=== PATIENT | male | born 1930 | race Caucasian/White ===

== ENCOUNTER 2016-12-02 03:38 | Observation (INO) | payer MEDICARE ==
[~2016-12-02] VITALS: Ht 167.6 cm; Wt 75.4 kg
[2016-12-02] VITALS (16 sets, daily range): BP systolic 98–174; BP diastolic 77–96
[~2016-12-02 03:38] MED LIST: AML5T PO; AMLO10TA PO; AMLO10TA5; ASP81TEC PO; AZTH250C PO; CCLB10TRX; CENTRUM; CLPD75T PO; CPR500T PO; CYCL10TA45; DCS100C PO; EZET10TA5 PO; FENO48TA2 PO; FESO4TAB PO; GLUCO/CHON; KCL20TCR PO; LACT10SO33 PO; MTP25TSR PO; MULT-1029 PO; NFR150C PO; NTR.4SL SL; OXYC-272 PO; POLY17PO23 PO
[2016-12-02] MEDS ORDERED: NS IV 1000 ML 1,000 ML IV ONE (03:46)
[2016-12-02 04:02] LABS: BASOPHILS % (AUTO) 0 % (0-10); EOSINOPHILS # (AUTO) 0.2 10^3/uL (0.0-0.3); EOSINOPHILS % (AUTO) 3 % (0-10); LYMPHOCYTES # (AUTO) 0.8 X 10^3 (1.0-4.0); LYMPHOCYTES % (AUTO) 13 % (12-44); MEAN CORPUSCULAR HEMOGLOBIN 31 PG (25-34); MEAN CORPUSCULAR HGB CONC 34 G/DL (32-36); MEAN CORPUSCULAR VOLUME 91 FL (80-99); MEAN PLATELET VOLUME 11.2 FL (7.4-10.4); MONOCYTES # (AUTO) 0.9 X 10^3 (0.0-1.0); MONOCYTES % (AUTO) 15 % (0-12); NEUTROPHILS # (AUTO) 4.2 X 10^3 (1.8-7.8); NEUTROPHILS % (AUTO) 68 % (42-75); PLATELET COUNT 230 10^3/uL (130-400); RED BLOOD COUNT 4.38 10^6/uL (4.35-5.85); RED CELL DISTRIBUTION WIDTH 13.4 % (10.0-14.5); WHITE BLOOD COUNT 6.2 10^3/uL (4.3-11.0)
[2016-12-02 04:10] LABS: BILIRUBIN,URINE NEGATIVE (NEGATIVE); KETONES,URINE NEGATIVE (NEGATIVE); LEUKOCYTE ESTERASE ,URINE NEGATIVE (NEGATIVE); NITRITE,URINE NEGATIVE (NEGATIVE); PH,URINE 8 (5-9); PROTEIN,URINE NEGATIVE (NEGATIVE); UROBILINOGEN,URINE NORMAL (NORMAL)
[2016-12-02 04:18] LABS: SQUAMOUS EPITHELIAL CELL,UR RARE /HPF
[2016-12-02 04:23] LABS: ALANINE AMINOTRANSFERASE 11 U/L (0-55); ANION GAP 14 MMOL/L (5-14); ASPARTATE AMINO TRANSFERASE 19 U/L (5-34); BILIRUBIN,TOTAL 0.5 MG/DL (0.1-1.0); BLOOD UREA NITROGEN 31 MG/DL (7-18); BUN/CREATININE RATIO 18; CALCIUM 9.6 MG/DL (8.5-10.1); CARBON DIOXIDE 18 MMOL/L (21-32); CHLORIDE 108 MMOL/L (98-107); CREATININE SERUM 1.74 MG/DL (0.60-1.30); GFR ESTIMATED 37; GLUCOSE 141 MG/DL (70-105); MAGNESIUM 2.2 MG/DL (1.8-2.4); POTASSIUM 3.6 MMOL/L (3.6-5.0); SODIUM 140 MMOL/L (135-145); TOTAL PROTEIN 7.2 G/DL (6.4-8.2)
--- NOTE | 2016-12-02 04:28 | ED General ---
General Chief Complaint: Respiratory Problems Stated Complaint: SOA Nursing Triage Note: PT TO ED 8 PER EMS FOR C/O "POSSIBLE CARBON MONOXIDE POISONING." PT CALLED EMS ET FIRE TO HIS HOME HE WOKE FROM SLEEP, WAS DIZZY, FELL ET WAS ALSO C/O SOB. STATES HE THINKS HIS CAT "PUT A ROCK OVER HIS EXHAUST ET THINKS TOO MUCH CARBON MONOXIDE WAS IN HIS HOUSE ET POISONING HIM." PT APPEARS VERY ANXIOUS, UNABLE TO FOCUS ET ANSWER QUESTIONS ASKED BY STAFF. NO OTHER C/O VOICED AT THIS TIME. Nursing Sepsis Screen: No Definite Risk Source of Information: Patient, EMS, Old Records Exam Limitations: Other (Patient is confused) History of Present Illness Time Seen by Provider: 03:39 Allergies and Home Medications Allergies Coded Allergies: Penicillins (Verified Allergy, Unknown, 02/15/12) Home Medications Amlodipine Besylate 10 Mg Tablet, 10 MG PO DAILY, (Reported) Aspirin 81 Mg Tabec, 81 MG PO DAILY, (Reported) Clopidogrel Bisulfate 75 Mg Tab, 75 MG PO DAILY, (Reported) Ezetimibe 10 Mg Tablet, 10 MG PO DAILY, (Reported) Fenofibrate,Micronized 48 Mg Tablet, 48 MG PO DAILY, (Reported) Fesoterodine Fumarate 4 Mg Tab.sr.24h, 4 MG PO DAILY, (Reported) Metoprolol Succinate 25 Mg Tab, 25 MG PO DAILY, (Reported) Mu-Vits-Min Th/Lycopene/Lutein 1 Each Tablet, 1 EACH PO DAILY, (Reported) Oxycodone Hcl/Acetaminophen 1 Tab Tablet, 1 TAB PO Q4H PRN for PAIN, #60 Prescribed by: LUIS VALENCIA on 11/19/13 1100 Polysaccharide Iron Complex 150 Mg Cap, 150 MG PO BID WITH MEALS, #60 Prescribed by: LUIS VALENCIA on 11/19/13 1100 Past Swxfrcy-Gjtzeu-Xjlqry Hx Patient Social History Alcohol Use: Denies Use Recreational Drug Use: No Smoking Status: Never a Smoker Recent Foreign Travel: No Contact w/Someone Who Travel: No Recent Infectious Disease Expo: No Recent Hopitalizations: Yes Immunizations Up To Date Tetanus Booster (TDap): Unknown Date of Pneumonia Vaccine: Jun 01, 2011 Date of Influenza Vaccine: Jun 01, 2013 Surgeries HX Surgeries: Yes (STENTS X 2, ENDARTECTOMY, BRACHYTHERAPY, ) Surgeries: CABG Respiratory Hx Respiratory Disorders: No Cardiovascular Hx Cardiac Disorders: Yes (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 ) Neurological Hx Neurological Disorders: No Reproductive System Hx Reproductive Disorders: No Genitourinary Hx Genitourinary Disorders: Yes (BRACHYAL THERAPY 08/03/08) Gastrointestinal Hx Gastrointestinal Disorders: Yes Musculoskeletal Hx Musculoskeletal Disorders: Yes (ARTHRITIS) Endocrine Hx Endocrine Disorders: No HEENT HX ENT Disorders: Yes (GLASSES) Cancer Hx Cancer: Yes Cancer: Prostate Psychosocial Hx Psychiatric Problems: Yes Behavioral Health Disorders: Depression Integumentary HX Skin/Integumentary Disorder: No Blood Transfusions Hx Blood Disorders: No (TAKES PLAVIX) Family Medical History Family Medial History: Cancer 09 SISTER Family history: Arthritis 03 FATHER 03 MOTHER Family history: Diabetes mellitus 03 MOTHER Family history: Gastrointestinal disease 03 FATHER History of - anemia 03 FATHER No Family History of: Abdominal aortic aneurysm Congestive heart failure Dementia Family history: Alzheimer's disease Family history: Asthma Family history: Breast disease Family history: Cardiovascular disease Family history: Hypertension Family history: Thyroid disorder Hereditary disease History of - respiratory disease Myocardial infarction Parkinson's disease Psychotic disorder Stroke Physical Exam Vital Signs Vital Sign - Last 12Hours 12/02/16 03:38 Temp 97.8 Pulse 78 Resp 24 B/P (MAP) 179/99 Pulse Ox 100 O2 Delivery Room Air Capillary Refill : Less Than 3 Seconds Progress/Results/Core Measures Results/Orders Lab Results Laboratory Tests Test 12/02/16 03:55 12/02/16 04:05 Range/Units White Blood Count 6.2 4.3-11.0 10^3/uL Red Blood Count 4.38 4.35-5.85 10^6/uL Hemoglobin 13.7 13.3-17.7 G/DL Hematocrit 40 40-54 % Mean Corpuscular Volume 91 80-99 FL Mean Corpuscular Hemoglobin 31 25-34 PG Mean Corpuscular Hemoglobin Concent 34 32-36 G/DL Red Cell Distribution Width 13.4 10.0-14.5 % Platelet Count 230 130-400 10^3/uL Mean Platelet Volume 11.2 H 7.4-10.4 FL Neutrophils (%) (Auto) 68 42-75 % Lymphocytes (%) (Auto) 13 12-44 % Monocytes (%) (Auto) 15 H 0-12 % Eosinophils (%) (Auto) 3 0-10 % Basophils (%) (Auto) 0 0-10 % Neutrophils # (Auto) 4.2 1.8-7.8 X 10^3 Lymphocytes # (Auto) 0.8 L 1.0-4.0 X 10^3 Monocytes # (Auto) 0.9 0.0-1.0 X 10^3 Eosinophils # (Auto) 0.2 0.0-0.3 10^3/uL Basophils # (Auto) 0.0 0.0-0.1 10^3/uL Prothrombin Time 13.0 12.2-14.7 SEC INR Comment 1.0 0.8-1.4 Activated Partial Thromboplast Time 20 L 24-35 SEC Sodium Level 140 135-145 MMOL/L Potassium Level 3.6 3.6-5.0 MMOL/L Chloride Level 108 H 98-107 MMOL/L Carbon Dioxide Level 18 L 21-32 MMOL/L Anion Gap 14 5-14 MMOL/L Blood Urea Nitrogen 31 H 7-18 MG/DL Creatinine 1.74 H 0.60-1.30 MG/DL Estimat Glomerular Filtration Rate 37 BUN/Creatinine Ratio 18 Glucose Level 141 H 70-105 MG/DL Calcium Level 9.6 8.5-10.1 MG/DL Magnesium Level 2.2 1.8-2.4 MG/DL Total Bilirubin 0.5 0.1-1.0 MG/DL Aspartate Amino Transf (AST/SGOT) 19 5-34 U/L Alanine Aminotransferase (ALT/SGPT) 11 0-55 U/L Alkaline Phosphatase 71 40-136 U/L Myoglobin 106.8 H 10.0-92.0 NG/ML Troponin I < 0.30 <0.30 NG/ML Total Protein 7.2 6.4-8.2 G/DL Albumin 4.0 3.2-4.5 G/DL Serum Alcohol < 10 <10 MG/DL Urine Color YELLOW Urine Clarity CLEAR Urine pH 8 5-9 Urine Specific [place] 1.010 L 1.016-1.022 Urine Protein NEGATIVE NEGATIVE Urine Glucose (UA) NEGATIVE NEGATIVE Urine Ketones NEGATIVE NEGATIVE Urine Nitrite NEGATIVE NEGATIVE Urine Bilirubin NEGATIVE NEGATIVE Urine Urobilinogen NORMAL NORMAL MG/DL Urine Leukocyte Esterase NEGATIVE NEGATIVE Urine RBC (Auto) NEGATIVE NEGATIVE Urine RBC NONE /HPF Urine WBC NONE /HPF Urine Squamous Epithelial Cells RARE /HPF Urine Crystals NONE /LPF Urine Bacteria TRACE /HPF Urine Casts NONE /LPF Urine Mucus NEGATIVE /LPF Urine Culture Indicated NO My Orders Orders - BRUEGGEMANN,ANJALI T MD Cbc With Automated Diff (12/02/16 03:46) Magnesium (12/02/16 03:46) Chest 1 View, Ap/Pa Only (12/02/16 03:46) Ekg Tracing (12/02/16 03:46) Cardiac Profile 1 (12/02/16 03:46) Comprehensive Metabolic Panel (12/02/16 03:46) Myoglobin Serum (12/02/16 03:46) Protime With Inr (12/02/16 03:46) Partial Thromboplastin Time (12/02/16 03:46) O2 (12/02/16 03:46) Monitor-Rhythm Ecg Trace Only (12/02/16 03:46) Lipid Panel (12/03/16 06:00) Saline Lock/Iv-Start (12/02/16 03:46) Ct Head/Cervical Spine Wo (12/02/16 03:46) Alcohol (12/02/16 03:46) Ns Iv 1000 Ml (Sodium Chloride 0.9%) (12/02/16 03:46) Ua Culture If Indicated (12/02/16 03:46) Medications Given in ED Current Medications Medications Dose Ordered Sig/Tamera Route Start Time Stop Time Status Last Admin Dose Admin Sodium Chloride 1,000 ml @ 0 mls/hr Q0M ONCE IV 12/02/16 03:46 12/02/16 03:49 DC 12/02/16 03:57 0 MLS/HR Vital Signs/I&O Vital Sign - Last 12Hours 12/02/16 03:38 Temp 97.8 Pulse 78 Resp 24 B/P (MAP) 179/99 Pulse Ox 100 O2 Delivery Room Air Blood Pressure Mean: 125 ECG Initial ECG Impression Date: Dec 02, 2016 Initial ECG Impression Time: 03:48 Initial ECG Rate: 75 Comment Sinus rhythm with no ST elevation or depression. No abnormal intervals or axis deviation. LVH noted. EKG : EKG Time: 05:44 Rate: 75 Rhythm: Normal Sinus Comment Sinus rhythm with no ST elevation or depression. LVH with secondary repolarization. Right bundle branch block. Diagnostic Imaging Diagonstic Imaging: CT Plain Films/CT/US/NM/MRI: c-spine, head Comments CT head and C-spine viewed by me and stat rad report reviewed. No acute abnormalities identified. Diagonstic Imaging: Xray Plain Films/CT/US/NM/MRI: chest Comments Chest x-ray viewed by me and report not yet available. No acute abnormalities appreciated. Departure Communication Time/Spoke to Admitting Phy: 05:55 Communication Case reviewed with Dr. Blum. He agrees patient should be admitted to the ICU under close observation. He requests Dr. Patterson be consulted. Time/Spoke to Consulting Physi: 06:00 Communication/Consulting Dr. Patterson has been consulted. He requests no further orders at this time. Impression Impression: Primary Impression: Syncope Qualified Codes: R55 - Syncope and collapse Additional Impressions: Dyspnea Qualified Codes: R06.00 - Dyspnea, unspecified Dizziness Disposition: ADMITTED INPATIENT Condition: Improved Departure-Patient Inst. Referrals: JUAREZ RIVAS MD (PCP/Family) Primary Care Physician ANJALI HE MD Dec 02, 2016 04:28
[2016-12-02 04:30] LABS: MYOGLOBIN SERUM 106.8 NG/ML (10.0-92.0)
--- NOTE | 2016-12-02 07:01 | Pulmonary Consultation ---
History of Present Illness History of Present Illness Date of Consultation 12/02/16 06:56 Date of Admission History of Present Illness 86yo presented to ED via EMS s/p syncope, dizziness, and persistent/worsening SOB. Pt had another syncopal event in ED without any change in EKG. I am consulted for ICU management. Allergies and Home Medications Allergies Coded Allergies: Penicillins (Verified Allergy, Unknown, 02/15/12) Home Medications Amlodipine Besylate 10 Mg Tablet, 10 MG PO DAILY, (Reported) Aspirin 81 Mg Tabec, 81 MG PO DAILY, (Reported) Clopidogrel Bisulfate 75 Mg Tab, 75 MG PO DAILY, (Reported) Ezetimibe 10 Mg Tablet, 10 MG PO DAILY, (Reported) Fenofibrate,Micronized 48 Mg Tablet, 48 MG PO DAILY, (Reported) Fesoterodine Fumarate 4 Mg Tab.sr.24h, 4 MG PO DAILY, (Reported) Metoprolol Succinate 25 Mg Tab, 25 MG PO DAILY, (Reported) Mu-Vits-Min Th/Lycopene/Lutein 1 Each Tablet, 1 EACH PO DAILY, (Reported) Oxycodone Hcl/Acetaminophen 1 Tab Tablet, 1 TAB PO Q4H PRN for PAIN, #60 Prescribed by: LUIS VALENCIA on 11/19/13 1100 Polysaccharide Iron Complex 150 Mg Cap, 150 MG PO BID WITH MEALS, #60 Prescribed by: LUIS VALENCIA on 11/19/13 1100 Past Csbqtve-Ztsfcf-Uglkmx Hx Patient Social History Alcohol Use: Denies Use Recreational Drug Use: No Smoking Status: Never a Smoker Recent Foreign Travel: No Contact w/Someone Who Travel: No Recent Infectious Disease Expo: No Recent Hopitalizations: Yes Immunizations Up To Date Tetanus Booster (TDap): Unknown Date of Pneumonia Vaccine: Jun 01, 2011 Date of Influenza Vaccine: Jun 01, 2013 Surgeries HX Surgeries: Yes (STENTS X 2, ENDARTECTOMY, BRACHYTHERAPY, ) Surgeries: CABG Respiratory Hx Respiratory Disorders: No Cardiovascular Hx Cardiac Disorders: Yes (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 ) Neurological Hx Neurological Disorders: No Reproductive System Hx Reproductive Disorders: No Genitourinary Hx Genitourinary Disorders: Yes (BRACHYAL THERAPY 08/03/08) Gastrointestinal Hx Gastrointestinal Disorders: Yes Musculoskeletal Hx Musculoskeletal Disorders: Yes (ARTHRITIS) Endocrine Hx Endocrine Disorders: No HEENT HX ENT Disorders: Yes (GLASSES) Cancer Hx Cancer: Yes Cancer: Prostate Psychosocial Hx Psychiatric Problems: Yes Behavioral Health Disorders: Depression Integumentary HX Skin/Integumentary Disorder: No Blood Transfusions Hx Blood Disorders: No (TAKES PLAVIX) Family Medical History Family Medial History: Cancer 09 SISTER Family history: Arthritis 03 FATHER 03 MOTHER Family history: Diabetes mellitus 03 MOTHER Family history: Gastrointestinal disease 03 FATHER History of - anemia 03 FATHER No Family History of: Abdominal aortic aneurysm Congestive heart failure Dementia Family history: Alzheimer's disease Family history: Asthma Family history: Breast disease Family history: Cardiovascular disease Family history: Hypertension Family history: Thyroid disorder Hereditary disease History of - respiratory disease Myocardial infarction Parkinson's disease Psychotic disorder Stroke Exam Exam Vital Signs Date Time Temp Pulse Resp B/P (MAP) Pulse Ox O2 Delivery O2 Flow Rate FiO2 12/02/16 06:48 71 18 97 12/02/16 03:38 97.8 78 24 179/99 100 Room Air I & O 12/02/16 07:00 Intake Total 1000 ml Balance 1000 ml Capillary Refill: Less Than 3 Seconds Results Lab Laboratory Tests 12/02/16 03:55 Assessment/Plan Assessment/Plan Syncope -ICU monitoring -Troponin x 3 -Check ABG with carboxyhemoglobin -Check UDS hx of mental issues renal failure BLADIMIR VIRK DO Dec 02, 2016 07:01
--- NOTE | 2016-12-02 07:23 | Diagnostic Imaging Report ---
INDICATION: Carbon monoxide poisoning. Confusion, dizziness. TECHNIQUE: Single view chest 4:24 AM. CORRELATION STUDY: 10/26/2013 FINDINGS: Patient's poststernotomy and coronary artery bypass along with cardiac valve surgery. Heart size is mildly enlarged slightly increased from prior study. Vasculature, however, is within normal limits. Lung anaya with senescent type change. No infiltrate. IMPRESSION: 1. Postoperative changes. Cardiac enlargement with slightly increased from prior study without evidence for overt failure, otherwise acute findings of the chest. Dictated by: Dictated on workstation # [id number]
--- NOTE | 2016-12-02 07:28 | Diagnostic Imaging Report ---
PROCEDURE: CT head and CT cervical spine without contrast. TECHNIQUE: Multiple contiguous axial images were obtained through the brain and cervical spine without the use of intravenous contrast. Sagittal and coronal reformations through the cervical spine were then performed. INDICATION: Possible carbon monoxide poisoning. Dizziness. Shortness of breath. CORRELATION STUDY: CT head 10/19/2008 FINDINGS: CT HEAD: Generalized atrophic changes with prominence of the ventricles and sulci. Scattered areas of decreased attenuation likely owing to chronic small vessel ischemic disease. No definitive evidence for edema. No intracranial hemorrhage. Mild intracranial vascular calcification present. Bony calvarium intact. Paranasal sinuses clear. CT CERVICAL SPINE: Reformatted images demonstrate relatively normal alignment. Cervical vertebral body heights generally maintained without evidence for acute compression deformity. No acute bony abnormality. Multilevel cervical spondylosis with mild disc space narrowing and endplate osteophyte formation. This is most pronounced at the C3-C4 and C6-C7 levels with osseous encroachment and narrowing of the neuroforamina. Asymmetric areas of hypertrophic facet arthropathy present. Odontoid intact. Paraspinal soft tissues unremarkable. There is presence of a left internal carotid artery stent. IMPRESSION: CT HEAD: 1. Negative for acute intracranial abnormality. 2. Chronic involutional changes present. CT CERVICAL SPINE: 1. Negative for acute bony abnormality about the cervical spine. 2. Diffuse cervical spondylosis most pronounced at C3-C4 and C6-C7 levels with areas of narrowing of the neural foramina and mild spinal canal narrowing. Dictated by: Dictated on workstation # [id number]
[2016-12-02] MEDS ORDERED: ONDANSETRON 4 MG/2 ML (SDV) Z0FRAN IV PRN (07:30)
[2016-12-02] MEDS: NS IV 1000 ML 1,000 ML IV SCH ×2 (08:00→18:27)
[2016-12-02 09:28] LABS: ABG BASE EXCESS -5.1 MMOL/L (-2.5-2.5); ABG HCO3 18 MMOL/L (23-27); ABG OXYGEN SATURATION 99 % (94-100); ABG PCO2 28 MMHG (35-45); ABG PH 7.43 (7.37-7.43); ABG PO2 108 MMHG (79-93); ABG TCO2 19.3 MMOL/L (21.0-31.0)
[2016-12-02 09:29] LABS: ALLENS TEST POSITIVE
[2016-12-02 09:30] LABS: PATIENT TEMP 98.4
[2016-12-02] MEDS ORDERED: NF-SOLIF5T PO (11:25)
[2016-12-02] MEDS ORDERED: TAMS0.4C2 PO (11:25)
--- NOTE | 2016-12-02 11:35 | History & Physical-Hospitalist ---
HPI History of Present Illness: HPI/Chief Complaint CC: Shortness of breath and carbon monoxide poisoning? HPI: This is a 86yoWM pt of Dr. Lopes that presented to the ER from EMS due to possible carbon monoxide poisoning. He called to his home complaining of SOB thought his cat put a rock over his gas pipe and was poisoning him. Chart Review: CBC normal, Creat 1.74, Troponin negative, UA negative Patient Interview: Pt states he sees Dr. Lopes and Dr. Galeas every 6 months. Pt denies smoking and drinking ETOH. 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 Physical exam was stable. Pt states his 10 years ago and his 3 children live around town. Pt states he is doing much better than when he was admitted. Pt states he had some mental issues as well. Scribed by Rusty Rizzo under the direct supervision of Dr. Henning. 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[employer]) Alcohol Use: Denies Use Recreational Drug Use: No Smoking Status: Never a Smoker Physical Abuse Screen: No Sexual Abuse: No Recent Foreign Travel: No Contact w/other who traveled: No Recent Hopitalizations: Yes Recent Infectious Disease Expo: No Immunizations Up To Date Tetanus Booster (TDap): Unknown Date of Pneumonia Vaccine: Jun 01, 2011 Date of Influenza Vaccine: Jun 01, 2013 Seasonal Allergies Seasonal Allergies: No Surgeries HX Surgeries: Yes (STENTS X 2, ENDARTECTOMY, BRACHYTHERAPY, ) Surgeries: CABG Respiratory Hx Respiratory Disorders: No Cardiovascular Hx Cardiovascular Disorders: Yes (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 ) Cardiac Disorders: Coronary Artery Disease Neurological Hx Neurological Disorders: No Reproductive System Hx Reproductive Disorders: No Genitourinary Hx Genitourinary Disorders: Yes (BRACHYAL THERAPY 08/03/08) Genitourinary Disorders: Prostate Problems Gastrointestinal Hx Gastrointestinal Disorders: Yes Gastrointestinal Disorders: Gastroesophageal Reflux Musculoskeletal Hx Musculoskeletal Disorders: Yes (ARTHRITIS) Endocrine Hx Endocrine Disorders: No HEENT HX ENT Disorders: Yes (GLASSES) Cancer Hx Cancer: Yes Cancer: Prostate Psychosocial Hx Psychiatric Problems: Yes Behavioral Health Disorders: Depression Integumentary HX Skin/Integumentary Disorder: No Blood Transfusions Hx Blood Disorders: No (TAKES PLAVIX) Family Medical History Family Hx: Cancer 09 SISTER Family history: Arthritis 03 FATHER 03 MOTHER Family history: Diabetes mellitus 03 MOTHER Family history: Gastrointestinal disease 03 FATHER History of - anemia 03 FATHER No Family History of: Abdominal aortic aneurysm Congestive heart failure Dementia Family history: Alzheimer's disease Family history: Asthma Family history: Breast disease Family history: Cardiovascular disease Family history: Hypertension Family history: Thyroid disorder Hereditary disease History of - respiratory disease Myocardial infarction Parkinson's disease Psychotic disorder Stroke Review of Systems Constitutional: see HPI, malaise, weakness EENTM: no symptoms reported Respiratory: cough Cardiovascular: no symptoms reported Gastrointestinal: no symptoms reported Genitourinary: no symptoms reported Musculoskeletal: no symptoms reported Skin: no symptoms reported Psychiatric/Neurological: No Symptoms Reported All Other Systems Reviewed Negative Unless Noted: Yes Physical Exam Physical Exam Vital Signs Vital Sign - Last 12Hours 12/02/16 03:38 Temp 97.8 Pulse 78 Resp 24 B/P (MAP) 179/99 Pulse Ox 100 O2 Delivery Room Air Capillary Refill : Less Than 3 Seconds General Appearance: No Apparent Distress, WD/WN, Chronically ill Eyes: Bilateral Eye Normal Inspection, Bilateral Eye PERRL HEENT: PERRL/EOMI, Normal ENT Inspection, Pharynx Normal Neck: Full Range of Motion, Normal Inspection, Non Tender, Supple, Carotid Bruit Respiratory: Chest Non Tender, Lungs Clear, Normal Breath Sounds, No Accessory Muscle Use, No Respiratory Distress Cardiovascular: Regular Rate, Rhythm, No Edema, No Gallop, No JVD, No Murmur, Normal Peripheral Pulses Gastrointestinal: Normal Bowel Sounds, No Organomegaly, No Pulsatile Mass, Non Tender, Soft Back: Normal Inspection, No CVA Tenderness, No Vertebral Tenderness Extremity: Normal Capillary Refill, Normal Inspection, Normal Range of Motion, Non Tender, No Calf Tenderness, No Pedal Edema Neurologic/Psychiatric: Alert, Oriented x3, No Motor/Sensory Deficits, Normal Mood/Affect Skin: Normal Color, Warm/Dry Lymphatic: No Adenopathy Results Results/Procedures Lab Laboratory Tests 12/02/16 03:55 Assessment/Plan Admission Diagnosis Assessment: Shortness of breath with negative workup and he claims CAD placed rock over exhaust pipe and carbon monoxide within his house unable to confirm but all workup negative CAD Valvular heart disease Chronic renal insufficiency Hypertension Cognitive decline? Assessment and Plan Plan Evaluate cognitive ability Workup thus negative Discharge planning Unsure of what next step will be for this patient Clinical Quality Measures DVT/VTE Risk/Contraindication: Risk Factor Score Per Nursin RFS Level Per Nursing on Admit: 2=Moderate TALON HENNING DO Dec 02, 2016 11:35
--- NOTE | 2016-12-02 13:26 | Consultation-Cardiology ---
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 He presented to the hospital for the complaints of possible carbon monoxide poisoning. He denied any shortness of breath or chest pain. In the ER he had an episode of possible cardiac arrest. No CPR was done since the patient recovered within 5-10 seconds. Telemetry strip shows either artifact with one ventricular beat which may suggest significant bradycardia. It is unclear whether the patient had pulse or not during that 5-10 seconds. He has history of CABG. He does not follow any reinsurance clerk regularly. On my interview the patient denies any significant chest pain or shortness of breath. However he occasionally has some chest discomfort. Review of Systems-Cardiology Review of Systems Constitutional: No As described under HPI, No no symptoms reported, No chills, No fever, No lightheadedness, No malaise, No tiredness, No weight loss, No weight gain, No other Eyes: No As described under HPI, No no symptoms reported, No blindness, No blurred vision, No contact lenses, No drainage, No decreased acuity, No foreign body sensation, No glasses, No inflammation, No pain, No photophobia, No previous injury, No shadows, No tunnel vision, No other, No vision change Ears/Nose/Throat: No As described under HPI, No no symptoms reported, No chronic hearing loss, No epistaxis, No ear discharge, No ear pain, No loose teeth, No mouth pain, No mouth swelling, No nasal drainage, No nose pain, No recent hearing loss, No throat pain, No throat swelling, No ulcerations, No other Respiratory: No no symptoms reported, No As described under HPI, No cough, No orthopnea, No shortness of breath, No SOB with excertion, No SOB at rest, No stridor, No wheezing, No other Cardiovascular: As described under HPI Gastrointestinal: No no symptoms reported, No As described under HPI, No abdomen distended, No abdominal pain, No blood streaked bowels, No constipation , No diarrhea, No difficulty swallowing, No nausea, No poor appetite, No poor fluid intake, No rectal bleeding, No vomiting, No other, No nausea/vomiting/ diarrhea, No stool coloration changes Genitourinary: No no symptoms reported, No As described under HPI, No burning, No dysuria, No discharge, No frequency, No flank pain, No hematuria, No incontinence, No pain, No urgency, No other, No urine frequency changes, No urine coloration changes Musculoskeletal: No no symptoms reported, No As describe under HPI, No back pain, No gout, No joint pain, No joint swelling, No muscle pain, No muscle stiffness, No neck pain, No other Skin: No no symptoms reported, No As described under HPI, No change in color, No change in hair/nails, No dryness, No lesions, No lumps, No rash, No other, No skin related problems, No ulcerations, No rash on exposed areas, No ulcerations on exposed areas Psychiatric/Neurological: As described under HPI Hematologic: No no symptoms reported, No As described under HPI, No anemia, No blood clots, No easy bleeding, No easy bruising, No swollen glands, No other, No bleeding abnormalities All Other Systems Reviewed Negative Unless Noted: Yes TOV-Ezsdpa-Gechzu Hx Patient Social History Marrital Status: (17 yrs ago) 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 Family Medical History Family History: Cancer 09 SISTER Family history: Arthritis 03 FATHER 03 MOTHER Family history: Diabetes mellitus 03 MOTHER Family history: Gastrointestinal disease 03 FATHER History of - anemia 03 FATHER No Family History of: Abdominal aortic aneurysm Congestive heart failure Dementia Family history: Alzheimer's disease Family history: Asthma Family history: Breast disease Family history: Cardiovascular disease Family history: Hypertension Family history: Thyroid disorder Hereditary disease History of - respiratory disease Myocardial infarction Parkinson's disease Psychotic disorder Stroke Allergies and Home Medications Allergies Coded Allergies: Penicillins (Verified Allergy, Unknown, 02/15/12) Home Medications Amlodipine Besylate 10 Mg Tablet, 10 MG PO DAILY, (Reported) Aspirin 81 Mg Tabec, 81 MG PO DAILY, (Reported) Clopidogrel Bisulfate 75 Mg Tab, 75 MG PO DAILY, (Reported) Ezetimibe 10 Mg Tablet, 10 MG PO DAILY, (Reported) Fenofibrate,Micronized 48 Mg Tablet, 48 MG PO DAILY, (Reported) Metoprolol Succinate 25 Mg Tab, 12.5 MG PO DAILY, (Reported) TAKES 1/2 OF A (25 MG) TABLET / LAST FILLED 09/24/16 #30 Mu-Vits-Min Th/Lycopene/Lutein 1 Each Tablet, 1 TAB PO DAILY, (Reported) Solifenacin Succinate 5 Mg Tablet, 5 MG PO DAILY, (Reported) Tamsulosin HCl 0.4 Mg Cap.er.24h, 0.4 MG PO HS, (Reported) Physical Exam-Cardiology Physical Exam Vital Signs/I&O Vital Sign - Last 12Hours 12/02/16 12/02/16 12/02/16 12/02/16 03:38 06:48 08:20 11:00 Temp 97.8 98.4 97.6 Pulse 78 71 Resp 24 18 B/P (MAP) 179/99 Pulse Ox 100 97 O2 Delivery Room Air Room Air Room Air Capillary Refill : Less Than 3 Seconds Constitutional: No appears stated age, No AAO x 3, No apparent distress, No PERRL, No well-developed, No well-nourished, No other HEENT: No PERRL, No normal ENT inspection, No TMs normal, No pharynx normal, No scleral icterus (R), No scleral icterus (L), No pale conjunctivae (R), No pale conjunctivae (L), No photophobia, No TM abnormal (R), No TM abnormal (L), No pharyngeal erythema, No tonsillar exudate, No other, No discharge, No EOMI, No hearing is well preserved, No hard of hearing, No oral hygience is good, No ulceration, No xanthelasmas are seen Neck: No non-tender, No full range of motion, No supple, No normal inspection, No carotid bruit, No limited range of motion, No lymphadenopathy (R), No lymphadenopathy (L), No tender lateral, No tender midline, No thyromegaly, No other, No carotid pulses are 2 + bilaterally, No with good upstrokes Respiratory: No accessory muscle use, No respiratory distress, No chest tender , No chest expansion is symmetric, No chest is bilaterally symmetric, No lungs clear to percussion, No lungs clear to auscultation, No crackles, No rhonchi, No rales, No stridor, No wheezing, No pleural rub, No other Cardiovascular: No regular rate-rhythm, No irregularly irregular, No extra beats, No parasternal heave is noted, No JVD, No edema, No bradycardia, No tachycardia, No point of maximal impulse, No cardiac thrills are palpable, No S1 and S2, No gallop/S3, No gallop/S4, No diastolic murmur, No systolic murmur, No friction rub, No click, No other Gastrointestinal: No tender, No soft, No round, No distended, No pulsatile mass , No organomegaly, No guarding, No rebound, No tenderness, No hernia, No mass, No audible bowel sounds, No abnormal bowel sounds, No abdominal bruits, No spleenomegaly, No other Rectal: deferred Extremities: No normal range of motion, No non-tender, No normal inspection, No pedal edema, No calf tenderness, No normal capillary refill, No pelvis stable , No calf tenderness, No inflammation, No pedal edema, No slow capillary refill , No swelling, No other, No abrasion, No clubbing, No cyanosis, No ecchymosis, No laceration, No no lower extremity edema bilateral, No significant edema, No tenderness, No wound Neurologic/Psychiatric: No medical records secretary II-XII nml as tested, No no motor/sensory deficits, No alert, No normal mood/affect, No oriented x 3, No abnormal cerebellar tests, No abnormal medical records secretary II-XII, No abnormal gait, No aphasia, No EOM palsy, No facial droop, No motor weakness, No sensory deficit, No depressed affect, No disoriented x 3, No other, No grossly intact, No power is 5/5 both on sides Skin: No normal color, No warm/dry, No cyanosis, No cool, No diaphoresis, No damp, No ecchymosis, No jaundice, No mottled, No pallor, No rash, No tattoos/ piercings, No ulcerations, No rash on exposed areas, No ulcerations on exposed areas, No other Data Review Labs Laboratory Tests 12/02/16 03:55: White Blood Count 6.2, Red Blood Count 4.38, Hemoglobin 13.7, Hematocrit 40, Mean Corpuscular Volume 91, Mean Corpuscular Hemoglobin 31, Mean Corpuscular Hemoglobin Concent 34, Red Cell Distribution Width 13.4, Platelet Count 230, Mean Platelet Volume 11.2H, Neutrophils (%) (Auto) 68, Lymphocytes (%) (Auto) 13 , Monocytes (%) (Auto) 15H, Eosinophils (%) (Auto) 3, Basophils (%) (Auto) 0, Neutrophils # (Auto) 4.2, Lymphocytes # (Auto) 0.8L, Monocytes # (Auto) 0.9, Eosinophils # (Auto) 0.2, Basophils # (Auto) 0.0, Prothrombin Time 13.0, INR Comment 1.0, Activated Partial Thromboplast Time 20L, Sodium Level 140, Potassium Level 3.6, Chloride Level 108H, Carbon Dioxide Level 18L, Anion Gap 14 , Blood Urea Nitrogen 31H, Creatinine 1.74H, Estimat Glomerular Filtration Rate 37, BUN/Creatinine Ratio 18, Glucose Level 141H, Calcium Level 9.6, Magnesium Level 2.2, Total Bilirubin 0.5, Aspartate Amino Transf (AST/SGOT) 19, Alanine Aminotransferase (ALT/SGPT) 11, Alkaline Phosphatase 71, Myoglobin 106.8H, Troponin I < 0.30, Total Protein 7.2, Albumin 4.0, Serum Alcohol < 10 12/02/16 04:05: Urine Color YELLOW, Urine Clarity CLEAR, Urine pH 8, Urine Specific Talmo 1.010L, Urine Protein NEGATIVE, Urine Glucose (UA) NEGATIVE, Urine Ketones NEGATIVE, Urine Nitrite NEGATIVE, Urine Bilirubin NEGATIVE, Urine Urobilinogen NORMAL, Urine Leukocyte Esterase NEGATIVE, Urine RBC (Auto) NEGATIVE, Urine RBC NONE, Urine WBC NONE, Urine Squamous Epithelial Cells RARE, Urine Crystals NONE , Urine Bacteria TRACE, Urine Casts NONE, Urine Mucus NEGATIVE, Urine Culture Indicated NO, Urine Opiates Screen NEGATIVE, Urine Oxycodone Screen NEGATIVE, Urine Methadone Screen NEGATIVE, Urine Propoxyphene Screen NEGATIVE, Urine Barbiturates Screen NEGATIVE, Ur Tricyclic Antidepressants Screen NEGATIVE, Urine Phencyclidine Screen NEGATIVE, Urine Amphetamines Screen NEGATIVE, Urine Methamphetamines Screen NEGATIVE, Urine Benzodiazepines Screen NEGATIVE, Urine Cocaine Screen NEGATIVE, Urine Cannabinoids Screen NEGATIVE 12/02/16 07:56: Troponin I < 0.30 12/02/16 09:19: Blood Gas Puncture Site LEFT RADIAL, Blood Gas Patient Temperature 98.4, Arterial Blood pH 7.43, Arterial Blood Partial Pressure CO2 28L, Arterial Blood Partial Pressure O2 108H, Arterial Blood HCO3 18L, Arterial Blood Total CO2 19.3L, Arterial Blood Oxygen Saturation 99, Arterial Blood Base Excess -5.1L, Umesh Test POSITIVE, Carboxyhemoglobin 1.1, Blood Gas Ventilator Setting NO, Blood Gas Inspired Oxygen N/A 12/02/16 12:10: Troponin I < 0.30 ECG Impression ECG Initial ECG Rhythm: Normal Sinus A/P-Cardiology Assessment/Admission Diagnosis brief cardiac arrest, History of CABG Plan the sequence of events is unclear. However we do know that the patient was unresponsive for a few seconds. We do not know if the patient was pulseless or not. He recovered without the need for CPR. Telemetry shows significant artifact. However significant bradycardia or brief asystole cannot be ruled out. He has history of coronary artery disease, status post CABG in the past. He does not follow any reinsurance clerk. I believe it is reasonable to keep him admitted for telemetry and cardiac testing which should include echocardiogram and Lexiscan nuclear stress testing. The patient is full code. No further arrhythmias on telemetry after that episode. Acute coronary syndrome has been ruled out with negative serial troponins. Thank you for your consultation. Please call me if you have any questions. Chicho Patterson MD, FACP, FACC, FSCAI, FHRS, CCDS Interventional Cardiology Cardiac Electrophysiology Vascular Medicine and Endovascular Interventions Clinical Quality Measures DVT/VTE Risk/Contraindication: Risk Factor Score Per Nursin RFS Level Per Nursing on Admit: 2=Moderate Venessa PATTERSON MD Dec 02, 2016 1:26 pm
[2016-12-03] VITALS (14 sets, daily range): BP systolic 130–172; BP diastolic 61–112
[2016-12-03] MEDS: NS IV 1000 ML 1,000 ML IV SCH ×2 (04:34→13:30)
[2016-12-03 05:09] LABS: BASOPHILS % (AUTO) 0 % (0-10); EOSINOPHILS # (AUTO) 0.3 10^3/uL (0.0-0.3); EOSINOPHILS % (AUTO) 4 % (0-10); LYMPHOCYTES # (AUTO) 0.7 X 10^3 (1.0-4.0); LYMPHOCYTES % (AUTO) 10 % (12-44); MEAN CORPUSCULAR HEMOGLOBIN 32 PG (25-34); MEAN CORPUSCULAR HGB CONC 34 G/DL (32-36); MEAN CORPUSCULAR VOLUME 92 FL (80-99); MEAN PLATELET VOLUME 11.7 FL (7.4-10.4); MONOCYTES % (AUTO) 14 % (0-12); NEUTROPHILS # (AUTO) 5.1 X 10^3 (1.8-7.8); NEUTROPHILS % (AUTO) 72 % (42-75); PLATELET COUNT 213 10^3/uL (130-400); RED BLOOD COUNT 3.88 10^6/uL (4.35-5.85); RED CELL DISTRIBUTION WIDTH 13.5 % (10.0-14.5); WHITE BLOOD COUNT 7.1 10^3/uL (4.3-11.0)
[2016-12-03 05:29] LABS: CALCIUM 8.5 MG/DL (8.5-10.1); CREATININE SERUM 1.29 MG/DL (0.60-1.30); PHOSPHORUS 2.5 MG/DL (2.3-4.7); POTASSIUM 3.5 MMOL/L (3.6-5.0)
[2016-12-03 05:49] LABS: CHOLESTEROL 161 MG/DL (< 200); DIRECT LDL 105 MG/DL (1-129); TRIGLYCERIDES 127 MG/DL (<150); VLDL CHOLESTEROL 25 MG/DL (5-40)
[2016-12-03] MEDS ORDERED: KCL 20 MEQ TAB (K-DUR) PO SCH (06:00)
[2016-12-03] MEDS ORDERED: MAGNESIUM 1 GM/100 ML IVPB 100 ML IV SCH (06:00)
[2016-12-03] MEDS ORDERED: POTASSIUM CL 10MEQ/50ML IVPB 50 ML IV SCH (06:00)
[2016-12-03] MEDS ORDERED: KCL 20 MEQ TAB (K-DUR) PO ONE (06:30)
--- NOTE | 2016-12-03 07:57 | Pulmonary Progress Note ---
Subjective Subjective/Events-last exam No complications noted. Exam Exam Vital Signs Date Time Temp Pulse Resp B/P (MAP) Pulse Ox O2 Delivery O2 Flow Rate FiO2 12/03/16 06:00 67 14 162/90 96 Room Air 12/03/16 05:00 64 18 164/89 94 Room Air 12/03/16 04:25 98 12/03/16 04:25 98.8 61 18 146/66 98 Room Air 12/03/16 03:00 66 22 148/76 94 Room Air 12/03/16 02:00 63 16 134/77 93 Room Air 12/03/16 01:00 69 7 95 Room Air 12/03/16 01:00 66 12/03/16 00:05 95 12/03/16 00:00 98.6 71 20 154/72 95 Room Air 12/02/16 23:00 61 16 138/85 96 Room Air 12/02/16 22:00 62 28 150/77 95 Room Air 12/02/16 21:00 63 15 153/81 94 Room Air 12/02/16 20:00 95 12/02/16 20:00 60 10 139/96 95 Room Air 12/02/16 19:00 70 12/02/16 19:00 98.9 74 12 164/94 97 Room Air 12/02/16 18:00 67 13 98/90 97 Room Air 12/02/16 17:00 64 12 151/90 96 Room Air 12/02/16 16:50 99.4 Room Air 12/02/16 16:40 96 12/02/16 16:00 71 13 172/85 97 Room Air 12/02/16 15:00 70 20 173/91 98 Room Air 12/02/16 14:00 63 12 101/86 98 Room Air 12/02/16 13:00 71 12/02/16 13:00 71 13 155/89 98 Room Air 12/02/16 12:20 96 12/02/16 12:00 77 11 135/81 98 Room Air 12/02/16 11:00 97.6 Room Air 12/02/16 11:00 70 27 174/96 100 Room Air 12/02/16 10:00 69 16 155/90 98 Room Air 12/02/16 09:00 64 14 143/78 Room Air 12/02/16 08:20 98.4 Room Air 12/02/16 08:00 75 16 162/92 99 Room Air I & O 12/03/16 07:00 Intake Total 2150 ml Output Total 3650 ml Balance -1500 ml General Appearance: No Apparent Distress, WD/WN, Chronically ill HEENT: PERRL/EOMI, Normal ENT Inspection, Pharynx Normal Neck: Full Range of Motion, Normal Inspection, Non Tender, Supple, Carotid Bruit Respiratory: Chest Non Tender, Lungs Clear, Normal Breath Sounds, No Accessory Muscle Use, No Respiratory Distress Cardiovascular: Regular Rate, Rhythm, No Edema, No Gallop, No JVD, No Murmur, Normal Peripheral Pulses Capillary Refill: Less Than 3 Seconds Extremity: Normal Capillary Refill, Normal Inspection, Normal Range of Motion, Non Tender, No Calf Tenderness, No Pedal Edema Neurologic/Psychiatric: Alert, Oriented x3, No Motor/Sensory Deficits, Normal Mood/Affect Skin: Normal Color, Warm/Dry Lymphatic: No Adenopathy Results Lab Laboratory Tests 12/02/16 03:55 12/03/16 04:10 Assessment/Plan Assessment/Plan Syncope -Troponin x 3 - are negative - UDS - is negative hx of mental issues -Pt maybe transferred to [facility] for mental health if not transferred he can go to floor. I am going to sign off. Please call with any questions. acute renal failure- improved Clinical Quality Measures DVT/VTE Risk/Contraindication: Risk Factor Score Per Nursin RFS Level Per Nursing on Admit: 2=Moderate BLADIMIR VIRK DO Dec 03, 2016 07:56
--- NOTE | 2016-12-03 10:24 | Diagnostic Imaging Report ---
Portable erect AP chest at 4:35 AM. INDICATION: Syncope. The heart is borderline enlarged, but the heart does seem somewhat less prominent than noted on the prior exam of 12/02/2016. The sternotomy wires and surgical clips noted previously are again visualized and no different. There is still no evidence for failure, pneumonia, or for a significant pleural effusion. The mediastinum is not widened. The osseous structures are intact. IMPRESSION: When compared to the previous study, there does not appear to have been any significant change. No new abnormality has developed. Dictated by: Dictated on workstation # [id number]
--- NOTE | 2016-12-03 10:56 | Discharge Summary-Hospitalist ---
Diagnosis/Chief Complaint Date of Admission Dec 02, 2016 at 06:04 Date of Discharge Admission Diagnosis Assessment: Shortness of breath with negative workup and he claims CAD placed rock over exhaust pipe and carbon monoxide within his house unable to confirm but all workup negative CAD Valvular heart disease Chronic renal insufficiency Hypertension Cognitive decline? Discharge Diagnosis Assessment: Shortness of breath with negative workup and he claims CAD placed rock over exhaust pipe and carbon monoxide within his house unable to confirm but all workup negative CAD undergoing stress test at 1230 today to risk stratify Valvular heart disease Chronic renal insufficiency Hypertension Cognitive decline? Plan Evaluate cognitive ability Workup thus negative Discharge planning Unsure of what next step will be for this patient Reason Hospital Visit/Course CC: Shortness of breath and carbon monoxide poisoning? HPI: This is a 86yoWM pt of Dr. Lopes that presented to the ER from EMS due to possible carbon monoxide poisoning. He called to his home complaining of SOB thought his cat put a rock over his gas pipe and was poisoning him. Chart Review: CBC normal, Creat 1.74, Troponin negative, UA negative Patient Interview: Pt states he sees Dr. Lopes and Dr. Galeas every 6 months. Pt denies smoking and drinking ETOH. 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 Physical exam was stable. Pt states his 10 years ago and his 3 children live around town. Pt states he is doing much better than when he was admitted. Pt states he had some mental issues as well. Scribed by Rusty Rizzo under the direct supervision of Dr. Henning. Note from 12/03/16 Chart Review: CBC normal, CMP normal except K+ 3.5 SW Review: Nobody called from [facility] yesterday and [facility] will not take him. Pt is too functional for IN. Patient Interview: Pt states one of his kids live in [place] and one lives in [place]. Pt was told if his heart looked good today then he will be DC today. Pt states he has talked to his daughter, Jennifer, and she will be able to pick him up today. Physical exam was stable. AFVSS, Pleasant, O x 3 RRR CTAB No edema Scribed by Rusty Rizzo under the direct supervision of Dr. Henning. Hospital course: Patient had an uneventful hospital course he was hospitalized convinces CAD at the [facility] over the exhaust pipe and he was suffering from carbon monoxide poisoning he was dying so EMS was called he was brought in without any reliable clinical data to confirm his stories that carbon monoxide was a part of this issue so he was assessed to be hallucinating and delusional and considering he lives alone voracious were made for senior behavioral unit transfer. At the time of this dictation he was about to undergo stress test at 1230 today to risk stratify for coronary artery disease standpoint from cardiology and will either be discharged home or discharge to the senior behavioral unit for further evaluation and treatment of hallucinations. Discharge Summary Discharge Physical Examination Allergies: Coded Allergies: Penicillins (Verified Allergy, Unknown, 02/15/12) Vitals & I&Os Vital Signs Date Time Temp Pulse Resp B/P (MAP) Pulse Ox O2 Delivery O2 Flow Rate FiO2 12/03/16 07:00 71 12/03/16 06:00 14 162/90 96 Room Air 12/03/16 04:25 98.8 Hospital Course Labs (last 24 hrs) Laboratory Tests 12/02/16 12:10: Troponin I < 0.30 12/02/16 18:13: Troponin I < 0.30 12/03/16 04:10: White Blood Count 7.1, Red Blood Count 3.88L, Hemoglobin 12.3L, Hematocrit 36L, Mean Corpuscular Volume 92, Mean Corpuscular Hemoglobin 32, Mean Corpuscular Hemoglobin Concent 34, Red Cell Distribution Width 13.5, Platelet Count 213, Mean Platelet Volume 11.7H, Neutrophils (%) (Auto) 72, Lymphocytes (%) (Auto) 10L, Monocytes (%) (Auto) 14H, Eosinophils (%) (Auto) 4, Basophils (%) (Auto) 0 , Neutrophils # (Auto) 5.1, Lymphocytes # (Auto) 0.7L, Monocytes # (Auto) 1.0, Eosinophils # (Auto) 0.3, Basophils # (Auto) 0.0, Sodium Level 140, Potassium Level 3.5L, Chloride Level 113H, Carbon Dioxide Level 19L, Anion Gap 8, Blood Urea Nitrogen 20H, Creatinine 1.29, Estimat Glomerular Filtration Rate 53, BUN/ Creatinine Ratio 16, Glucose Level 101, Calcium Level 8.5, Phosphorus Level 2.5 , Magnesium Level 2.0, Triglycerides Level 127, Cholesterol Level 161, LDL Cholesterol Direct 105, VLDL Cholesterol 25, HDL Cholesterol 33L Pending Labs Laboratory Tests 12/03/16 04:10: White Blood Count 7.1, Red Blood Count 3.88, Hemoglobin 12.3, Hematocrit 36, Mean Corpuscular Volume 92, Mean Corpuscular Hemoglobin 32, Mean Corpuscular Hemoglobin Concent 34, Red Cell Distribution Width 13.5, Platelet Count 213, Mean Platelet Volume 11.7, Neutrophils (%) (Auto) 72, Lymphocytes (%) (Auto) 10 , Monocytes (%) (Auto) 14, Eosinophils (%) (Auto) 4, Basophils (%) (Auto) 0, Neutrophils # (Auto) 5.1, Lymphocytes # (Auto) 0.7, Monocytes # (Auto) 1.0, Eosinophils # (Auto) 0.3, Basophils # (Auto) 0.0, Sodium Level 140, Potassium Level 3.5, Chloride Level 113, Carbon Dioxide Level 19, Anion Gap 8, Blood Urea Nitrogen 20, Creatinine 1.29, Estimat Glomerular Filtration Rate 53, BUN/ Creatinine Ratio 16, Glucose Level 101, Calcium Level 8.5, Phosphorus Level 2.5 , Magnesium Level 2.0, Triglycerides Level 127, Cholesterol Level 161, LDL Cholesterol Direct 105, VLDL Cholesterol 25, HDL Cholesterol 33 Discharge Home Medications: Active Scripts Active Reported Tamsulosin HCl 0.4 Mg Cap.er.24h 0.4 Mg PO HS Vesicare (Solifenacin Succinate) 5 Mg Tablet 5 Mg PO DAILY Amlodipine Besylate 10 Mg Tablet 10 Mg PO DAILY Centrum Silver Tablet (Mu-Vits-Min Th/Lycopene/Lutein) 1 Each Tablet 1 Tab PO DAILY Tricor (Fenofibrate) 48 Mg Tablet 48 Mg PO DAILY Zetia (Ezetimibe) 10 Mg Tablet 10 Mg PO DAILY Aspirin Ec 81 Mg (Aspirin) 81 Mg Tabec 81 Mg PO DAILY Toprol Xl (Metoprolol Succinate) 25 Mg Tab 12.5 Mg PO DAILY TAKES 1/2 OF A (25 MG) TABLET / LAST FILLED 09/24/16 #30 Plavix (Clopidogrel Bisulfate) 75 Mg Tab 75 Mg PO DAILY Instructions to patient/family Please see electonic discharge instructions given to patient. Clinical Quality Measures DVT/VTE Risk/Contraindication: Risk Factor Score Per Nursin RFS Level Per Nursing on Admit: 2=Moderate TALON HENNING DO Dec 03, 2016 10:56
--- NOTE | 2016-12-03 12:11 | Cardiology Progress Note ---
Cardiology SOAP Progress Note Subjective: no complaints Objective: I&O/Vital Signs Vital Sign - Last 12Hours 12/03/16 12/03/16 12/03/16 12/03/16 01:00 01:00 02:00 03:00 Pulse 66 69 63 66 Resp 7 16 22 B/P (MAP) 134/77 148/76 Pulse Ox 95 93 94 O2 Delivery Room Air Room Air Room Air 12/03/16 12/03/16 12/03/16 12/03/16 04:25 04:25 05:00 06:00 Temp 98.8 Pulse 61 64 67 Resp 18 18 14 B/P (MAP) 146/66 164/89 162/90 Pulse Ox 98 98 94 96 O2 Delivery Room Air Room Air Room Air 12/03/16 12/03/16 12/03/16 12/03/16 07:00 07:00 08:00 09:00 Pulse 71 69 71 70 Resp 11 12 B/P (MAP) 169/101 162/112 172/86 Pulse Ox 98 98 97 O2 Delivery Room Air Room Air Room Air 12/03/16 12/03/16 10:00 11:00 Pulse 73 71 Resp 12 15 B/P (MAP) 157/92 167/86 Pulse Ox 97 95 O2 Delivery Room Air Room Air Intake and Output 12/03/16 00:00 Intake Total 800 ml Output Total 1700 ml Balance -900 ml Weight (Pounds): 166 Weight (Ounces): 5.0 Weight (Calculated Kilograms): [id number] Constitutional: No appears stated age, No AAO x 3, No apparent distress, No PERRL, No well-developed, No well-nourished, No other Respiratory: No accessory muscle use, No respiratory distress, No chest tender , No chest expansion is symmetric, No chest is bilaterally symmetric, No lungs clear to percussion, No lungs clear to auscultation, No crackles, No rhonchi, No rales, No stridor, No wheezing, No pleural rub, No other Cardiovascular: No regular rate-rhythm, No irregularly irregular, No extra beats, No parasternal heave is noted, No JVD, No edema, No bradycardia, No tachycardia, No point of maximal impulse, No cardiac thrills are palpable, No S1 and S2, No gallop/S3, No gallop/S4, No diastolic murmur, No systolic murmur, No friction rub, No click, No other Gastrointestional: No tender, No soft, No round, No distended, No pulsatile mass, No organomegaly, No guarding, No rebound, No tenderness, No hernia, No mass, No audible bowel sounds, No abnormal bowel sounds, No abdominal bruits, No spleenomegaly, No other Extremities: No normal range of motion, No non-tender, No normal inspection, No pedal edema, No calf tenderness, No normal capillary refill, No pelvis stable , No calf tenderness, No inflammation, No pedal edema, No slow capillary refill , No swelling, No other, No abrasion, No clubbing, No cyanosis, No ecchymosis, No laceration, No no lower extremity edema bilateral, No significant edema, No tenderness, No wound Neurologic/Psychiatric: No certified coding specialist II-XII nml as tested, No no motor/sensory deficits, No alert, No normal mood/affect, No oriented x 3, No abnormal cerebellar tests, No abnormal certified coding specialist II-XII, No abnormal gait, No aphasia, No EOM palsy, No facial droop, No motor weakness, No sensory deficit, No depressed affect, No disoriented x 3, No other, No grossly intact, No power is 5/5 both on sides Skin: No normal color, No warm/dry, No cyanosis, No cool, No diaphoresis, No damp, No ecchymosis, No jaundice, No mottled, No pallor, No rash, No tattoos/ piercings, No ulcerations, No rash on exposed areas, No ulcerations on exposed areas, No other Results/Procedures: Labs Laboratory Tests 12/02/16 18:13: Troponin I < 0.30 12/03/16 04:10: White Blood Count 7.1, Red Blood Count 3.88L, Hemoglobin 12.3L, Hematocrit 36L, Mean Corpuscular Volume 92, Mean Corpuscular Hemoglobin 32, Mean Corpuscular Hemoglobin Concent 34, Red Cell Distribution Width 13.5, Platelet Count 213, Mean Platelet Volume 11.7H, Neutrophils (%) (Auto) 72, Lymphocytes (%) (Auto) 10L, Monocytes (%) (Auto) 14H, Eosinophils (%) (Auto) 4, Basophils (%) (Auto) 0 , Neutrophils # (Auto) 5.1, Lymphocytes # (Auto) 0.7L, Monocytes # (Auto) 1.0, Eosinophils # (Auto) 0.3, Basophils # (Auto) 0.0, Sodium Level 140, Potassium Level 3.5L, Chloride Level 113H, Carbon Dioxide Level 19L, Anion Gap 8, Blood Urea Nitrogen 20H, Creatinine 1.29, Estimat Glomerular Filtration Rate 53, BUN/ Creatinine Ratio 16, Glucose Level 101, Calcium Level 8.5, Phosphorus Level 2.5 , Magnesium Level 2.0, Triglycerides Level 127, Cholesterol Level 161, LDL Cholesterol Direct 105, VLDL Cholesterol 25, HDL Cholesterol 33L A/P: Assessment/Dx: brief cardiac arrest, History of CABG Plan: the sequence of events is unclear. However we do know that the patient was unresponsive for a few seconds. We do not know if the patient was pulseless or not. He recovered without the need for CPR. Telemetry shows significant artifact. However significant bradycardia or brief asystole cannot be ruled out. we will set up a 30 day event monitor on discharge. He has history of coronary artery disease, status post CABG in the past. He does not follow any associate professor of counseling. echo done, pharmacological nuclear stress test today. The patient is full code. No further arrhythmias on telemetry after that episode. Acute coronary syndrome has been ruled out with negative serial troponins. Thank you for your consultation. Please call me if you have any questions. Chicho Patterson MD, FACP, FACC, FSCAI, FHRS, CCDS Interventional Cardiology Cardiac Electrophysiology Vascular Medicine and Endovascular Interventions Venessa PATTERSON MD Dec 03, 2016 12:11 pm
[2016-12-03] MEDS: CATHETER FLUSH 10 ML SYR IV PRN ×2 (13:17→14:12)
[2016-12-03] MEDS ORDERED: REGADENOSON 0.4 MG/5 ML SYR (LEXISCAN) IV ONE ×2 (13:47→14:15)
--- NOTE | 2016-12-04 08:47 | ECHOCARDIOGRAPHY REPORT ---
PROCEDURE PHYSICIAN: YAZMIN PATTERSON DATE OF PROCEDURE: 12/02/2016 TWO DIMENSIONAL ECHOCARDIOGRAM REPORT PRIMARY PHYSICIAN: OTHER PHYSICIAN: REFERRING PHYSICIAN: ORDERING PHYSICIAN: ATTENDING PHYSICIAN: Dr. Blum FAMILY PHYSICIAN: READING PHYSICIAN: Dr. Chicho Patterson INDICATION FOR THE PROCEDURE: 1. Possible cardiac arrest. 2. Shortness of breath. MEASUREMENTS DERIVED VALUES LV DIAMETER (LAX) NORMALS NORMALS Diastolic (3.6-5.2) Eject. Fract. (60%+/-6%) Systolic (2.3-3.9) Diastolic Vol. % Shortening (0.22-0.42) Systolic Vol. Aortic Root IVS THICKNESS Diastolic (0.6-1.1) LVPW THICKNESS Diastolic (0.6-1.1) LA DIAMETER Systolic (2.1-3.7) FINDINGS: 1. This is a technically difficult study. 2. Sinus rhythm. 3. Left atrial dimensions are mildly enlarged. Left atrial diameter is 4.6 cm. 4. Left ventricular systolic function is preserved. LV EF is 55%. Mild concentric LVH is present with diastolic intraventricular septal diameter of 1.3 cm. 5. There are no wall motion abnormalities. 6. Right heart size and function is normal. 7. There is no evidence of pericardial effusion. 8. There is mild diastolic dysfunction. 9. IVC is not well visualized. VALVULAR STRUCTURE OF THE HEART: There is mild tricuspid regurgitation with trace mitral regurgitation. There is no significant aortic valve pathology. There is mild aortic sclerosis with no aortic stenosis. There is mild mitral annular calcification noted. RVSP is 11 mmHg. CONCLUSION: 1. LV and RV size and function is normal. 2. LV EF is 55%. 3. There is no significant valvular heart disease. 4. There is mild concentric LVH and left atrial enlargement noted. 5. Pulmonary pressure is normal. Job ID: [id number] Dictated Date: 12/03/2016 14:57:46 Plaster Molder Date: 12/04/2016 08:41:55 / bharathi
--- NOTE | 2016-12-04 12:39 | STRESS TEST ---
PROCEDURE PHYSICIAN: YAZMIN PATTERSON PHARMACOLOGICAL NUCLEAR STRESS TEST REPORT: DATE OF PROCEDURE: 12/03/2016 ATTENDING PHYSICIAN: Dr. Kayden Blum PERFORMING PHYSICIAN: Dr. Carlos Patterson DIAGNOSIS: Syncope, shortness of breath, possible brief cardiac arrest. PROCEDURE DETAILS: The patient was brought to the stress lab after informed consent was taken. Lexiscan stress test was performed according to the protocol. 0.4 mg of Lexiscan was given intravenously. Low grade exercise was performed. Baseline EKG showed sinus rhythm with a right bundle block, heart rate of 65 bpm and blood pressure was 129/73 mmHg. Maximum heart rate was 111 bpm and maximum blood pressure was 198/94 mmHg. The patient did not have any chest pain, arrhythmias or ST-T wave changes during the stress test. Stress test was stopped secondary to completion of protocol. Radionuclide isotope was given at peak vasodilatation. 9.33 mCi of Myoview were given for rest imaging and 28.8 mCi of Myoview were given for stress images. Review of the perfusion imaging showed TID of 1.06. Ejection fraction of 52%. No perfusion abnormalities in both stress and rest imaging SSS/SVS/SRS were 0. CONCLUSION: 1. Pharmacological stress test is negative for ischemia. 2. There is no perfusion abnormality on rest or stress imaging. Job ID: [id number] Dictated Date: 12/04/2016 10:44:12 Knitting Machine Fixer Head Date: 12/04/2016 12:30:14 / kavita ROMERO
--- OUTSIDE RECORDS SUMMARY | 2017-01-05 05:23 | XMS REPORT | Continuity of Care Document ---
Author Author [facility] Organization [facility] Address Unknown Phone Unavailable Care Team Providers Care Side Panel Padder Name Role Phone JUAREZ RIVAS MD PP Insurance Providers Payer Name Policy Number Subscriber Name Relationship [employer] [id number] Adrian Ceron Jr 01 Self / Same As Patient Advance Directives Directive Response Recorded Date Advance Directives Y 04/01/13 11:48am Health Care Power of Job Placement Officer Y son 04/01 11:48am Organ Donor Y 04/01/13 11:48am Problems No Known Problems or Medical conditions. Family History History Response Recorded Date/Time Hx Family Cancer Y TWO SISTERS OF CA (UNKNOWN WHAT KIND ) 02/15/12 2:41pm Hx Family Cardiac Disorders N 02/15/12 2: 41pm Social History History Response Recorded Date/Time Alcohol Use Denies Use 04/01/13 11:48am Recreational Drug Use N 04/01/13 11:48am Allergies, Adverse Reactions, Alerts Allergen Type Severity Reaction Last Updated Penicillins Allergy Unknown 02/15/12 Medications Medication Dose Units Route Sig Qty Days Azithromycin (Zithromax) 2 Tab PO DAILY 5 Lactulose 15 Tsp PO BID Polyethylene Glycol (Miralax 17 Gm Packet) 17 Gm PO NEEDED PRN Mu-Vits-Min Th/Lycopene/Lutein (Centrum Silver Tablet) 1 Each PO DAILY Amlodipine Besylate (Norvasc 5 Mg) 10 Mg PO DAILY Fenofibrate (Tricor) DAILY Ezetimibe (Zetia) DAILY Aspirin (Aspirin Ec 81 Mg) DAILY Metoprolol Succinate (Toprol Xl) DAILY Clopidogrel Bisulfate (Plavix) DAILY Ciprofloxacin (Cipro) 1 Tab PO BID 20 Docusate Sodium (Colace) 100 Mg PO DAILY Immunizations Name Given Type Date of Pneumonia Vaccine 10/01/11 H Date of Influenza Vaccine 05/02/11 H Response Recorded Date/Time Status not known Unknown Results No Known Relevant Diagnostic Tests, Laboratory Data and/or Discharge Summary. Procedures Procedure Code Date DIAGNOSTIC COLONOSCOPY 94214 07/21/08 SURGICAL EXPOSURE PROSTATE [id number] Encounters Encounter Location Date/Time Departed Emergency Room [facility] 09/13 11:36am Discharged Inpatient [facility] 3:00pm
--- OUTSIDE RECORDS SUMMARY | 2017-01-05 05:23 | XMS REPORT | Continuity of Care Document ---
Author Author [facility] Organization [facility] Address Unknown Phone Unavailable Allergies Active Description Code Type Severity Reaction Onset Reported/Identified Relationship to Patient Clinical Status Yes Penicillins [id number] Drug Allergy Unknown N/A 02/15/2012 Medications Problems Date Dx Coded Attending Type Code Diagnosis Diagnosed By 01/16/2010 Ot 272.4 01/16/2010 Ot 396.3 01/16/2010 Ot 397.0 01/16/2010 Ot 401.9 01/16/2010 Ot 414.01 01/16/2010 Ot 433.10 01/16/2010 Ot 564.00 01/16/2010 Ot 715.90 01/16/2010 Ot 786.09 01/16/2010 Ot V10.46 01/16/2010 Ot V45.82 01/16/2010 Ot V58.66 01/16/2010 Ot V58.69 05/20/2010 Ot V45.81 05/20/2010 Ot V57.89 06/13/2010 Ot V45.81 06/13/2010 Ot V57.89 02/16/2012 Ot 272.4 HYPERLIPIDEMIA NEC/NOS 02/16/2012 Ot 401.9 HYPERTENSION NOS 02/16/2012 Ot 414.01 CORONARY ATHEROSCLEROSIS OF [place] CORON 02/16/2012 Ot 560.32 FECAL IMPACTION 02/16/2012 Ot 780.60 FEVER, UNSPECIFIED 02/16/2012 Ot 788.20 RETENTION OF URINE NOS 02/16/2012 Ot V10.46 HX-PROSTATIC MALIGNANCY 02/16/2012 Ot V15.3 HX OF IRRADIATION 02/16/2012 Ot V45.81 AORTOCORONARY BYPASS 02/16/2012 Ot V45.89 POSTSURGICAL STATES NEC 04/01/2013 NERI KOTHARI, ANJALI Chen Ot 462 ACUTE PHARYNGITIS 04/01/2013 NERI KOTHARI, ANJALI Chen Ot 780.4 DIZZINESS AND GIDDINESS 11/19/2013 LORAINE GONGORA DO Ot 276.8 HYPOPOTASSEMIA 11/19/2013 LORAINE GONGORA DO Ot 285.1 AC POSTHEMORRHAG ANEMIA 11/19/2013 LORAINE GONGORA DO Ot 715.36 LOC OSTEOARTH NOS-L/LEG 01/06/2014 LORAINE GONGORA DO Ot V43.65 KNEE JOINT REPLACEMENT STATUS 01/06/2014 LORAINE GONGORA DO Ot V54.81 AFTERCARE FOLLOWING JOINT REPLACEMENT 01/06/2014 FRANSISCA STONER LORAINE Buchanan Ot V57.1 PHYSICAL THERAPY NEC 02/08/2014 FRANSISCA LORAINE Buchanan Ot 599.0 URIN TRACT INFECTION NOS 02/09/2014 DINO MELVIN MD Ot 401.9 HYPERTENSION NOS 02/09/2014 DINO MELVIN MD Ot 414.01 CORONARY ATHEROSCLEROSIS OF [place] CORON 02/09/2014 DINO MELVIN MD Ot 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 02/09/2014 DINO MELVIN MD Ot 455.0 INT HEMORRHOID W/O COMPL 02/09/2014 IDNO MELVIN MD Ot 562.10 DIVERTICULOSIS COLON (W/O MENT OF HEMORR 02/09/2014 DINO MELVIN MD Ot V10.46 HX-PROSTATIC MALIGNANCY 06/06/2015 Ot 424.1 06/06/2015 Ot 786.09 06/06/2015 Ot 786.59 06/06/2015 Ot 793.1 06/06/2015 Ot 786.59 06/06/2015 Ot V45.81 06/06/2015 Ot 414.00 06/06/2015 Ot 786.50 06/06/2015 Ot V45.81 06/06/2015 BAIMA, DAIANA L CORPORATE INVESTIGATOR Ot 272.4 06/06/2015 BAIMA, DAIANA L CORPORATE INVESTIGATOR Ot 401.9 06/06/2015 BAIMA, DAIANA L CORPORATE INVESTIGATOR Ot 414.00 06/06/2015 BAIMA, DAIANA L CORPORATE INVESTIGATOR Ot 424.90 06/06/2015 BAIMA, DAIANA L CORPORATE INVESTIGATOR Ot 429.3 06/06/2015 BAIMA, DAIANA L CORPORATE INVESTIGATOR Ot V43.3 06/06/2015 BAIMA, DAIANA L CORPORATE INVESTIGATOR Ot V45.81 06/06/2015 BAIMA, DAIANA L CORPORATE INVESTIGATOR Ot 272.4 06/06/2015 BAIMA, DAIANA L CORPORATE INVESTIGATOR Ot 401.9 06/06/2015 BAIMA, DAIANA L CORPORATE INVESTIGATOR Ot 414.00 06/06/2015 BAIMA, DAIANA L CORPORATE INVESTIGATOR Ot 424.90 06/06/2015 BAIMA, DAIANA L CORPORATE INVESTIGATOR Ot V45.81 06/06/2015 FRANSISCA DO, LORAINE F Ot 715.36 06/06/2015 FRANSISCA DO, LORAINE F Ot 791.9 06/06/2015 FRANSISCA DO, LORAINE F Ot V72.63 06/06/2015 FRANSISCA DO, LORAINE F Ot V72.83 06/06/2015 FRANSISCA DO, LORAINE F Ot V74.8 06/06/2015 DINO MELVIN MD Ot V72.84 06/06/2015 Ot 599.0 12/12/2015 BAIMA, DAIANA L CORPORATE INVESTIGATOR Ot E78.5 12/12/2015 BAIMA, DAIANA L CORPORATE INVESTIGATOR Ot I10 12/12/2015 BAIMA, DAIANA L CORPORATE INVESTIGATOR Ot I25.9 12/12/2015 BAIMA, DAIANA L CORPORATE INVESTIGATOR Ot I38 12/12/2015 BAIMA, DAIANA L CORPORATE INVESTIGATOR Ot I77.9 12/12/2015 BAIMA, DAIANA L CORPORATE INVESTIGATOR Ot R07.9 12/12/2015 BAIMA, DAIANA L CORPORATE INVESTIGATOR Ot Z95.1 02/12/2016 BAIMA, DAIANA L CORPORATE INVESTIGATOR Ot 272.4 HYPERLIPIDEMIA NEC/NOS 02/12/2016 BAIMA, DAIANA L CORPORATE INVESTIGATOR Ot 401.9 HYPERTENSION NOS 02/12/2016 BAIMA, DAIANA L CORPORATE INVESTIGATOR Ot 414.00 CORON ATHEROSCLER NOS TYPE VESSEL, NATIV 02/12/2016 BAIMA, DAIANA L CORPORATE INVESTIGATOR Ot 424.90 ENDOCARDITIS NOS 02/12/2016 BAIMA, DAIANA L CORPORATE INVESTIGATOR Ot 429.3 CARDIOMEGALY 02/12/2016 BAIMA, DAIANA L CORPORATE INVESTIGATOR Ot 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 02/12/2016 BAIMA, DAIANA L CORPORATE INVESTIGATOR Ot V45.81 AORTOCORONARY BYPASS 02/12/2016 BAIMA, DAIAAN L CORPORATE INVESTIGATOR Ot 272.4 HYPERLIPIDEMIA NEC/NOS 02/12/2016 BAIMA, DAIANA L CORPORATE INVESTIGATOR Ot 401.9 HYPERTENSION NOS 02/12/2016 BAIMA, DAIANA L CORPORATE INVESTIGATOR Ot 414.00 CORON ATHEROSCLER NOS TYPE VESSEL, NATIV 02/12/2016 DAIANA JOHN CORPORATE INVESTIGATOR Ot 424.90 ENDOCARDITIS NOS 02/12/2016 DEONNADAIANA RODRIGUEZ CORPORATE INVESTIGATOR Ot V45.81 AORTOCORONARY BYPASS 02/12/2016 FRANSISCA STONER, LORAINE Buchanan Ot 715.36 LOC OSTEOARTH NOS-L/LEG 02/12/2016 FRANSISCA STONER, LORAINE Buchanan Ot 791.9 ABN URINE FINDINGS NEC 02/12/2016 FRANSISCA STONER, LORAINE Buchanan Ot V72.63 PRE-PROCEDURAL LABORATORY EXAMINATION 02/12/2016 FRANSISCA STONER LORAINE Buchanan Ot V72.83 EXAM PRE-OPERATIVE NEC 02/12/2016 FRANSISCA STONER LORAINE Buchanan Ot V74.8 SCREEN-BACTERIAL DIS NEC 02/12/2016 DINO MELVIN MD Ot V72.84 EXAM PRE-OPERATIVE NOS 02/12/2016 Ot 599.0 URIN TRACT INFECTION NOS 02/12/2016 DEONNADAIANA RODRIGUEZ CORPORATE INVESTIGATOR Ot E78.5 HYPERLIPIDEMIA, UNSPECIFIED 02/12/2016 DEONNADAIANA RODRIGUEZ CORPORATE INVESTIGATOR Ot I10 ESSENTIAL (PRIMARY) HYPERTENSION 02/12/2016 DORA DAIANA Efe CORPORATE INVESTIGATOR Ot I25.9 CHRONIC ISCHEMIC HEART DISEASE, UNSPECIF 02/12/2016 DAIANA JOHN CORPORATE INVESTIGATOR Ot I38 ENDOCARDITIS, VALVE UNSPECIFIED 02/12/2016 DEONNAJENNIFER DAIANA Wilks CORPORATE INVESTIGATOR Ot I77.9 DISORDER OF ARTERIES AND ARTERIOLES, UNS 02/12/2016 DEONNADAIANA RODRIGUEZ CORPORATE INVESTIGATOR Ot R07.9 CHEST PAIN, UNSPECIFIED 02/12/2016 DAIANA JOHN CORPORATE INVESTIGATOR Ot Z95.1 PRESENCE OF AORTOCORONARY BYPASS GRAFT 02/12/2016 JUAREZ RIVAS MD Ot N50.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 02/15/2016 JUAREZ RIVAS MD Ot N50.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 02/15/2016 JUAREZ RIVAS MD Ot N50.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 02/21/2016 JUAREZ RIVAS MD Ot N50.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 02/21/2016 JUAREZ RIVAS MD Ot N50.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 02/21/2016 DORA DAIANA L CORPORATE INVESTIGATOR Ot 272.4 HYPERLIPIDEMIA NEC/NOS 02/21/2016 DAIANA JOHN CORPORATE INVESTIGATOR Ot 401.9 HYPERTENSION NOS 02/21/2016 DAIANA JOHN CORPORATE INVESTIGATOR Ot 414.00 CORON ATHEROSCLER NOS TYPE VESSEL, NATIV 02/21/2016 DAIANA JOHN CORPORATE INVESTIGATOR Ot 424.90 ENDOCARDITIS NOS 02/21/2016 DAIANA JOHN CORPORATE INVESTIGATOR Ot 429.3 CARDIOMEGALY 02/21/2016 DAIANA JOHN CORPORATE INVESTIGATOR Ot 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 02/21/2016 DAIANA JOHN CORPORATE INVESTIGATOR Ot V45.81 AORTOCORONARY BYPASS 02/21/2016 DAIANA JOHN CORPORATE INVESTIGATOR Ot 272.4 HYPERLIPIDEMIA NEC/NOS 02/21/2016 DAIANA JOHN CORPORATE INVESTIGATOR Ot 401.9 HYPERTENSION NOS 02/21/2016 DAIANA JOHN CORPORATE INVESTIGATOR Ot 414.00 CORON ATHEROSCLER NOS TYPE VESSEL, NATIV 02/21/2016 DAIANA JOHN CORPORATE INVESTIGATOR Ot 424.90 ENDOCARDITIS NOS 02/21/2016 DAIANA JOHN CORPORATE INVESTIGATOR Ot V45.81 AORTOCORONARY BYPASS 02/21/2016 LORANIE GONGORA DO Ot 715.36 LOC OSTEOARTH NOS-L/LEG 02/21/2016 LORAINE GONGORA DO Ot 791.9 ABN URINE FINDINGS NEC 02/21/2016 LORAINE GONGORA DO Ot V72.63 PRE-PROCEDURAL LABORATORY EXAMINATION 02/21/2016 LORAINE GONGORA DO Ot V72.83 EXAM PRE-OPERATIVE NEC 02/21/2016 LORAINE GONGORA DO Ot V74.8 SCREEN-BACTERIAL DIS NEC 02/21/2016 NGOZI KOTHARI, DINO Ot V72.84 EXAM PRE-OPERATIVE NOS 02/21/2016 Ot 599.0 URIN TRACT INFECTION NOS 02/21/2016 DEONNADAIANA RODRIGUEZ CORPORATE INVESTIGATOR Ot E78.5 HYPERLIPIDEMIA, UNSPECIFIED 02/21/2016 DEONNADAIANA RODRIGUEZ CORPORATE INVESTIGATOR Ot I10 ESSENTIAL (PRIMARY) HYPERTENSION 02/21/2016 DEONNADAIANA RODRIGUEZ CORPORATE INVESTIGATOR Ot I25.9 CHRONIC ISCHEMIC HEART DISEASE, UNSPECIF 02/21/2016 DAIANA JOHN CORPORATE INVESTIGATOR Ot I38 ENDOCARDITIS, VALVE UNSPECIFIED 02/21/2016 DAIANA JOHN CORPORATE INVESTIGATOR Ot I77.9 DISORDER OF ARTERIES AND ARTERIOLES, UNS 02/21/2016 DEONNADAIANA RODRIGUEZ CORPORATE INVESTIGATOR Ot R07.9 CHEST PAIN, UNSPECIFIED 02/21/2016 DAIANA JOHN CORPORATE INVESTIGATOR Ot Z95.1 PRESENCE OF AORTOCORONARY BYPASS GRAFT 03/21/2016 DAIANA JOHN CORPORATE INVESTIGATOR Ot 272.4 HYPERLIPIDEMIA NEC/NOS 03/21/2016 BAIMA, DAIANA L CORPORATE INVESTIGATOR Ot 401.9 HYPERTENSION NOS 03/21/2016 BAIJENNIFER, DAIANA L CORPORATE INVESTIGATOR Ot 414.00 CORON ATHEROSCLER NOS TYPE VESSEL, NATIV 03/21/2016 BAIMADAIANA CORPORATE INVESTIGATOR Ot 424.90 ENDOCARDITIS NOS 03/21/2016 BAIJENNIFER, DAIANA L CORPORATE INVESTIGATOR Ot 429.3 CARDIOMEGALY 03/21/2016 BAIJENNIFER, DAIANA L CORPORATE INVESTIGATOR Ot 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 03/21/2016 BAIDAIANA RODRIGUEZ CORPORATE INVESTIGATOR Ot V45.81 AORTOCORONARY BYPASS 03/21/2016 DAIANA JOHN CORPORATE INVESTIGATOR Ot 272.4 HYPERLIPIDEMIA NEC/NOS 03/21/2016 BAIDAIANA RODRIGUEZ CORPORATE INVESTIGATOR Ot 401.9 HYPERTENSION NOS 03/21/2016 BAIJENNIFER, DAIANA Wilks CORPORATE INVESTIGATOR Ot 414.00 CORON ATHEROSCLER NOS TYPE VESSEL, NATIV 03/21/2016 BAIDAIANA RODRIGUEZ CORPORATE INVESTIGATOR Ot 424.90 ENDOCARDITIS NOS 03/21/2016 BAIDAIANA RODRIGUEZ CORPORATE INVESTIGATOR Ot V45.81 AORTOCORONARY BYPASS 03/21/2016 LORAINE GONGORA DO Ot 715.36 LOC OSTEOARTH NOS-L/LEG 03/21/2016 LORAINE GONGORA DO Ot 791.9 ABN URINE FINDINGS NEC 03/21/2016 LORAINE GONGORA DO Ot V72.63 PRE-PROCEDURAL LABORATORY EXAMINATION 03/21/2016 LORAINE GONGORA DO Ot V72.83 EXAM PRE-OPERATIVE NEC 03/21/2016 LORAINE GONGORA DO Ot V74.8 SCREEN-BACTERIAL DIS NEC 03/21/2016 NGOZI KOTHARI, DINO Ot V72.84 EXAM PRE-OPERATIVE NOS 03/21/2016 Ot 599.0 URIN TRACT INFECTION NOS 03/21/2016 DAIANA JOHN CORPORATE INVESTIGATOR Ot E78.5 HYPERLIPIDEMIA, UNSPECIFIED 03/21/2016 DAIANA JOHN CORPORATE INVESTIGATOR Ot I10 ESSENTIAL (PRIMARY) HYPERTENSION 03/21/2016 BAIDAIANA RODRIGUEZ CORPORATE INVESTIGATOR Ot I25.9 CHRONIC ISCHEMIC HEART DISEASE, UNSPECIF 03/21/2016 BAIDAIANA RODRIGUEZ CORPORATE INVESTIGATOR Ot I38 ENDOCARDITIS, VALVE UNSPECIFIED 03/21/2016 DAIANA JOHN CORPORATE INVESTIGATOR Ot I77.9 DISORDER OF ARTERIES AND ARTERIOLES, UNS 03/21/2016 DAIANA JOHN CORPORATE INVESTIGATOR Ot R07.9 CHEST PAIN, UNSPECIFIED 03/21/2016 DAIANA JOHN CORPORATE INVESTIGATOR Ot Z95.1 PRESENCE OF AORTOCORONARY BYPASS GRAFT 03/22/2016 STEPHANIE KOTHARI, LALI Beyer Ot N45.3 EPIDIDYMO-ORCHITIS 03/22/2016 STEPHANIE KOTHARI, LALI Beyer Ot N45.3 EPIDIDYMO-ORCHITIS 04/04/2016 STEPHANIE KOTHARI, LALI Beyer Ot N45.3 EPIDIDYMO-ORCHITIS 05/01/2016 STEPHANIE KOTHARI, LALI Beyer Ot N45.3 EPIDIDYMO-ORCHITIS 05/10/2016 STEPHANIE KOTHARI, LALI Beyer Ot N45.3 EPIDIDYMO-ORCHITIS 10/04/2016 EVELYN KOTHARI, JUAREZ Sloan Ot N50.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 10/04/2016 DEONNADAIANA RODRIGUEZ CORPORATE INVESTIGATOR Ot 272.4 HYPERLIPIDEMIA NEC/NOS 10/04/2016 BAIJENNIFER, DAIANA L CORPORATE INVESTIGATOR Ot 401.9 HYPERTENSION NOS 10/04/2016 BAIJENNIFER, DAIANA L CORPORATE INVESTIGATOR Ot 414.00 CORON ATHEROSCLER NOS TYPE VESSEL, NATIV 10/04/2016 BAIDAIANA RODRIGUEZ L CORPORATE INVESTIGATOR Ot 424.90 ENDOCARDITIS NOS 10/04/2016 BAIDAIANA RODRIGUEZ L CORPORATE INVESTIGATOR Ot 429.3 CARDIOMEGALY 10/04/2016 DEONNADAIANA RODRIGUEZ CORPORATE INVESTIGATOR Ot 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 10/04/2016 BAIDAIANA RODRIGUEZ L CORPORATE INVESTIGATOR Ot V45.81 AORTOCORONARY BYPASS 10/04/2016 BAIDAIANA RODRIGUEZ L CORPORATE INVESTIGATOR Ot 272.4 HYPERLIPIDEMIA NEC/NOS 10/04/2016 BAIMA, DAIANA L CORPORATE INVESTIGATOR Ot 401.9 HYPERTENSION NOS 10/04/2016 BAIJENNIFER, DAIANA L CORPORATE INVESTIGATOR Ot 414.00 CORON ATHEROSCLER NOS TYPE VESSEL, NATIV 10/04/2016 BAIMA DAIANA L CORPORATE INVESTIGATOR Ot 424.90 ENDOCARDITIS NOS 10/04/2016 BAIJENNIFER DAIANA L CORPORATE INVESTIGATOR Ot V45.81 AORTOCORONARY BYPASS 10/04/2016 LORAINE GONGORA DO Ot 715.36 LOC OSTEOARTH NOS-L/LEG 10/04/2016 LORAINE GONGORA DO Ot 791.9 ABN URINE FINDINGS NEC 10/04/2016 LORAINE GONGORA DO Ot V72.63 PRE-PROCEDURAL LABORATORY EXAMINATION 10/04/2016 LORAINE GONGORA DO Ot V72.83 EXAM PRE-OPERATIVE NEC 10/04/2016 LORAINE GONGORA DO Ot V74.8 SCREEN-BACTERIAL DIS NEC 10/04/2016 DINO MELVIN MD Ot V72.84 EXAM PRE-OPERATIVE NOS 10/04/2016 Ot 599.0 URIN TRACT INFECTION NOS 10/04/2016 DORA DAIANA L CORPORATE INVESTIGATOR Ot E78.5 HYPERLIPIDEMIA, UNSPECIFIED 10/04/2016 BAIMA DAIANA L CORPORATE INVESTIGATOR Ot I10 ESSENTIAL (PRIMARY) HYPERTENSION 10/04/2016 BAIMA DAIANA L CORPORATE INVESTIGATOR Ot I25.9 CHRONIC ISCHEMIC HEART DISEASE, UNSPECIF 10/04/2016 BAIMA DAIANA L CORPORATE INVESTIGATOR Ot I38 ENDOCARDITIS, VALVE UNSPECIFIED 10/04/2016 DAIANA JOHN L CORPORATE INVESTIGATOR Ot I77.9 DISORDER OF ARTERIES AND ARTERIOLES, UNS 10/04/2016 BAIJENNIFER DAIANA L CORPORATE INVESTIGATOR Ot R07.9 CHEST PAIN, UNSPECIFIED 10/04/2016 BAIMA, DAIANA L CORPORATE INVESTIGATOR Ot Z95.1 PRESENCE OF AORTOCORONARY BYPASS GRAFT 10/04/2016 EVELYN KOTHARI, JUAREZ Sloan Ot N50.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 10/04/2016 LALI BROWN MD Ot 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 EPIDIDYMO-ORCHITIS 10/11/2016 JUAREZ RIVAS MD Ot N50.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 12/03/2016 CELESTINE ONEILL MD Ot I12.9 HYPERTENSIVE CHRONIC KIDNEY DISEASE W ST 12/03/2016 CELESTINE ONEILL MD Ot I25.10 ATHSCL HEART DISEASE OF [place] CORONARY 12/03/2016 CELESTINE ONEILL MD Ot I38 ENDOCARDITIS, VALVE UNSPECIFIED 12/03/2016 CELESTINE ONEILL MD Ot N18.9 CHRONIC KIDNEY DISEASE, UNSPECIFIED 12/03/2016 CELESTINE ONEILL MD Ot R06.02 SHORTNESS OF BREATH 12/03/2016 CELESTINE ONEILL MD Ot R42 DIZZINESS AND GIDDINESS 12/03/2016 CELESTINE ONEILL MD Ot R44.3 HALLUCINATIONS, UNSPECIFIED 12/03/2016 CELESTINE ONEILL MD Ot R55 SYNCOPE AND COLLAPSE 12/03/2016 CELESTINE ONEILL MD Ot Z95.1 PRESENCE OF AORTOCORONARY BYPASS GRAFT 12/03/2016 CELESTINE ONEILL MD, Ot Z95.5 PRESENCE OF CORONARY ANGIOPLASTY IMPLANT 12/11/2016 HINA KOTHARI, M PHYLICIA Ot R55 SYNCOPE AND COLLAPSE Procedures Code Description Performed By Performed On 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 11/16/2013 Results Test Result Range Complete blood count (CBC) with automated white blood cell (WBC) differential - 12/02/16 03:55 Blood leukocytes automated count (number/volume) 6.2 10*3/ uL 4.3-11.0 Blood erythrocytes automated count (number/volume) 4.38 10*6 /uL 4.35-5.85 Venous blood hemoglobin measurement (mass/volume) 13.7 g/dL 13.3-17.7 Blood hematocrit (volume fraction) 40 % 40-54 Automated erythrocyte mean corpuscular volume 91 [foz_us] 80-99 Automated erythrocyte mean corpuscular hemoglobin (mass per erythrocyte) 31 pg 25-34 Automated erythrocyte mean corpuscular hemoglobin concentration measurement ( mass/volume) 34 g/dL 32-36 Automated erythrocyte distribution width ratio 13.4 % 10.0-14.5 Automated blood platelet count (count/volume) 230 10*3/uL 130-400 Automated blood platelet mean volume measurement 11.2 [foz_ us] 7.4-10.4 Automated blood neutrophils/100 leukocytes 68 % 42-75 Automated blood lymphocytes/100 leukocytes 13 % 12-44 Blood monocytes/100 leukocytes 15 % 0-12 Automated blood eosinophils/100 leukocytes 3 % 0-10 Automated blood basophils/100 leukocytes 0 % 0-10 Blood neutrophils automated count (number/volume) 4.2 10*3 1.8-7.8 Blood lymphocytes automated count (number/volume) 0.8 10*3 1.0-4.0 Blood monocytes automated count (number/volume) 0.9 10*3 0.0-1.0 Automated eosinophil count 0.2 10*3/uL 0.0-0.3 Automated blood basophil count (count/volume) 0.0 10*3/uL 0.0-0.1 PT panel in platelet poor plasma by coagulation assay - 12/02/16 03:55 Prothrombin time (PT) in platelet poor plasma by coagulation assay 13.0 s 12.2-14.7 INR in platelet poor plasma or blood by coagulation assay 1.0 0.8-1.4 Activated partial thromboplastin time (aPTT) in platelet poor plasma bycoagulation assay - 12/02/16 03:55 Activated partial thromboplastin time (aPTT) in platelet poor plasma bycoagulation assay 20 s 24-35 Comprehensive metabolic panel - 12/02/16 03:55 Serum or plasma sodium measurement (moles/volume) 140 mmol/ L 135-145 Serum or plasma potassium measurement (moles/volume) 3.6 mmol/L 3.6-5.0 Serum or plasma chloride measurement (moles/volume) 108 mmol /L 98-107 Carbon dioxide 18 mmol/L 21-32 Serum or plasma anion gap determination (moles/volume) 14 mmol/L 5-14 Serum or plasma urea nitrogen measurement (mass/volume) 31 mg/dL 7-18 Serum or plasma creatinine measurement (mass/volume) 1.74 mg /dL 0.60-1.30 Serum or plasma urea nitrogen/creatinine mass ratio 18 NRG Serum or plasma creatinine measurement with calculation of estimated glomerular filtration rate 37 NRG Serum or plasma glucose measurement (mass/volume) 141 mg/dL 70-105 Serum or plasma calcium measurement (mass/volume) 9.6 mg/dL 8.5-10.1 Serum or plasma total bilirubin measurement (mass/volume) 0.5 mg/dL 0.1-1.0 Serum or plasma alkaline phosphatase measurement (enzymatic activity/volume) 71 U/L 40-136 Serum or plasma aspartate aminotransferase measurement (enzymatic activity/ volume) 19 U/L 5-34 Serum or plasma alanine aminotransferase measurement (enzymatic activity/volume ) 11 U/L 0-55 Serum or plasma protein measurement (mass/volume) 7.2 g/dL 6.4-8.2 Serum or plasma albumin measurement (mass/volume) 4.0 g/dL 3.2-4.5 Magnesium - 12/02/16 03:55 Magnesium 2.2 mg/dL 1.8-2.4 Serum or plasma ethanol measurement (mass/volume) - 12/02/16 03:55 Serum or plasma ethanol measurement (mass/volume) < mg/dL <10 Serum or plasma troponin i.cardiac measurement (mass/volume) - 12/02/16 03:55 Serum or plasma troponin i.cardiac measurement (mass/volume) < ng/mL <0.30 Myoglobin, serum - 12/02/16 03:55 Myoglobin, serum 106.8 ng/mL 10.0-92.0 Complete urinalysis with reflex to culture - 12/02/16 04:05 Urine color determination YELLOW NRG Urine clarity determination CLEAR NRG Urine pH measurement by test strip 8 5- 9 Specific gravity of urine by test strip 1.010 1.016-1.022 Urine protein assay by test strip, semi-quantitative NEGATIVE NEGATIVE Urine glucose detection by automated test strip NEGATIVE NEGATIVE Erythrocytes detection in urine sediment by light microscopy NEGATIVE NEGATIVE Urine ketones detection by automated test strip NEGATIVE NEGATIVE Urine nitrite detection by test strip NEGATIVE NEGATIVE Urine total bilirubin detection by test strip NEGATIVE NEGATIVE Urine urobilinogen measurement by automated test strip (mass/volume) NORMAL NORMAL Urine leukocyte esterase detection by dipstick NEGATIVE NEGATIVE Automated urine sediment erythrocyte count by microscopy (number/high power field) NONE NRG Automated urine sediment leukocyte count by microscopy (number/high power field ) NONE NRG Bacteria detection in urine sediment by light microscopy TRACE NRG Squamous epithelial cells detection in urine sediment by light microscopy RARE NRG Crystals detection in urine sediment by light microscopy NONE NRG Casts detection in urine sediment by light microscopy NONE NRG Mucus detection in urine sediment by light microscopy NEGATIVE NRG Complete urinalysis with reflex to culture NO NRG Urine drug screening test - 12/02/16 04:05 Urine phencyclidine detection by screening method NEGATIVE NEGATIVE Urine benzodiazepines detection by screening method NEGATIVE NEGATIVE Urine cocaine detection NEGATIVE NEGATIVE Urine amphetamines detection by screening method NEGATIVE NEGATIVE Urine methamphetamine detection by screening method NEGATIVE NEGATIVE Urine cannabinoids detection by screening method NEGATIVE NEGATIVE Urine opiates detection by screening method NEGATIVE NEGATIVE Urine barbiturates detection NEGATIVE NEGATIVE Screening urine tricyclic antidepressants detection NEGATIVE NEGATIVE Urine methadone detection by screening method NEGATIVE NEGATIVE Urine oxycodone detection NEGATIVE NEGATIVE Urine propoxyphene detection NEGATIVE NEGATIVE Serum or plasma troponin i.cardiac measurement (mass/volume) - 12/02/16 07:56 Serum or plasma troponin i.cardiac measurement (mass/volume) < ng/mL <0.30 Arterial blood gas measurement - 12/02/16 09:19 Blood pCO2 28 mm[Hg] 35-45 Blood pO2 108 mm[Hg] 79-93 Arterial blood bicarbonate measurement (moles/volume) 18 mmol/L 23-27 Arterial blood base excess by calculation -5.1 mmol/L -2.5-2.5 Arterial blood oxygen saturation measurement 99 % 94-100 * Inhaled oxygen flow rate N/A NRG Arterial blood pH measurement with patient temperature correction 7.43 7.37-7.43 Arterial blood carbon dioxide, total measurement (moles/volume) 19.3 mmol/L 21.0-31.0 Body site LEFT RADIAL NRG Assessment of wrist artery patency prior to arterial puncture POSITIVE NRG Setting of ventilation mode NO NRG Measurement of body temperature 98.4 NRG Blood carboxyhemoglobin/total hemoglobin - 12/02/16 09:19 Blood carboxyhemoglobin/total hemoglobin 1.1 % 0.5-2.5 Serum or plasma troponin i.cardiac measurement (mass/volume) - 12/02/16 12:10 Serum or plasma troponin i.cardiac measurement (mass/volume) < ng/mL <0.30 Serum or plasma troponin i.cardiac measurement (mass/volume) - 12/02/16 18:13 Serum or plasma troponin i.cardiac measurement (mass/volume) < ng/mL <0.30 Complete blood count (CBC) with automated white blood cell (WBC) differential - 12/03/16 04:10 Blood leukocytes automated count (number/volume) 7.1 10*3/ uL 4.3-11.0 Blood erythrocytes automated count (number/volume) 3.88 10*6 /uL 4.35-5.85 Venous blood hemoglobin measurement (mass/volume) 12.3 g/dL 13.3-17.7 Blood hematocrit (volume fraction) 36 % 40-54 Automated erythrocyte mean corpuscular volume 92 [foz_us] 80-99 Automated erythrocyte mean corpuscular hemoglobin (mass per erythrocyte) 32 pg 25-34 Automated erythrocyte mean corpuscular hemoglobin concentration measurement ( mass/volume) 34 g/dL 32-36 Automated erythrocyte distribution width ratio 13.5 % 10.0-14.5 Automated blood platelet count (count/volume) 213 10*3/uL 130-400 Automated blood platelet mean volume measurement 11.7 [foz_ us] 7.4-10.4 Automated blood neutrophils/100 leukocytes 72 % 42-75 Automated blood lymphocytes/100 leukocytes 10 % 12-44 Blood monocytes/100 leukocytes 14 % 0-12 Automated blood eosinophils/100 leukocytes 4 % 0-10 Automated blood basophils/100 leukocytes 0 % 0-10 Blood neutrophils automated count (number/volume) 5.1 10*3 1.8-7.8 Blood lymphocytes automated count (number/volume) 0.7 10*3 1.0-4.0 Blood monocytes automated count (number/volume) 1.0 10*3 0.0-1.0 Automated eosinophil count 0.3 10*3/uL 0.0-0.3 Automated blood basophil count (count/volume) 0.0 10*3/uL 0.0-0.1 Whole blood basic metabolic panel - 12/03/16 04:10 Serum or plasma sodium measurement (moles/volume) 140 mmol/ L 135-145 Serum or plasma potassium measurement (moles/volume) 3.5 mmol/L 3.6-5.0 Serum or plasma chloride measurement (moles/volume) 113 mmol /L 98-107 Carbon dioxide 19 mmol/L 21-32 Serum or plasma anion gap determination (moles/volume) 8 mmol/L 5-14 Serum or plasma urea nitrogen measurement (mass/volume) 20 mg/dL 7-18 Serum or plasma creatinine measurement (mass/volume) 1.29 mg /dL 0.60-1.30 Serum or plasma urea nitrogen/creatinine mass ratio 16 NRG Serum or plasma creatinine measurement with calculation of estimated glomerular filtration rate 53 NRG Serum or plasma glucose measurement (mass/volume) 101 mg/dL 70-105 Serum or plasma calcium measurement (mass/volume) 8.5 mg/dL 8.5-10.1 Serum or plasma phosphate measurement (mass/volume) - 12/03/16 04:10 Serum or plasma phosphate measurement (mass/volume) 2.5 mg/ dL 2.3-4.7 Magnesium - 12/03/16 04:10 Magnesium 2.0 mg/dL 1.8-2.4 Lipid 1996 panel - 12/03/16 04:10 Serum or plasma triglyceride measurement (mass/volume) 127 mg/dL <150 Serum or plasma cholesterol measurement (mass/volume) 161 mg /dL < 200 Serum or plasma cholesterol in HDL measurement (mass/volume) 33 mg/dL 40-60 Cholesterol in LDL [mass/volume] in serum or plasma by direct assay 105 mg/dL 1-129 Serum or plasma cholesterol in VLDL measurement (mass/volume) 25 mg/dL 5-40 Encounters ACCT No. Visit Date/Time Discharge Status Pt. Type Provider Facility Loc./Unit Complaint [id number] 12/02/2016 06:04:00 2016 18:36:00 DIS Outpatient CELESTINE ONEILL MD [facility] ICU SYNCOPE, SOA [id number] 06/06/2015 09:33:00 2014 23:59:59 CLS Outpatient DAIANA JOHN [facility] CARD CP CAD CAROTID ARTERY DISEASE HTN [id number] 02/09/2014 09:01:00 2013 23:59:59 CLS Outpatient DINO MELVIN MD [facility] SDC SCREENING [id number] 11/10/2013 11:27:00 2013 00:01:00 DIS Outpatient LORAINE GONGORA DO [facility] LAB UTI [id number] 02/03/2014 07:29:00 2013 23:59:59 CLS Outpatient DINO MELVIN MD [facility] PREOP SCREENING [id number] 12/21/2013 14:10:00 2013 16:30:00 DIS Outpatient LORAINE GONGORA DO [facility] REHAB S/P RT TOTAL KNEE REPLACEMENT [id number] 11/16/2013 06:00:00 2013 15:45:00 DIS Inpatient LORAINE GONGORA DO [facility] SURGICAL RIGHT KNEE DJD [id number] 10/26/2013 13:21:00 2013 23:59:59 CLS Outpatient LORAINE GONGORA DO [facility] PREOP RIGHT KNEE DJD [id number] 07/01/2013 08:03:00 2012 23:59:59 CLS Outpatient DAIANA JOHN [facility] RAD CAD,HTN,HLP,POST CABG [id number] 06/18/2013 08:23:00 2012 23:59:59 CLS Outpatient DAIANA JOHN [facility] CARD CAD,HTN,HLP,POST CABG [id number] 04/01/2013 11:36:00 2012 14:19:00 DIS Emergency NERI KOTHARI, ANJALI Chen [facility] ER DIZZY [id number] 12/30/2016 07:21:00 ACT Outpatient HINA KOTHARI, Venessa WHATLEY [facility] CARD SYNCOPE [id number] 03/21/2016 12:57:00 ACT Outpatient STEPHANIE KOTHARI, LALI Beyer [facility] RAD EPIDIDYMO ORCHITIS [id number] 02/12/2016 08:32:00 ACT Outpatient EVELYN KOTHARI, JUAREZ Sloan [facility] RAD TENDER L TESTICLE [id number] 06/06/2015 09:31:00 Document Registration [id number] 06/06/2015 09:31:00 Document Registration [id number] 02/09/2014 00:00:00 Document Registration [id number] 02/15/2012 15:00:00 Document Registration [id number] 07/19/2010 11:02:00 Document Registration [id number] 06/13/2010 11:32:00 Document Registration [id number] 05/16/2010 11:40:00 Document Registration [id number] 04/04/2010 11:12:00 Document Registration [id number] 02/27/2010 12:35:00 Document Registration [id number] 01/12/2010 12:22:00 Document Registration
--- OUTSIDE RECORDS SUMMARY | 2017-01-05 05:32 | XMS REPORT | Continuity of Care Document ---
Author Author [facility] Organization [facility] Address Unknown Phone Unavailable Allergies Active Description Code Type Severity Reaction Onset Reported/Identified Relationship to Patient Clinical Status Yes Penicillins [id number] Drug Allergy Unknown N/A 02/15/2012 Medications Problems [...] NOS 02/16/2012 Ot 414.01 CORONARY ATHEROSCLEROSIS OF [place] CORON 02/16/2012 Ot 560.32 FECAL IMPACTION 02/16/2012 Ot 780.60 FEVER, UNSPECIFIED 02/16/2012 Ot 788.20 RETENTION OF URINE NOS 02/16/2012 Ot V10.46 HX-PROSTATIC MALIGNANCY 02/16/2012 Ot V15.3 HX OF IRRADIATION 02/16/2012 Ot V45.81 AORTOCORONARY BYPASS 02/16/2012 Ot V45.89 POSTSURGICAL STATES NEC 04/01/2013 NERI KOTHARI, ANJALI Chen Ot 462 ACUTE PHARYNGITIS 04/01/2013 NERI KOTHARI, ANJALI Chen Ot 780.4 DIZZINESS AND GIDDINESS 11/19/2013 LORAINE GONGROA DO Ot 276.8 HYPOPOTASSEMIA 11/19/2013 LORAINE GONGORA [...] MELVIN MD Ot 414.01 CORONARY ATHEROSCLEROSIS OF [place] CORON 02/09/2014 DINO MELVIN MD Ot 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 02/09/2014 DINO MELVIN MD Ot 455.0 INT HEMORRHOID W/O COMPL 02/09/2014 DINO MELVIN MD Ot 562.10 DIVERTICULOSIS COLON (W/O MENT OF HEMORR 02/09/2014 DINO MELVIN MD Ot V10.46 HX-PROSTATIC MALIGNANCY 06/06/2015 Ot 424.1 06/06/2015 Ot 786.09 06/06/2015 Ot 786.59 06/06/2015 Ot 793.1 06/06/2015 Ot 786.59 06/06/2015 Ot V45.81 06/06/2015 Ot 414.00 06/06/2015 Ot 786.50 06/06/2015 Ot V45.81 06/06/2015 BAIMA, DAIANA L INFORMATION ASSURANCE SPECIALIST Ot 272.4 06/06/2015 BAIMA, DAIANA L INFORMATION ASSURANCE SPECIALIST Ot 401.9 06/06/2015 BAIMA, DAIANA L INFORMATION ASSURANCE SPECIALIST Ot 414.00 06/06/2015 BAIMA, DAIANA L INFORMATION ASSURANCE SPECIALIST Ot 424.90 06/06/2015 BAIMA, DAIANA L INFORMATION ASSURANCE SPECIALIST Ot 429.3 06/06/2015 BAIMA, DAIANA L INFORMATION ASSURANCE SPECIALIST Ot V43.3 06/06/2015 BAIMA, DAIANA L INFORMATION ASSURANCE SPECIALIST Ot V45.81 06/06/2015 BAIMA, DAIANA L INFORMATION ASSURANCE SPECIALIST Ot 272.4 06/06/2015 BAIMA, DAIANA L INFORMATION ASSURANCE SPECIALIST Ot 401.9 06/06/2015 BAIMA, DAIANA L INFORMATION ASSURANCE SPECIALIST Ot 414.00 06/06/2015 BAIMA, DAIANA L INFORMATION ASSURANCE SPECIALIST Ot 424.90 06/06/2015 BAIMA, DAIANA L INFORMATION ASSURANCE SPECIALIST Ot V45.81 06/06/2015 FRANSISCA DO, LORAINE F Ot 715.36 06/06/2015 FRANSISCA DO, LORAINE F Ot 791.9 06/06/2015 FRANSISCA DO, LORAINE F Ot V72.63 06/06/2015 FRANSISCA DO, LORAINE F Ot V72.83 06/06/2015 FRANSISCA DO, LORAINE F Ot V74.8 06/06/2015 DINO MELVIN MD Ot V72.84 06/06/2015 Ot 599.0 12/12/2015 BAIMA, DAIANA L INFORMATION ASSURANCE SPECIALIST Ot E78.5 12/12/2015 BAIMA, DAIANA L INFORMATION ASSURANCE SPECIALIST Ot I10 12/12/2015 BAIMA, DAIANA L INFORMATION ASSURANCE SPECIALIST Ot I25.9 12/12/2015 BAIMA, DAIANA L INFORMATION ASSURANCE SPECIALIST Ot I38 12/12/2015 BAIMA, DAIANA L INFORMATION ASSURANCE SPECIALIST Ot I77.9 12/12/2015 BAIMA, DAIANA L INFORMATION ASSURANCE SPECIALIST Ot R07.9 12/12/2015 BAIMA, DAIANA L INFORMATION ASSURANCE SPECIALIST Ot Z95.1 02/12/2016 BAIMA, DAIANA L INFORMATION ASSURANCE SPECIALIST Ot 272.4 HYPERLIPIDEMIA NEC/NOS 02/12/2016 BAIMA, DAIANA L INFORMATION ASSURANCE SPECIALIST Ot 401.9 HYPERTENSION NOS 02/12/2016 BAIMA, DAIANA L INFORMATION ASSURANCE SPECIALIST Ot 414.00 CORON ATHEROSCLER NOS TYPE VESSEL, NATIV 02/12/2016 BAIMA, DAIANA L INFORMATION ASSURANCE SPECIALIST Ot 424.90 ENDOCARDITIS NOS 02/12/2016 BAIMA, DAIANA L INFORMATION ASSURANCE SPECIALIST Ot 429.3 CARDIOMEGALY 02/12/2016 BAIMA, DAIANA L INFORMATION ASSURANCE SPECIALIST Ot 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 02/12/2016 BAIMA, DAIANA L INFORMATION ASSURANCE SPECIALIST Ot V45.81 AORTOCORONARY BYPASS 02/12/2016 BAIMA, DAIANA L INFORMATION ASSURANCE SPECIALIST Ot 272.4 HYPERLIPIDEMIA NEC/NOS 02/12/2016 BAIMA, DAIANA L INFORMATION ASSURANCE SPECIALIST Ot 401.9 HYPERTENSION NOS 02/12/2016 BAIMA, DAIANA L INFORMATION ASSURANCE SPECIALIST Ot 414.00 CORON ATHEROSCLER NOS TYPE VESSEL, NATIV 02/12/2016 DAIANA JOHN INFORMATION ASSURANCE SPECIALIST Ot 424.90 ENDOCARDITIS NOS 02/12/2016 DEONNADAIANA RODRIGUEZ INFORMATION ASSURANCE SPECIALIST Ot V45.81 AORTOCORONARY BYPASS 02/12/2016 FRANSISCA STONER, [...] URIN TRACT INFECTION NOS 02/12/2016 DEONNADAIANA RODRIGUEZ INFORMATION ASSURANCE SPECIALIST Ot E78.5 HYPERLIPIDEMIA, UNSPECIFIED 02/12/2016 DEONNADAIANA RODRIGUEZ INFORMATION ASSURANCE SPECIALIST Ot I10 ESSENTIAL (PRIMARY) HYPERTENSION 02/12/2016 DORA DAIANA Efe INFORMATION ASSURANCE SPECIALIST Ot I25.9 CHRONIC ISCHEMIC HEART DISEASE, UNSPECIF 02/12/2016 DAIANA JOHN INFORMATION ASSURANCE SPECIALIST Ot I38 ENDOCARDITIS, VALVE UNSPECIFIED 02/12/2016 DEONNAJENNIFER DAIANA Wilks INFORMATION ASSURANCE SPECIALIST Ot I77.9 DISORDER OF ARTERIES AND ARTERIOLES, UNS 02/12/2016 DEONNADAIANA RODRIGUEZ INFORMATION ASSURANCE SPECIALIST Ot R07.9 CHEST PAIN, UNSPECIFIED 02/12/2016 DAIANA JOHN INFORMATION ASSURANCE SPECIALIST Ot Z95.1 PRESENCE OF AORTOCORONARY BYPASS GRAFT [...] OF MALE GENITA 02/21/2016 DORA DAIANA L INFORMATION ASSURANCE SPECIALIST Ot 272.4 HYPERLIPIDEMIA NEC/NOS 02/21/2016 DAIANA JOHN INFORMATION ASSURANCE SPECIALIST Ot 401.9 HYPERTENSION NOS 02/21/2016 DAIANA JOHN INFORMATION ASSURANCE SPECIALIST Ot 414.00 CORON ATHEROSCLER NOS TYPE VESSEL, NATIV 02/21/2016 DAIANA JOHN INFORMATION ASSURANCE SPECIALIST Ot 424.90 ENDOCARDITIS NOS 02/21/2016 DAIANA JOHN INFORMATION ASSURANCE SPECIALIST Ot 429.3 CARDIOMEGALY 02/21/2016 DAIANA JOHN INFORMATION ASSURANCE SPECIALIST Ot 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 02/21/2016 DAIANA JOHN INFORMATION ASSURANCE SPECIALIST Ot V45.81 AORTOCORONARY BYPASS 02/21/2016 DAIANA JOHN INFORMATION ASSURANCE SPECIALIST Ot 272.4 HYPERLIPIDEMIA NEC/NOS 02/21/2016 DIAANA JOHN INFORMATION ASSURANCE SPECIALIST Ot 401.9 HYPERTENSION NOS 02/21/2016 DAIANA JOHN INFORMATION ASSURANCE SPECIALIST Ot 414.00 CORON ATHEROSCLER NOS TYPE VESSEL, NATIV 02/21/2016 DAIANA JOHN INFORMATION ASSURANCE SPECIALIST Ot 424.90 ENDOCARDITIS NOS 02/21/2016 DAIANA JOHN INFORMATION ASSURANCE SPECIALIST Ot V45.81 AORTOCORONARY BYPASS 02/21/2016 LORAINE GONGORA DO Ot 715.36 LOC OSTEOARTH [...] URIN TRACT INFECTION NOS 02/21/2016 DEONNADAIANA RODRIGUEZ INFORMATION ASSURANCE SPECIALIST Ot E78.5 HYPERLIPIDEMIA, UNSPECIFIED 02/21/2016 DEONNADAIANA RODRIGUEZ INFORMATION ASSURANCE SPECIALIST Ot I10 ESSENTIAL (PRIMARY) HYPERTENSION 02/21/2016 DEONNADAIANA RODRIGUEZ INFORMATION ASSURANCE SPECIALIST Ot I25.9 CHRONIC ISCHEMIC HEART DISEASE, UNSPECIF 02/21/2016 DAIANA JOHN INFORMATION ASSURANCE SPECIALIST Ot I38 ENDOCARDITIS, VALVE UNSPECIFIED 02/21/2016 DAIANA JOHN INFORMATION ASSURANCE SPECIALIST Ot I77.9 DISORDER OF ARTERIES AND ARTERIOLES, UNS 02/21/2016 DEONNADAIANA RODRIGUEZ INFORMATION ASSURANCE SPECIALIST Ot R07.9 CHEST PAIN, UNSPECIFIED 02/21/2016 DAIANA JOHN INFORMATION ASSURANCE SPECIALIST Ot Z95.1 PRESENCE OF AORTOCORONARY BYPASS GRAFT 03/21/2016 DAIANA JOHN INFORMATION ASSURANCE SPECIALIST Ot 272.4 HYPERLIPIDEMIA NEC/NOS 03/21/2016 BAIMA, DAIANA L INFORMATION ASSURANCE SPECIALIST Ot 401.9 HYPERTENSION NOS 03/21/2016 BAIJENNIFER, DAIANA L INFORMATION ASSURANCE SPECIALIST Ot 414.00 CORON ATHEROSCLER NOS TYPE VESSEL, NATIV 03/21/2016 BAIMADAIANA INFORMATION ASSURANCE SPECIALIST Ot 424.90 ENDOCARDITIS NOS 03/21/2016 BAIJENNIFER, DAIANA L INFORMATION ASSURANCE SPECIALIST Ot 429.3 CARDIOMEGALY 03/21/2016 BAIJENNIFER, DAIANA L INFORMATION ASSURANCE SPECIALIST Ot 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 03/21/2016 BAIDAIANA RODRIGUEZ INFORMATION ASSURANCE SPECIALIST Ot V45.81 AORTOCORONARY BYPASS 03/21/2016 DAIANA JOHN INFORMATION ASSURANCE SPECIALIST Ot 272.4 HYPERLIPIDEMIA NEC/NOS 03/21/2016 BAIDAIANA RODRIGUEZ INFORMATION ASSURANCE SPECIALIST Ot 401.9 HYPERTENSION NOS 03/21/2016 BAIJENNIFER, DAIANA Wilks INFORMATION ASSURANCE SPECIALIST Ot 414.00 CORON ATHEROSCLER NOS TYPE VESSEL, NATIV 03/21/2016 BAIDAIANA RODRIGUEZ INFORMATION ASSURANCE SPECIALIST Ot 424.90 ENDOCARDITIS NOS 03/21/2016 BAIDAIANA RODRIGUEZ INFORMATION ASSURANCE SPECIALIST Ot V45.81 AORTOCORONARY BYPASS 03/21/2016 LORAINE GONGORA [...] URIN TRACT INFECTION NOS 03/21/2016 DAIANA JOHN INFORMATION ASSURANCE SPECIALIST Ot E78.5 HYPERLIPIDEMIA, UNSPECIFIED 03/21/2016 DAIANA JOHN INFORMATION ASSURANCE SPECIALIST Ot I10 ESSENTIAL (PRIMARY) HYPERTENSION 03/21/2016 BAIDAIANA RODRIGUEZ INFORMATION ASSURANCE SPECIALIST Ot I25.9 CHRONIC ISCHEMIC HEART DISEASE, UNSPECIF 03/21/2016 BAIDAIANA RODRIGUEZ INFORMATION ASSURANCE SPECIALIST Ot I38 ENDOCARDITIS, VALVE UNSPECIFIED 03/21/2016 DAIANA JOHN INFORMATION ASSURANCE SPECIALIST Ot I77.9 DISORDER OF ARTERIES AND ARTERIOLES, UNS 03/21/2016 DAIANA JOHN INFORMATION ASSURANCE SPECIALIST Ot R07.9 CHEST PAIN, UNSPECIFIED 03/21/2016 DAIANA JOHN INFORMATION ASSURANCE SPECIALIST Ot Z95.1 PRESENCE OF AORTOCORONARY BYPASS GRAFT 03/22/2016 STEPHANIE KOTHARI, LALI Beyer Ot N45.3 EPIDIDYMO-ORCHITIS 03/22/2016 STEPHANIE KOTHARI, LALI Beyer Ot N45.3 EPIDIDYMO-ORCHITIS 04/04/2016 STEPHANIE KOTHARI, LALI Beyer Ot N45.3 EPIDIDYMO-ORCHITIS 05/01/2016 STEPHANIE KOTHARI, LALI Beyer Ot N45.3 EPIDIDYMO-ORCHITIS 05/10/2016 STEPHANIE KOTHARI, LALI Beyer Ot N45.3 EPIDIDYMO-ORCHITIS 10/04/2016 EVELYN KOTHARI, JUAREZ Sloan Ot N50.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 10/04/2016 DEONNADAIANA RODRIGUEZ INFORMATION ASSURANCE SPECIALIST Ot 272.4 HYPERLIPIDEMIA NEC/NOS 10/04/2016 BAIJENNIFER, DAIANA L INFORMATION ASSURANCE SPECIALIST Ot 401.9 HYPERTENSION NOS 10/04/2016 BAIJENNIFER, DAIANA L INFORMATION ASSURANCE SPECIALIST Ot 414.00 CORON ATHEROSCLER NOS TYPE VESSEL, NATIV 10/04/2016 BAIDAIANA RODRIGUEZ L INFORMATION ASSURANCE SPECIALIST Ot 424.90 ENDOCARDITIS NOS 10/04/2016 BAIDAIANA RODRIGUEZ L INFORMATION ASSURANCE SPECIALIST Ot 429.3 CARDIOMEGALY 10/04/2016 DEONNADAIANA RODRIGUEZ INFORMATION ASSURANCE SPECIALIST Ot 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 10/04/2016 BAIDAIANA RODRIGUEZ L INFORMATION ASSURANCE SPECIALIST Ot V45.81 AORTOCORONARY BYPASS 10/04/2016 BAIDAIANA RODRIGUEZ L INFORMATION ASSURANCE SPECIALIST Ot 272.4 HYPERLIPIDEMIA NEC/NOS 10/04/2016 BAIMA, DAIANA L INFORMATION ASSURANCE SPECIALIST Ot 401.9 HYPERTENSION NOS 10/04/2016 BAIJENNIFER, DAIANA L INFORMATION ASSURANCE SPECIALIST Ot 414.00 CORON ATHEROSCLER NOS TYPE VESSEL, NATIV 10/04/2016 BAIMA DAIANA L INFORMATION ASSURANCE SPECIALIST Ot 424.90 ENDOCARDITIS NOS 10/04/2016 BAIJENNIFER DAIANA L INFORMATION ASSURANCE SPECIALIST Ot V45.81 AORTOCORONARY BYPASS 10/04/2016 LORAINE GONGORA [...] TRACT INFECTION NOS 10/04/2016 DORA DAIANA L INFORMATION ASSURANCE SPECIALIST Ot E78.5 HYPERLIPIDEMIA, UNSPECIFIED 10/04/2016 BAIMA DAIANA L INFORMATION ASSURANCE SPECIALIST Ot I10 ESSENTIAL (PRIMARY) HYPERTENSION 10/04/2016 BAIMA DAIANA L INFORMATION ASSURANCE SPECIALIST Ot I25.9 CHRONIC ISCHEMIC HEART DISEASE, UNSPECIF 10/04/2016 BAIMA DAIANA L INFORMATION ASSURANCE SPECIALIST Ot I38 ENDOCARDITIS, VALVE UNSPECIFIED 10/04/2016 DAIANA JOHN L INFORMATION ASSURANCE SPECIALIST Ot I77.9 DISORDER OF ARTERIES AND ARTERIOLES, UNS 10/04/2016 BAIJENNIFER DAIANA L INFORMATION ASSURANCE SPECIALIST Ot R07.9 CHEST PAIN, UNSPECIFIED 10/04/2016 BAIMA, DAIANA L INFORMATION ASSURANCE SPECIALIST Ot Z95.1 PRESENCE OF AORTOCORONARY BYPASS GRAFT 10/04/2016 EVELYN KOTHARI, JUAREZ Sloan Ot N50.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 10/04/2016 LALI BROWN MD Ot N45.3 EPIDIDYMO-ORCHITIS 10/11/2016 JUAREZ RIVAS MD Ot N50.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 12/03/2016 CELESTINE ONEILL MD Ot I12.9 HYPERTENSIVE CHRONIC KIDNEY DISEASE W ST 12/03/2016 CELESTINE ONEILL MD Ot I25.10 ATHSCL HEART DISEASE OF [place] CORONARY 12/03/2016 CELESTINE ONEILL MD Ot I38 [...] Status Pt. Type Provider Facility Loc./Unit Complaint [id number] 12/02/2016 06:04:00 2016 18:36:00 DIS Outpatient CELESTINE ONEILL MD [facility] ICU SYNCOPE, SOA [id number] 06/06/2015 09:33:00 2014 23:59:59 CLS Outpatient DAIANA JOHN [facility] CARD CP CAD CAROTID ARTERY DISEASE HTN [id number] 02/09/2014 09:01:00 2013 23:59:59 CLS Outpatient DINO MELVIN MD [facility] SDC SCREENING [id number] 11/10/2013 11:27:00 2013 00:01:00 DIS Outpatient LORAINE GONGORA DO [facility] LAB UTI [id number] 02/03/2014 07:29:00 2013 23:59:59 CLS Outpatient DINO MELVIN MD [facility] PREOP SCREENING [id number] 12/21/2013 14:10:00 2013 16:30:00 DIS Outpatient LORAINE GONGORA DO [facility] REHAB S/P RT TOTAL KNEE REPLACEMENT [id number] 11/16/2013 06:00:00 2013 15:45:00 DIS Inpatient LORAINE GONGORA DO [facility] SURGICAL RIGHT KNEE DJD [id number] 10/26/2013 13:21:00 2013 23:59:59 CLS Outpatient LORAINE GONGORA DO [facility] PREOP RIGHT KNEE DJD [id number] 07/01/2013 08:03:00 2012 23:59:59 CLS Outpatient DAIANA JOHN [facility] RAD CAD,HTN,HLP,POST CABG [id number] 06/18/2013 08:23:00 2012 23:59:59 CLS Outpatient DAIANA JOHN [facility] CARD CAD,HTN,HLP,POST CABG [id number] 04/01/2013 11:36:00 2012 14:19:00 DIS Emergency NERI KOTHARI, ANJALI Chen [facility] ER DIZZY [id number] 12/30/2016 07:21:00 ACT Outpatient HINA KOTHARI, Venessa WHATLEY [facility] CARD SYNCOPE [id number] 03/21/2016 12:57:00 ACT Outpatient STEPHANIE KOTHARI, LALI Beyer [facility] RAD EPIDIDYMO ORCHITIS [id number] 02/12/2016 08:32:00 ACT Outpatient EVELYN KOTHARI, JUAREZ Sloan [facility] RAD TENDER L TESTICLE [id number] 06/06/2015 09:31:00 Document Registration [id number] 06/06/2015 09:31:00 Document Registration [id number] 02/09/2014 00:00:00 Document Registration [id number] 02/15/2012 15:00:00 Document Registration [id number] 07/19/2010 11:02:00 Document Registration [id number] 06/13/2010 11:32:00 Document Registration [id number] 05/16/2010 11:40:00 Document Registration [id number] 04/04/2010 11:12:00 Document Registration [id number] 02/27/2010 12:35:00 Document Registration [id number] 01/12/2010 12:22:00 Document Registration
== END 2016-12-03 16:14 | disposition home or self-care (01) ==
LOC: EDUNIT# 03:38 → ER 03:39 → ICU 06:04 → INTOOBSV 06:04 → OBSVTOIN 13:57 → INTOOBSV 13:57
PROVIDERS: ADMIT Internal Medicine; ATTEND Internal Medicine
DX: R55 Syncope and collapse (principal); R06.02 Shortness of breath; R42 Dizziness and giddiness; I25.10 Atherosclerotic heart disease of native coronary artery without angina pectoris; I38 Endocarditis, valve unspecified; I12.9 Hypertensive chronic kidney disease with stage 1 through stage 4 chronic kidney disease, or unspecified chronic kidney disease; N18.9 Chronic kidney disease, unspecified; R44.3 Hallucinations, unspecified; Z95.1 Presence of aortocoronary bypass graft; Z95.5 Presence of coronary angioplasty implant and graft
CPT/HCPCS: 36415; 70450; 71010; 72125; 78452; 80048; 80053; 80061; 80306; 80320; 81000; 82375; 82805; 83735; 83874; 84100; 84484; 85025; 85610; 85730; 93005; 93017; 93041; 93306; 96360; G0378

== ENCOUNTER 2017-01-06 09:30 | Outpatient (RCR) | payer MEDICARE ==
[~2017-01-06 09:30] MED LIST changes: +NF-SOLIF5T PO; +TAMS0.4C2 PO
[2017-07-01] MEDS ORDERED: METO-387 PO (14:10)
== END 2017-03-10 | disposition home or self-care (01) ==
LOC: CARD 09:30
PROVIDERS: ATTEND Internal Medicine Interventional Cardiology
DX: R55 Syncope and collapse (principal)
CPT/HCPCS: 93270

== ENCOUNTER 2017-07-01 10:23 | Observation (INO) | payer MEDICARE ==
[~2017-07-01] VITALS: Ht 160 cm; Wt 73.2 kg
[2017-07-01 10:46] LABS: BASOPHILS % (AUTO) 1 % (0-10); EOSINOPHILS # (AUTO) 0.3 10^3/uL (0.0-0.3); EOSINOPHILS % (AUTO) 4 % (0-10); LYMPHOCYTES # (AUTO) 1.1 X 10^3 (1.0-4.0); LYMPHOCYTES % (AUTO) 16 % (12-44); MEAN CORPUSCULAR HEMOGLOBIN 31 PG (25-34); MEAN CORPUSCULAR HGB CONC 34 G/DL (32-36); MEAN CORPUSCULAR VOLUME 92 FL (80-99); MEAN PLATELET VOLUME 10.9 FL (7.4-10.4); MONOCYTES % (AUTO) 14 % (0-12); NEUTROPHILS # (AUTO) 4.5 X 10^3 (1.8-7.8); NEUTROPHILS % (AUTO) 65 % (42-75); PLATELET COUNT 238 10^3/uL (130-400); RED BLOOD COUNT 4.66 10^6/uL (4.35-5.85); RED CELL DISTRIBUTION WIDTH 14.1 % (10.0-14.5); WHITE BLOOD COUNT 6.9 10^3/uL (4.3-11.0)
[2017-07-01 10:56] LABS: PROTHROMBIN TIME PATIENT 13.1 SEC (12.2-14.7)
[2017-07-01 11:04] LABS: ALANINE AMINOTRANSFERASE 12 U/L (0-55); ALBUMIN 4.1 GM/DL (3.2-4.5); ANION GAP 11 MMOL/L (5-14); ASPARTATE AMINO TRANSFERASE 21 U/L (5-34); BILIRUBIN,TOTAL 0.6 MG/DL (0.1-1.0); BLOOD UREA NITROGEN 26 MG/DL (7-18); BUN/CREATININE RATIO 16; CALCIUM 10.1 MG/DL (8.5-10.1); CARBON DIOXIDE 23 MMOL/L (21-32); CHLORIDE 106 MMOL/L (98-107); CREATININE SERUM 1.63 MG/DL (0.60-1.30); GFR ESTIMATED 40; GLUCOSE 100 MG/DL (70-105); MAGNESIUM 2.3 MG/DL (1.8-2.4); POTASSIUM 3.8 MMOL/L (3.6-5.0); SODIUM 140 MMOL/L (135-145); TOTAL PROTEIN 7.7 GM/DL (6.4-8.2)
[2017-07-01 11:11] LABS: MYOGLOBIN SERUM 88.5 NG/ML (10.0-92.0)
--- NOTE | 2017-07-01 12:28 | Diagnostic Imaging Report ---
PROCEDURE: US Carotid Duplex Bilateral. TECHNIQUE: Multiple real-time grayscale images were obtained over the carotid arteries in various projections bilaterally. Additional duplex Doppler and color Doppler images were also obtained. INDICATION: Syncope. FINDINGS: The grayscale images demonstrate atherosclerotic plaque in the common and internal carotid arteries. This appears to be partially calcified. There is a mild plaque also demonstrated along the right internal carotid artery mid portion which appears to be a soft plaque. Color Doppler demonstrates patency of the internal, external and common carotid arteries. The vertebral arteries demonstrate antegrade flow bilaterally. Peak systolic velocities in the right the ICA is 70, 67 and 72 cm per second from proximal to distal and on the left side 52, 63 and 65 cm per second. ICA over CCA ratios are up to 1 on the right side and up to 1 on the left side. IMPRESSION: There is atherosclerotic plaque seen at the carotid bifurcation bilaterally with estimated underlying stenosis in the internal carotid artery within range of 0-40% bilaterally. Dictated by: Dictated on workstation # [id number]
[2017-07-01] MEDS ORDERED: CLOP75TA28 PO (12:33)
--- NOTE | 2017-07-01 12:39 | ED Chest Pain ---
General Chief Complaint: Chest Pain Stated Complaint: PASSED OUT/CP Nursing Triage Note: ARRIVED VIA AMB TO ROOM. STATES HE BECAME DIZZY, HAD CHEST PAIN, THEN PASSED OUT. Nursing Sepsis Screen: No Definite Risk Source: patient Exam Limitations: no limitations History of Present Illness Time seen by provider: 10:29 Initial Comments This 87-year-old gentleman presents to the emergency room by private vehicle stating he was brought here by a neighbor he summoned. He has complaints of lightheadedness and chest pain. He reports while getting up to the bathroom this morning he became dizzy. He then walked to the living room. He sat down. Upon getting up again he was still dizzy. He also had some chest discomfort which she describes as a thumping sensation. Review of his chart notes that he does have a history of coronary artery disease and aortic stenosis. He was admitted in November for an episode in which he thought he had carbon monoxide poisoning. He was evaluated by Dr. Patterson and a stress test was performed. No ischemia was identified. Patient was transferred to [facility] in 2009 for CABG. 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 Patient denies any chest pain at this time. He seems anxious and admits to having problems with dementia. His histories are somewhat discombobulated and at times do not make sense. He reports living alone but being in close contact with family. He is denying any chest pain at this moment. Allergies and Home Medications Allergies Coded Allergies: Penicillins (Verified Allergy, Unknown, 02/15/12) Home Medications Amlodipine Besylate 10 Mg Tablet, 10 MG PO DAILY, (Reported) Aspirin 81 Mg Tabec, 81 MG PO DAILY, (Reported) Clopidogrel Bisulfate 75 Mg Tablet, 75 MG PO DAILY, (Reported) Ezetimibe 10 Mg Tablet, 10 MG PO DAILY, (Reported) Fenofibrate,Micronized 48 Mg Tablet, 48 MG PO DAILY, (Reported) Metoprolol Succinate 25 Mg Tab, 12.5 MG PO DAILY, (Reported) TAKES 1/2 OF A (25 MG) TABLET / LAST FILLED 09/24/16 #30 Mu-Vits-Min Th/Lycopene/Lutein 1 Each Tablet, 1 TAB PO DAILY, (Reported) Solifenacin Succinate 5 Mg Tablet, 5 MG PO DAILY, (Reported) Tamsulosin HCl 0.4 Mg Cap.er.24h, 0.4 MG PO HS, (Reported) Review of Systems Constitutional: no symptoms reported EENTM: No Symptoms Reported Respiratory: No Symptoms Reported Cardiovascular: See HPI Gastrointestinal: No Symptoms Reported Genitourinary: No Symptoms Reported Musculoskeletal: no symptoms reported Skin: no symptoms reported Psychiatric/Neurological: No Symptoms Reported Endocrine: No Symptoms Reported Hematologic/Lymphatic: No Symptoms Reported Past Zqwnmap-Wsoxcx-Hbhvqx Hx Patient Social History Recent Foreign Travel: No Contact w/Someone Who Travel: No Recent Infectious Disease Expo: No Recent Hopitalizations: Yes Immunizations Up To Date Tetanus Booster (TDap): Unknown PED Vaccines UTD: No Date of Pneumonia Vaccine: Jun 01, 2011 Date of Influenza Vaccine: Jun 01, 2013 Seasonal Allergies Seasonal Allergies: No Surgeries History of Surgeries: Yes (STENTS X 2, ENDARTECTOMY, BRACHYTHERAPY, ) Surgeries: CABG Respiratory History of Respiratory Disorde: No Currently Using CPAP: No Currently Using BIPAP: No Cardiovascular History of Cardiac Disorders: Yes (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 ) Cardiac Disorders: Coronary Artery Disease Neurological History of Neurological Disord: Yes Neurological Disorders: Dementia Reproductive System Hx Reproductive Disorders: No Genitourinary History of Genitourinary Disor: Yes Genitourinary Disorders: Prostate Problems, Renal Failure (CKD) Gastrointestinal History of Gastrointestinal Di: Yes Gastrointestinal Disorders: Gastroesophageal Reflux Musculoskeletal History of Musculoskeletal Dis: Yes (ARTHRITIS) Endocrine History of Endocrine Disorders: No HEENT History of HEENT Disorders: No Cancer History of Cancer: Yes Cancer: Prostate Type of Tx Receive: Radiation Psychosocial History of Psychiatric Problem: Yes Behavioral Health Disorders: Depression Integumentary History of Skin or Integumenta: No Blood Transfusions History of Blood Disorders: No (TAKES PLAVIX) Family Medical History Family Medial History: Cancer 09 SISTER Family history: Arthritis 03 FATHER 03 MOTHER Family history: Diabetes mellitus 03 MOTHER Family history: Gastrointestinal disease 03 FATHER History of - anemia 03 FATHER No Family History of: Abdominal aortic aneurysm Congestive heart failure Dementia Family history: Alzheimer's disease Family history: Asthma Family history: Breast disease Family history: Cardiovascular disease Family history: Hypertension Family history: Thyroid disorder Hereditary disease History of - respiratory disease Myocardial infarction Parkinson's disease Psychotic disorder Stroke Physical Exam Vital Signs Vital Sign - Last 12Hours 07/01/17 10:30 Temp 98.0 Pulse 71 Resp 18 B/P (MAP) 194/114 Pulse Ox 100 Capillary Refill : Less Than 3 Seconds General Appearance: No Apparent Distress HEENT: PERRL/EOMI, Normal ENT Inspection, Other (oropharynx somewhat dry) Neck: Normal Inspection Respiratory: Lungs Clear, Normal Breath Sounds, No Accessory Muscle Use, No Respiratory Distress Cardiovascular: No Edema, No Murmur, Irregularly Irregular Gastrointestinal: Normal Bowel Sounds, Non Tender, Soft Extremity: Normal Inspection, No Pedal Edema Neurologic/Psychiatric: Alert, No Motor/Sensory Deficits, Normal Mood/Affect, space and 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 operations spacelift II-XII Norm as Tested, Other (patient is intermittently confused and gives conflicting histories.) Skin: Normal Color, Warm/Dry Progress/Results/Core Measures Results/Orders Lab Results Laboratory Tests Test 07/01/17 10:36 Range/Units White Blood Count 6.9 4.3-11.0 10^3/uL Red Blood Count 4.66 4.35-5.85 10^6/uL Hemoglobin 14.4 13.3-17.7 G/DL Hematocrit 43 40-54 % Mean Corpuscular Volume 92 80-99 FL Mean Corpuscular Hemoglobin 31 25-34 PG Mean Corpuscular Hemoglobin Concent 34 32-36 G/DL Red Cell Distribution Width 14.1 10.0-14.5 % Platelet Count 238 130-400 10^3/uL Mean Platelet Volume 10.9 H 7.4-10.4 FL Neutrophils (%) (Auto) 65 42-75 % Lymphocytes (%) (Auto) 16 12-44 % Monocytes (%) (Auto) 14 H 0-12 % Eosinophils (%) (Auto) 4 0-10 % Basophils (%) (Auto) 1 0-10 % Neutrophils # (Auto) 4.5 1.8-7.8 X 10^3 Lymphocytes # (Auto) 1.1 1.0-4.0 X 10^3 Monocytes # (Auto) 1.0 0.0-1.0 X 10^3 Eosinophils # (Auto) 0.3 0.0-0.3 10^3/uL Basophils # (Auto) 0.0 0.0-0.1 10^3/uL Prothrombin Time 13.1 12.2-14.7 SEC INR Comment 1.0 0.8-1.4 Activated Partial Thromboplast Time 26 24-35 SEC Sodium Level 140 135-145 MMOL/L Potassium Level 3.8 3.6-5.0 MMOL/L Chloride Level 106 98-107 MMOL/L Carbon Dioxide Level 23 21-32 MMOL/L Anion Gap 11 5-14 MMOL/L Blood Urea Nitrogen 26 H 7-18 MG/DL Creatinine 1.63 H 0.60-1.30 MG/DL Estimat Glomerular Filtration Rate 40 BUN/Creatinine Ratio 16 Glucose Level 100 70-105 MG/DL Calcium Level 10.1 8.5-10.1 MG/DL Magnesium Level 2.3 1.8-2.4 MG/DL Total Bilirubin 0.6 0.1-1.0 MG/DL Aspartate Amino Transf (AST/SGOT) 21 5-34 U/L Alanine Aminotransferase (ALT/SGPT) 12 0-55 U/L Alkaline Phosphatase 64 40-136 U/L Myoglobin 88.5 10.0-92.0 NG/ML Troponin I < 0.30 <0.30 NG/ML B-Type Natriuretic Peptide 73.4 <100.0 PG/ML Total Protein 7.7 6.4-8.2 GM/DL Albumin 4.1 3.2-4.5 GM/DL My Orders Orders - ANJALI HE MD Cbc With Automated Diff (07/01/17 10:29) Magnesium (07/01/17 10:29) Chest 1 View, Ap/Pa Only (07/01/17 10:29) Ekg Tracing (07/01/17 10:29) Cardiac Profile 1 (07/01/17 10:29) Comprehensive Metabolic Panel (07/01/17 10:29) Myoglobin Serum (07/01/17 10:29) Protime With Inr (07/01/17 10:29) Partial Thromboplastin Time (07/01/17 10:29) O2 (07/01/17 10:29) Monitor-Rhythm Ecg Trace Only (07/01/17 10:29) Lipid Panel (07/02/17 06:00) Saline Lock/Iv-Start (07/01/17 10:29) Us Carotid Jet Complete [id number] (07/01/17 11:29) BNP (07/01/17 12:33) Vital Signs/I&O Vital Sign - Last 12Hours 07/01/17 10:30 Temp 98.0 Pulse 71 Resp 18 B/P (MAP) 194/114 Pulse Ox 100 Blood Pressure Mean: 140 Progress Note : Progress Note The patient was evaluated and workup was relatively unremarkable for acute problems. The longer the patient stayed in the ER, the more demented he appeared. His histories are confused. His compliance with medications is in question. In reviewing his filling record it appears that he has not filled his medications recently. He also pulled out an empty box of the Benicar and stated he took 2 of them last night for constipation. Patient admits he gets confused with his medications. Patient was initially hypertensive but blood pressure improved throughout his stay. I attempted to call multiple individuals including Jennifer and Grady Mcmahan and patient's son Eliezer. I was unable to reach any of them. I also contacted Dr. Rivas's office and discussed the situation with them. They reported that he was seen in their office June 25 and was by himself at that time. They reported he has significant dementia at baseline. ECG Initial ECG Impression Date: Jul 01, 2017 Initial ECG Impression Time: 10:32 Initial ECG Rate: 64 Initial ECG Rhythm: Normal Sinus Comment Sinus rhythm with multiple premature complexes. Right bundle branch block. No ST elevation or depression. Diagnostic Imaging Diagonstic Imaging: Ultrasound Comments Carotid ultrasound discussed with the pipe organ technician and report reviewed. See report below: NAME: ADRIAN HENDRIX JR [facility] REC#: [id number] PT STATUS: REG ER : 1930 PHYSICIAN: ANJALI HE MD ADMIT DATE: 07/01/17/ER Draft Date of Exam:07/01/17 US CAROTID JET COMPLETE [id number] PROCEDURE: US Carotid Duplex Bilateral. TECHNIQUE: Multiple real-time grayscale images were obtained over the carotid arteries in various projections bilaterally. Additional duplex Doppler and color Doppler images were also obtained. INDICATION: Syncope. FINDINGS: The grayscale images demonstrate atherosclerotic plaque in the common and internal carotid arteries. This appears to be partially calcified. There is a mild plaque also demonstrated along the right internal carotid artery mid portion which appears to be a soft plaque. Color Doppler demonstrates patency of the internal, external and common carotid arteries. The vertebral arteries demonstrate antegrade flow bilaterally. Peak systolic velocities in the right the ICA is 70, 67 and 72 cm per second from proximal to distal and on the left side 52, 63 and 65 cm per second. ICA over CCA ratios are up to 1 on the right side and up to 1 on the left side. IMPRESSION: There is atherosclerotic plaque seen at the carotid bifurcation bilaterally with estimated underlying stenosis in the internal carotid artery within range of 0-40% bilaterally. Dictated on workstation # [id number] Dict: 07/01/17 1210 Trans: 07/01/17 1228 [facility] [id number] Interpreted by: DENISE PUTNAM MD Diagonstic Imaging: Xray Plain Films/CT/US/NM/MRI: chest Comments Chest x-ray viewed by me and report reviewed. See report below: NAME: ADRIAN HENDRIX JR [facility] REC#: [id number] PT STATUS: ADM Meghann : 1930 PHYSICIAN: ANJALI HE MD ADMIT DATE: 07/01/17/ICU Signed Date of Exam: 07/01/17 CHEST 1 VIEW, AP/PA ONLY EXAMINATION: Portable upright radiograph of the chest. INDICATION: Dizziness and chest pain. FINDINGS: The lungs demonstrate interstitial thickening, similar to 12/03/2016, with no focal airspace opacity. The heart size is at the upper limits of normal. No effusion or pneumothorax. The mediastinum and silver appear unremarkable. Sternotomy wires are seen. IMPRESSION: No acute process. Dictated by: Dictated on workstation # [id number] Dict: 07/01/17 1113 Trans: 07/01/17 1255 Interpreted by: DENISE PUTNAM MD Electronically signed by: DENISE PUTNAM MD 07/01/17 1255 Departure Communication (Admissions) Time/Spoke to Admitting Phy: 12:00 Communication Case reviewed with Dr. Blum who agrees with admission. He requests cardiology consultation. Time/Spoke to Consulting Phy: 12:30 Communication/Consulting Case reviewed with Dr. Patterson who agrees to consultation. He requests a BNP be added along with serial troponins.. Impression Impression: Primary Impression: Chest pain Qualified Codes: R07.9 - Chest pain, unspecified Additional Impressions: Lightheadedness Coronary artery disease Qualified Codes: I25.10 - Atherosclerotic heart disease of [place] coronary artery without angina pectoris Dementia Qualified Codes: F03.90 - Unspecified dementia without behavioral disturbance Poor compliance with medication Disposition: ADMITTED INPATIENT Condition: Improved Admissions Decision to Admit Reason: Admit from ER (General) Decision to Admit/Date: Jul 01, 2017 Time/Decision to Admit Time: 12:00 Departure-Patient Inst. Referrals: JUAREZ RIVAS MD (PCP/Family) Primary Care Physician ANJALI HE MD Jul 01, 2017 12:39
[2017-07-01] MEDS ORDERED: ASPIRIN 81 MG CHEW (CHILDREN'S ASA) PO ONE (12:45)
--- NOTE | 2017-07-01 12:57 | Diagnostic Imaging Report ---
EXAMINATION: Portable upright radiograph of the chest. INDICATION: Dizziness and chest pain. FINDINGS: The lungs demonstrate interstitial thickening, similar to 12/03/2016, with no focal airspace opacity. The heart size is at the upper limits of normal. No effusion or pneumothorax. The mediastinum and silver appear unremarkable. Sternotomy wires are seen. IMPRESSION: No acute process. Dictated by: Dictated on workstation # [id number]
[2017-07-01 13:30] VITALS: BP 181/89
[2017-07-01] MEDS ORDERED: CATHETER FLUSH 10 ML SYR IV PRN (13:45)
[2017-07-01 14:00] VITALS: BP 141/92
[2017-07-01] MEDS ORDERED: NITROGLYCERIN 0.4 MG SL TABS BTL 25'S SL PRN (14:00)
[2017-07-01] MEDS: CATHETER FLUSH 10 ML SYR IV SCH ×2 (14:09→22:14)
[2017-07-01] MEDS ORDERED: METO-270 PO (14:10)
[2017-07-01] MEDS ORDERED: DOCU100C37 PO (14:10)
[2017-07-01] MEDS ORDERED: EZET10TA5 PO (14:10)
[2017-07-01] MEDS ORDERED: FENO48TA5 PO (14:10)
[2017-07-01] MEDS ORDERED: AMLO10TA2 PO (14:10)
[2017-07-01 16:00] VITALS: BP 159/84
[2017-07-01 17:47] LABS: CREATINE KINASE 49 U/L (30-200)
[2017-07-01 17:53] LABS: TROPONIN I < 0.30 NG/ML (<0.30)
[2017-07-01 20:00] VITALS: BP 115/75
[2017-07-01 22:49] LABS: CREATINE KINASE 49 U/L (30-200)
[2017-07-01 22:55] LABS: TROPONIN I < 0.30 NG/ML (<0.30)
[2017-07-02] VITALS: BP 111/56
[2017-07-02 04:00] VITALS: BP 138/89
[2017-07-02 05:36] LABS: CHOLESTEROL 181 MG/DL (< 200); DIRECT LDL 114 MG/DL (1-129); TRIGLYCERIDES 214 MG/DL (<150); VLDL CHOLESTEROL 43 MG/DL (5-40)
[2017-07-02] MEDS: CATHETER FLUSH 10 ML SYR IV SCH ×2 (06:31→14:02)
[2017-07-02 08:00] VITALS: BP 96/62
[2017-07-02] MEDS ORDERED: ASPIRIN E.C. 325 MG (ECOTRIN) TABLET PO SCH (09:00)
--- NOTE | 2017-07-02 11:14 | History & Physical-Hospitalist ---
HPI History of Present Illness: HPI/Chief Complaint CC: Weakness HPI: This is a 87 [address] pt [address] Lopes known to me from previous admission on due to acute dementia issue when he was convinced he was being poisoned by carbon monoxide after his cat put rock over gas pipe purposely. He does not have formal dx of dementia but he becomes irritated when this is discussed. 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 Pt's daughter is having issues with pt's insurance so family welfare social work professor will be on to help her Dr. Lopes will not diagnose him with dementia Pt's daughter says she moved him close to her house and her comes join her family for dinner every night at [address] Review: DMV letter of concern needs to be signed Patient Interview: Pt states he is feeling much better today Pt confirms Dr. 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 Pt confirms being in the service. Physical exam stable. Pt states he had open heart surgery. Pt denies seeing a racket stringer in [place]. Pt confirms seeing Dr. Galeas regularly Pt confirms eating breakfast today and states that the food is very good here at [facility] [place]. DC was discussed for today Pt confirms family hx of memory loss and discussed having it himself. Pt states he discussed this with Dr. Santo as well and pt would like to have treatment for this. Scribed by Bri Linn under the direct supervision of Dr. Henning. Source: patient, RN/MD Exam Limitations: clinical condition (dementia) Date Seen 07/02/17 Time Seen by Provider: 10:15 Attending Physician Kayden Blum MD PCP Tariq Lopes MD Referring Physician Date of Admission Jul 01, 2017 at 12:39 Home Medications & Allergies Home Medications Reviewed patient Home Medication Reconciliation Form Allergies Allergies Coded Allergies Penicillins (Verified Allergy, Unknown, 02/15/12) Past Hgumnag-Mswwgi-Rlixgl Hx Patient Social History Marrital Status: Employed/Student: retired Alcohol Use: Denies Use Recreational Drug Use: No Smoking Status: Never a Smoker Physical Abuse Screen: No Sexual Abuse: No Recent Foreign Travel: No Contact w/other who traveled: No Recent Hopitalizations: Yes Recent Infectious Disease Expo: No Immunizations Up To Date Tetanus Booster (TDap): Unknown Pediatric: No Date of Pneumonia Vaccine: Jun 01, 2011 Date of Influenza Vaccine: Jun 01, 2013 Seasonal Allergies Seasonal Allergies: No Surgeries Yes (STENTS X 2, ENDARTECTOMY, BRACHYTHERAPY, ) CABG Respiratory No Currently Using CPAP: No Currently Using BIPAP: No Cardiovascular Yes (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 ) Coronary Artery Disease, High Cholesterol, Hypertension Neurological Yes Dementia Reproductive System Hx Reproductive Disorders: No Genitourinary Yes Prostate Problems, Renal Failure Gastrointestinal Yes Gastroesophageal Reflux Musculoskeletal Yes (ARTHRITIS) Endocrine History of Endocrine Disorders: No HEENT History of HEENT Disorders: No Cancer Yes Prostate Type of Treatment: Radiation Psychosocial History of Psychiatric Problem: Yes Behavioral Health Disorders: Depression Integumentary History of Skin or Integumenta: No Blood Transfusions History of Blood Disorders: No (TAKES PLAVIX) Family Medical History Family Hx: Cancer 09 SISTER Family history: Arthritis 03 FATHER 03 MOTHER Family history: Diabetes mellitus 03 MOTHER Family history: Gastrointestinal disease 03 FATHER History of - anemia 03 FATHER No Family History of: Abdominal aortic aneurysm Congestive heart failure Dementia Family history: Alzheimer's disease Family history: Asthma Family history: Breast disease Family history: Cardiovascular disease Family history: Hypertension Family history: Thyroid disorder Hereditary disease History of - respiratory disease Myocardial infarction Parkinson's disease Psychotic disorder Stroke Review of Systems Constitutional: see HPI, weakness EENTM: no symptoms reported Respiratory: no symptoms reported Cardiovascular: chest pain Gastrointestinal: no symptoms reported Genitourinary: no symptoms reported Musculoskeletal: no symptoms reported Skin: no symptoms reported Psychiatric/Neurological: No Symptoms Reported All Other Systems Reviewed Negative Unless Noted: Yes Physical Exam Physical Exam Vital Signs Vital Sign - Last 12Hours 07/01/17 07/01/17 10:30 13:25 Temp 98.0 Pulse 71 Resp 18 B/P (MAP) 194/114 Pulse Ox 100 O2 Delivery Nasal Cannula Capillary Refill : Less Than 3 Seconds General Appearance: No Apparent Distress, WD/WN, Chronically ill Eyes: Bilateral Eye Normal Inspection, Bilateral Eye PERRL HEENT: PERRL/EOMI, Normal ENT Inspection, Pharynx Normal Neck: Full Range of Motion, Normal Inspection, Non Tender, Supple, Carotid Bruit Respiratory: Chest Non Tender, Lungs Clear, Normal Breath Sounds, No Accessory Muscle Use, No Respiratory Distress Cardiovascular: Regular Rate, Rhythm, No Edema, No Gallop, No JVD, No Murmur, Normal Peripheral Pulses Gastrointestinal: Normal Bowel Sounds, No Organomegaly, No Pulsatile Mass, Non Tender, Soft Back: Normal Inspection, No CVA Tenderness, No Vertebral Tenderness Extremity: Normal Capillary Refill, Normal Inspection, Normal Range of Motion, Non Tender, No Calf Tenderness, No Pedal Edema Neurologic/Psychiatric: Alert, No Motor/Sensory Deficits, Normal Mood/Affect, Other (O x ~ 2 poor recall) Skin: Normal Color, Warm/Dry Lymphatic: No Adenopathy Results Results/Procedures Lab Laboratory Tests 07/01/17 10:36 Assessment/Plan Admission Diagnosis Chest pain with weakness Severe dementia precluding detailed history Unable to drive vehicle safely so recommendations sent to DMV BPH HLP HTN CAD previous CABG Assessment and Plan Plan: Monitor pt Social work consult Disposition? Reached out to [facility] for admit since he really needs AL at [place] Clinical Quality Measures DVT/VTE Risk/Contraindication: Risk Factor Score Per Nursin RFS Level Per Nursing on Admit: 2=Moderate TALON HENNING DO Jul 02, 2017 11:14
[2017-07-02] MEDS ORDERED: DOCUSATE SODIUM 100 MG (COLACE) CAP PO PRN (11:45)
[2017-07-02 12:00] VITALS: BP 128/86
--- NOTE | 2017-07-02 12:51 | Consultation-Cardiology ---
HPI-Cardiology Cardiology Consultation: Date of Consultation 07/02/17 Date of Admission Attending Physician Kayden Blum MD Admitting Physician Tariq Lopes MD Consulting Physician Venessa PATTERSON MD HPI: Time Seen by Provider: 12:51 Chief Complaint: Dizziness This is a 87-year-old gentleman with previous history of coronary artery disease , status post CABG, status post PCI. He had a nuclear stress test on 12/03/2016 which did not show any stress-induced ischemia. He presents with vague complaint of chest pain and dizziness. He denies any other symptoms. On my history he was not having any further discomfort. Review of Systems-Cardiology Review of Systems Constitutional: No As described under HPI, No no symptoms reported, No chills, No fever, No lightheadedness, No malaise, No tiredness, No weight loss, No weight gain, No other Eyes: No As described under HPI, No no symptoms reported, No blindness, No blurred vision, No contact lenses, No drainage, No decreased acuity, No foreign body sensation, No glasses, No inflammation, No pain, No photophobia, No previous injury, No shadows, No tunnel vision, No other, No vision change Ears/Nose/Throat: No As described under HPI, No no symptoms reported, No chronic hearing loss, No epistaxis, No ear discharge, No ear pain, No loose teeth, No mouth pain, No mouth swelling, No nasal drainage, No nose pain, No recent hearing loss, No throat pain, No throat swelling, No ulcerations, No other Respiratory: No no symptoms reported, No As described under HPI, No cough, No orthopnea, No shortness of breath, No SOB with excertion, No SOB at rest, No stridor, No wheezing, No other Cardiovascular: chest pain Gastrointestinal: No no symptoms reported, No As described under HPI, No abdomen distended, No abdominal pain, No blood streaked bowels, No constipation , No diarrhea, No difficulty swallowing, No nausea, No poor appetite, No poor fluid intake, No rectal bleeding, No vomiting, No other, No nausea/vomiting/ diarrhea, No stool coloration changes Genitourinary: No no symptoms reported, No As described under HPI, No burning, No dysuria, No discharge, No frequency, No flank pain, No hematuria, No incontinence, No pain, No urgency, No other, No urine frequency changes, No urine coloration changes Musculoskeletal: No no symptoms reported, No As describe under HPI, No back pain, No gout, No joint pain, No joint swelling, No muscle pain, No muscle stiffness, No neck pain, No other Skin: No no symptoms reported, No As described under HPI, No change in color, No change in hair/nails, No dryness, No lesions, No lumps, No rash, No other, No skin related problems, No ulcerations, No rash on exposed areas, No ulcerations on exposed areas Psychiatric/Neurological: As described under HPI Hematologic: No no symptoms reported, No As described under HPI, No anemia, No blood clots, No easy bleeding, No easy bruising, No swollen glands, No other, No bleeding abnormalities All Other Systems Reviewed Negative Unless Noted: Yes [id number] Hx Patient Social History Marrital Status: Employed/Student: retired Alcohol Use: Denies Use Recreational Drug Use: No Smoking Status: Never a Smoker Recent Foreign Travel: No Recent Infectious Disease Expo: No Physical Abuse Screen: No Sexual Abuse: No Immunizations Up To Date Tetanus Booster (TDap): Unknown Date of Pneumonia Vaccine: Jun 01, 2011 Date of Influenza Vaccine: Jun 01, 2013 Past Medical History PMH As described under Assessment. Family Medical History Family History: Cancer 09 SISTER Family history: Arthritis 03 FATHER 03 MOTHER Family history: Diabetes mellitus 03 MOTHER Family history: Gastrointestinal disease 03 FATHER History of - anemia 03 FATHER No Family History of: Abdominal aortic aneurysm Congestive heart failure Dementia Family history: Alzheimer's disease Family history: Asthma Family history: Breast disease Family history: Cardiovascular disease Family history: Hypertension Family history: Thyroid disorder Hereditary disease History of - respiratory disease Myocardial infarction Parkinson's disease Psychotic disorder Stroke Allergies and Home Medications Allergies Coded Allergies: Penicillins (Verified Allergy, Unknown, 02/15/12) Home Medications Amlodipine Besylate 10 Mg Tablet, 10 MG PO DAILY, (Reported) LAST FILLED 02/19/17 #90 Clopidogrel Bisulfate 75 Mg Tablet, 75 MG PO DAILY, (Reported) LAST FILLED 01/30/17 #30 Docusate Sodium 100 Mg Capsule, 100 MG PO BID PRN for CONSTIPATION-1ST LINE, ( Reported) Ezetimibe 10 Mg Tablet, 10 MG PO DAILY, (Reported) LAST FILLED 02/24/17 #30 Fenofibrate Nanocrystallized 48 Mg Tablet, 48 MG PO DAILY, (Reported) LAST FILLED 02/24/17 #30 Metoprolol Succinate 25 Mg Tab.er.24h, 12.5 MG PO DAILY, (Reported) TAKES 1/2 OF A (25 MG) TABLET Solifenacin Succinate 5 Mg Tablet, 5 MG PO DAILY, (Reported) LAST FILLED 02/22/17 #30 Tamsulosin HCl 0.4 Mg Cap.er.24h, 0.4 MG PO HS, (Reported) LAST FILLED 01/09/17 #90 Physical Exam-Cardiology Physical Exam Vital Signs/I&O Vital Sign - Last 12Hours 07/02/17 07/02/17 07/02/17 07/02/17 04:00 04:00 04:00 07:00 Temp 98.3 Pulse 58 68 Resp 22 B/P (MAP) 138/89 Pulse Ox 96 96 O2 Delivery Room Air Room Air 07/02/17 07/02/17 07/02/17 07/02/17 07:00 08:00 08:00 12:00 Temp 98.6 98.2 Pulse 60 60 Resp 14 16 B/P (MAP) 96/62 128/86 Pulse Ox 96 96 98 O2 Delivery Room Air Room Air Room Air 07/02/17 12:00 Pulse Ox 98 O2 Delivery Room Air Capillary Refill : Less Than 3 Seconds Constitutional: No appears stated age, No AAO x 3, No apparent distress, No PERRL, No well-developed, No well-nourished, No other HEENT: No PERRL, No normal ENT inspection, No TMs normal, No pharynx normal, No scleral icterus (R), No scleral icterus (L), No pale conjunctivae (R), No pale conjunctivae (L), No photophobia, No TM abnormal (R), No TM abnormal (L), No pharyngeal erythema, No tonsillar exudate, No other, No discharge, No EOMI, No hearing is well preserved, No hard of hearing, No oral hygience is good, No ulceration, No xanthelasmas are seen Neck: No non-tender, No full range of motion, No supple, No normal inspection, No carotid bruit, No limited range of motion, No lymphadenopathy (R), No lymphadenopathy (L), No tender lateral, No tender midline, No thyromegaly, No other, No carotid pulses are 2 + bilaterally, No with good upstrokes Respiratory: No accessory muscle use, No respiratory distress, No chest tender , No chest expansion is symmetric, No chest is bilaterally symmetric, No lungs clear to percussion, No lungs clear to auscultation, No crackles, No rhonchi, No rales, No stridor, No wheezing, No pleural rub, No other Cardiovascular: regular rate-rhythm, S1 and S2 Gastrointestinal: No tender, No soft, No round, No distended, No pulsatile mass , No organomegaly, No guarding, No rebound, No tenderness, No hernia, No mass, No audible bowel sounds, No abnormal bowel sounds, No abdominal bruits, No spleenomegaly, No other Rectal: deferred Extremities: No normal range of motion, No non-tender, No normal inspection, No pedal edema, No calf tenderness, No normal capillary refill, No pelvis stable , No calf tenderness, No inflammation, No pedal edema, No slow capillary refill , No swelling, No other, No abrasion, No clubbing, No cyanosis, No ecchymosis, No laceration, No no lower extremity edema bilateral, No significant edema, No tenderness, No wound Neurologic/Psychiatric: No mechanical ordnance assembler II-XII nml as tested, No no motor/sensory deficits, No alert, No normal mood/affect, No oriented x 3, No abnormal cerebellar tests, No abnormal mechanical ordnance assembler II-XII, No abnormal gait, No aphasia, No EOM palsy, No facial droop, No motor weakness, No sensory deficit, No depressed affect, No disoriented x 3, No other, No grossly intact, No power is 5/5 both on sides Skin: No normal color, No warm/dry, No cyanosis, No cool, No diaphoresis, No damp, No ecchymosis, No jaundice, No mottled, No pallor, No rash, No tattoos/ piercings, No ulcerations, No rash on exposed areas, No ulcerations on exposed areas, No other Data Review Labs Laboratory Tests 07/01/17 17:25: Total Creatine Kinase 49, Troponin I < 0.30 07/01/17 22:30: Total Creatine Kinase 49, Troponin I < 0.30 07/02/17 05:00: Triglycerides Level 214H, Cholesterol Level 181, LDL Cholesterol Direct 114, VLDL Cholesterol 43H, HDL Cholesterol 35L ECG Impression ECG Initial ECG Rhythm: Normal Sinus Comment Normal sinus with right bundle branch block A/P-Cardiology Assessment/Admission Diagnosis Dizziness, chest pain, CAD, possible aortic stenosis. Plan Acute coronary syndrome ruled out with negative serial troponins. Patient had a nuclear stress test done in the last 6 months which was negative for ischemia. Continue current medications for CAD. Patient was having dizziness however telemetry has been normal. We will recommend echocardiogram. Also there is a history of aortic stenosis and will review that with an echocardiogram. Agree with home health care or assisted living. Thank you for your consultation. Please call me if you have any questions. Chicho Patterson MD, FACP, FACC, FSCAI, FHRS, CCDS Interventional Cardiology Cardiac Electrophysiology Vascular Medicine and Endovascular Interventions Clinical Quality Measures DVT/VTE Risk/Contraindication: Risk Factor Score Per Nursin RFS Level Per Nursing on Admit: 2=Moderate Venessa PATTERSON MD Jul 02, 2017 12:51
--- NOTE | 2017-07-02 13:16 | D/C HH Face to Face Order ---
D/C Face to Face Orders Instructions for Patient Patient Instructions/FollowUp: Obtain follow up with Dr Lopes in 1 week Physician to follow Patient: Dr MENDEZ Lopes Discharge Diet for Home: Cardiac Diet Patient Problems: Dementia CAD Patient Data-Allergies,Ht & Wt Patient Allergies: Coded Allergies: Penicillins (Verified Allergy, Unknown, 02/15/12) Height (Feet): 5 Height (Inches): 3.00 Weight (Pounds): 161 Weight (Ounces): 7.0 Home Health Need/Face to Face Date of Face to Face: Jul 02, 2017 Clinical Findings: Generalized weakness and fatigue Dementia severe Unsafe to drive I have seen Pt [id number]: Yes Discharged To: Home Diagnosis/Conditions: Dementia severe Problems/Diagnosis/Condition: Patient is Homebound due to: CognItive deficits, Muscle weakness Homebound Status Due to the above stated illness, injury or surgical procedure (medical condition or diagnosis) and associated clinical findings, the patient is homebound because of his/her inability to leave home except with aid of a supportive device and/or person AND leaving the home requires a considerable and taxing effort or is medically contraindicated. Pt req the following assistanc: Cane Home Health Infusion Therapy Line Type: Saline Lock Site Location: Antecubital Certify Stmt I certify that this patient is under my care and that I, a nurse practitioner or a physician; a urgent care physician assistant working with me, had a face to face encounter that - meets the physician face to face encounter requirements with this patient as dated. TALON HENNING DO Jul 02, 2017 13:16
[2017-07-02 13:31] VITALS: BP 128/86
[2017-07-02] MEDS ORDERED: INFLUENZA TRIvalent 2017-2018 0.5 ML/45 MCG SYR IM ONE (13:45)
[2017-07-02] MEDS ORDERED: TROSPIUM 20 MG (SANCTURA) TAB PO SCH (16:00)
[2017-07-02] MEDS ORDERED: ALFUZOSIN HCL 10 MG TAB (UROXATRAL) PO SCH (18:00)
[2017-07-02] MEDS ORDERED: FENOFIBRATE, MICRO 67 MG (LOFIBRA) CAPSULE PO SCH (21:00)
[2017-07-03] MEDS ORDERED: amLODIPine 10 MG (NORVASC) TAB PO SCH (09:00)
[2017-07-03] MEDS ORDERED: eZETimibe 10 MG (ZETIA) TABLET PO SCH (09:00)
[2017-07-03] MEDS ORDERED: CLOPIDOGREL 75 MG (PLAVIX) TABLET PO SCH (09:00)
--- NOTE | 2017-07-03 09:46 | D/C HH Face to Face Order ---
D/C Face to Face Orders Instructions for Patient Patient Instructions/FollowUp: Maintain appt with Dr Lopes in 1 week Physician to follow Patient: Dr MENDEZ Lopes Discharge Diet for Home: Cardiac Diet Patient Problems: Severe dementia with behavior problems CAD HTN Weakness Patient Data-Allergies,Ht & Wt Patient Allergies: Coded Allergies: Penicillins (Verified Allergy, Unknown, 02/15/12) Height (Feet): 5 Height (Inches): 3.00 Weight (Pounds): 161 Weight (Ounces): 7.0 Home Health Need/Face to Face Date of Face to Face: Jul 02, 2017 Clinical Findings: Generalized weakness and fatigue, Unsteady gait Dementia severe Unsafe to drive I have seen Pt [id number]: Yes Discharged To: Home Diagnosis/Conditions: Dementia severe Problems/Diagnosis/Condition: Patient is Homebound due to: CognItive deficits, Muscle weakness Homebound Status Due to the above stated illness, injury or surgical procedure (medical condition or diagnosis) and associated clinical findings, the patient is homebound because of his/her inability to leave home except with aid of a supportive device and/or person AND leaving the home requires a considerable and taxing effort or is medically contraindicated. Pt req the following assistanc: Cane Home Health Nursing Orders Home Health Services Order: Nursing Services, Physical Therapy-Evaluate & Treat Home Health Infusion Therapy Line Type: Saline Lock Site Location: Antecubital Therapy Orders Therapy Orders: PT to assess for OT Therapy Specific Orders: Eval assistive deivces Certify Stmt I certify that this patient is under my care and that I, a nurse practitioner or a physician; a technical services assistant working with me, had a face to face encounter that - meets the physician face to face encounter requirements with this patient as dated. TALON HENNING DO Jul 03, 2017 09:46
== END 2017-07-02 13:14 | disposition home health service (06) ==
LOC: EDUNIT# 10:23 → ER 10:26 → ICU 12:39 → UNDOADMOB 12:39 → ICU 13:25 → UNDODISOB 07-02 17:36
PROVIDERS: ADMIT Internal Medicine; ATTEND Internal Medicine
DX: R07.9 Chest pain, unspecified (principal); R42 Dizziness and giddiness; R53.83 Other fatigue; F03.90 Unspecified dementia, unspecified severity, without behavioral disturbance, psychotic disturbance, mood disturbance, and anxiety; I25.10 Atherosclerotic heart disease of native coronary artery without angina pectoris; I45.10 Unspecified right bundle-branch block; I35.0 Nonrheumatic aortic (valve) stenosis; I70.0 Atherosclerosis of aorta; I12.9 Hypertensive chronic kidney disease with stage 1 through stage 4 chronic kidney disease, or unspecified chronic kidney disease; N18.9 Chronic kidney disease, unspecified; E78.00 Pure hypercholesterolemia, unspecified; N40.0 Benign prostatic hyperplasia without lower urinary tract symptoms; K21.9 Gastro-esophageal reflux disease without esophagitis; Z79.02 Long term (current) use of antithrombotics/antiplatelets; Z79.82 Long term (current) use of aspirin; Z79.899 Other long term (current) drug therapy; Z95.1 Presence of aortocoronary bypass graft; Z95.5 Presence of coronary angioplasty implant and graft
CPT/HCPCS: 36415; 71010; 80053; 80061; 82550; 83735; 83874; 83880; 84484; 85025; 85610; 85730; 93005; 93041; 93306; 93880

== ENCOUNTER 2017-09-10 20:10 | Emergency (ER) | payer MEDICARE ==
[~2017-09-10] VITALS: Ht 172.7 cm; Wt 77.1 kg
[~2017-09-10 20:10] MED LIST changes: +AMLO10TA2 PO; +CLOP75TA28 PO; +DOCU100C37 PO; +FENO48TA5 PO; +METO-387 PO
[2017-09-10 21:19] LABS: BASOPHILS % (AUTO) 0 % (0-10); EOSINOPHILS # (AUTO) 0.2 10^3/uL (0.0-0.3); EOSINOPHILS % (AUTO) 3 % (0-10); HEMATOCRIT 40 % (40-54); HEMOGLOBIN 13.6 G/DL (13.3-17.7); LYMPHOCYTES # (AUTO) 1.2 X 10^3 (1.0-4.0); LYMPHOCYTES % (AUTO) 16 % (12-44); MEAN CORPUSCULAR HEMOGLOBIN 31 PG (25-34); MEAN CORPUSCULAR HGB CONC 34 G/DL (32-36); MEAN CORPUSCULAR VOLUME 91 FL (80-99); MONOCYTES # (AUTO) 0.9 X 10^3 (0.0-1.0); MONOCYTES % (AUTO) 13 % (0-12); NEUTROPHILS # (AUTO) 4.8 X 10^3 (1.8-7.8); NEUTROPHILS % (AUTO) 67 % (42-75); PLATELET COUNT 218 10^3/uL (130-400); RED BLOOD COUNT 4.34 10^6/uL (4.35-5.85); RED CELL DISTRIBUTION WIDTH 13.4 % (10.0-14.5); WHITE BLOOD COUNT 7.2 10^3/uL (4.3-11.0)
[2017-09-10] MEDS ORDERED: LORazepam INJ 2 MG/ML (ATIVAN) VIAL ONE (21:28)
[2017-09-10] MEDS ORDERED: QUEtiapine 25 MG (SEROquel) TAB IMMEDIATE RELEASE PO SCH (21:30)
[2017-09-10] MEDS ORDERED: LORazepam INJ 2 MG/ML (ATIVAN) VIAL IVP ONE (21:30)
[2017-09-10 21:32] LABS: ALBUMIN 3.8 GM/DL (3.2-4.5); BILIRUBIN,TOTAL 0.6 MG/DL (0.1-1.0); CALCIUM 9.5 MG/DL (8.5-10.1); CREATININE SERUM 1.77 MG/DL (0.60-1.30); POTASSIUM 3.9 MMOL/L (3.6-5.0); TOTAL PROTEIN 7.2 GM/DL (6.4-8.2)
[2017-09-10 22:13] LABS: BILIRUBIN,URINE NEGATIVE (NEGATIVE); GLUCOSE, URINE (UA) NEGATIVE (NEGATIVE); KETONES,URINE NEGATIVE (NEGATIVE); LEUKOCYTE ESTERASE ,URINE NEGATIVE (NEGATIVE); NITRITE,URINE NEGATIVE (NEGATIVE); PH,URINE 7 (5-9); PROTEIN,URINE NEGATIVE (NEGATIVE); UROBILINOGEN,URINE NORMAL (NORMAL)
[2017-09-10 22:14] LABS: CLARITY,URINE CLEAR; COLOR,URINE YELLOW
[2017-09-10 22:16] LABS: BACTERIA,URINE NEGATIVE /HPF; WBC,URINE 0-2 /HPF
[2017-09-10] MEDS ORDERED: amLODIPine 10 MG (NORVASC) TAB PO ONE (22:45)
[2017-09-10] MEDS ORDERED: QUET25TA PO ×2 (22:47→23:03)
--- NOTE | 2017-09-10 22:47 | ED General ---
General Chief Complaint: Altered Mental Status Stated Complaint: AMS Nursing Triage Note: PT TO ED 6 W/ DAUGHTER. PT DENIES ANY C/O TO THIS RN. 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 PT'S DAUGHTER REPORTS PT EXPERIENCED ANXIETY, PARANOIA ONSET 1800 THIS EVENING. DAUGHTER REPORTS PT CALLED HER STATING "THEY'RE AFTER ME" AND THAT HE'S SENT A CHECK FOR $2500 TO [employer] AND NOW THEY'RE AFTER HIM TO DO AN INTERVIEW. ALSO REPORTS PT WAS DUCKING BEHIND CARS TO NOT BE SEEN. Nursing Sepsis Screen: No Definite Risk Source of Information: Patient, Family Exam Limitations: No Limitations History of Present Illness Time Seen by Provider: 21:00 Initial Comments This 87-year-old gentleman presents to the emergency room accompanied by his daughter with concerns about some agitation and paranoia he is experiencing. Patient presently lives in his own home but requires much support due to his dementia. Today he reports he received a phone call from someone requesting that he send money by [employer] to [place] to receive a $6 million payout that would be sent to him later. He did write a check and send it. He later became concerned that this was a scam. He became rather anxious about this and contacted his daughter. His daughter reports he has been rather agitated today and is not easily redirected. She is concerned that in his present state she will not be able to manage his care and is requesting help. She does assist with his medications but states that he often forgets to take his evening medications. He previously had home health support but those services were discontinued. Daughter reports patient was hiding at home when she arrived at his house and was also hiding in her car in route to the hospital. Allergies and Home Medications Allergies Coded Allergies: Penicillins (Verified Allergy, Unknown, 02/15/12) Home Medications Amlodipine Besylate 10 Mg Tablet, 10 MG PO DAILY, (Reported) LAST FILLED 02/19/17 #90 Clopidogrel Bisulfate 75 Mg Tablet, 75 MG PO DAILY, (Reported) LAST FILLED 01/30/17 #30 Docusate Sodium 100 Mg Capsule, 100 MG PO BID PRN for CONSTIPATION-1ST LINE, ( Reported) Ezetimibe 10 Mg Tablet, 10 MG PO DAILY, (Reported) LAST FILLED 02/24/17 #30 Fenofibrate Nanocrystallized 48 Mg Tablet, 48 MG PO DAILY, (Reported) LAST FILLED 02/24/17 #30 Metoprolol Succinate 25 Mg Tab.er.24h, 12.5 MG PO DAILY, (Reported) TAKES 1/2 OF A (25 MG) TABLET Quetiapine Fumarate 25 Mg Tablet, 25 MG PO HS, #10 Prescribed by: ANJALI RICO on 09/10/17 2303 Solifenacin Succinate 5 Mg Tablet, 5 MG PO DAILY, (Reported) LAST FILLED 02/22/17 #30 Tamsulosin HCl 0.4 Mg Cap.er.24h, 0.4 MG PO HS, (Reported) LAST FILLED 01/09/17 #90 Constitutional: no symptoms reported EENTM: no symptoms reported Respiratory: no symptoms reported Cardiovascular: no symptoms reported Gastrointestinal: no symptoms reported Genitourinary: no symptoms reported Musculoskeletal: no symptoms reported Skin: no symptoms reported Psychiatric/Neurological: See HPI Hematologic/Lymphatic: No Symptoms Reported Past [place] Hx Patient Social History Alcohol Use: Denies Use Recreational Drug Use: No Smoking Status: Never a Smoker Recent Foreign Travel: No Contact w/Someone Who Travel: No Recent Infectious Disease Expo: No Recent Hopitalizations: No Physical Abuse: No Sexual Abuse: No Mistreated: No Fear: No Immunizations Up To Date Tetanus Booster (TDap): Unknown PED Vaccines UTD: No Date of Pneumonia Vaccine: Jun 01, 2011 Date of Influenza Vaccine: Jun 01, 2013 Seasonal Allergies Seasonal Allergies: No Surgeries History of Surgeries: Yes (STENTS X 2, ENDARTECTOMY, BRACHYTHERAPY, ) Surgeries: CABG, Valve Replacement, Vascular Surgery Respiratory History of Respiratory Disorde: No Currently Using CPAP: No Currently Using BIPAP: No Cardiovascular History of Cardiac Disorders: Yes (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 ) Cardiac Disorders: Coronary Artery Disease, High Cholesterol, Hypertension, Valvular Heart Disease Neurological History of Neurological Disord: Yes Neurological Disorders: Dementia Reproductive System Hx Reproductive Disorders: No Genitourinary History of Genitourinary Disor: Yes Genitourinary Disorders: Prostate Problems, Renal Failure Gastrointestinal History of Gastrointestinal Di: Yes Gastrointestinal Disorders: Gastroesophageal Reflux Musculoskeletal History of Musculoskeletal Dis: Yes (ARTHRITIS) Musculoskeletal Disorders: Arthritis Endocrine History of Endocrine Disorders: No HEENT History of HEENT Disorders: No Cancer History of Cancer: Yes Cancer: Prostate Did You Recieve Any Treatments: Yes Type of Tx Receive: Radiation Psychosocial History of Psychiatric Problem: Yes Behavioral Health Disorders: Depression Suicide Risk Score: 0 Integumentary History of Skin or Integumenta: No Blood Transfusions History of Blood Disorders: No (TAKES PLAVIX) Family Medical History Family Medial History: Cancer 09 SISTER Family history: Arthritis 03 FATHER 03 MOTHER Family history: Diabetes mellitus 03 MOTHER Family history: Gastrointestinal disease 03 FATHER History of - anemia 03 FATHER No Family History of: Abdominal aortic aneurysm Congestive heart failure Dementia Family history: Alzheimer's disease Family history: Asthma Family history: Breast disease Family history: Cardiovascular disease Family history: Hypertension Family history: Thyroid disorder Hereditary disease History of - respiratory disease Myocardial infarction Parkinson's disease Psychotic disorder Stroke Physical Exam Vital Signs Vital Sign - Last 12Hours 09/10/17 20:36 Temp 97.1 Pulse 72 Resp 20 B/P (MAP) 205/107 (139) Pulse Ox 95 O2 Delivery Room Air Capillary Refill : Less Than 3 Seconds General Appearance: No Apparent Distress, WD/WN HEENT: PERRL/EOMI, Normal ENT Inspection, Pharynx Normal Neck: Normal Inspection Respiratory: Lungs Clear, Normal Breath Sounds, No Accessory Muscle Use, No Respiratory Distress Cardiovascular: Regular Rate, Rhythm, No Edema, No Murmur, Normal Peripheral Pulses Gastrointestinal: Normal Bowel Sounds, Non Tender, Soft Extremity: Normal Inspection, No Pedal Edema Neurologic/Psychiatric: Alert, No Motor/Sensory Deficits, Normal 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 He has some paranoia regarding the interactions he had on the phone today.) Skin: Normal Color, Warm/Dry Progress/Results/Core Measures Suspected Sepsis Recent Fever Within 48 Hours: No Infection Criteria Present: None New/Unexplained Altered Menta: No Sepsis Screen: No Definite Risk Sepsis Diagnosis: SIRS Temperature:97.1 Pulse: 72 Respiratory Rate: 20 Laboratory Tests 09/10/17 21:07: White Blood Count 7.2 Blood Pressure 205 /107 Mean: 139 Laboratory Tests 09/10/17 21:07: Creatinine 1.77H, Platelet Count 218, Total Bilirubin 0.6 Results/Orders Lab Results Laboratory Tests Test 09/10/17 21:07 1/10/18 21:55 Range/Units White Blood Count 7.2 4.3-11.0 10^3/uL Red Blood Count 4.34 L 4.35-5.85 10^6/uL Hemoglobin 13.6 13.3-17.7 G/DL Hematocrit 40 40-54 % Mean Corpuscular Volume 91 80-99 FL Mean Corpuscular Hemoglobin 31 25-34 PG Mean Corpuscular Hemoglobin Concent 34 32-36 G/DL Red Cell Distribution Width 13.4 10.0-14.5 % Platelet Count 218 130-400 10^3/uL Mean Platelet Volume 11.0 H 7.4-10.4 FL Neutrophils (%) (Auto) 67 42-75 % Lymphocytes (%) (Auto) 16 12-44 % Monocytes (%) (Auto) 13 H 0-12 % Eosinophils (%) (Auto) 3 0-10 % Basophils (%) (Auto) 0 0-10 % Neutrophils # (Auto) 4.8 1.8-7.8 X 10^3 Lymphocytes # (Auto) 1.2 1.0-4.0 X 10^3 Monocytes # (Auto) 0.9 0.0-1.0 X 10^3 Eosinophils # (Auto) 0.2 0.0-0.3 10^3/uL Basophils # (Auto) 0.0 0.0-0.1 10^3/uL Sodium Level 141 135-145 MMOL/L Potassium Level 3.9 3.6-5.0 MMOL/L Chloride Level 109 H 98-107 MMOL/L Carbon Dioxide Level 20 L 21-32 MMOL/L Anion Gap 12 5-14 MMOL/L Blood Urea Nitrogen 27 H 7-18 MG/DL Creatinine 1.77 H 0.60-1.30 MG/DL Estimat Glomerular Filtration Rate 37 BUN/Creatinine Ratio 15 Glucose Level 105 70-105 MG/DL Calcium Level 9.5 8.5-10.1 MG/DL Total Bilirubin 0.6 0.1-1.0 MG/DL Aspartate Amino Transf (AST/SGOT) 19 5-34 U/L Alanine Aminotransferase (ALT/SGPT) 12 0-55 U/L Alkaline Phosphatase 71 40-136 U/L Total Protein 7.2 6.4-8.2 GM/DL Albumin 3.8 3.2-4.5 GM/DL Urine Color YELLOW Urine Clarity CLEAR Urine pH 7 5-9 Urine Specific [place] 1.010 L 1.016-1.022 Urine Protein NEGATIVE NEGATIVE Urine Glucose (UA) NEGATIVE NEGATIVE Urine Ketones NEGATIVE NEGATIVE Urine Nitrite NEGATIVE NEGATIVE Urine Bilirubin NEGATIVE NEGATIVE Urine Urobilinogen NORMAL NORMAL MG/DL Urine Leukocyte Esterase NEGATIVE NEGATIVE Urine RBC (Auto) NEGATIVE NEGATIVE Urine RBC NONE /HPF Urine WBC 0-2 /HPF Urine Crystals NONE /LPF Urine Bacteria NEGATIVE /HPF Urine Casts NONE /LPF Urine Mucus NEGATIVE /LPF Urine Culture Indicated NO My Orders Orders - ANJALI HE MD Cbc With Automated Diff (09/10/17 21:01) Comprehensive Metabolic Panel (09/10/17 21:01) Ua Culture If Indicated (09/10/17 21:01) Saline Lock/Iv-Start (09/10/17 21:01) Lorazepam Injection (Ativan Injection) (09/10/17 21:30) Quetiapine Immediate Release (Seroquel I (09/10/17 21:30) Lorazepam Injection (Ativan Injection) (09/10/17 21:28) Amlodipine Tablet (Norvasc Tablet) (09/10/17 22:45) Medications Given in ED Current Medications Medications Dose Ordered Sig/Tamera Route Start Time Stop Time Status Last Admin Dose Admin Amlodipine Besylate 10 mg ONCE ONCE PO 09/10/17 22:45 09/10/17 22:46 DC 09/10/17 22:52 10 MG Lorazepam 0.5 mg ONCE ONCE IVP 09/10/17 21:30 09/10/17 21:31 DC 09/10/17 21:33 0.5 MG Vital Signs/I&O Vital Sign - Last 12Hours 09/10/17 20:36 Temp 97.1 Pulse 72 Resp 20 B/P (MAP) 205/107 (139) Pulse Ox 95 O2 Delivery Room Air Capillary Refill : Less Than 3 Seconds Blood Pressure Mean: 139 Progress Note : Progress Note Patient had no significant abnormalities found on workup. He was treated with Ativan and Seroquel for agitation. This did modestly improve his symptoms. Hypertension was treated with a Norvasc tablet. Patient is not always compliant with his evening medicines and may therefore not have had some of his recent amlodipine doses. Case was reviewed with Dr. Hall who agrees with prescribing low-dose Seroquel to take at bedtime. Patient is exhausting his daughter and may benefit from an assisted living or intermediate placement for his safety. He will follow-up in the outpatient setting for further discussion. Departure Impression Impression: Primary Impression: Agitation Additional Impressions: Dementia Qualified Codes: F03.91 - Unspecified dementia with behavioral disturbance Hypertensive urgency Disposition: 01 HOME, SELF-CARE Condition: Stable Departure-Patient Inst. Decision time for Depature: 22:46 Referrals: PELON HALL MD Patient Instructions: Dementia (DC) Add. Discharge Instructions: Take Seroquel as prescribed at bedtime. Follow-up with Dr. Hall as soon as possible. Bring all medication bottles and list of medications with you to that appointment. Consider managing medications either via family support or by an outside agency. If this is not possible, consider placement in a facility that can manage medications for you. Return to care if symptoms worsen. All discharge instructions reviewed with patient and/or family. Voiced understanding. Scripts Quetiapine Fumarate (Seroquel) 25 Mg Tablet 25 MG PO HS, #10 TAB Prov: ANJALI HE MD 09/10/17 Copy Copies To 1: PELON HALL MD, JOSHUA T MD Sep 10, 2017 22:47
[2017-09-10 22:59] VITALS: BP 206/105
--- OUTSIDE RECORDS SUMMARY | 2017-09-11 19:25 | XMS REPORT | Continuity of Care Document ---
Author Author [facility] Organization [facility] Address Unknown Phone Unavailable Allergies Active Description Code Type Severity Reaction Onset Reported/Identified Relationship to Patient Clinical Status Yes Penicillins [id number] Drug Allergy Unknown N/A 02/15/2012 Medications There is no data. Problems Date Dx Coded Attending Type Code [...] NOS 02/16/2012 Ot 414.01 CORONARY ATHEROSCLEROSIS OF [place] CORON 02/16/2012 Ot 560.32 FECAL IMPACTION 02/16/2012 Ot 780.60 FEVER, UNSPECIFIED 02/16/2012 Ot 788.20 RETENTION OF URINE NOS 02/16/2012 Ot V10.46 HX- PROSTATIC MALIGNANCY 02/16/2012 Ot V15.3 HX OF IRRADIATION [...] Ot V54.81 AFTERCARE FOLLOWING JOINT REPLACEMENT 01/06/2014 LORAINE GONGORA DO Ot V57.1 PHYSICAL THERAPY NEC 02/08/2014 FRANSISCALORAINE NAVARRETE DO Ot 599.0 URIN TRACT INFECTION NOS 02/09/2014 NGOZI KOTHARI, DINO Ot 401.9 HYPERTENSION NOS 02/09/2014 NGOZI KOTHARI, DINO Ot 414.01 CORONARY ATHEROSCLEROSIS OF [place] CORON 02/09/2014 DINO MELVIN MD Ot 443.9 [...] 06/06/2015 Ot V45.81 06/06/2015 BAIMA, DAIANA L ELECTRICAL CONTINUITY INSPECTOR Ot 272.4 06/06/2015 BAIMA, DAIANA L ELECTRICAL CONTINUITY INSPECTOR Ot 401.9 06/06/2015 BAIMA, DAIANA L ELECTRICAL CONTINUITY INSPECTOR Ot 414.00 06/06/2015 BAIMA, DAIANA L ELECTRICAL CONTINUITY INSPECTOR Ot 424.90 06/06/2015 BAIMA, DAIANA L ELECTRICAL CONTINUITY INSPECTOR Ot 429.3 06/06/2015 BAIMA, DAIANA L ELECTRICAL CONTINUITY INSPECTOR Ot V43.3 06/06/2015 BAIMA, DAIANA L ELECTRICAL CONTINUITY INSPECTOR Ot V45.81 06/06/2015 BAIMA, DAIANA L ELECTRICAL CONTINUITY INSPECTOR Ot 272.4 06/06/2015 BAIMA, DAIANA L ELECTRICAL CONTINUITY INSPECTOR Ot 401.9 06/06/2015 BAIMA, DAIANA L ELECTRICAL CONTINUITY INSPECTOR Ot 414.00 06/06/2015 BAIMA, DAIANA L ELECTRICAL CONTINUITY INSPECTOR Ot 424.90 06/06/2015 BAIMA, DAIANA L ELECTRICAL CONTINUITY INSPECTOR Ot V45.81 06/06/2015 FRANSISCA DO, LORAINE F Ot 715.36 06/06/2015 FRANSISCA DO, LORAINE F Ot 791.9 06/06/2015 FRANSISCA DO, LORAINE F Ot V72.63 06/06/2015 FRANSISCA DO, LORAINE F Ot V72.83 06/06/2015 FRANSISCA DO, LORAINE F Ot V74.8 06/06/2015 DINO MELVIN MD Ot V72.84 06/06/2015 Ot 599.0 12/12/2015 BAIMA, DAIANA L ELECTRICAL CONTINUITY INSPECTOR Ot E78.5 12/12/2015 BAIMA, DAIANA L ELECTRICAL CONTINUITY INSPECTOR Ot I10 12/12/2015 BAIMA, DAIANA L ELECTRICAL CONTINUITY INSPECTOR Ot I25.9 12/12/2015 BAIMA, DAIANA L ELECTRICAL CONTINUITY INSPECTOR Ot I38 12/12/2015 BAIMA, DAIANA L ELECTRICAL CONTINUITY INSPECTOR Ot I77.9 12/12/2015 BAIMA, DAIANA L ELECTRICAL CONTINUITY INSPECTOR Ot R07.9 12/12/2015 BAIMA, DAIANA L ELECTRICAL CONTINUITY INSPECTOR Ot Z95.1 02/12/2016 BAIMA, DAIANA L ELECTRICAL CONTINUITY INSPECTOR Ot 272.4 HYPERLIPIDEMIA NEC/NOS 02/12/2016 BAIMA, DAIANA L ELECTRICAL CONTINUITY INSPECTOR Ot 401.9 HYPERTENSION NOS 02/12/2016 BAIMA, DAIANA L ELECTRICAL CONTINUITY INSPECTOR Ot 414.00 CORON ATHEROSCLER NOS TYPE VESSEL, NATIV 02/12/2016 BAIMA, DAIANA L ELECTRICAL CONTINUITY INSPECTOR Ot 424.90 ENDOCARDITIS NOS 02/12/2016 BAIMA, DAIANA L ELECTRICAL CONTINUITY INSPECTOR Ot 429.3 CARDIOMEGALY 02/12/2016 BAIMA, DAIANA L ELECTRICAL CONTINUITY INSPECTOR Ot 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 02/12/2016 BAIMA, DAIANA L ELECTRICAL CONTINUITY INSPECTOR Ot V45.81 AORTOCORONARY BYPASS 02/12/2016 BAIMA, DAIANA L ELECTRICAL CONTINUITY INSPECTOR Ot 272.4 HYPERLIPIDEMIA NEC/NOS 02/12/2016 BAIMA, DAIANA L ELECTRICAL CONTINUITY INSPECTOR Ot 401.9 HYPERTENSION NOS 02/12/2016 BAIMA, DAIANA L ELECTRICAL CONTINUITY INSPECTOR Ot 414.00 CORON ATHEROSCLER NOS TYPE VESSEL, NATIV 02/12/2016 DAIANA JOHN ELECTRICAL CONTINUITY INSPECTOR Ot 424.90 ENDOCARDITIS NOS 02/12/2016 DEONNADAIANA RODRIGUEZ ELECTRICAL CONTINUITY INSPECTOR Ot V45.81 AORTOCORONARY BYPASS 02/12/2016 FRANSISCA , LORAINE Buchanan Ot 715.36 LOC OSTEOARTH NOS-L/LEG 02/12/2016 FRANSISCA STONER, LORAINE Buchanan Ot 791.9 ABN URINE FINDINGS NEC 02/12/2016 FRANSISCA STONER LORAINE Buchanan Ot V72.63 PRE-PROCEDURAL LABORATORY EXAMINATION 02/12/2016 FRANSISCA DO LORAINE Buchanan Ot V72.83 EXAM PRE-OPERATIVE NEC 02/12/2016 FRANSISCA STONER LORAINE Buchanan Ot V74.8 SCREEN-BACTERIAL DIS NEC 02/12/2016 NGOZI KOTHARI, DINO Ot V72.84 EXAM PRE-OPERATIVE NOS 02/12/2016 Ot 599.0 URIN TRACT INFECTION NOS 02/12/2016 DAIANA JOHN ELECTRICAL CONTINUITY INSPECTOR Ot E78.5 HYPERLIPIDEMIA, UNSPECIFIED 02/12/2016 DEONNADAIANA RODRIGUEZ ELECTRICAL CONTINUITY INSPECTOR Ot I10 ESSENTIAL (PRIMARY) HYPERTENSION 02/12/2016 DEONNAJENNIFER DAIANA Wilks ELECTRICAL CONTINUITY INSPECTOR Ot I25.9 CHRONIC ISCHEMIC HEART DISEASE, UNSPECIF 02/12/2016 DAIANA JOHN ELECTRICAL CONTINUITY INSPECTOR Ot I38 ENDOCARDITIS, VALVE UNSPECIFIED 02/12/2016 DEONNADAIANA RODRIGUEZ ELECTRICAL CONTINUITY INSPECTOR Ot I77.9 DISORDER OF ARTERIES AND ARTERIOLES, UNS 02/12/2016 DEONNADAIANA RODRIGUEZ ELECTRICAL CONTINUITY INSPECTOR Ot R07.9 CHEST PAIN, UNSPECIFIED 02/12/2016 DEONNADAIANA RODRIGUEZ ELECTRICAL CONTINUITY INSPECTOR Ot Z95.1 PRESENCE OF AORTOCORONARY BYPASS GRAFT [...] 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 02/21/2016 DROA DAIANA L ELECTRICAL CONTINUITY INSPECTOR Ot 272.4 HYPERLIPIDEMIA NEC/NOS 02/21/2016 DORA DAIANA L ELECTRICAL CONTINUITY INSPECTOR Ot 401.9 HYPERTENSION NOS 02/21/2016 DAIANA JOHN ELECTRICAL CONTINUITY INSPECTOR Ot 414.00 CORON ATHEROSCLER NOS TYPE VESSEL, NATIV 02/21/2016 DAIANA JOHN ELECTRICAL CONTINUITY INSPECTOR Ot 424.90 ENDOCARDITIS NOS 02/21/2016 DAIANA JOHN ELECTRICAL CONTINUITY INSPECTOR Ot 429.3 CARDIOMEGALY 02/21/2016 DAIANA JOHN ELECTRICAL CONTINUITY INSPECTOR Ot 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 02/21/2016 DAIANA JOHN ELECTRICAL CONTINUITY INSPECTOR Ot V45.81 AORTOCORONARY BYPASS 02/21/2016 DAIANA JOHN ELECTRICAL CONTINUITY INSPECTOR Ot 272.4 HYPERLIPIDEMIA NEC/NOS 02/21/2016 DAIANA JOHN ELECTRICAL CONTINUITY INSPECTOR Ot 401.9 HYPERTENSION NOS 02/21/2016 DAIANA JOHN ELECTRICAL CONTINUITY INSPECTOR Ot 414.00 CORON ATHEROSCLER NOS TYPE VESSEL, NATIV 02/21/2016 DAIANA JOHN ELECTRICAL CONTINUITY INSPECTOR Ot 424.90 ENDOCARDITIS NOS 02/21/2016 DAIANA JOHN ELECTRICAL CONTINUITY INSPECTOR Ot V45.81 AORTOCORONARY BYPASS 02/21/2016 LORAINE GONGORA DO Ot 715.36 LOC OSTEOARTH NOS-L/LEG 02/21/2016 LORAINE GONGORA DO Ot 791.9 ABN URINE FINDINGS NEC 02/21/2016 LORAINE GONGORA DO Ot V72.63 PRE-PROCEDURAL LABORATORY EXAMINATION 02/21/2016 LORAINE GONGORA DO Ot V72.83 EXAM PRE-OPERATIVE NEC 02/21/2016 LORAINE GONGORA DO Ot V74.8 SCREEN-BACTERIAL DIS NEC 02/21/2016 DINO MELVIN MD Ot V72.84 EXAM PRE-OPERATIVE NOS 02/21/2016 Ot 599.0 URIN TRACT INFECTION NOS 02/21/2016 DAIANA JOHN ELECTRICAL CONTINUITY INSPECTOR Ot E78.5 HYPERLIPIDEMIA, UNSPECIFIED 02/21/2016 DAIANA JOHN ELECTRICAL CONTINUITY INSPECTOR Ot I10 ESSENTIAL (PRIMARY) HYPERTENSION 02/21/2016 DAIANA JOHN ELECTRICAL CONTINUITY INSPECTOR Ot I25.9 CHRONIC ISCHEMIC HEART DISEASE, UNSPECIF 02/21/2016 DAIANA JOHN ELECTRICAL CONTINUITY INSPECTOR Ot I38 ENDOCARDITIS, VALVE UNSPECIFIED 02/21/2016 DAIANA JOHN ELECTRICAL CONTINUITY INSPECTOR Ot I77.9 DISORDER OF ARTERIES AND ARTERIOLES, UNS 02/21/2016 DAIANA JOHN ELECTRICAL CONTINUITY INSPECTOR Ot R07.9 CHEST PAIN, UNSPECIFIED 02/21/2016 DAIANA JOHN ELECTRICAL CONTINUITY INSPECTOR Ot Z95.1 PRESENCE OF AORTOCORONARY BYPASS GRAFT 03/21/2016 BAIDAIANA RODRIGUEZ L ELECTRICAL CONTINUITY INSPECTOR Ot 272.4 HYPERLIPIDEMIA NEC/NOS 03/21/2016 BAIMA, DAIANA L ELECTRICAL CONTINUITY INSPECTOR Ot 401.9 HYPERTENSION NOS 03/21/2016 BAIJENNIFER, DAIANA L ELECTRICAL CONTINUITY INSPECTOR Ot 414.00 CORON ATHEROSCLER NOS TYPE VESSEL, NATIV 03/21/2016 BAIMA, DAIANA L ELECTRICAL CONTINUITY INSPECTOR Ot 424.90 ENDOCARDITIS NOS 03/21/2016 BAIJENNIFER, DAIANA L ELECTRICAL CONTINUITY INSPECTOR Ot 429.3 CARDIOMEGALY 03/21/2016 BAIJENNIFER, DAIANA L ELECTRICAL CONTINUITY INSPECTOR Ot 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 03/21/2016 BAIDAIANA RODRIGUEZ L ELECTRICAL CONTINUITY INSPECTOR Ot V45.81 AORTOCORONARY BYPASS 03/21/2016 BAIJENNIFER, DAIANA L ELECTRICAL CONTINUITY INSPECTOR Ot 272.4 HYPERLIPIDEMIA NEC/NOS 03/21/2016 BAIJENNIFER, DAIANA L ELECTRICAL CONTINUITY INSPECTOR Ot 401.9 HYPERTENSION NOS 03/21/2016 BAIJENNIFER, DAIANA L ELECTRICAL CONTINUITY INSPECTOR Ot 414.00 CORON ATHEROSCLER NOS TYPE VESSEL, NATIV 03/21/2016 BAIDAIANA RODRIGUEZ L ELECTRICAL CONTINUITY INSPECTOR Ot 424.90 ENDOCARDITIS NOS 03/21/2016 BAIJENNIFER, DAIANA L ELECTRICAL CONTINUITY INSPECTOR Ot V45.81 AORTOCORONARY BYPASS 03/21/2016 LORAINE GONGORA [...] URIN TRACT INFECTION NOS 03/21/2016 DAIANA JOHN ELECTRICAL CONTINUITY INSPECTOR Ot E78.5 HYPERLIPIDEMIA, UNSPECIFIED 03/21/2016 DAIANA JOHN ELECTRICAL CONTINUITY INSPECTOR Ot I10 ESSENTIAL (PRIMARY) HYPERTENSION 03/21/2016 BAIJENNIFER, DAIANA L ELECTRICAL CONTINUITY INSPECTOR Ot I25.9 CHRONIC ISCHEMIC HEART DISEASE, UNSPECIF 03/21/2016 BAIDAIANA RODRIGUEZ L ELECTRICAL CONTINUITY INSPECTOR Ot I38 ENDOCARDITIS, VALVE UNSPECIFIED 03/21/2016 DAIANA JOHN L ELECTRICAL CONTINUITY INSPECTOR Ot I77.9 DISORDER OF ARTERIES AND ARTERIOLES, UNS 03/21/2016 DAIANA JOHN L ELECTRICAL CONTINUITY INSPECTOR Ot R07.9 CHEST PAIN, UNSPECIFIED 03/21/2016 DAIANA JOHN L ELECTRICAL CONTINUITY INSPECTOR Ot Z95.1 PRESENCE OF AORTOCORONARY BYPASS GRAFT 03/22/2016 STEPHANIE KOTHARI, LALI Beyer Ot N45.3 EPIDIDYMO-ORCHITIS 03/22/2016 STEPHANIE KOTHARI, LALI Beyer Ot N45.3 EPIDIDYMO-ORCHITIS 04/04/2016 STEPHANIE KOTHARI, LALI Beyer Ot N45.3 EPIDIDYMO-ORCHITIS 05/01/2016 STEPHANIE KOTHARI, LALI Beyer Ot N45.3 EPIDIDYMO-ORCHITIS 05/10/2016 STEPHANIE KOTHARI, LALI Beyer Ot N45.3 EPIDIDYMO-ORCHITIS 10/04/2016 EVELYN KOTHRAI, JUAREZ Sloan Ot N50.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 10/04/2016 DEONNADAIANA RODRIGUEZ L ELECTRICAL CONTINUITY INSPECTOR Ot 272.4 HYPERLIPIDEMIA NEC/NOS 10/04/2016 BAIMA, DAIANA L ELECTRICAL CONTINUITY INSPECTOR Ot 401.9 HYPERTENSION NOS 10/04/2016 BAIMA, DAIANA L ELECTRICAL CONTINUITY INSPECTOR Ot 414.00 CORON ATHEROSCLER NOS TYPE VESSEL, NATIV 10/04/2016 BAIMA, DAIANA L ELECTRICAL CONTINUITY INSPECTOR Ot 424.90 ENDOCARDITIS NOS 10/04/2016 BAIJENNIFER, DAIANA L ELECTRICAL CONTINUITY INSPECTOR Ot 429.3 CARDIOMEGALY 10/04/2016 DEONNAJENNIFER, DAIANA L ELECTRICAL CONTINUITY INSPECTOR Ot 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 10/04/2016 BAIMA, DAIANA L ELECTRICAL CONTINUITY INSPECTOR Ot V45.81 AORTOCORONARY BYPASS 10/04/2016 BAIMA, DAIANA L ELECTRICAL CONTINUITY INSPECTOR Ot 272.4 HYPERLIPIDEMIA NEC/NOS 10/04/2016 BAIMA, DAIANA L ELECTRICAL CONTINUITY INSPECTOR Ot 401.9 HYPERTENSION NOS 10/04/2016 BAIMA, DAIANA L ELECTRICAL CONTINUITY INSPECTOR Ot 414.00 CORON ATHEROSCLER NOS TYPE VESSEL, NATIV 10/04/2016 BAIMA, DAIANA L ELECTRICAL CONTINUITY INSPECTOR Ot 424.90 ENDOCARDITIS NOS 10/04/2016 BAIMA, DAIANA L ELECTRICAL CONTINUITY INSPECTOR Ot V45.81 AORTOCORONARY BYPASS 10/04/2016 LORAINE GONGORA [...] URIN TRACT INFECTION NOS 10/04/2016 DORA DAIANA Efe ELECTRICAL CONTINUITY INSPECTOR Ot E78.5 HYPERLIPIDEMIA, UNSPECIFIED 10/04/2016 BAIJENNIFER DAIANA L ELECTRICAL CONTINUITY INSPECTOR Ot I10 ESSENTIAL (PRIMARY) HYPERTENSION 10/04/2016 BAIMA DAIANA L ELECTRICAL CONTINUITY INSPECTOR Ot I25.9 CHRONIC ISCHEMIC HEART DISEASE, UNSPECIF 10/04/2016 BAIJENNIFER DAIANA L ELECTRICAL CONTINUITY INSPECTOR Ot I38 ENDOCARDITIS, VALVE UNSPECIFIED 10/04/2016 BAIJENNIFER DAIANA L ELECTRICAL CONTINUITY INSPECTOR Ot I77.9 DISORDER OF ARTERIES AND ARTERIOLES, UNS 10/04/2016 DORA DAIANA L ELECTRICAL CONTINUITY INSPECTOR Ot R07.9 CHEST PAIN, UNSPECIFIED 10/04/2016 BAIMA DAIANA L ELECTRICAL CONTINUITY INSPECTOR Ot Z95.1 PRESENCE OF AORTOCORONARY BYPASS GRAFT 10/04/2016 EVELYN KOTHARI, JUAREZ Sloan Ot N50.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 10/04/2016 STEPHANIE KOTHARI, LALI Beyer Ot N45.3 EPIDIDYMO-ORCHITIS 10/11/2016 JUAREZ RIVAS MD Ot N50.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 12/03/2016 CELESTINE ONEILL MD Ot I12.9 HYPERTENSIVE CHRONIC KIDNEY DISEASE W ST 12/03/2016 CELESTINE ONIELL MD Ot I25.10 ATHSCL HEART DISEASE OF [place] CORONARY 12/03/2016 CELESTINE ONEILL MD Ot I38 ENDOCARDITIS, VALVE UNSPECIFIED 12/03/2016 CELESTINE ONEILL MD Ot N18.9 CHRONIC KIDNEY DISEASE, UNSPECIFIED 12/03/2016 CELESTINE ONEILL MD Ot R06.02 SHORTNESS OF BREATH 12/03/2016 CELESTINE ONEILL MD Ot R42 DIZZINESS AND GIDDINESS 12/03/2016 CELESTINE ONEILL MD Ot R44.3 HALLUCINATIONS, UNSPECIFIED 12/03/2016 CELESTINE ONEILL MD, Ot R55 SYNCOPE AND COLLAPSE 12/03/2016 CELESTINE ONEILL MD Ot Z95.1 PRESENCE OF AORTOCORONARY BYPASS GRAFT 12/03/2016 CELESTINE ONEILL MD Ot Z95.5 PRESENCE OF CORONARY ANGIOPLASTY IMPLANT 12/11/2016 HINA KOTHARI, Venessa WHATLEY Ot R55 SYNCOPE AND COLLAPSE 01/10/2017 HINA KOTHARI, Venessa WHATLEY Ot R55 SYNCOPE AND COLLAPSE 03/10/2017 Venessa SANTAMARIA MD, Ot R55 SYNCOPE AND COLLAPSE 07/02/2017 CELESTINE ONEILL MD Ot E78.00 PURE HYPERCHOLESTEROLEMIA, UNSPECIFIED 07/02/2017 CELESTINE ONEILL MD Ot F03.90 UNSPECIFIED DEMENTIA WITHOUT BEHAVIORAL 07/02/2017 CELESTINE ONEILL MD Ot I12.9 HYPERTENSIVE CHRONIC KIDNEY DISEASE W ST 07/02/2017 CELESTINE ONEILL MD Ot I25.10 ATHSCL HEART DISEASE OF [place] CORONARY 07/02/2017 CELESTINE ONEILL MD Ot I35.0 NONRHEUMATIC AORTIC (VALVE) STENOSIS 07/02/2017 CELESTINE ONEILL MD Ot I45.10 UNSPECIFIED RIGHT BUNDLE-BRANCH BLOCK 07/02/2017 CELESTINE ONEILL MD Ot I70.0 ATHEROSCLEROSIS OF [place] 07/02/2017 CELESTINE ONEILL MD Ot K21.9 GASTRO-ESOPHAGEAL REFLUX DISEASE WITHOUT 07/02/2017 CELESTINE ONEILL MD Ot N18.9 CHRONIC KIDNEY DISEASE, UNSPECIFIED 07/02/2017 CELESTINE ONEILL MD Ot N40.0 BENIGN PROSTATIC HYPERPLASIA WITHOUT LOW 07/02/2017 CELESTINE ONEILL MD Ot R07.9 CHEST PAIN, UNSPECIFIED 07/02/2017 CELESTINE ONEILL MD Ot R42 DIZZINESS AND GIDDINESS 07/02/2017 CELESTINE ONEILL MD Ot R53.83 OTHER FATIGUE 07/02/2017 CELESTINE ONEILL MD Ot Z23 ENCOUNTER FOR IMMUNIZATION 07/02/2017 CELESTINE ONEILL MD Ot Z79.02 MARKETING ANALYTICS MANAGER (CURRENT) USE OF ANTITHROMBOTI 07/02/2017 CELESTINE ONEILL MD, Ot Z79.82 LONG-TERM (CURRENT) USE OF ASPIRIN 07/02/2017 CELESTINE ONEILL MD Ot Z79.899 OTHER MARKETING ANALYTICS MANAGER (CURRENT) DRUG THERAPY 07/02/2017 CELESTINE ONEILL MD Ot Z95.1 PRESENCE OF AORTOCORONARY BYPASS GRAFT 07/02/2017 CELESTINE ONEILL MD Ot Z95.5 PRESENCE OF CORONARY ANGIOPLASTY IMPLANT 07/02/2017 BAIJENNIFER, DAIANA L ELECTRICAL CONTINUITY INSPECTOR Ot 272.4 HYPERLIPIDEMIA NEC/NOS 07/02/2017 BAIMA, DAIANA L ELECTRICAL CONTINUITY INSPECTOR Ot 401.9 HYPERTENSION NOS 07/02/2017 BAIMA, DAIANA L ELECTRICAL CONTINUITY INSPECTOR Ot 414.00 CORON ATHEROSCLER NOS TYPE VESSEL, NATIV 07/02/2017 BAIMA, DAIANA L ELECTRICAL CONTINUITY INSPECTOR Ot 424.90 ENDOCARDITIS NOS 07/02/2017 BAIMA, DAIANA L ELECTRICAL CONTINUITY INSPECTOR Ot 429.3 CARDIOMEGALY 07/02/2017 BAIMA, DAIANA L ELECTRICAL CONTINUITY INSPECTOR Ot 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 07/02/2017 BAIMA, DAIANA L ELECTRICAL CONTINUITY INSPECTOR Ot V45.81 AORTOCORONARY BYPASS 07/02/2017 BAIMA, DAIANA L ELECTRICAL CONTINUITY INSPECTOR Ot 272.4 HYPERLIPIDEMIA NEC/NOS 07/02/2017 BAIMA, DAIANA L ELECTRICAL CONTINUITY INSPECTOR Ot 401.9 HYPERTENSION NOS 07/02/2017 BAIMA, DAIANA L ELECTRICAL CONTINUITY INSPECTOR Ot 414.00 CORON ATHEROSCLER NOS TYPE VESSEL, NATIV 07/02/2017 BAIMA, DAIANA L ELECTRICAL CONTINUITY INSPECTOR Ot 424.90 ENDOCARDITIS NOS 07/02/2017 BAIMA, DAIANA L ELECTRICAL CONTINUITY INSPECTOR Ot V45.81 AORTOCORONARY BYPASS 07/02/2017 LORAINE GONGORA DO Ot 715.36 LOC OSTEOARTH NOS-L/LEG 07/02/2017 LORAINE GONGORA DO Ot 791.9 ABN URINE FINDINGS NEC 07/02/2017 LORAINE GONGORA DO Ot V72.63 PRE-PROCEDURAL LABORATORY EXAMINATION 07/02/2017 LORAINE GONGORA DO Ot V72.83 EXAM PRE-OPERATIVE NEC 07/02/2017 LORAINE GONGORA DO Ot V74.8 SCREEN-BACTERIAL DIS NEC 07/02/2017 DINO MELVIN MD Ot V72.84 EXAM PRE-OPERATIVE NOS 07/02/2017 Ot 599.0 URIN TRACT INFECTION NOS 07/02/2017 DAIANA JOHN L ELECTRICAL CONTINUITY INSPECTOR Ot E78.5 HYPERLIPIDEMIA, UNSPECIFIED 07/02/2017 DAIANA JOHN ELECTRICAL CONTINUITY INSPECTOR Ot I10 ESSENTIAL (PRIMARY) HYPERTENSION 07/02/2017 DAIANA JOHN ELECTRICAL CONTINUITY INSPECTOR Ot I25.9 CHRONIC ISCHEMIC HEART DISEASE, UNSPECIF 07/02/2017 DAIANA JOHN ELECTRICAL CONTINUITY INSPECTOR Ot I38 ENDOCARDITIS, VALVE UNSPECIFIED 07/02/2017 DAIANA JOHN ELECTRICAL CONTINUITY INSPECTOR Ot I77.9 DISORDER OF ARTERIES AND ARTERIOLES, UNS 07/02/2017 DEONNADAIANA RODRIGUEZ ELECTRICAL CONTINUITY INSPECTOR Ot R07.9 CHEST PAIN, UNSPECIFIED 07/02/2017 DEONNADAIANA RODRIGUEZ ELECTRICAL CONTINUITY INSPECTOR Ot Z95.1 PRESENCE OF AORTOCORONARY BYPASS GRAFT 07/02/2017 EVELYN KOTHARI, JUAREZ Sloan Ot N50.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 07/02/2017 STEPHANIE KOTHARI, LALI Beyer Ot N45.3 EPIDIDYMO-ORCHITIS 07/02/2017 HINA KOTHARI, Venessa WHATLEY Ot R55 SYNCOPE AND COLLAPSE 07/02/2017 CELESTINE OENILL MD Ot E78.00 PURE HYPERCHOLESTEROLEMIA, UNSPECIFIED 07/02/2017 CELESTINE ONEILL MD Ot F03.90 UNSPECIFIED DEMENTIA WITHOUT BEHAVIORAL 07/02/2017 CELESTINE ONEILL MD Ot I12.9 HYPERTENSIVE CHRONIC KIDNEY DISEASE W ST 07/02/2017 CELESTINE ONEILL MD Ot I25.10 ATHSCL HEART DISEASE OF [place] CORONARY 07/02/2017 CELESTINE ONEILL MD Ot I35.0 NONRHEUMATIC AORTIC (VALVE) STENOSIS 07/02/2017 CELESTINE ONEILL MD Ot I45.10 UNSPECIFIED RIGHT BUNDLE-BRANCH BLOCK 07/02/2017 CELESTINE ONEILL MD Ot I70.0 ATHEROSCLEROSIS OF [place]ORT[place] 07/02/2017 CELESTINE ONEILL MD Ot K21.9 GASTRO-ESOPHAGEAL REFLUX DISEASE WITHOUT 07/02/2017 CELESTINE ONEILL MD Ot N18.9 CHRONIC KIDNEY DISEASE, UNSPECIFIED 07/02/2017 CELESTINE ONEILL MD Ot N40.0 BENIGN PROSTATIC HYPERPLASIA WITHOUT LOW 07/02/2017 CELESTINE ONEILL MD Ot R07.9 CHEST PAIN, UNSPECIFIED 07/02/2017 CELESTINE ONEILL MD Ot R42 DIZZINESS AND GIDDINESS 07/02/2017 CELESTINE ONEILL MD Ot R53.83 OTHER FATIGUE 07/02/2017 CELESTINE ONEILL MD, Ot Z79.02 LONG-TERM (CURRENT) USE OF ANTITHROMBOTI 07/02/2017 CELESTINE ONEILL MD, Ot Z79.82 MARKETING ANALYTICS MANAGER (CURRENT) USE OF ASPIRIN 07/02/2017 CELESTINE ONEILL MD, Ot Z79.899 OTHER LONG-TERM (CURRENT) DRUG THERAPY 07/02/2017 CELESTINE ONEILL MD, Ot Z95.1 PRESENCE OF AORTOCORONARY BYPASS GRAFT 07/02/2017 CELESTINE ONEILL MD, Ot Z95.5 PRESENCE OF CORONARY ANGIOPLASTY IMPLANT 07/03/2017 EMMA DO, ENEDINA K Ot E78.00 PURE HYPERCHOLESTEROLEMIA, UNSPECIFIED 07/03/2017 EMMA DO, ENEDINA K Ot F03.90 UNSPECIFIED DEMENTIA WITHOUT BEHAVIORAL 07/03/2017 EMMA DO ENEDINA K Ot F32.9 MAJOR DEPRESSIVE DISORDER, SINGLE EPISOD 07/03/2017 EMMA DO ENEDINA K Ot I10 ESSENTIAL (PRIMARY) HYPERTENSION 07/03/2017 EMMA DO ENEDINA K Ot I25.10 ATHSCL HEART DISEASE OF [place] CORONARY 07/03/2017 EMMA DO ENEDINA K Ot N28.9 DISORDER OF KIDNEY AND URETER, UNSPECIFI 07/03/2017 EMMA DO ENEDINA K Ot R41.0 DISORIENTATION, UNSPECIFIED 07/03/2017 EMMA DO ENEDINA K Ot Z79.02 LONG-TERM (CURRENT) USE OF ANTITHROMBOTI 07/03/2017 EMMA DO ENEDINA K Ot Z80.9 FAMILY HISTORY OF MALIGNANT NEOPLASM, UN 07/03/2017 EMMA DO ENEDINA K Ot Z85.46 PERSONAL HISTORY OF MALIGNANT NEOPLASM O 07/03/2017 EMMA DO ENEDINA K Ot Z92.3 PERSONAL HISTORY OF IRRADIATION 07/03/2017 EMMA DO ENEDINA K Ot Z95.1 PRESENCE OF AORTOCORONARY BYPASS GRAFT 07/03/2017 EMMA DO ENEDINA K Ot Z95.5 PRESENCE OF CORONARY ANGIOPLASTY IMPLANT 07/09/2017 EMMA DO ENEDINA K Ot E78.00 PURE HYPERCHOLESTEROLEMIA, UNSPECIFIED 07/09/2017 EMMA DO, ENEDINA K Ot F03.90 UNSPECIFIED DEMENTIA WITHOUT BEHAVIORAL 07/09/2017 EMMA DO ENEDINA K Ot F32.9 MAJOR DEPRESSIVE DISORDER, SINGLE EPISOD 07/09/2017 ENEDINA CARTER DO Ot I10 ESSENTIAL (PRIMARY) HYPERTENSION 07/09/2017 ENEDINA CARTER DO Ot I25.10 ATHSCL HEART DISEASE OF [place] CORONARY 07/09/2017 ENEDINA CARTER DO Ot N28.9 DISORDER OF KIDNEY AND URETER, UNSPECIFI 07/09/2017 ENEDINA CARTER DO Ot R41.0 DISORIENTATION, UNSPECIFIED 07/09/2017 ENEDINA CARTER DO Ot Z79.02 MARKETING ANALYTICS MANAGER (CURRENT) USE OF ANTITHROMBOTI 07/09/2017 ENEDINA CARTER DO Ot Z80.9 FAMILY HISTORY OF MALIGNANT NEOPLASM, UN 07/09/2017 ENEDINA CARTER DO Ot Z85.46 PERSONAL HISTORY OF MALIGNANT NEOPLASM O 07/09/2017 EMMA STONER ENEDINA Reed Ot Z92.3 PERSONAL HISTORY OF IRRADIATION 07/09/2017 EMMA STONER ENEDINA Reed Ot Z95.1 PRESENCE OF AORTOCORONARY BYPASS GRAFT 07/09/2017 EMMA STONER ENEDINA Reed Ot Z95.5 PRESENCE OF CORONARY ANGIOPLASTY IMPLANT Procedures Code Description Performed By Performed On 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 11/16/2013 Results Test Result Range Complete blood count (CBC) with automated white blood cell (WBC) differential - 12/02/16 03:55 Blood leukocytes automated count (number/volume) 6.2 10*3/uL 4.3-11.0 Blood erythrocytes automated count (number/volume) 4.38 10*6/uL 4.35-5.85 Venous blood hemoglobin measurement (mass/volume) 13.7 [...] Automated blood platelet mean volume measurement 11.2 [foz_us] 7.4-10.4 Automated blood neutrophils/100 leukocytes 68 % [...] Serum or plasma sodium measurement (moles/volume) 140 mmol/L 135-145 Serum or plasma potassium measurement (moles/volume) 3.6 mmol/L 3.6-5.0 Serum or plasma chloride measurement (moles/volume) 108 mmol/L 98-107 Carbon dioxide 18 mmol/L 21-32 Serum or plasma anion gap determination (moles/volume) 14 mmol/L 5-14 Serum or plasma urea nitrogen measurement (mass/volume) 31 mg/dL 7-18 Serum or plasma creatinine measurement (mass/volume) 1.74 mg/dL 0.60-1.30 Serum or plasma urea nitrogen/creatinine mass [...] or plasma troponin i.cardiac measurement (mass/volume) < ng/ mL <0.30 Myoglobin, serum - 12/02/16 03:55 Myoglobin, serum 106.8 ng/mL 10.0-92.0 Complete urinalysis with reflex to culture - 12/02/16 04:05 Urine color determination YELLOW NRG Urine clarity determination CLEAR NRG Urine pH measurement by test strip 8 5-9 Specific gravity of urine by test strip 1.010 1.016- 1.022 Urine protein assay by test strip, semi-quantitative [...] or plasma troponin i.cardiac measurement (mass/volume) < ng/ mL <0.30 Arterial blood gas measurement - 12/02/16 09:19 Blood pCO2 28 mm[Hg] 35-45 Blood pO2 108 mm[Hg] 79-93 Arterial blood bicarbonate measurement (moles/volume) 18 mmol/L 23-27 Arterial blood base excess by calculation -5.1 mmol/L - 2.5-2.5 Arterial blood oxygen saturation measurement 99 % [...] or plasma troponin i.cardiac measurement (mass/volume) < ng/ mL <0.30 Serum or plasma troponin i.cardiac measurement (mass/volume) - 12/02/16 18:13 Serum or plasma troponin i.cardiac measurement (mass/volume) < ng/ mL <0.30 Complete blood count (CBC) with automated white blood cell (WBC) differential - 12/03/16 04:10 Blood leukocytes automated count (number/volume) 7.1 10*3/uL 4.3-11.0 Blood erythrocytes automated count (number/volume) 3.88 10*6/uL 4.35-5.85 Venous blood hemoglobin measurement (mass/volume) 12.3 [...] Automated blood platelet mean volume measurement 11.7 [foz_us] 7.4-10.4 Automated blood neutrophils/100 leukocytes 72 % [...] Serum or plasma sodium measurement (moles/volume) 140 mmol/L 135-145 Serum or plasma potassium measurement (moles/volume) 3.5 mmol/L 3.6-5.0 Serum or plasma chloride measurement (moles/volume) 113 mmol/L 98-107 Carbon dioxide 19 mmol/L 21-32 Serum or plasma anion gap determination (moles/volume) 8 mmol/L 5-14 Serum or plasma urea nitrogen measurement (mass/volume) 20 mg/dL 7-18 Serum or plasma creatinine measurement (mass/volume) 1.29 mg/dL 0.60-1.30 Serum or plasma urea nitrogen/creatinine mass ratio 16 NRG Serum or plasma creatinine measurement with calculation of estimated glomerular filtration rate 53 NRG Serum or plasma glucose measurement (mass/volume) 101 mg/dL 70-105 Serum or plasma calcium measurement (mass/volume) 8.5 mg/dL 8.5-10.1 Serum or plasma phosphate measurement (mass/volume) - 12/03/16 04:10 Serum or plasma phosphate measurement (mass/volume) 2.5 mg/dL 2.3-4.7 Magnesium - 12/03/16 04:10 Magnesium 2.0 mg/dL 1.8-2.4 Lipid 1996 panel - 12/03/16 04:10 Serum or plasma triglyceride measurement (mass/volume) 127 mg/dL <150 Serum or plasma cholesterol measurement (mass/volume) 161 mg/dL < 200 Serum or plasma cholesterol in HDL measurement (mass/volume) 33 mg/ dL 40-60 Cholesterol in LDL [mass/volume] in serum or plasma by direct assay 105 mg/dL 1-129 Serum or plasma cholesterol in VLDL measurement (mass/volume) 25 mg/ dL 5-40 Complete blood count (CBC) with automated white blood cell (WBC) differential - 07/01/17 10:36 Blood leukocytes automated count (number/volume) 6.9 10*3/uL 4.3-11.0 Blood erythrocytes automated count (number/volume) 4.66 10*6/uL 4.35-5.85 Venous blood hemoglobin measurement (mass/volume) 14.4 g/dL 13.3-17.7 Blood hematocrit (volume fraction) 43 % 40-54 Automated erythrocyte mean corpuscular volume 92 [foz_us] 80-99 Automated erythrocyte mean corpuscular hemoglobin (mass per erythrocyte) 31 pg 25-34 Automated erythrocyte mean corpuscular hemoglobin concentration measurement ( mass/volume) 34 g/dL 32-36 Automated erythrocyte distribution width ratio 14.1 % 10.0-14.5 Automated blood platelet count (count/volume) 238 10*3/uL 130-400 Automated blood platelet mean volume measurement 10.9 [foz_us] 7.4-10.4 Automated blood neutrophils/100 leukocytes 65 % 42-75 Automated blood lymphocytes/100 leukocytes 16 % 12-44 Blood monocytes/100 leukocytes 14 % 0-12 Automated blood eosinophils/100 leukocytes 4 % 0-10 Automated blood basophils/100 leukocytes 1 % 0-10 Blood neutrophils automated count (number/volume) 4.5 10*3 1.8-7.8 Blood lymphocytes automated count (number/volume) 1.1 10*3 1.0-4.0 Blood monocytes automated count (number/volume) 1.0 10*3 0.0-1.0 Automated eosinophil count 0.3 10*3/uL 0.0-0.3 Automated blood basophil count (count/volume) 0.0 10*3/uL 0.0-0.1 PT panel in platelet poor plasma by coagulation assay - 07/01/17 10:36 Prothrombin time (PT) in platelet poor plasma by coagulation assay 13.1 s 12.2-14.7 INR in platelet poor plasma or blood by coagulation assay 1.0 0.8-1.4 Activated partial thromboplastin time (aPTT) in platelet poor plasma bycoagulation assay - 07/01/17 10:36 Activated partial thromboplastin time (aPTT) in platelet poor plasma bycoagulation assay 26 s 24-35 Comprehensive metabolic panel - 07/01/17 10:36 Serum or plasma sodium measurement (moles/volume) 140 mmol/L 135-145 Serum or plasma potassium measurement (moles/volume) 3.8 mmol/L 3.6-5.0 Serum or plasma chloride measurement (moles/volume) 106 mmol/L 98-107 Carbon dioxide 23 mmol/L 21-32 Serum or plasma anion gap determination (moles/volume) 11 mmol/L 5-14 Serum or plasma urea nitrogen measurement (mass/volume) 26 mg/dL 7-18 Serum or plasma creatinine measurement (mass/volume) 1.63 mg/dL 0.60-1.30 Serum or plasma urea nitrogen/creatinine mass ratio 16 NRG Serum or plasma creatinine measurement with calculation of estimated glomerular filtration rate 40 NRG Serum or plasma glucose measurement (mass/volume) 100 mg/dL 70-105 Serum or plasma calcium measurement (mass/volume) 10.1 mg/dL 8.5-10.1 Serum or plasma total bilirubin measurement (mass/volume) 0.6 mg/dL 0.1-1.0 Serum or plasma alkaline phosphatase measurement (enzymatic activity/volume) 64 U/L 40-136 Serum or plasma aspartate aminotransferase measurement (enzymatic activity/ volume) 21 U/L 5-34 Serum or plasma alanine aminotransferase measurement (enzymatic activity/volume ) 12 U/L 0-55 Serum or plasma protein measurement (mass/volume) 7.7 g/dL 6.4-8.2 Serum or plasma albumin measurement (mass/volume) 4.1 g/dL 3.2-4.5 Magnesium - 07/01/17 10:36 Magnesium 2.3 mg/dL 1.8-2.4 Serum or plasma troponin i.cardiac measurement (mass/volume) - 07/01/17 10:36 Serum or plasma troponin i.cardiac measurement (mass/volume) < ng/ mL <0.30 Myoglobin, serum - 07/01/17 10:36 Myoglobin, serum 88.5 ng/mL 10.0-92.0 Serum or plasma lithium measurement (moles/volume) - 07/01/17 10:36 BNP level 73.4 pg/mL <100.0 Serum or plasma creatine kinase measurement (enzymatic activity/volume) - 07/01 17:25 Serum or plasma creatine kinase measurement (enzymatic activity/volume) 49 U/L 30-200 Serum or plasma troponin i.cardiac measurement (mass/volume) - 07/01/17 17:25 Serum or plasma troponin i.cardiac measurement (mass/volume) < ng/ mL <0.30 Serum or plasma creatine kinase measurement (enzymatic activity/volume) - 07/01 22:30 Serum or plasma creatine kinase measurement (enzymatic activity/volume) 49 U/L 30-200 Serum or plasma troponin i.cardiac measurement (mass/volume) - 07/01/17 22:30 Serum or plasma troponin i.cardiac measurement (mass/volume) < ng/ mL <0.30 Lipid 1996 panel - 07/02/17 05:00 Serum or plasma triglyceride measurement (mass/volume) 214 mg/dL <150 Serum or plasma cholesterol measurement (mass/volume) 181 mg/dL < 200 Serum or plasma cholesterol in HDL measurement (mass/volume) 35 mg/ dL 40-60 Cholesterol in LDL [mass/volume] in serum or plasma by direct assay 114 mg/dL 1-129 Serum or plasma cholesterol in VLDL measurement (mass/volume) 43 mg/ dL 5-40 Complete blood count (CBC) with automated white blood cell (WBC) differential - 07/03/17 18:57 Blood leukocytes automated count (number/volume) 5.6 10*3/uL 4.3-11.0 Blood erythrocytes automated count (number/volume) 4.33 10*6/uL 4.35-5.85 Venous blood hemoglobin measurement (mass/volume) 13.5 g/dL 13.3-17.7 Blood hematocrit (volume fraction) 40 % 40-54 Automated erythrocyte mean corpuscular volume 92 [foz_us] 80-99 Automated erythrocyte mean corpuscular hemoglobin (mass per erythrocyte) 31 pg 25-34 Automated erythrocyte mean corpuscular hemoglobin concentration measurement ( mass/volume) 34 g/dL 32-36 Automated erythrocyte distribution width ratio 14.2 % 10.0-14.5 Automated blood platelet count (count/volume) 223 10*3/uL 130-400 Automated blood platelet mean volume measurement 10.8 [foz_us] 7.4-10.4 Automated blood neutrophils/100 leukocytes 71 % 42-75 Automated blood lymphocytes/100 leukocytes 11 % 12-44 Blood monocytes/100 leukocytes 14 % 0-12 Automated blood eosinophils/100 leukocytes 4 % 0-10 Automated blood basophils/100 leukocytes 0 % 0-10 Blood neutrophils automated count (number/volume) 4.0 10*3 1.8-7.8 Blood lymphocytes automated count (number/volume) 0.6 10*3 1.0-4.0 Blood monocytes automated count (number/volume) 0.8 10*3 0.0-1.0 Automated eosinophil count 0.2 10*3/uL 0.0-0.3 Automated blood basophil count (count/volume) 0.0 10*3/uL 0.0-0.1 Comprehensive metabolic panel - 07/03/17 18:57 Serum or plasma sodium measurement (moles/volume) 140 mmol/L 135-145 Serum or plasma potassium measurement (moles/volume) 4.2 mmol/L 3.6-5.0 Serum or plasma chloride measurement (moles/volume) 108 mmol/L 98-107 Carbon dioxide 21 mmol/L 21-32 Serum or plasma anion gap determination (moles/volume) 11 mmol/L 5-14 Serum or plasma urea nitrogen measurement (mass/volume) 35 mg/dL 7-18 Serum or plasma creatinine measurement (mass/volume) 1.91 mg/dL 0.60-1.30 Serum or plasma urea nitrogen/creatinine mass ratio 18 NRG Serum or plasma creatinine measurement with calculation of estimated glomerular filtration rate 33 NRG Serum or plasma glucose measurement (mass/volume) 103 mg/dL 70-105 Serum or plasma calcium measurement (mass/volume) 9.9 mg/dL 8.5-10.1 Serum or plasma total bilirubin measurement (mass/volume) 0.7 mg/dL 0.1-1.0 Serum or plasma alkaline phosphatase measurement (enzymatic activity/volume) 62 U/L 40-136 Serum or plasma aspartate aminotransferase measurement (enzymatic activity/ volume) 18 U/L 5-34 Serum or plasma alanine aminotransferase measurement (enzymatic activity/volume ) 10 U/L 0-55 Serum or plasma protein measurement (mass/volume) 7.1 g/dL 6.4-8.2 Serum or plasma albumin measurement (mass/volume) 3.9 g/dL 3.2-4.5 Serum or plasma thyrotropin measurement by detection limit <=0.05 miu/l (units/ volume) - 07/03/17 18:57 Serum or plasma thyrotropin measurement by detection limit <=0.05 miu/l (units/ volume) 4.72 u[iU]/mL 0.35-4.94 Complete urinalysis with reflex to culture - 07/03/17 20:00 Urine color determination YELLOW NRG Urine clarity determination CLEAR NRG Urine pH measurement by test strip 6.5 5-9 Specific gravity of urine by test strip 1.015 1.016- 1.022 Urine protein assay by test strip, semi-quantitative [...] NORMAL Urine leukocyte esterase detection by dipstick 1+ NEGATIVE Automated urine sediment erythrocyte count by microscopy (number/high power field) NONE NRG Automated urine sediment leukocyte count by microscopy (number/high power field ) [HPF] NRG Bacteria detection in urine sediment by light microscopy NONE NRG Squamous epithelial cells detection in urine sediment by light microscopy RARE NRG Crystals detection in urine sediment by light microscopy NONE NRG Casts detection in urine sediment by light microscopy NONE NRG Mucus detection in urine sediment by light microscopy NEGATIVE NRG Complete urinalysis with reflex to culture NO NRG Complete blood count (CBC) with automated white blood cell (WBC) differential - 09/10/17 21:07 Blood leukocytes automated count (number/volume) 7.2 10*3/uL 4.3-11.0 Blood erythrocytes automated count (number/volume) 4.34 10*6/uL 4.35-5.85 Venous blood hemoglobin measurement (mass/volume) 13.6 g/dL 13.3-17.7 Blood hematocrit (volume fraction) 40 % 40-54 Automated erythrocyte mean corpuscular volume 91 [foz_us] 80-99 Automated erythrocyte mean corpuscular hemoglobin (mass per erythrocyte) 31 pg 25-34 Automated erythrocyte mean corpuscular hemoglobin concentration measurement ( mass/volume) 34 g/dL 32-36 Automated erythrocyte distribution width ratio 13.4 % 10.0-14.5 Automated blood platelet count (count/volume) 218 10*3/uL 130-400 Automated blood platelet mean volume measurement 11.0 [foz_us] 7.4-10.4 Automated blood neutrophils/100 leukocytes 67 % 42-75 Automated blood lymphocytes/100 leukocytes 16 % 12-44 Blood monocytes/100 leukocytes 13 % 0-12 Automated blood eosinophils/100 leukocytes 3 % 0-10 Automated blood basophils/100 leukocytes 0 % 0-10 Blood neutrophils automated count (number/volume) 4.8 10*3 1.8-7.8 Blood lymphocytes automated count (number/volume) 1.2 10*3 1.0-4.0 Blood monocytes automated count (number/volume) 0.9 10*3 0.0-1.0 Automated eosinophil count 0.2 10*3/uL 0.0-0.3 Automated blood basophil count (count/volume) 0.0 10*3/uL 0.0-0.1 Comprehensive metabolic panel - 09/10/17 21:07 Serum or plasma sodium measurement (moles/volume) 141 mmol/L 135-145 Serum or plasma potassium measurement (moles/volume) 3.9 mmol/L 3.6-5.0 Serum or plasma chloride measurement (moles/volume) 109 mmol/L 98-107 Carbon dioxide 20 mmol/L 21-32 Serum or plasma anion gap determination (moles/volume) 12 mmol/L 5-14 Serum or plasma urea nitrogen measurement (mass/volume) 27 mg/dL 7-18 Serum or plasma creatinine measurement (mass/volume) 1.77 mg/dL 0.60-1.30 Serum or plasma urea nitrogen/creatinine mass ratio 15 NRG Serum or plasma creatinine measurement with calculation of estimated glomerular filtration rate 37 NRG Serum or plasma glucose measurement (mass/volume) 105 mg/dL 70-105 Serum or plasma calcium measurement (mass/volume) 9.5 mg/dL 8.5-10.1 Serum or plasma total bilirubin measurement (mass/volume) 0.6 mg/dL 0.1-1.0 Serum or plasma alkaline phosphatase measurement (enzymatic activity/volume) 71 U/L 40-136 Serum or plasma aspartate aminotransferase measurement (enzymatic activity/ volume) 19 U/L 5-34 Serum or plasma alanine aminotransferase measurement (enzymatic activity/volume ) 12 U/L 0-55 Serum or plasma protein measurement (mass/volume) 7.2 g/dL 6.4-8.2 Serum or plasma albumin measurement (mass/volume) 3.8 g/dL 3.2-4.5 Complete urinalysis with reflex to culture - 09/10/17 21:55 Urine color determination YELLOW NRG Urine clarity determination CLEAR NRG Urine pH measurement by test strip 7 5-9 Specific gravity of urine by test strip 1.010 1.016- 1.022 Urine protein assay by test strip, semi-quantitative [...] count by microscopy (number/high power field ) [HPF] NRG Bacteria detection in urine sediment by light microscopy NEGATIVE NRG Crystals detection in urine sediment by light microscopy NONE NRG Casts detection in urine sediment by light microscopy NONE NRG Mucus detection in urine sediment by light microscopy NEGATIVE NRG Complete urinalysis with reflex to culture NO NRG Encounters ACCT No. Visit Date/Time Discharge Status Pt. Type Provider Facility Loc./Unit Complaint [id number] 07/03/2017 18:11:00 07/03/2017 20:45:00 DIS Emergency ENEDINA CARTER DO [facility] ER CONFUSION [id number] 07/01/2017 12:39:00 07/02/2017 17:36:00 DIS Inpatient CELESTINE ONEILL MD [facility] ICU CP,LIGHTHEADED,DEMENTIA [id number] 03/11/2017 09:00:00 03/11/2017 23:59:59 CLS Preadmit Venessa SANTAMARIA MD [facility] CARD SYNCOPE [id number] 01/06/2017 09:30:00 03/10/2017 00:01:00 DIS Outpatient Venessa SANTAMARIA MD [facility] CARD SYNCOPE [id number] 12/02/2016 06:04:00 12/03/2016 18:36:00 DIS Inpatient CELESTINE ONEILL MD [facility] ICU SYNCOPE, SOA [id number] 03/21/2016 12:57:00 03/21/2016 23:59:59 CLS Outpatient LALI BROWN MD [facility] RAD EPIDIDYMO ORCHITIS [id number] 02/12/2016 08:32:00 02/12/2016 23:59:59 CLS Outpatient JUAREZ RIVAS MD [facility] RAD TENDER L TESTICLE [id number] 06/06/2015 09:33:00 06/06/2015 23:59:59 CLS Outpatient DAIANA JOHN [facility] CARD CP CAD CAROTID ARTERY DISEASE HTN [id number] 02/09/2014 09:01:00 02/09/2014 23:59:59 CLS Outpatient DINO MELVIN MD [facility] SDC SCREENING [id number] 11/10/2013 11:27:00 02/08/2014 00:01:00 DIS Outpatient LORAINE GONGORA DO [facility] LAB UTI [id number] 02/03/2014 07:29:00 02/03/2014 23:59:59 CLS Outpatient DINO MELVIN MD [facility] PREOP SCREENING [id number] 12/21/2013 14:10:00 01/06/2014 16:30:00 DIS Outpatient LORAINE GONGORA DO [facility] REHAB S/P RT TOTAL KNEE REPLACEMENT [id number] 11/16/2013 06:00:00 11/19/2013 15:45:00 DIS Inpatient LORAINE GONGORA DO [facility] SURGICAL RIGHT KNEE DJD [id number] 10/26/2013 13:21:00 10/26/2013 23:59:59 CLS Outpatient FRANSISCA LORAINE STONER [facility] PREOP RIGHT KNEE DJD [id number] 07/01/2013 08:03:00 07/01/2013 23:59:59 CLS Outpatient BAIDAIANA RODRIGUEZ [employer] [facility] RAD CAD,HTN,HLP,POST CABG [id number] 06/18/2013 08:23:00 06/18/2013 23:59:59 CLS Outpatient BAIDAIANA RODRIGUEZ L [employer] [facility] CARD CAD,HTN,HLP,POST CABG [id number] 04/01/2013 11:36:00 04/01/2013 14:19:00 DIS Emergency NERI KOTHARI, ANJALI Chen [facility] ER DIZZY [id number] 09/10/2017 21:20:00 Document Registration [id number] 06/06/2015 09:31:00 Document Registration [id number] 06/06/2015 09:31:00 Document Registration [id number] 02/09/2014 00:00:00 Document Registration [id number] 02/15/2012 15:00:00 Document Registration [id number] 07/19/2010 11:02:00 Document Registration [id number] 06/13/2010 11:32:00 Document Registration [id number] 05/16/2010 11:40:00 Document Registration [id number] 04/04/2010 11:12:00 Document Registration [id number] 02/27/2010 12:35:00 Document Registration [id number] 01/12/2010 12:22:00 Document Registration
== END 2017-09-10 22:59 | disposition home or self-care (01) ==
LOC: EDUNIT# 20:10 → ER 20:12
DX: R91.1 Solitary pulmonary nodule (principal); F03.90 Unspecified dementia, unspecified severity, without behavioral disturbance, psychotic disturbance, mood disturbance, and anxiety; I16.0 Hypertensive urgency; I25.10 Atherosclerotic heart disease of native coronary artery without angina pectoris; E78.00 Pure hypercholesterolemia, unspecified; I10 Essential (primary) hypertension; K21.9 Gastro-esophageal reflux disease without esophagitis; F32.9 Major depressive disorder, single episode, unspecified; Z85.46 Personal history of malignant neoplasm of prostate; Z95.5 Presence of coronary angioplasty implant and graft; Z95.1 Presence of aortocoronary bypass graft; Z95.2 Presence of prosthetic heart valve
CPT/HCPCS: 36415; 80053; 81000; 85025; 96374

== ENCOUNTER 2018-07-19 17:54 | Inpatient (IN) | payer MEDICARE ==
[~2018-07-19] VITALS: Ht 172.7 cm; Wt 78.5 kg
[~2018-07-19 17:54] MED LIST changes: -AMLO10TA2 PO; +AMLO10TA6 PO; +EPINEPHrine 0.1 MG/ML 10 ML (HOSPIRA) SYR IJ ONE; +QUET25TA PO
--- OUTSIDE RECORDS SUMMARY | 2018-07-19 18:01 | XMS REPORT | CCD ---
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 Name Role Phone PP Unavailable CCM Unavailable Summary Purpose Interface Exchange Insurance Providers Payer name Policy type / Coverage type Covered republican ID Effective Begin Date Effective End Date WPS Medicare Part B Medicare Part B [id number] 2017 Unknown Family history Son Diagnosis Age At Onset No Known Diseases N/A Daughter Diagnosis Age At Onset No Known Diseases N/A Sister Diagnosis Age At Onset Dementia Unknown Cancer Unknown Son Diagnosis Age At Onset Hypertension Unknown Mother Diagnosis Age At Onset Dementia Unknown Social History Social History Element Codes Description Effective Dates Living arrangements Unknown Assisted Living [facility] 05/05/2018 Marital status Unknown 07/07/2017 Number of children Unknown 3 07/07/2017 Employment Unknown Retired 07/07/[address]: 975985466 Never smoker 07/07/[address]: 554217667 Never drinks alcohol 07/07/2017 Has the patient ever used illegal drugs? Unknown Has never used illegal drugs 07/07/2017 Allergies, Adverse Reactions, Alerts Substance Reaction Codes Entered Date Inactivated Date Status Penicillin Unknown 07/07/2017 No Inactive Date Active Past Medical History Illness Codes Condition Status Onset Date Resolved Date Actinic keratosis ICD- 9: 702.0 ICD-10: L57.0 Active 01/15/2018 Unknown Essential (primary) hypertension ICD-9: 401.1 ICD-10: I10 Active 07/07/2017 Unknown Vascular dementia without behavioral disturbance ICD-9: 290.40 ICD-10: F01.50 Active 07/07/2017 Unknown Encounter for general adult medical examination with abnormal findings ICD-9: V70.0 ICD-10: Z00.01 Active 02/05/2018 Unknown 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 Active 09/18/2017 Unknown Pain in left knee ICD- 9: 719.46 ICD-10: M25.562 Active 07/07/2017 Unknown Problems Condition Codes Effective Dates Condition Status Actinic keratosis ICD- 9: 702.0 ICD-10: L57.0 01/15/2018 Active Essential (primary) hypertension ICD-9: 401.1 ICD-10: I10 07/07/2017 Active Vascular dementia without behavioral disturbance ICD-9: 290.40 ICD-10: F01.50 07/07/2017 Active Encounter for general adult medical examination with abnormal findings ICD-9: V70.0 ICD-10: Z00.01 02/05/2018 Active 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 09/18/2017 Active Pain in left knee ICD- 9: 719.46 ICD-10: M25.562 07/07/2017 Active Medications Medication Codes Instructions Start Date Stop Date Status Fill Instructions Seroquel 25 mg tablet RxNorm: 722445 Tablet(s) 1/2 tab in am and 1 tab at HS 07/10/2018 01/05/2019 Active Generic For:SEROQUEL 25MG 05/11/2018 9:28:26 AM cetirizine 10 mg tablet RxNorm: 4306230 1 Tablet(s) PO daily 09/29/2018 Active cetirizine 10 mg tablet RxNorm: 2888679 1 Tablet(s) PO daily 06/01/2018 Inactive Seroquel 25 mg tablet RxNorm: 804001 TAKE 1 TABLET BY MOUTH EVERY NIGHT AT BEDTIME 05/11/2018 07/09/2018 Inactive Generic For:SEROQUEL 25MG 05/11/2018 9:28:26 AM Namenda 10 mg tablet RxNorm: 173075 TAKE 1 TABLET BY MOUTH TWICE DAILY 05/05/2018 10/31/2018 Active Generic For:NAMENDA 10MG TAB 05/05/2018 10:20:35 AM loratadine 10 mg tablet RxNorm: 511027 1 Tablet(s) PO daily 01/201808/03/2018 Active loratadine 10 mg tablet RxNorm: 514916 1 Tablet(s) PO daily 01/201804/05/2018 Inactive metoprolol succinate ER 25 mg tablet,extended release 24 hr RxNorm: 606389 TAKE 1 TABLET BY MOUTH ONCE DAILY 01/19/2018 Active Generic For:TOPROL XL 25MG 01/19/2018 12:08:20 PM Efudex 5 % topical cream RxNorm: 304773 1 Application TOP BID 01/15/2018 01/24/2018 Inactive tamsulosin 0.4 mg capsule RxNorm: 636620 TAKE 1 CAPSULE BY MOUTH EVERY EVENING 12/29/2017 07/26/2018 Active Generic For:FLOMAX 0.4MG 12/29/2017 9:53:45 AM Plavix 75 mg tablet RxNorm: 688757 TAKE ONE TABLET BY MOUTH DAILY 12/29/2017 07/26/2018 Active Generic For:*PLAVIX 75MG 12/29/2017 9:53:42 AM Seroquel 25 mg tablet RxNorm: 497447 TAKE 1 TABLET BY MOUTH EVERY NIGHT AT BEDTIME 11/10/2017 05/08/2018 Inactive Generic For:SEROQUEL 25MG 11/10/2017 9:24:08 AM Namenda 10 mg tablet RxNorm: 815121 TAKE 1 TABLET BY MOUTH TWICE DAILY 11/03/2017 05/01/2018 Inactive Generic For:NAMENDA 10MG TAB 11/03/2017 9:35:48 AM Plavix 75 mg tablet RxNorm: 010190 1 Tablet(s) PO daily 201712/28/2017 Inactive tamsulosin 0.4 mg capsule RxNorm: 717585 1 Capsule(s) PO QPM 12/28/2017 Inactive Namenda 10 mg tablet RxNorm: 747409 1 Tablet(s) PO BID 201711/02/2017 Inactive this is a new rx to be filled after the patient's current rx is gone metoprolol succinate ER 25 mg tablet,extended release 24 hr RxNorm: 420869 1 Tablet(s) PO daily 09/18/2017 01/18/2018 Inactive Seroquel 25 mg tablet RxNorm: 054017 1 Tablet(s) PO QHS 201711/09/2017 Inactive Namenda 10 mg tablet RxNorm: 037891 1 Tablet(s) PO BID 201609/17/2017 Inactive this is a new rx to be filled after the patient's current rx is gone Colace 100 mg capsule RxNorm: 3944902 1 Capsule(s) PO daily 01/201702/01/2018 Inactive tamsulosin 0.4 mg capsule RxNorm: 940942 1 Capsule(s) PO QPM 09/17/2017 Inactive metoprolol succinate ER 25 mg tablet,extended release 24 hr RxNorm: 645873 1/2 Tablet(s) PO daily 07/07/2017 09/17/2017 Inactive memantine 5 mg tablet RxNorm: 158415 1 Capsule(s) PO one pill daily x 1 week then 1 tab BID 07/07/2017 08/06/2017 Inactive Plavix 75 mg tablet RxNorm: 651970 1 Tablet(s) PO daily 201609/17/2017 Inactive Flonase Allergy Relief 50 mcg/actuation nasal spray, suspension RxNorm: 2515615 1 Kaplan NASAL daily No Start Date Active Seroquel 25 mg tablet RxNorm: 260743 1 Tablet(s) PO QHS No Start Date 09/17/2017 Inactive Medication Administered No Medication Administered data Immunizations Vaccine Codes Date Status Influenza CVX: 141 07/02/2017 completed Assessments Condition Codes Effective Dates Vascular dementia without behavioral disturbance ICD-10: F01.50 ICD-9: 290.40 05/05/2018 Actinic keratosis ICD-10: L57.0 ICD-9: 702.0 05/05/2018 Essential (primary) hypertension ICD-10: I10 ICD-9: 401.1 05/05/2018 Encounter for general adult medical examination with abnormal findings ICD-10: Z00.01 ICD-9: V70.0 02/05/2018 Brief psychotic disorder ICD-10: F23 ICD-9: 298.8 09/18/2017 Pain in left knee ICD-10: M25.562 ICD-9: 719.46 07/07/2017 Reason For Visit Reason For Visit Effective Dates Notes hypertension 05/05/2018 Annual Medicare Wellness Exam 02/05/2018 hypertension 01/15/2018 hypertension 10/16/2017 hypertension 09/18/2017 hypertension 08/07/2017 hypertension 07/07/2017 Results No Results data Review of Systems System Result Effective Dates Constitutional No recent illness 2017 Constitutional No chills 05/05/2018 Constitutional fatigue 05/05/2018 Constitutional No fever 05/05/2018 Constitutional No insomnia 05/05/2018 Constitutional No malaise 05/05/2018 Eyes No vision change 05/05/2018 Ears/Nose/Throat/Neck No hearing loss 11/2017 Ears/Nose/Throat/Neck nasal allergies 11/2017 Ears/Nose/Throat/Neck No sore throat 11/2017 Ears/Nose/Throat/Neck postnasal drip 11/2017 Ears/Nose/Throat/Neck No sinus congestion 05/05/2018 Cardiovascular No chest pain/pressure 11/2017 Cardiovascular No dyspnea 05/05/2018 Cardiovascular No edema 05/05/2018 Cardiovascular exercise intolerance 05/05 Cardiovascular fatigue 05/05/2018 Cardiovascular No near-syncope/dizziness 05/05/2018 Respiratory No chest tightness 2017 Respiratory No cough 05/05/2018 Respiratory No dyspnea 05/05/2018 Respiratory No pedal edema 05/05/2018 Gastrointestinal No abdominal pain 2017 Gastrointestinal No constipation 2017 Gastrointestinal No diarrhea 05/05/2018 Gastrointestinal No gastroesophageal reflux 05/05/2018 Gastrointestinal No nausea 05/05/2018 Gastrointestinal No vomiting 05/05/2018 Genitourinary/Nephrology No dysuria 05/05 Genitourinary/Nephrology No nocturia 11/2017 Genitourinary/Nephrology No urinary incontinence 05/05/2018 Musculoskeletal No stiffness 05/05/2018 Musculoskeletal No swelling 05/05/2018 Musculoskeletal joint complaint 2017 Musculoskeletal muscle weakness 2017 Musculoskeletal No myalgias 05/05/2018 Dermatologic No rash 05/05/2018 Dermatologic sores 05/05/2018 Neurologic No dizziness 05/05/2018 Neurologic gait abnormality 05/05/2018 Neurologic No headache 05/05/2018 Neurologic memory loss 05/05/2018 Neurologic No neck pain 05/05/2018 Neurologic No syncope 05/05/2018 Psychiatric No anxiety 05/05/2018 Psychiatric No depression 05/05/2018 Psychiatric disturbances of emotion 05/05 Psychiatric disturbances of memory 2017 Psychiatric disturbances of thinking 11/2017 Constitutional No recent illness 2017 Constitutional No chills 02/05/2018 Constitutional No diaphoresis 02/05/2018 Constitutional No fever 02/05/2018 Eyes No eye erythema 02/05/2018 Ears/Nose/Throat/Neck No nasal discharge 02/05/2018 Cardiovascular No chest pain/pressure 03/2018 Cardiovascular No dyspnea 02/05/2018 Respiratory No cough 02/05/2018 Respiratory No dyspnea 02/05/2018 Neurologic No alteration of consciousness 02/05/2018 Neurologic No mental status change 2017 Constitutional No recent illness 2017 Constitutional No chills 01/15/2018 Constitutional fatigue 01/15/2018 Constitutional No fever 01/15/2018 Constitutional No insomnia 01/15/2018 Constitutional No malaise 01/15/2018 Eyes No vision change 01/15/2018 Ears/Nose/Throat/Neck No dizziness 2017 Ears/Nose/Throat/Neck No dysphagia 2017 Ears/Nose/Throat/Neck No headache 2017 Ears/Nose/Throat/Neck No hearing loss Ears/Nose/Throat/Neck No nasal allergies 01/15/2018 Ears/Nose/Throat/Neck No sore throat Ears/Nose/Throat/Neck No postnasal drip 01/15/2018 Ears/Nose/Throat/Neck No sinus congestion 01/15/2018 Cardiovascular No chest pain/pressure Cardiovascular No dyspnea 01/15/2018 Cardiovascular No edema 01/15/2018 Cardiovascular exercise intolerance 01/15 Cardiovascular fatigue 01/15/2018 Cardiovascular No near-syncope/dizziness 01/15/2018 Respiratory No chest tightness 2017 Respiratory No cough 01/15/2018 Respiratory No dyspnea 01/15/2018 Respiratory No pedal edema 01/15/2018 Gastrointestinal No abdominal pain 2017 Gastrointestinal No constipation 2017 Gastrointestinal No diarrhea 01/15/2018 Gastrointestinal No gastroesophageal reflux 01/15/2018 Gastrointestinal No nausea 01/15/2018 Gastrointestinal No vomiting 01/15/2018 Genitourinary/Nephrology No dysuria 01/15 Genitourinary/Nephrology No nocturia Genitourinary/Nephrology No urinary incontinence 01/15/2018 Musculoskeletal No stiffness 01/15/2018 Musculoskeletal No swelling 01/15/2018 Musculoskeletal joint complaint 2017 Musculoskeletal muscle weakness 2017 Musculoskeletal No myalgias 01/15/2018 Dermatologic No rash 01/15/2018 Dermatologic sores 01/15/2018 Neurologic No dizziness 01/15/2018 Neurologic gait abnormality 01/15/2018 Neurologic No headache 01/15/2018 Neurologic memory loss 01/15/2018 Neurologic No neck pain 01/15/2018 Neurologic No syncope 01/15/2018 Psychiatric No anxiety 01/15/2018 Psychiatric No depression 01/15/2018 Psychiatric disturbances of emotion 01/15 Psychiatric disturbances of memory 2017 Psychiatric disturbances of thinking Constitutional recent illness 10/16/2017 Constitutional No chills 10/16/2017 Constitutional fatigue 10/16/2017 Constitutional No fever 10/16/2017 Constitutional No insomnia 10/16/2017 Constitutional No malaise 10/16/2017 Eyes No vision change 10/16/2017 Ears/Nose/Throat/Neck No dizziness 2017 Ears/Nose/Throat/Neck No dysphagia 2017 Ears/Nose/Throat/Neck No headache 2017 Ears/Nose/Throat/Neck No hearing loss Ears/Nose/Throat/Neck No nasal allergies 10/16/2017 Ears/Nose/Throat/Neck No sore throat Ears/Nose/Throat/Neck No postnasal drip 10/16/2017 Ears/Nose/Throat/Neck No sinus congestion 10/16/2017 Cardiovascular No chest pain/pressure Cardiovascular No dyspnea 10/16/2017 Cardiovascular No edema 10/16/2017 Cardiovascular exercise intolerance 10/16 Cardiovascular fatigue 10/16/2017 Cardiovascular No near-syncope/dizziness 10/16/2017 Respiratory No chest tightness 2017 Respiratory No cough 10/16/2017 Respiratory No dyspnea 10/16/2017 Respiratory No pedal edema 10/16/2017 Gastrointestinal No abdominal pain 2017 Gastrointestinal No constipation 2017 Gastrointestinal No diarrhea 10/16/2017 Gastrointestinal No gastroesophageal reflux 10/16/2017 Gastrointestinal No nausea 10/16/2017 Gastrointestinal No vomiting 10/16/2017 Genitourinary/Nephrology No dysuria 10/16 Genitourinary/Nephrology No nocturia Genitourinary/Nephrology No urinary incontinence 10/16/2017 Musculoskeletal No stiffness 10/16/2017 Musculoskeletal No swelling 10/16/2017 Musculoskeletal joint complaint 2017 Musculoskeletal muscle weakness 2017 Musculoskeletal No myalgias 10/16/2017 Dermatologic No rash 10/16/2017 Dermatologic No sores 10/16/2017 Neurologic No dizziness 10/16/2017 Neurologic gait abnormality 10/16/2017 Neurologic No headache 10/16/2017 Neurologic memory loss 10/16/2017 Neurologic No neck pain 10/16/2017 Neurologic No syncope 10/16/2017 Psychiatric No anxiety 10/16/2017 Psychiatric No depression 10/16/2017 Psychiatric disturbances of emotion 10/16 Psychiatric disturbances of memory 2017 Psychiatric disturbances of thinking Constitutional recent illness 09/18/2017 Constitutional No chills 09/18/2017 Constitutional fatigue 09/18/2017 Constitutional No fever 09/18/2017 Constitutional No insomnia 09/18/2017 Constitutional No malaise 09/18/2017 Eyes No vision change 09/18/2017 Ears/Nose/Throat/Neck No dizziness 2017 Ears/Nose/Throat/Neck No dysphagia 2017 Ears/Nose/Throat/Neck No headache 2017 Ears/Nose/Throat/Neck No hearing loss Ears/Nose/Throat/Neck No nasal allergies 09/18/2017 Ears/Nose/Throat/Neck No sore throat Ears/Nose/Throat/Neck No postnasal drip 09/18/2017 Ears/Nose/Throat/Neck No sinus congestion 09/18/2017 Cardiovascular No chest pain/pressure Cardiovascular No dyspnea 09/18/2017 Cardiovascular No edema 09/18/2017 Cardiovascular exercise intolerance 09/18 Cardiovascular fatigue 09/18/2017 Cardiovascular No near-syncope/dizziness 09/18/2017 Respiratory No chest tightness 2017 Respiratory No cough 09/18/2017 Respiratory No dyspnea 09/18/2017 Respiratory No pedal edema 09/18/2017 Gastrointestinal No abdominal pain 2017 Gastrointestinal No constipation 2017 Gastrointestinal No diarrhea 09/18/2017 Gastrointestinal No gastroesophageal reflux 09/18/2017 Gastrointestinal No nausea 09/18/2017 Gastrointestinal No vomiting 09/18/2017 Genitourinary/Nephrology No dysuria 09/18 Genitourinary/Nephrology No nocturia Genitourinary/Nephrology No urinary incontinence 09/18/2017 Musculoskeletal No stiffness 09/18/2017 Musculoskeletal No swelling 09/18/2017 Musculoskeletal joint complaint 2017 Musculoskeletal muscle weakness 2017 Musculoskeletal No myalgias 09/18/2017 Dermatologic No rash 09/18/2017 Dermatologic No sores 09/18/2017 Neurologic No dizziness 09/18/2017 Neurologic gait abnormality 09/18/2017 Neurologic No headache 09/18/2017 Neurologic memory loss 09/18/2017 Neurologic No neck pain 09/18/2017 Neurologic No syncope 09/18/2017 Psychiatric No anxiety 09/18/2017 Psychiatric No depression 09/18/2017 Psychiatric disturbances of memory 2017 Psychiatric disturbances of emotion 09/18 Psychiatric disturbances of thinking Constitutional recent illness 08/07/2017 Constitutional No chills 08/07/2017 Constitutional fatigue 08/07/2017 Constitutional No fever 08/07/2017 Constitutional No insomnia 08/07/2017 Constitutional No malaise 08/07/2017 Eyes No vision change 08/07/2017 Ears/Nose/Throat/Neck No dizziness 2016 Ears/Nose/Throat/Neck No dysphagia 2016 Ears/Nose/Throat/Neck No headache 2016 Ears/Nose/Throat/Neck No hearing loss 03/2017 Ears/Nose/Throat/Neck No nasal allergies 08/07/2017 Ears/Nose/Throat/Neck No sore throat 03/2017 Ears/Nose/Throat/Neck No postnasal drip 08/07/2017 Ears/Nose/Throat/Neck No sinus congestion 08/07/2017 Cardiovascular No chest pain/pressure 03/2017 Cardiovascular No dyspnea 08/07/2017 Cardiovascular No edema 08/07/2017 Cardiovascular exercise intolerance 08/07 Cardiovascular fatigue 08/07/2017 Cardiovascular No near-syncope/dizziness 08/07/2017 Respiratory No chest tightness 2016 Respiratory No cough 08/07/2017 Respiratory No dyspnea 08/07/2017 Respiratory No pedal edema 08/07/2017 Gastrointestinal No abdominal pain 2016 Gastrointestinal No constipation 2016 Gastrointestinal No diarrhea 08/07/2017 Gastrointestinal No gastroesophageal reflux 08/07/2017 Gastrointestinal No nausea 08/07/2017 Gastrointestinal No vomiting 08/07/2017 Genitourinary/Nephrology No dysuria 08/07 Genitourinary/Nephrology No nocturia 03/2017 Genitourinary/Nephrology No urinary incontinence 08/07/2017 Musculoskeletal No stiffness 08/07/2017 Musculoskeletal No swelling 08/07/2017 Musculoskeletal joint complaint 2016 Musculoskeletal muscle weakness 2016 Musculoskeletal No myalgias 08/07/2017 Dermatologic No rash 08/07/2017 Dermatologic No sores 08/07/2017 Neurologic No dizziness 08/07/2017 Neurologic gait abnormality 08/07/2017 Neurologic No headache 08/07/2017 Neurologic memory loss 08/07/2017 Neurologic No neck pain 08/07/2017 Neurologic No syncope 08/07/2017 Psychiatric No anxiety 08/07/2017 Psychiatric No depression 08/07/2017 Constitutional recent illness 07/07/2017 Constitutional No chills 07/07/2017 Constitutional fatigue 07/07/2017 Constitutional No fever 07/07/2017 Constitutional No insomnia 07/07/2017 Constitutional No malaise 07/07/2017 Eyes No vision change 07/07/2017 Ears/Nose/Throat/Neck No dizziness 2016 Ears/Nose/Throat/Neck No dysphagia 2016 Ears/Nose/Throat/Neck No headache 2016 Ears/Nose/Throat/Neck No hearing loss 01/2017 Ears/Nose/Throat/Neck No nasal allergies 07/07/2017 Ears/Nose/Throat/Neck No sore throat 01/2017 Ears/Nose/Throat/Neck No postnasal drip 07/07/2017 Ears/Nose/Throat/Neck No sinus congestion 07/07/2017 Cardiovascular No chest pain/pressure 01/2017 Cardiovascular No dyspnea 07/07/2017 Cardiovascular No edema 07/07/2017 Cardiovascular exercise intolerance 07/07 Cardiovascular fatigue 07/07/2017 Cardiovascular No near-syncope/dizziness 07/07/2017 Respiratory No chest tightness 2016 Respiratory No cough 07/07/2017 Respiratory No dyspnea 07/07/2017 Respiratory No pedal edema 07/07/2017 Gastrointestinal No abdominal pain 2016 Gastrointestinal No constipation 2016 Gastrointestinal No diarrhea 07/07/2017 Gastrointestinal No gastroesophageal reflux 07/07/2017 Gastrointestinal No nausea 07/07/2017 Gastrointestinal No vomiting 07/07/2017 Genitourinary/Nephrology No dysuria 07/07 Genitourinary/Nephrology No nocturia 01/2017 Genitourinary/Nephrology No urinary incontinence 07/07/2017 Musculoskeletal No stiffness 07/07/2017 Musculoskeletal No swelling 07/07/2017 Musculoskeletal muscle weakness 2016 Musculoskeletal No myalgias 07/07/2017 Dermatologic No rash 07/07/2017 Dermatologic No sores 07/07/2017 Neurologic No dizziness 07/07/2017 Neurologic No headache 07/07/2017 Neurologic No neck pain 07/07/2017 Neurologic No syncope 07/07/2017 Psychiatric No anxiety 07/07/2017 Psychiatric No depression 07/07/2017 Neurologic memory loss 07/07/2017 Neurologic gait abnormality 07/07/2017 Musculoskeletal joint complaint 2016 Physical Exam Exam Name System Name Item Name Status Result Effective Dates Notes Full Exam - General 1994 Constitutional general appearance Development: well developed 05/05/2018 None Full Exam - General 1994 Constitutional general appearance Development: appears stated age 0905/05/2018 None Full Exam - General 1994 Constitutional general appearance Hygiene/Attention to Grooming: good hygiene 05/05/2018 None Full Exam - General 1994 Eyes conjunctiva /eyelids Overall: conjunctiva clear 05/05/2018 None Full Exam - General 1994 Eyes conjunctiva /eyelids Overall: cornea clear 05/05/2018 None Full Exam - General 1994 Eyes conjunctiva /eyelids Overall: eyelids normal 05/05/2018 None Full Exam - General 1994 Eyes pupils and irises Overall: pupils equal, round, reactive to light and accomodation 05/05/2018 None Full Exam - General 1994 Ears/Nose/Throat otoscopic exam Overall: external auditory canals clear 05/05/2018 None Full Exam - General 1994 Ears/Nose/Throat otoscopic exam Overall: tympanic membranes clear 05/05/2018 None Full Exam - General 1994 Ears/Nose/Throat lips/teeth/gingiva Overall: benign lips 05/05/2018 None Full Exam - General 1994 Ears/Nose/Throat lips/teeth/gingiva Overall: normal dentition 05/05/2018 None Full Exam - General 1994 Ears/Nose/Throat oral cavity/pharynx/larynx Overall: oral mucosa clear 05/05/2018 None Full Exam - General 1994 Ears/Nose/Throat oral cavity/pharynx/larynx Overall: oropharyngeal mucosa clear 05/05/2018 None Full Exam - General 1994 Ears/Nose/Throat oral cavity/pharynx/larynx Overall: hypopharynx benign 05/05/2018 None Full Exam - General 1995 Ears/Nose/Throat oral cavity/pharynx/larynx Overall: no masses 05/05/2018 None Full Exam - General 1995 Respiratory auscultation Overall: breath sounds clear bilaterally 05/05/2018 None Full Exam - General 1995 Respiratory respiratory effort/rhythm Overall: no retractions 05/05/2018 None Full Exam - General 1995 Respiratory respiratory effort/rhythm Overall: normal rate 05/05/2018 None Full Exam - General 1995 Cardiovascular extremities Overall: no clubbing 05/05/2018 None Full Exam - General 1994 Cardiovascular auscultation of heart Overall: regular rate 05/05/2018 None Full Exam - General 1995 Lymphatic neck nodes Overall: anterior cervical chain benign 05/05/2018 None Full Exam - General 1994 Lymphatic neck nodes Overall: posterior cervical chain benign 05/05/2018 None Full Exam - General 1994 Musculoskeletal spine, ribs and pelvis Overall: good posture 05/05/2018 None Full Exam - General 1994 Integument inspection of skin Dermatitis: dryness/ flaking 05/05/2018 on forehead and on cheeks actinic keratotic changes Full Exam - General 1994 Neurologic mental status Overall: alert 05/05/2018 None Full Exam - General 1994 Neurologic mental status Overall: oriented 05/05/2018 None Full Exam - General 1994 Psychiatric orientation/consciousness Overall: oriented to person, place and time 05/05/2018 None Full Exam - General 1994 Psychiatric mood and affect Overall: normal mood and affect 05/05/2018 improved thought process - less symptoms of psychosis Full Exam - General 1994 Constitutional general appearance Overall: well developed 02/05/2018 None Full Exam - General 1994 Constitutional general appearance Overall: in no acute distress 02/05/2018 None Full Exam - General 1994 Constitutional general appearance Overall: well nourished 02/05/2018 None Full Exam - General 1994 Eyes conjunctiva /eyelids Overall: conjunctiva clear 02/05/2018 None Full Exam - General 1994 Eyes conjunctiva /eyelids Overall: eyelids normal 02/05/2018 None Full Exam - General 1994 Ears/Nose/Throat lips/teeth/gingiva Overall: benign lips 02/05/2018 None Full Exam - General 1994 Respiratory respiratory effort/rhythm Overall: no retractions 02/05/2018 None Full Exam - General 1994 Respiratory respiratory effort/rhythm Overall: normal rate 02/05/2018 None Full Exam - General 1994 Musculoskeletal head and neck Overall: head atraumatic 02/05/2018 None Full Exam - General 1994 Neurologic cranial nerves Overall: crainial nerves 2 - 12 grossly intact 02/05/2018 None Full Exam - General 1994 Psychiatric orientation/consciousness Overall: oriented to person, place and time 02/05/2018 None Full Exam - General 1994 Psychiatric mood and affect Overall: normal mood and affect 02/05/2018 None Full Exam - General 1994 Psychiatric appearance Overall: well-groomed, good eye contact 02/05/2018 None Full Exam - General 1994 Constitutional general appearance Development: well developed 01/15/2018 None Full Exam - General 1994 Constitutional general appearance Development: appears stated age 0501/15/2018 None Full Exam - General 1994 Constitutional general appearance Hygiene/Attention to Grooming: good hygiene 01/15/2018 None Full Exam - General 1994 Eyes conjunctiva /eyelids Overall: conjunctiva clear 01/15/2018 None Full Exam - General 1994 Eyes conjunctiva /eyelids Overall: cornea clear 01/15/2018 None Full Exam - General 1994 Eyes conjunctiva /eyelids Overall: eyelids normal 01/15/2018 None Full Exam - General 1994 Eyes pupils and irises Overall: pupils equal, round, reactive to light and accomodation 01/15/2018 None Full Exam - General 1994 Ears/Nose/Throat otoscopic exam Overall: external auditory canals clear 01/15/2018 None Full Exam - General 1994 Ears/Nose/Throat otoscopic exam Overall: tympanic membranes clear 01/15/2018 None Full Exam - General 1994 Ears/Nose/Throat lips/teeth/gingiva Overall: benign lips 01/15/2018 None Full Exam - General 1994 Ears/Nose/Throat lips/teeth/gingiva Overall: normal dentition 01/15/2018 None Full Exam - General 1994 Ears/Nose/Throat oral cavity/pharynx/larynx Overall: oral mucosa clear 01/15/2018 None Full Exam - General 1994 Ears/Nose/Throat oral cavity/pharynx/larynx Overall: oropharyngeal mucosa clear 01/15/2018 None Full Exam - General 1994 Ears/Nose/Throat oral cavity/pharynx/larynx Overall: hypopharynx benign 01/15/2018 None Full Exam - General 1994 Ears/Nose/Throat oral cavity/pharynx/larynx Overall: no masses 01/15/2018 None Full Exam - General 1994 Respiratory auscultation Overall: breath sounds clear bilaterally 01/15/2018 None Full Exam - General 1994 Respiratory respiratory effort/rhythm Overall: no retractions 01/15/2018 None Full Exam - General 1994 Respiratory respiratory effort/rhythm Overall: normal rate 01/15/2018 None Full Exam - General 1994 Cardiovascular extremities Overall: no clubbing 01/15/2018 None Full Exam - General 1994 Cardiovascular auscultation of heart Overall: regular rate 01/15/2018 None Full Exam - General 1994 Lymphatic neck nodes Overall: anterior cervical chain benign 01/15/2018 None Full Exam - General 1994 Lymphatic neck nodes Overall: posterior cervical chain benign 01/15/2018 None Full Exam - General 1994 Musculoskeletal spine, ribs and pelvis Overall: good posture 01/15/2018 None Full Exam - General 1994 Neurologic mental status Overall: alert 01/15/2018 None Full Exam - General 1994 Neurologic mental status Overall: oriented 01/15/2018 None Full Exam - General 1994 Psychiatric orientation/consciousness Overall: oriented to person, place and time 01/15/2018 None Full Exam - General 1994 Psychiatric mood and affect Overall: normal mood and affect 01/15/2018 improved thought process - less symptoms of psychosis Full Exam - General 1994 Integument inspection of skin Dermatitis: dryness/ flaking 01/15/2018 on forehead and on cheeks actinic keratotic changes Full Exam - General 1994 Integument inspection of skin Dermatitis: erythema 01/15/2018 on forehead and on cheeks actinic keratotic changes Full Exam - General 1994 Constitutional general appearance Development: well developed 10/16/2017 None Full Exam - General 1994 Constitutional general appearance Development: appears stated age 0210/16/2017 None Full Exam - General 1994 Constitutional general appearance Hygiene/Attention to Grooming: good hygiene 10/16/2017 None Full Exam - General 1994 Eyes conjunctiva /eyelids Overall: conjunctiva clear 10/16/2017 None Full Exam - General 1994 Eyes conjunctiva /eyelids Overall: cornea clear 10/16/2017 None Full Exam - General 1994 Eyes conjunctiva /eyelids Overall: eyelids normal 10/16/2017 None Full Exam - General 1994 Eyes pupils and irises Overall: pupils equal, round, reactive to light and accomodation 10/16/2017 None Full Exam - General 1994 Ears/Nose/Throat otoscopic exam Overall: external auditory canals clear 10/16/2017 None Full Exam - General 1994 Ears/Nose/Throat otoscopic exam Overall: tympanic membranes clear 10/16/2017 None Full Exam - General 1995 Ears/Nose/Throat lips/teeth/gingiva Overall: benign lips 10/16/2017 None Full Exam - General 1995 Ears/Nose/Throat lips/teeth/gingiva Overall: normal dentition 10/16/2017 None Full Exam - General 1995 Ears/Nose/Throat oral cavity/pharynx/larynx Overall: oral mucosa clear 10/16/2017 None Full Exam - General 1994 Ears/Nose/Throat oral cavity/pharynx/larynx Overall: oropharyngeal mucosa clear 10/16/2017 None Full Exam - General 1995 Ears/Nose/Throat oral cavity/pharynx/larynx Overall: hypopharynx benign 10/16/2017 None Full Exam - General 1994 Ears/Nose/Throat oral cavity/pharynx/larynx Overall: no masses 10/16/2017 None Full Exam - General 1994 Respiratory auscultation Overall: breath sounds clear bilaterally 10/16/2017 None Full Exam - General 1994 Respiratory respiratory effort/rhythm Overall: no retractions 10/16/2017 None Full Exam - General 1994 Respiratory respiratory effort/rhythm Overall: normal rate 10/16/2017 None Full Exam - General 1994 Cardiovascular extremities Overall: no clubbing 10/16/2017 None Full Exam - General 1994 Cardiovascular auscultation of heart Overall: regular rate 10/16/2017 None Full Exam - General 1994 Lymphatic neck nodes Overall: anterior cervical chain benign 10/16/2017 None Full Exam - General 1994 Lymphatic neck nodes Overall: posterior cervical chain benign 10/16/2017 None Full Exam - General 1994 Musculoskeletal spine, ribs and pelvis Overall: good posture 10/16/2017 None Full Exam - General 1994 Neurologic mental status Overall: alert 10/16/2017 None Full Exam - General 1994 Neurologic mental status Overall: oriented 10/16/2017 None Full Exam - General 1994 Psychiatric orientation/consciousness Overall: oriented to person, place and time 10/16/2017 None Full Exam - General 1994 Psychiatric mood and affect Overall: normal mood and affect 10/16/2017 improved thought process - less symptoms of psychosis Full Exam - General 1994 Constitutional general appearance Development: well developed 09/18/2017 None Full Exam - General 1994 Constitutional general appearance Development: appears stated age 0109/18/2017 None Full Exam - General 1994 Constitutional general appearance Hygiene/Attention to Grooming: good hygiene 09/18/2017 None Full Exam - General 1994 Eyes conjunctiva /eyelids Overall: conjunctiva clear 09/18/2017 None Full Exam - General 1994 Eyes conjunctiva /eyelids Overall: cornea clear 09/18/2017 None Full Exam - General 1994 Eyes conjunctiva /eyelids Overall: eyelids normal 09/18/2017 None Full Exam - General 1994 Eyes pupils and irises Overall: pupils equal, round, reactive to light and accomodation 09/18/2017 None Full Exam - General 1994 Ears/Nose/Throat otoscopic exam Overall: external auditory canals clear 09/18/2017 None Full Exam - General 1994 Ears/Nose/Throat otoscopic exam Overall: tympanic membranes clear 09/18/2017 None Full Exam - General 1994 Ears/Nose/Throat lips/teeth/gingiva Overall: benign lips 09/18/2017 None Full Exam - General 1994 Ears/Nose/Throat lips/teeth/gingiva Overall: normal dentition 09/18/2017 None Full Exam - General 1994 Ears/Nose/Throat oral cavity/pharynx/larynx Overall: oral mucosa clear 09/18/2017 None Full Exam - General 1994 Ears/Nose/Throat oral cavity/pharynx/larynx Overall: oropharyngeal mucosa clear 09/18/2017 None Full Exam - General 1994 Ears/Nose/Throat oral cavity/pharynx/larynx Overall: hypopharynx benign 09/18/2017 None Full Exam - General 1994 Ears/Nose/Throat oral cavity/pharynx/larynx Overall: no masses 09/18/2017 None Full Exam - General 1994 Respiratory auscultation Overall: breath sounds clear bilaterally 09/18/2017 None Full Exam - General 1994 Respiratory respiratory effort/rhythm Overall: no retractions 09/18/2017 None Full Exam - General 1994 Respiratory respiratory effort/rhythm Overall: normal rate 09/18/2017 None Full Exam - General 1994 Cardiovascular extremities Overall: no clubbing 09/18/2017 None Full Exam - General 1994 Cardiovascular auscultation of heart Overall: regular rate 09/18/2017 None Full Exam - General 1994 Lymphatic neck nodes Overall: anterior cervical chain benign 09/18/2017 None Full Exam - General 1994 Lymphatic neck nodes Overall: posterior cervical chain benign 09/18/2017 None Full Exam - General 1994 Musculoskeletal spine, ribs and pelvis Overall: good posture 09/18/2017 None Full Exam - General 1994 Neurologic mental status Overall: alert 09/18/2017 None Full Exam - General 1994 Neurologic mental status Overall: oriented 09/18/2017 None Full Exam - General 1994 Psychiatric orientation/consciousness Overall: oriented to person, place and time 09/18/2017 None Full Exam - General 1994 Psychiatric mood and affect Overall: normal mood and affect 09/18/2017 improved thought process - less symptoms of psychosis Full Exam - General 1994 Constitutional general appearance Development: well developed 08/07/2017 None Full Exam - General 1994 Constitutional general appearance Development: appears stated age 1208/07/2017 None Full Exam - General 1994 Constitutional general appearance Hygiene/Attention to Grooming: good hygiene 08/07/2017 None Full Exam - General 1994 Eyes conjunctiva /eyelids Overall: conjunctiva clear 08/07/2017 None Full Exam - General 1994 Eyes conjunctiva /eyelids Overall: cornea clear 08/07/2017 None Full Exam - General 1994 Eyes conjunctiva /eyelids Overall: eyelids normal 08/07/2017 None Full Exam - General 1994 Eyes pupils and irises Overall: pupils equal, round, reactive to light and accomodation 08/07/2017 None Full Exam - General 1994 Ears/Nose/Throat otoscopic exam Overall: external auditory canals clear 08/07/2017 None Full Exam - General 1994 Ears/Nose/Throat otoscopic exam Overall: tympanic membranes clear 08/07/2017 None Full Exam - General 1994 Ears/Nose/Throat lips/teeth/gingiva Overall: benign lips 08/07/2017 None Full Exam - General 1994 Ears/Nose/Throat lips/teeth/gingiva Overall: normal dentition 08/07/2017 None Full Exam - General 1994 Ears/Nose/Throat oral cavity/pharynx/larynx Overall: oral mucosa clear 08/07/2017 None Full Exam - General 1994 Ears/Nose/Throat oral cavity/pharynx/larynx Overall: oropharyngeal mucosa clear 08/07/2017 None Full Exam - General 1994 Ears/Nose/Throat oral cavity/pharynx/larynx Overall: hypopharynx benign 08/07/2017 None Full Exam - General 1994 Ears/Nose/Throat oral cavity/pharynx/larynx Overall: no masses 08/07/2017 None Full Exam - General 1994 Respiratory auscultation Overall: breath sounds clear bilaterally 08/07/2017 None Full Exam - General 1994 Respiratory respiratory effort/rhythm Overall: no retractions 08/07/2017 None Full Exam - General 1994 Respiratory respiratory effort/rhythm Overall: normal rate 08/07/2017 None Full Exam - General 1994 Cardiovascular extremities Overall: no clubbing 08/07/2017 None Full Exam - General 1994 Cardiovascular auscultation of heart Overall: regular rate 08/07/2017 None Full Exam - General 1994 Lymphatic neck nodes Overall: anterior cervical chain benign 08/07/2017 None Full Exam - General 1994 Lymphatic neck nodes Overall: posterior cervical chain benign 08/07/2017 None Full Exam - General 1994 Musculoskeletal spine, ribs and pelvis Overall: good posture 08/07/2017 None Full Exam - General 1994 Psychiatric orientation/consciousness Overall: oriented to person, place and time 08/07/2017 None Full Exam - General 1994 Psychiatric mood and affect Overall: normal mood and affect 08/07/2017 None Full Exam - General 1994 Neurologic mental status Overall: alert 08/07/2017 None Full Exam - General 1994 Neurologic mental status Overall: oriented 08/07/2017 None Full Exam - General 1994 Constitutional general appearance Development: well developed 07/07/2017 None Full Exam - General 1994 Constitutional general appearance Development: appears stated age 1107/07/2017 None Full Exam - General 1994 Constitutional general appearance Hygiene/Attention to Grooming: good hygiene 07/07/2017 None Full Exam - General 1994 Eyes conjunctiva /eyelids Overall: conjunctiva clear 07/07/2017 None Full Exam - General 1994 Eyes conjunctiva /eyelids Overall: cornea clear 07/07/2017 None Full Exam - General 1994 Eyes conjunctiva /eyelids Overall: eyelids normal 07/07/2017 None Full Exam - General 1994 Eyes pupils and irises Overall: pupils equal, round, reactive to light and accomodation 07/07/2017 None Full Exam - General 1994 Ears/Nose/Throat otoscopic exam Overall: external auditory canals clear 07/07/2017 None Full Exam - General 1994 Ears/Nose/Throat otoscopic exam Overall: tympanic membranes clear 07/07/2017 None Full Exam - General 1994 Ears/Nose/Throat lips/teeth/gingiva Overall: benign lips 07/07/2017 None Full Exam - General 1994 Ears/Nose/Throat lips/teeth/gingiva Overall: normal dentition 07/07/2017 None Full Exam - General 1994 Ears/Nose/Throat oral cavity/pharynx/larynx Overall: oral mucosa clear 07/07/2017 None Full Exam - General 1994 Ears/Nose/Throat oral cavity/pharynx/larynx Overall: oropharyngeal mucosa clear 07/07/2017 None Full Exam - General 1994 Ears/Nose/Throat oral cavity/pharynx/larynx Overall: hypopharynx benign 07/07/2017 None Full Exam - General 1994 Ears/Nose/Throat oral cavity/pharynx/larynx Overall: no masses 07/07/2017 None Full Exam - General 1994 Respiratory auscultation Overall: breath sounds clear bilaterally 07/07/2017 None Full Exam - General 1994 Respiratory respiratory effort/rhythm Overall: no retractions 07/07/2017 None Full Exam - General 1994 Respiratory respiratory effort/rhythm Overall: normal rate 07/07/2017 None Full Exam - General 1994 Cardiovascular extremities Overall: no clubbing 07/07/2017 None Full Exam - General 1994 Cardiovascular auscultation of heart Overall: regular rate 07/07/2017 None Full Exam - General 1994 Abdomen abdominal exam Overall: no tenderness 07/07/2017 None Full Exam - General 1994 Abdomen abdominal exam Overall: normal bowel sounds 07/07/2017 None Full Exam - General 1994 Lymphatic neck nodes Overall: anterior cervical chain benign 07/07/2017 None Full Exam - General 1994 Lymphatic neck nodes Overall: posterior cervical chain benign 07/07/2017 None Full Exam - General 1994 Musculoskeletal spine, ribs and pelvis Overall: spine benign 07/07/2017 None Full Exam - General 1994 Musculoskeletal spine, ribs and pelvis Overall: sacroiliac joint benign 07/07/2017 None Full Exam - General 1994 Musculoskeletal spine, ribs and pelvis Overall: good posture 07/07/2017 None Full Exam - General 1994 Musculoskeletal head and neck Overall: head atraumatic 07/07/2017 None Full Exam - General 1994 Musculoskeletal head and neck Overall: cervical spine benign 07/07/2017 None Full Exam - General 1994 Neurologic deep tendon reflexes Overall: deep tendon reflexes intact 07/07/2017 None Full Exam - General 1994 Neurologic cranial nerves Overall: crainial nerves 2 - 12 grossly intact 07/07/2017 None Full Exam - General 1994 Psychiatric orientation/consciousness Overall: oriented to person, place and time 07/07/2017 None Full Exam - General 1994 Psychiatric mood and affect Overall: normal mood and affect 07/07/2017 None Full Exam - General 1994 Musculoskeletal lower extremity Inspection - knee: presence of a scar 07/07/2017 None Full Exam - General 1994 Musculoskeletal lower extremity Inspection - knee: swelling 07/07/2017 None Full Exam - General 1994 Integument inspection of skin Location: scalp 07/07/2017 multiple actinic keratosis Full Exam - General 1994 Integument inspection of skin Location: face 07/07/2017 multiple actinic keratosis Full Exam - General 1994 Integument inspection of skin Location: left hand 07/07/2017 multiple actinic keratosis Full Exam - General 1994 Integument inspection of skin Location: right hand 07/07/2017 multiple actinic keratosis Procedures Procedure Codes Date PPPS, SUBSEQ VISIT CPT -4: G0439 02/05/2018 Vital Signs Date Vital 05/05/2018 Blood Pressure 1: 148/78 Code : 8480-6 BMI: 28.1 Code : 02110-9 Heart Rate 1 : 75 bpm Height: 5'6" SpO2: 95% Weight: 174 lbs 02/05/2018 Height: Weight: 01/15/2018 Blood Pressure 1: 146/84 Code : 8480-6 BMI: 28.2 Code : 07818-2 Heart Rate 1 : 65 bpm Height: 5'6" SpO2: 96% Weight: 175 lbs 10/16/2017 Blood Pressure 1: 146/74 Code : 8480-6 BMI: 28.1 Code : 63507-8 Heart Rate 1 : 76 bpm Height: 5'6" SpO2: 97% Weight: 174 lbs 09/18/2017 Blood Pressure 1: 168/82 Code : 8480-6 BMI: 27.9 Code : 36010-6 Heart Rate 1 : 80 bpm Height: 5'6" SpO2: 99% Weight: 173 lbs 08/07/2017 Blood Pressure 1: 156/86 Code : 8480-6 BMI: 26.8 Code : 21338-7 Heart Rate 1 : 72 bpm Height: 5'6" SpO2: 98% Weight: 166 lbs 07/07/2017 Blood Pressure 1: 142/76 Code : 8480-6 BMI: 27.8 Code : 68101-7 Heart Rate 1 : 70 bpm Height: 5'6" SpO2: 98% Weight: 172 lbs Functional Status No Functional Status data History of Present Illness Symptom Name Status Result Effective Date Notes hypertension Quality primary hypertension 05/05/2018 None hypertension Onset and Resolution ongoing 05/05/2018 None hypertension Onset of Symptom during adulthood 05/05/2018 None hypertension Blood Pressure Values not checking blood pressure at home 05/05/2018 None hypertension Alleviating Factors medication 05/05/2018 None hypertension Pertinent Findings decreased energy 05/05/2018 None memory loss Onset and Resolution gradual in onset 05/05/2018 None memory loss Onset and Resolution ongoing 05/05/2018 None memory loss Onset of Symptom during adulthood 05/05/2018 None memory loss Alleviating Factors medication 05/05/2018 None Annual Medicare Wellness Exam Alcohol Use does not drink any alcohol 02/05/2018 None Annual Medicare Wellness Exam Aspirin Use no 02/05/2018 None Annual Medicare Wellness Exam Blood Glucose (self reported) don't know 02/05/2018 None Annual Medicare Wellness Exam Blood Pressure (self reported ) don't know 02/05/2018 None Annual Medicare Wellness Exam Cholesterol (self reported) don't know 02/05/2018 None Annual Medicare Wellness Exam Depression (last 6 months) almost never 02/05/2018 None Annual Medicare Wellness Exam Depression or Hopelessness almost never 02/05/2018 None Annual Medicare Wellness Exam Describe Your Health good 02/05/2018 None Annual Medicare Wellness Exam Exercise Habits exercises 4 days per week 02/05/2018 None Annual Medicare Wellness Exam Handling Stress usually [place] effectively 02/05/2018 None Annual Medicare Wellness Exam Hemaglobin A-1C (self reported ) don't know 02/05/2018 None Annual Medicare Wellness Exam Hours of Sleep 8 02/05/2018 None Annual Medicare Wellness Exam Interaction with Friends yes 02/05/2018 None Annual Medicare Wellness Exam Interests & Pleasure some of the time 02/05/2018 None Annual Medicare Wellness Exam Life Satisfaction very satisfied 02/05/2018 None Annual Medicare Wellness Exam Motor Vehicle Safety always fastens seat belt: y 02/05/2018 None Annual Medicare Wellness Exam Nutrition servings of vegetables / fruit per day: 3 02/05/2018 None Annual Medicare Wellness Exam Smoking and Tobacco Use non smoker 02/05/2018 None Annual Medicare Wellness Exam Social & Emotional Support usually 02/05/2018 None Annual Medicare Wellness Exam Stress almost never 02/05/2018 None Annual Medicare Wellness Exam Sun Exposure protects skin when outdoors: y 02/05/2018 None hypertension Quality primary hypertension 01/15/2018 None hypertension Onset and Resolution ongoing 01/15/2018 None hypertension Onset of Symptom during adulthood 01/15/2018 None hypertension Blood Pressure Values not checking blood pressure at home 01/15/2018 None hypertension Alleviating Factors medication 01/15/2018 None hypertension Pertinent Findings decreased energy 01/15/2018 None memory loss Onset and Resolution gradual in onset 01/15/2018 None memory loss Onset and Resolution ongoing 01/15/2018 None memory loss Onset of Symptom during adulthood 01/15/2018 None memory loss Alleviating Factors medication 01/15/2018 None hypertension Quality primary hypertension 10/16/2017 None hypertension Onset and Resolution ongoing 10/16/2017 None hypertension Onset of Symptom during adulthood 10/16/2017 None hypertension Blood Pressure Values not checking blood pressure at home 10/16/2017 None hypertension Alleviating Factors medication 10/16/2017 None hypertension Pertinent Findings decreased energy 10/16/2017 None memory loss Onset and Resolution gradual in onset 10/16/2017 None memory loss Onset and Resolution ongoing 10/16/2017 None memory loss Onset of Symptom during adulthood 10/16/2017 None memory loss Alleviating Factors medication 10/16/2017 None hypertension Onset and Resolution ongoing 09/18/2017 None hypertension Onset of Symptom during adulthood 09/18/2017 None hypertension Blood Pressure Values not checking blood pressure at home 09/18/2017 None memory loss Onset and Resolution gradual in onset 09/18/2017 None memory loss Onset and Resolution ongoing 09/18/2017 None memory loss Onset of Symptom during adulthood 09/18/2017 None hypertension Quality primary hypertension 09/18/2017 None memory loss Alleviating Factors medication 09/18/2017 None hypertension Alleviating Factors medication 09/18/2017 None hypertension Pertinent Findings decreased energy 09/18/2017 None hypertension Onset and Resolution ongoing 08/07/2017 None hypertension Onset of Symptom during adulthood 08/07/2017 None hypertension Blood Pressure Values not checking blood pressure at home 08/07/2017 None hypertension Pertinent Findings dizziness 08/07/2017 -two dizzy spells in a couple of years-- one episode was recently hypertension Pertinent Findings Denies dyspnea 08/07/2017 None hypertension Pertinent Findings Denies edema 08/07/2017 None memory loss Onset and Resolution gradual in onset 08/07/2017 None memory loss Onset and Resolution ongoing 08/07/2017 None memory loss Onset of Symptom during adulthood 08/07/2017 None hypertension Pertinent Findings Denies anxiety 08/07/2017 None hypertension Pertinent Findings Denies decreased energy 08/07/2017 None memory loss Onset and Resolution gradual in onset 07/07/2017 None memory loss Onset and Resolution ongoing 07/07/2017 None memory loss Onset of Symptom during adulthood 07/07/2017 None hypertension Blood Pressure Values not checking blood pressure at home 07/07/2017 None hypertension Pertinent Findings dizziness 07/07/2017 -two dizzy spells in a couple of years-- one episode was recently hypertension Pertinent Findings Denies dyspnea 07/07/2017 None hypertension Onset and Resolution ongoing 07/07/2017 None hypertension Onset of Symptom during adulthood 07/07/2017 None hypertension Pertinent Findings Denies edema 07/07/2017 None Advance Directives No Advance Directive data Encounters Encounter Performer Location Codes Date ([id number]) [id number] EST. PATIENT, LEVEL IV Diagnosis: Vascular dementia without behavioral disturbance[ICD10: F01.50] Diagnosis: Actinic keratosis[ICD10: L57.0] Diagnosis: Essential (primary) hypertension[ICD10: I10] Annie Hall MD, [facility] CPT-4: 81493 05/05/2018 ([id number]) [id number] EST. PATIENT, LEVEL IV Diagnosis: Vascular dementia without behavioral disturbance[ICD10: F01.50] Diagnosis: Actinic keratosis[ICD10: L57.0] [facility] CPT- 4: 46401 01/15/2018 ([id number]) [id number] EST. PATIENT, LEVEL IV Diagnosis: Essential (primary) hypertension[ICD10: I10] Diagnosis: Vascular dementia without behavioral disturbance[ICD10: F01.50] [facility] CPT-4: 37339 10/16/2017 ([id number]) 76219 EST. 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 PATIENT, LEVEL IV Diagnosis: Essential (primary) hypertension[ICD10: I10] Diagnosis: Vascular dementia without behavioral disturbance[ICD10: F01.50] [facility] CPT-4: 38468 08/07/2017 OFFICE/OUTPATIENT VISIT NEW Diagnosis: Essential (primary) hypertension[ICD10: I10] Diagnosis: Vascular dementia without behavioral disturbance[ICD10: F01.50] Diagnosis: Pain in left knee[ICD10: M25.562] [facility] CPT-4: 16793 07/07/2017 Plan of Care Planned Activity Notes Codes Status Date Visit Plan: Hypertension - well controlled - continue with current medications, continue with no added salt diet. Pt has been encouraged to exercise daily. The pt has been advised to call the office if there are any acute concerns about change in blood pressure readings at home. 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 Actinic Keratosis - rx for efudex - 05/05/2018 App[facility]ment: [id number] ([facility] min[facility] Moderate 05/05/2018 Patient Education: Patient Medication Summary Completed 05/05/2018 Appointment: Annie Hall WPtel: [phone] [id number] (15 min) Moderate 04/22/2018 Visit Plan: Medicare Exam - today we discussed the patients past history, immunizations, preventative exams/evaluations - colonoscopy, fecal occult blood testing, routine labs for renal function, glucose, cholesterol, osteoporosis evaluations, cardiovascular testing and cancer screenings. We have also discussed mental health and the signs/symptoms of depression. The patient was advised of home safety evaluations and the need to make sure that as the aging process continues, we need to be aware of different ways to make the home a safer place to reside. The patient has also been counseled that exercise is necessary - and of utmost importance as we age to help decrease fall risk and to maintain independece in the home. Today we discussed the need for the patient to create paperwork for Advanced directives as well as for the patient to provide this office with a copy of her DOPA paperwork for health care surrogate. 02/05/2018 Patient Education: Patient Medication Summary Completed 02/05/2018 Visit Plan: Hypertension - well controlled - continue with current medications, continue with no added salt diet. Pt has been encouraged to exercise daily. The pt has been advised to call the office if there are any acute concerns about change in blood pressure readings at home. 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 Actinic Keratosis - rx for efudex 01/15/2018 Appointment: [facility] Hall WPtel: [phone] [facility] [place] (30 min) Complex 01/15/2018 Patient Education: Patient Medication Summary Completed 01/15/2018 Visit Plan: Hypertension - well controlled - continue with current medications, continue with no added salt diet. Pt has been encouraged to exercise daily. The pt has been advised to call the office if there are any acute concerns about change in blood pressure readings at home. Dementia - supportive care - continue with Namenda. 10/16/2017 Appointment: [facility] Hall [facility]Ptel[phone] [place] (30 min) Complex 10/16/2017 Patient Education: Patient Medication Summary Completed 10/16/2017 Appointment: [facility] Hall [facility]Ptel: [facility] [place] (30 min) Complex 10/09/2017 Visit Plan: Hypertension - uncontrolled - the patient's medications have been modified as documented in the visit note. The patient has been counseled to cut back on salt in diet for a no added salt diet, low fat diet, start an exercise program with low weight bearing exercises and higher aerobic activity for heart health. The patient is to check blood pressure readings as an outpatient and either fax, call, or email the readings to the office next week for practitioner to review. The pt is to call for acute concerns. Pt is still not consistently taking his medication...However, he is moving into [facility] at the end of this month and they will help to make sure that michael is getting his medication as scheduled. Increase metoprolol to a full pill daily. 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 09/18/2017 Appointment: Annie Hall [facility]Ptel: [phone] [facility] [place] (30 min) Complex 09/18/2017 Patient Education: Patient Medication Summary Completed 09/18/2017 Appointment: Annie Hall WPtel: [phone] [facility] [place] (15 min) Moderate 09/16/2017 Visit Plan: Hypertension - well controlled - continue with current medications, continue with no added salt diet. Pt has been encouraged to exercise daily. The pt has been advised to call the office if there are any acute concerns about change in blood pressure readings at home. 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 I have discussed with pt and family the prognosis of this disease state and the need for the family to anticipate further decline with behavior changes. Continue with current plan of treatment. Namenda 10mg po bid - increase of dose from 5mg bid to 10mg bid. 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 I have discussed with pt and family the prognosis of this disease state and the need for the family to anticipate further decline with behavior changes. Continue with current plan of treatment. The patient has never been on medication, he has been given rx for Namenda 5mg daily x 1 week then 5 mg bid, will then increase at next office visit and consider adding aricept to his regimen. He has a very high level of intelligence and is extremely tangential with his conversation. He jumps from one conversation/story to another and is able to cover some of his short term memory loss with his voluminous conversation and fount of past history knowledge. Discussion today about driving - recommended against driving. Hypertension - well controlled - continue with current medications, continue with no added salt diet. Pt has been encouraged to exercise daily. The pt has been advised to call the office if there are any acute concerns about change in blood pressure readings at home. He is to restart his metoprolol, will hold of on addition of the amlodipine at this time due to the patient having just been hospitalized for hypotension and dizziness. Knee pain - chronic - recommended muscle rub on the knee. Time based documentation -I spent over 65 minutes with the patient and his daughter in discussion of the disease process, expected course, and overall prognosis for the patient's disease state. The patient/ family expressed understanding. I agree with placement at assisted living - pt has already toured [facility] - encouraged patient to move to assisted living where his medications will be administered daily and his vitals monitored closely. 07/07/2017 Appointment: Annie Hall WPtel: [phone] [facility] [place] New Patient 07/07/2017 Patient Education: Patient Medication Summary Completed 07/07/2017 Instructions Comment . Medicare Exam - today we discussed the patients past history, immunizations, preventative exams/evaluations - colonoscopy, fecal occult blood testing, routine labs for renal function, glucose, cholesterol, osteoporosis evaluations, cardiovascular testing and cancer screenings. We have also discussed mental health and the signs/symptoms of depression. The patient was advised of home safety evaluations and the need to make sure that as the aging process continues, we need to be aware of different ways to make the home a safer place to reside. The patient has also been counseled that exercise is necessary - and of utmost importance as we age to help decrease fall risk and to maintain independece in the home. Today we discussed the need for the patient to create paperwork for Advanced directives as well as for the patient to provide this office with a copy of her DOPA paperwork for health care surrogate. . Hypertension - uncontrolled - the patient's medications have been modified as documented in the visit note. The patient has been counseled to cut back on salt in diet for a no added salt diet, low fat diet, start an exercise program with low weight bearing exercises and higher aerobic activity for heart health. The patient is to check blood pressure readings as an outpatient and either fax , call, or email the readings to the office next week for practitioner to review. The pt is to call for acute concerns. Pt is still not consistently taking his medication...However, he is moving into [facility] at the end of this month and they will help to make sure that michael is getting his medication as scheduled. Increase metoprolol to a full pill daily. 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 . Hypertension - well controlled - continue with current medications, continue with no added salt diet. Pt has been encouraged to exercise daily. The pt has been advised to call the office if there are any acute concerns about change in blood pressure readings at home. 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 Actinic Keratosis - rx for efudex . 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 I have discussed with pt and family the prognosis of this disease state and the need for the family to anticipate further decline with behavior changes. Continue with current plan of treatment. The patient has never been on medication, he has been given rx for Namenda 5mg daily x 1 week then 5 mg bid, will then increase at next office visit and consider adding aricept to his regimen. He has a very high level of intelligence and is extremely tangential with his conversation. He jumps from one conversation/story to another and is able to cover some of his short term memory loss with his voluminous conversation and fount of past history knowledge. Discussion today about driving - recommended against driving. Hypertension - well controlled - continue with current medications, continue with no added salt diet. Pt has been encouraged to exercise daily. The pt has been advised to call the office if there are any acute concerns about change in blood pressure readings at home. He is to restart his metoprolol, will hold of on addition of the amlodipine at this time due to the patient having just been hospitalized for hypotension and dizziness. Knee pain - chronic - recommended muscle rub on the knee. Time based documentation -I spent over 65 minutes with the patient and his daughter in discussion of the disease process, expected course, and overall prognosis for the patient's disease state. The patient/family expressed understanding. I agree with placement at assisted living - pt has already toured [facility] - encouraged patient to move to assisted living where his medications will be administered daily and his vitals monitored closely. . Hypertension - well controlled - continue with current medications, continue with no added salt diet. Pt has been encouraged to exercise daily. The pt has been advised to call the office if there are any acute concerns about change in blood pressure readings at home. Dementia - supportive care - continue with Namenda. . Hypertension - well controlled - continue with current medications, continue with no added salt diet. Pt has been encouraged to exercise daily. The pt has been advised to call the office if there are any acute concerns about change in blood pressure readings at home. 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 I have discussed with pt and family the prognosis of this disease state and the need for the family to anticipate further decline with behavior changes. Continue with current plan of treatment. Namenda 10mg po bid - increase of dose from 5mg bid to 10mg bid. . Hypertension - well controlled - continue with current medications, continue with no added salt diet. Pt has been encouraged to exercise daily. The pt has been advised to call the office if there are any acute concerns about change in blood pressure readings at home. 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 Actinic Keratosis - rx for efudex -
--- OUTSIDE RECORDS SUMMARY | 2018-07-19 18:01 | XMS REPORT | CCD ---
Author Author Annie Hall Organization [facility] Address [address] [place] [address] Phone Care Team Providers Care Thread Separator Name Role Phone PP Unavailable CCM Unavailable Summary Purpose Interface Exchange Insurance Providers Payer name Policy type / Coverage type Covered democrat ID Effective Begin Date Effective End Date WPS Medicare Part B Medicare Part B [id number] 2017 Unknown Family history Son Diagnosis Age At Onset No Known Diseases N/A Daughter Diagnosis Age At Onset No Known Diseases N/A Sister Diagnosis Age At Onset Dementia Unknown Cancer Unknown Son Diagnosis Age At Onset Hypertension Unknown Mother Diagnosis Age At Onset Dementia Unknown Social History Social History Element Codes Description Effective Dates Living arrangements Unknown Assisted Living [facility] 05/05/2018 Marital status Unknown 07/07/2017 Number of children Unknown 3 07/07/2017 Employment Unknown Retired 07/07/[address]: 340732390 Never smoker 07/07/[address]: 314959707 Never drinks alcohol 07/07/2017 Has the patient [...] Fill Instructions Seroquel 25 mg tablet RxNorm: 610279 TAKE ONE-HALF TABLET BY MOUTH IN THE MORNING AND TAKE 1 TABLET BY MOUTH AT BEDTIME 07/13/2018 11/09/2018 Active Generic For: SEROQUEL 25MG 07/13/2018 10:10:05 AM Seroquel 25 mg tablet RxNorm: 969899 Tablet(s) 1/2 tab in am and 1 tab at HS 07/10/2018 07/12/2018 Inactive Generic For:SEROQUEL 25MG 05/11/2018 9:28:26 AM cetirizine 10 mg tablet RxNorm: 9483492 1 Tablet(s) PO daily 09/29/2018 Active cetirizine 10 mg tablet RxNorm: 3345351 1 Tablet(s) PO daily 06/01/2018 Inactive Seroquel 25 mg tablet RxNorm: 494167 TAKE 1 TABLET BY MOUTH EVERY NIGHT AT BEDTIME 05/11/2018 07/09/2018 Inactive Generic For:SEROQUEL 25MG 05/11/2018 9:28:26 AM Namenda 10 mg tablet RxNorm: 005872 TAKE 1 TABLET BY MOUTH TWICE DAILY 05/05/2018 10/31/2018 Active Generic For:NAMENDA 10MG TAB 05/05/2018 10:20:35 AM loratadine 10 mg tablet RxNorm: 529932 1 Tablet(s) PO daily 01/201808/03/2018 Active loratadine 10 mg tablet RxNorm: 916378 1 Tablet(s) PO daily 01/201804/05/2018 Inactive metoprolol succinate ER 25 mg tablet,extended release 24 hr RxNorm: 247630 TAKE 1 TABLET BY MOUTH ONCE DAILY 01/19/2018 Active Generic For:TOPROL XL 25MG 01/19/2018 12:08:20 PM Efudex 5 % topical cream RxNorm: 336086 1 Application TOP BID 01/15/2018 01/24/2018 Inactive tamsulosin 0.4 mg capsule RxNorm: 955191 TAKE 1 CAPSULE BY MOUTH EVERY EVENING 12/29/2017 07/26/2018 Active Generic For:FLOMAX 0.4MG 12/29/2017 9:53:45 AM Plavix 75 mg tablet RxNorm: 451627 TAKE ONE TABLET BY MOUTH DAILY 12/29/2017 07/26/2018 Active Generic For:*PLAVIX 75MG 12/29/2017 9:53:42 AM Seroquel 25 mg tablet RxNorm: 338190 TAKE 1 TABLET BY MOUTH EVERY NIGHT AT BEDTIME 11/10/2017 05/08/2018 Inactive Generic For:SEROQUEL 25MG 11/10/2017 9:24:08 AM Namenda 10 mg tablet RxNorm: 890638 TAKE 1 TABLET BY MOUTH TWICE DAILY 11/03/2017 05/01/2018 Inactive Generic For:NAMENDA 10MG TAB 11/03/2017 9:35:48 AM Plavix 75 mg tablet RxNorm: 344066 1 Tablet(s) PO daily 201712/28/2017 Inactive tamsulosin 0.4 mg capsule RxNorm: 305760 1 Capsule(s) PO QPM 12/28/2017 Inactive Namenda 10 mg tablet RxNorm: 497933 1 Tablet(s) PO BID 201711/02/2017 Inactive this is a new rx to be filled after the patient's current rx is gone metoprolol succinate ER 25 mg tablet,extended release 24 hr RxNorm: 917039 1 Tablet(s) PO daily 09/18/2017 01/18/2018 Inactive Seroquel 25 mg tablet RxNorm: 464307 1 Tablet(s) PO QHS 201711/09/2017 Inactive Namenda 10 mg tablet RxNorm: 114444 1 Tablet(s) PO BID 201609/17/2017 Inactive this is a new rx to be filled after the patient's current rx is gone Colace 100 mg capsule RxNorm: 6651686 1 Capsule(s) PO daily 01/201702/01/2018 Inactive tamsulosin 0.4 mg capsule RxNorm: 721230 1 Capsule(s) PO QPM 09/17/2017 Inactive metoprolol succinate ER 25 mg tablet,extended release 24 hr RxNorm: 811026 1/2 Tablet(s) PO daily 07/07/2017 09/17/2017 Inactive memantine 5 mg tablet RxNorm: 249308 1 Capsule(s) PO one pill daily x 1 week then 1 tab BID 07/07/2017 08/06/2017 Inactive Plavix 75 mg tablet RxNorm: 595199 1 Tablet(s) PO daily 201609/17/2017 Inactive Flonase Allergy Relief 50 mcg/actuation nasal spray, suspension RxNorm: 2857490 1 [place] NASAL daily No Start Date Active Seroquel 25 mg tablet RxNorm: 338674 1 Tablet(s) PO QHS No Start Date [...] clear 05/05/2018 None Full Exam - General 1995 Ears/Nose/Throat oral cavity/pharynx/larynx Overall: oropharyngeal mucosa clear 05/05/2018 None Full Exam - General 1995 Ears/Nose/Throat oral cavity/pharynx/larynx Overall: hypopharynx benign 05/05/2018 None Full Exam - General 1995 Ears/Nose/Throat oral cavity/pharynx/larynx Overall: no masses 05/05/2018 None Full Exam - General 1994 Respiratory auscultation Overall: breath sounds clear bilaterally 05/05/2018 None Full Exam - General 1994 Respiratory respiratory effort/rhythm Overall: no retractions 05/05/2018 None Full Exam - General 1994 Respiratory respiratory effort/rhythm Overall: normal rate 05/05/2018 None Full Exam - General 1994 Cardiovascular extremities Overall: no clubbing 05/05/2018 None Full Exam - General 1994 Cardiovascular auscultation of heart Overall: regular rate 05/05/2018 None Full Exam - General 1994 [...] General 1994 Ears/Nose/Throat lips/teeth/gingiva Overall: benign lips 10/16/2017 None Full Exam - General 1994 Ears/Nose/Throat lips/teeth/gingiva Overall: normal dentition 10/16/2017 None Full Exam - General 1994 Ears/Nose/Throat oral cavity/pharynx/larynx Overall: oral mucosa clear 10/16/2017 None Full Exam - General 1994 Ears/Nose/Throat oral cavity/pharynx/larynx Overall: oropharyngeal mucosa clear 10/16/2017 None Full Exam - General 1994 Ears/Nose/Throat oral cavity/pharynx/larynx Overall: hypopharynx benign 10/16/2017 [...] Code : 8480-6 BMI: 28.1 Code : 76186-4 Heart Rate 1 : 75 bpm Height: 5'6" SpO2: 95% Weight: 174 lbs 02/05/2018 Height: Weight: 01/15/2018 Blood Pressure 1: 146/84 Code : 8480-6 BMI: 28.2 Code : 65188-4 Heart Rate 1 : 65 bpm Height: 5'6" SpO2: 96% Weight: 175 lbs 10/16/2017 Blood Pressure 1: 146/74 Code : 8480-6 BMI: 28.1 Code : 51793-3 Heart Rate 1 : 76 bpm Height: 5'6" SpO2: 97% Weight: 174 lbs 09/18/2017 Blood Pressure 1: 168/82 Code : 8480-6 BMI: 27.9 Code : 23703-9 Heart Rate 1 : 80 bpm Height: 5'6" SpO2: 99% Weight: 173 lbs 08/07/2017 Blood Pressure 1: 156/86 Code : 8480-6 BMI: 26.8 Code : 21729-1 Heart Rate 1 : 72 bpm Height: 5'6" SpO2: 98% Weight: 166 lbs 07/07/2017 Blood Pressure 1: 142/76 Code : 8480-6 BMI: 27.8 Code : 97078-7 Heart Rate 1 : 70 bpm Height: [...] data Encounters Encounter Performer Location Codes Date ([id number]) 03164 EST. PATIENT, LEVEL IV Diagnosis: Vascular dementia without behavioral disturbance[ICD10: F01.50] Diagnosis: Actinic keratosis[ICD10: L57.0] Diagnosis: Essential (primary) hypertension[ICD10: I10] Anine Hall MD, [facility] CPT-4: 10877 05/05/2018 ([id number]) 70214 EST. PATIENT, LEVEL IV Diagnosis: Vascular dementia without behavioral disturbance[ICD10: F01.50] Diagnosis: Actinic keratosis[ICD10: L57.0] Annie Hall MD, [facility] CPT- 4: 95560 01/15/2018 ([id number]) 83077 EST. PATIENT, LEVEL IV Diagnosis: Essential (primary) hypertension[ICD10: I10] Diagnosis: Vascular dementia without behavioral disturbance[ICD10: F01.50] Annie Hall MD, [facility] CPT-4: 53687 10/16/2017 ([id number]) 87270 EST. 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 PATIENT, LEVEL IV Diagnosis: Essential (primary) hypertension[ICD10: I10] Diagnosis: Vascular dementia without behavioral disturbance[ICD10: F01.50] Annie Hall MD, [facility] CPT-4: 70469 08/07/2017 OFFICE/OUTPATIENT VISIT NEW Diagnosis: Essential (primary) hypertension[ICD10: I10] Diagnosis: Vascular dementia without behavioral disturbance[ICD10: F01.50] Diagnosis: Pain in left knee[ICD10: M25.562] [facility] CPT-4: 31034 07/07/2017 Plan of Care Planned Activity Notes [...] efudex - 05/05/2018 Appointment: Annie Hall WPtel: [id number] (15 min) Moderate 05/05/2018 Patient Education: Patient Medication Summary Completed 05/05/2018 Appointment: Annie Hall WPtel: [address] [place], [place] [id number] (15 min) Moderate 04/22/2018 Visit Plan: Medicare [...] for efudex 01/15/2018 Appointment: [facility]el[phone] (30 min) Complex 01/15/2018 Patient Education: Patient [...] Namenda. 10/16/2017 Appointment: Annie Hall WPtel: [phone] [id number] (30 min) Complex 10/16/2017 Patient Education: Patient Medication Summary Completed 10/16/2017 Appointment: Annie Hall WPtel: [phone] [id number] (30 min) Complex 10/09/2017 Visit Plan: Hypertension [...] taking his medication...However, he is moving into [facility] at the end of this month and they will help to make sure that michael is getting his medication as scheduled. Increase metoprolol to a full pill daily. 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 09/18/2017 Appointment: Annie Hall WPtel: [phone] [id number] (30 min) Complex 09/18/2017 Patient Education: Patient Medication Summary Completed 09/18/2017 Appointment: Annie Hall WPtel: [phone] [id number] (15 min) Moderate 09/16/2017 Visit Plan: Hypertension [...] 10mg bid. 08/07/2017 Appointment: [facility] Hall [facility]Ptel: [phone] (15 min) Moderate 08/07/2017 Patient Education: Patient [...] assisted living - pt has already toured [facility] - encouraged patient to move to assisted living where his medications will be administered daily and his vitals monitored closely. 07/07/2017 Appointment: [facility] Hall [facility]Ptel[phone] [place] New Patient 07/07/2017 Patient Education: Patient [...] taking his medication...However, he is moving into [facility] at the end of [...] assisted living - pt has already toured [facility] - encouraged patient to move [...]
--- OUTSIDE RECORDS SUMMARY | 2018-07-19 18:02 | XMS REPORT | CCD ---
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 Name Role Phone PP Unavailable CCM Unavailable Summary Purpose Interface Exchange Insurance Providers Payer name Policy type / Coverage type Covered democrat ID Effective Begin Date Effective End Date WPS Medicare Part B Medicare Part B [id number] 2017 Unknown Family history Son Diagnosis Age At Onset No Known Diseases N/A Daughter Diagnosis Age At Onset No Known Diseases N/A Sister Diagnosis Age At Onset Dementia Unknown Cancer Unknown Son Diagnosis Age At Onset Hypertension Unknown Mother Diagnosis Age At Onset Dementia Unknown Social History Social History Element Codes Description Effective Dates Marital status Unknown 07/07/2017 Number of children Unknown 3 07/07/2017 Employment Unknown Retired 07/07/[address]: 855430852 Never smoker 07/07/[address]: 230626934 Never drinks alcohol 07/07/2017 Has the patient ever used illegal drugs? 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 Active 09/18/2017 Unknown Pain in left knee ICD- 9: 719.46 ICD-10: M25.562 Active 07/07/2017 Unknown Problems Condition Codes Effective Dates Condition Status Essential (primary) hypertension ICD-9: 401.1 ICD-10: I10 07/07/2017 Active Vascular dementia without behavioral disturbance ICD-9: 290.40 ICD-10: F01.50 07/07/2017 Active 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 09/18/2017 Active Pain in left knee ICD- 9: 719.46 ICD-10: M25.562 07/07/2017 Active Medications Medication Codes Instructions Start Date Stop Date Status Fill Instructions Plavix 75 mg tablet RxNorm: 562235 1 Tablet(s) PO daily 201704/15/2018 Active tamsulosin 0.4 mg capsule RxNorm: 210356 1 Capsule(s) PO QPM 04/15/2018 Active Namenda 10 mg tablet RxNorm: 314614 1 Tablet(s) PO BID 201704/15/2018 Active this is a new rx to be filled after the patient's current rx is gone metoprolol succinate ER 25 mg tablet,extended release 24 hr RxNorm: 723563 1 Tablet(s) PO daily 09/18/2017 06/09/2019 Active Seroquel 25 mg tablet RxNorm: 851910 1 Tablet(s) PO QHS 201709/12/2018 Active Namenda 10 mg tablet RxNorm: 432082 1 Tablet(s) PO BID 201609/17/2017 Inactive this is a new rx to be filled after the patient's current rx is gone Colace 100 mg capsule RxNorm: 5472114 1 Capsule(s) PO daily 01/201702/01/2018 Active tamsulosin 0.4 mg capsule RxNorm: 614936 1 Capsule(s) PO QPM 09/17/2017 Inactive metoprolol succinate ER 25 mg tablet,extended release 24 hr RxNorm: 650337 1/2 Tablet(s) PO daily 07/07/2017 09/17/2017 Inactive memantine 5 mg tablet RxNorm: 618512 1 Capsule(s) PO one pill daily x 1 week then 1 tab BID 07/07/2017 08/06/2017 Inactive Plavix 75 mg tablet RxNorm: 531252 1 Tablet(s) PO daily 201609/17/2017 Inactive Seroquel 25 mg tablet RxNorm: 044862 1 Tablet(s) PO QHS No Start Date 09/17/2017 Inactive Medication Administered No Medication Administered data Immunizations Vaccine Codes Date Status Influenza CVX: 141 07/02/2017 completed Assessments Condition Codes Effective Dates Vascular dementia without behavioral disturbance ICD-10: F01.50 ICD-9: 290.40 10/16/2017 Essential (primary) hypertension ICD-10: I10 ICD-9: 401.1 10/16/2017 Brief psychotic disorder ICD-10: F23 ICD-9: 298.8 09/18/2017 Pain in left knee ICD-10: M25.562 ICD-9: 719.46 07/07/2017 Reason For Visit Reason For Visit Effective Dates Notes hypertension 10/16/2017 hypertension 09/18/2017 hypertension 08/07/2017 hypertension 07/07/2017 Results No Results data Review of Systems System Result Effective Dates Constitutional recent illness 10/16/2017 Constitutional No chills [...] clear 09/18/2017 None Full Exam - General 1995 Ears/Nose/Throat [...] right hand 07/07/2017 multiple actinic keratosis Procedures No Procedures data Vital Signs Date Vital 10/16/2017 Blood Pressure 1: 146/74 Code : 8480-6 BMI: 28.1 Code : 19871-6 Heart Rate 1 : 76 bpm Height: 5'6" SpO2: 97% Weight: 174 lbs 09/18/2017 Blood Pressure 1: 168/82 Code : 8480-6 BMI: 27.9 Code : 21581-6 Heart Rate 1 : 80 bpm Height: 5'6" SpO2: 99% Weight: 173 lbs 08/07/2017 Blood Pressure 1: 156/86 Code : 8480-6 BMI: 26.8 Code : 39932-6 Heart Rate 1 : 72 bpm Height: 5'6" SpO2: 98% Weight: 166 lbs 07/07/2017 Blood Pressure 1: 142/76 Code : 8480-6 BMI: 27.8 Code : 37361-4 Heart Rate 1 : 70 bpm Height: 5'6" SpO2: 98% Weight: 172 lbs Functional Status No Functional Status data History of Present Illness Symptom Name Status Result Effective Date Notes hypertension Quality primary hypertension 10/16/2017 None hypertension [...] data Encounters Encounter Performer Location Codes Date ([id number]) 53154 EST. PATIENT, LEVEL IV Diagnosis: Essential (primary) hypertension[ICD10: I10] Diagnosis: Vascular dementia without behavioral disturbance[ICD10: F01.50] [facility] CPT-4: 37803 10/16/2017 ([id number]) [id number] EST. PATIENT, LEVEL IV Diagnosis: Essential (primary) hypertension[ICD10: I10] Diagnosis: Brief psychotic disorder[ICD10: F23] [facility] CPT-4: 23436 09/18/2017 ([id number]) 54613 EST. PATIENT, LEVEL IV Diagnosis: Essential (primary) hypertension[ICD10: I10] Diagnosis: Vascular dementia without behavioral disturbance[ICD10: F01.50] [facility] CPT-4: 70459 08/07/2017 OFFICE/OUTPATIENT VISIT NEW Diagnosis: Essential (primary) hypertension[ICD10: I10] Diagnosis: Vascular dementia without behavioral disturbance[ICD10: F01.50] Diagnosis: Pain in left knee[ICD10: M25.562] [facility] CPT-4: 17442 07/07/2017 Plan of Care Planned Activity Notes [...] supportive care - continue with Namenda. 10/16/2017 Patient Education: Patient Medication Summary Completed 10/16/2017 [facility] [phone] [id number] ([facility] Complex 10/09/2017 Visit Plan: Hypertension [...] taking his medication...However, he is moving into [facility] at the end of this month and they will help to make sure that michael is getting his medication as scheduled. Increase metoprolol to a full pill daily. 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 09/18/2017 [facility] [phone] [id number] ([facility] 09/18/2017 Patient Education: Patient Medication Summary Completed 09/18/2017 [facility] [phone] [id number] (15 min) Moderate 09/16/2017 Visit Plan: Hypertension [...] 10mg bid. 08/07/2017 [facility] [phone] [id number] ([facility] min) Moderate 08/07/2017 Patient Education: [...] assisted living - pt has already toured [facility] - encouraged patient to move to assisted living where his medications will be administered daily and his vitals monitored closely. 07/07/2017 [facility] [phone] [id number] New Patient 07/07/2017 Patient Education: Patient Medication Summary Completed 07/07/2017 Instructions Comment . Hypertension - uncontrolled - the patient's [...] taking his medication...However, he is moving into [facility] at the end of this month and they will help to make sure that michael is getting his medication as scheduled. Increase metoprolol to a full pill daily. 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 . Mixed picture of Dementia with Alzhemer's/Vascular [...] assisted living - pt has already toured [facility] - encouraged patient to move [...]
--- OUTSIDE RECORDS SUMMARY | 2018-07-19 18:02 | XMS REPORT | CCD ---
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 Active 09/18/2017 Unknown Essential (primary) hypertension ICD-9: 401.1 ICD-10: I10 Active 07/07/2017 Unknown Vascular dementia without behavioral disturbance ICD-9: 290.40 ICD-10: F01.50 Active 07/07/2017 Unknown Pain in left knee ICD- 9: 719.46 ICD-10: M25.562 Active 07/07/2017 Unknown Problems Condition Codes Effective Dates Condition Status 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 09/18/2017 Active Essential (primary) hypertension ICD-9: 401.1 ICD-10: I10 07/07/2017 Active Vascular dementia without behavioral disturbance ICD-9: 290.40 ICD-10: F01.50 07/07/2017 Active Pain in left knee ICD- 9: 719.46 ICD-10: M25.562 07/07/2017 Active Medications Medication Codes Instructions Start Date Stop Date Status Fill Instructions Plavix 75 mg tablet RxNorm: 001816 1 Tablet(s) PO daily 201704/15/2018 Active tamsulosin 0.4 mg capsule RxNorm: 802392 1 Capsule(s) PO QPM 04/15/2018 Active Namenda 10 mg tablet RxNorm: 001718 1 Tablet(s) PO BID 201704/15/2018 Active this is a new rx to be filled after the patient's current rx is gone metoprolol succinate ER 25 mg tablet,extended release 24 hr RxNorm: 671693 1 Tablet(s) PO daily 09/18/2017 06/09/2019 Active Seroquel 25 mg tablet RxNorm: 204609 1 Tablet(s) PO QHS 201709/12/2018 Active Namenda 10 mg tablet RxNorm: 538771 1 Tablet(s) PO BID 201609/17/2017 Inactive this is a new rx to be filled after the patient's current rx is gone Colace 100 mg capsule RxNorm: 7919889 1 Capsule(s) PO daily 01/201702/01/2018 Active tamsulosin 0.4 mg capsule RxNorm: 388217 1 Capsule(s) PO QPM 09/17/2017 Inactive metoprolol succinate ER 25 mg tablet,extended release 24 hr RxNorm: 154717 1/2 Tablet(s) PO daily 07/07/2017 09/17/2017 Inactive memantine 5 mg tablet RxNorm: 198299 1 Capsule(s) PO one pill daily x 1 week then 1 tab BID 07/07/2017 08/06/2017 Inactive Plavix 75 mg tablet RxNorm: 766402 1 Tablet(s) PO daily 201609/17/2017 Inactive Seroquel 25 mg tablet RxNorm: 870294 1 Tablet(s) PO QHS No Start Date 09/17/2017 Inactive Medication Administered No Medication Administered data Immunizations Vaccine Codes Date Status Influenza CVX: 141 07/02/2017 completed Assessments Condition Codes Effective Dates Essential (primary) hypertension ICD-10: I10 ICD-9: 401.1 09/18/2017 Brief psychotic disorder ICD-10: F23 ICD-9: 298.8 09/18/2017 Vascular dementia without behavioral disturbance ICD-10: F01.50 ICD-9: 290.40 08/07/2017 Pain in left knee ICD-10: M25.562 ICD-9: 719.46 07/07/2017 Reason For Visit Reason For Visit Effective Dates Notes hypertension 09/18/2017 hypertension 08/07/2017 hypertension 07/07/2017 Results No Results data Review of Systems System Result Effective Dates Constitutional recent illness 09/18/2017 Constitutional No chills [...] clear 08/07/2017 None Full Exam - General 1995 Ears/Nose/Throat lips/teeth/gingiva Overall: benign lips 08/07/2017 None Full Exam - General 1995 Ears/Nose/Throat lips/teeth/gingiva Overall: normal dentition 08/07/2017 None Full Exam - General 1995 Ears/Nose/Throat oral cavity/pharynx/larynx Overall: oral mucosa clear 08/07/2017 None Full Exam - General 1994 Ears/Nose/Throat oral cavity/pharynx/larynx Overall: oropharyngeal mucosa clear 08/07/2017 None Full Exam - General 1995 Ears/Nose/Throat oral cavity/pharynx/larynx Overall: hypopharynx benign 08/07/2017 [...] No Procedures data Vital Signs Date Vital 09/18/2017 Blood Pressure 1: 168/82 Code : 8480-6 BMI: 27.9 Code : 03952-8 Heart Rate 1 : 80 bpm Height: 5'6" SpO2: 99% Weight: 173 lbs 08/07/2017 Blood Pressure 1: 156/86 Code : 8480-6 BMI: 26.8 Code : 01277-9 Heart Rate 1 : 72 bpm Height: 5'6" SpO2: 98% Weight: 166 lbs 07/07/2017 Blood Pressure 1: 142/76 Code : 8480-6 BMI: 27.8 Code : 78718-7 Heart Rate 1 : 70 bpm Height: 5'6" SpO2: 98% Weight: 172 lbs Functional Status No Functional Status data History of Present Illness Symptom Name Status Result Effective Date Notes hypertension Onset and Resolution ongoing 09/18/2017 None [...] data Encounters Encounter Performer Location Codes Date ([id number]) 75093 EST. PATIENT, LEVEL IV Diagnosis: Essential (primary) hypertension[ICD10: I10] Diagnosis: Brief psychotic disorder[ICD10: F23] Annie Hall MD, [facility] CPT-4: 55497 09/18/2017 ([id number]) 77465 EST. PATIENT, LEVEL IV Diagnosis: Essential (primary) hypertension[ICD10: I10] Diagnosis: Vascular dementia without behavioral disturbance[ICD10: F01.50] [facility] CPT-4: 09268 08/07/2017 OFFICE/OUTPATIENT VISIT NEW Diagnosis: Essential (primary) hypertension[ICD10: I10] Diagnosis: Vascular dementia without behavioral disturbance[ICD10: F01.50] Diagnosis: Pain in left knee[ICD10: M25.562] [facility] CPT-4: 24196 07/07/2017 Plan of Care Planned Activity Notes Codes Status Date Visit Plan: Hypertension - uncontrolled - the [...] taking his medication...However, he is moving into [facility] at the end of this month and they will help to make sure that michael is getting his medication as scheduled. Increase metoprolol to a full pill daily. 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 09/18/2017 Patient Education: Patient Medication Summary Completed 09/18/2017 Appointment: Annie Hall WPtel: [address] [place], [place] [id number] (15 min) Moderate 09/16/2017 Visit Plan: Hypertension [...] 10mg bid. 08/07/2017 [facility] [phone] [id number] ([facility] min) Moderate 08/07/2017 Patient Education: [...] assisted living - pt has already toured [facility] - encouraged patient to move to assisted living where his medications will be administered daily and his vitals monitored closely. 07/07/2017 App[facility]ment: [facility] [phone] [id number] [place] New Patient 07/07/2017 Patient Education: [...] taking his medication...However, he is moving into [facility] at the end of [...] assisted living - pt has already toured [facility] - encouraged patient to move to assisted [...]
--- OUTSIDE RECORDS SUMMARY | 2018-07-19 18:04 | XMS REPORT | Continuity of Care Document ---
Author Author [facility] Organization [facility] Address Unknown Phone Unavailable Allergies Active Description Code Type Severity Reaction Onset Reported/Identified Relationship to Patient Clinical Status Yes Penicillins [id number] Drug Allergy Unknown N/A 02/15/2012 Medications There is no data. 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 01/16/2010 Ot 272.4 HYPERLIPIDEMIA NEC/NOS 01/16/2010 Ot 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 01/16/2010 Ot 397.0 TRICUSPID VALVE DISEASE 01/16/2010 Ot 401.9 HYPERTENSION NOS 01/16/2010 Ot 414.01 CORONARY ATHEROSCLEROSIS OF [place] CORON 01/16/2010 Ot 433.10 CAROTID ARTERY OCCLUSION W O CEREBRAL IN 01/16/2010 Ot 564.00 UNSPEC CONSTIPATION 01/16/2010 Ot 715.90 OSTEOARTHROS NOS-UNSPEC 01/16/2010 Ot 786.09 RESPIRATORY ABNORM NEC 01/16/2010 Ot V10.46 HX- PROSTATIC MALIGNANCY 01/16/2010 Ot V45.82 PERCUTANEOUS TRANSLUM CORON ANGIOPLASTY 01/16/2010 Ot V58.66 LONG-TERM ( CURRENT) USE OF ASPIRIN 01/16/2010 Ot V58.69 OTH MED,LT, CURRENT USE 05/20/2010 Ot V45.81 AORTOCORONARY BYPASS 05/20/2010 Ot V57.89 REHABILITATION PROC NEC 06/13/2010 Ot V45.81 AORTOCORONARY BYPASS 06/13/2010 Ot V57.89 REHABILITATION PROC NEC 02/16/2012 Ot 272.4 HYPERLIPIDEMIA NEC/NOS 02/16/2012 Ot 401.9 HYPERTENSION NOS 02/16/2012 Ot 414.01 CORONARY ATHEROSCLEROSIS OF [place] CORON 02/16/2012 Ot 560.32 FECAL IMPACTION 02/16/2012 Ot 780.60 FEVER, UNSPECIFIED 02/16/2012 Ot 788.20 RETENTION OF URINE NOS 02/16/2012 Ot V10.46 HX- PROSTATIC MALIGNANCY 02/16/2012 Ot V15.3 HX OF IRRADIATION 02/16/2012 Ot V45.81 AORTOCORONARY BYPASS 02/16/2012 Ot V45.89 POSTSURGICAL STATES NEC 04/01/2013 NERI KOTHARI, ANJALI Chen Ot 462 ACUTE PHARYNGITIS 04/01/2013 ANJALI HE MD Ot 780.4 DIZZINESS AND GIDDINESS 11/19/2013 LORAINE GONGORA DO Ot 276.8 HYPOPOTASSEMIA 11/19/2013 LORAINE GONGORA DO Ot 285.1 AC POSTHEMORRHAG ANEMIA 11/19/2013 LORAINE GONGORA DO Ot 715.36 LOC OSTEOARTH NOS-L/LEG 01/06/2014 LORAINE GONGORA DO Ot V43.65 KNEE JOINT REPLACEMENT STATUS 01/06/2014 LORAINE GONGORA DO Ot V54.81 AFTERCARE FOLLOWING JOINT REPLACEMENT 01/06/2014 LORAINE GONGORA DO Ot V57.1 PHYSICAL THERAPY NEC 02/08/2014 LORAINE GONGORA DO Ot 599.0 URIN TRACT INFECTION NOS 02/09/2014 DINO MELVIN MD Ot 401.9 HYPERTENSION NOS 02/09/2014 DINO MELVIN MD Ot 414.01 CORONARY ATHEROSCLEROSIS OF [place] CORON 02/09/2014 DINO MELVIN MD Ot 443.9 [...] 06/06/2015 Ot V45.81 06/06/2015 BAIMA, DAIANA L PATTERN TECHNICIAN Ot 272.4 06/06/2015 BAIMA, DAIANA L PATTERN TECHNICIAN Ot 401.9 06/06/2015 BAIMA, DAIANA L PATTERN TECHNICIAN Ot 414.00 06/06/2015 BAIMA, DAIANA L PATTERN TECHNICIAN Ot 424.90 06/06/2015 BAIMA, DAIANA L PATTERN TECHNICIAN Ot 429.3 06/06/2015 BAIMA, DAIANA L PATTERN TECHNICIAN Ot V43.3 06/06/2015 BAIMA, DAIANA L PATTERN TECHNICIAN Ot V45.81 06/06/2015 BAIMA, DAIANA L PATTERN TECHNICIAN Ot 272.4 06/06/2015 BAIMA, DAIANA L PATTERN TECHNICIAN Ot 401.9 06/06/2015 BAIMA, DAIANA L PATTERN TECHNICIAN Ot 414.00 06/06/2015 BAIMA, DAIANA L PATTERN TECHNICIAN Ot 424.90 06/06/2015 BAIMA, DAIANA L PATTERN TECHNICIAN Ot V45.81 06/06/2015 FRANSISCA DO, LORAINE F Ot 715.36 06/06/2015 FRANSISCA DO, LORAINE F Ot 791.9 06/06/2015 FRANSISCA DO, LORAINE F Ot V72.63 06/06/2015 FRANSISCA DO, LORAINE F Ot V72.83 06/06/2015 FRANSISCA DO, LORAINE F Ot V74.8 06/06/2015 DINO MELVIN MD Ot V72.84 06/06/2015 Ot 599.0 12/12/2015 BAIMA, DAIANA L PATTERN TECHNICIAN Ot E78.5 12/12/2015 BAIMA, DAIANA L PATTERN TECHNICIAN Ot I10 12/12/2015 BAIMA, DAIANA L PATTERN TECHNICIAN Ot I25.9 12/12/2015 BAIMA, DAIANA L PATTERN TECHNICIAN Ot I38 12/12/2015 BAIMA, DAIANA L PATTERN TECHNICIAN Ot I77.9 12/12/2015 BAIMA, DAIANA L PATTERN TECHNICIAN Ot R07.9 12/12/2015 BAIMADAIANA L PATTERN TECHNICIAN Ot Z95.1 02/12/2016 BAIMA, DAIANA L PATTERN TECHNICIAN Ot 272.4 HYPERLIPIDEMIA NEC/NOS 02/12/2016 BAIMA, DAIANA L PATTERN TECHNICIAN Ot 401.9 HYPERTENSION NOS 02/12/2016 BAIMA, DAIANA L PATTERN TECHNICIAN Ot 414.00 CORON ATHEROSCLER NOS TYPE VESSEL, NATIV 02/12/2016 BAIMA, DAIANA L PATTERN TECHNICIAN Ot 424.90 ENDOCARDITIS NOS 02/12/2016 BAIMA, DAIANA L PATTERN TECHNICIAN Ot 429.3 CARDIOMEGALY 02/12/2016 BAIMA, DAIANA L PATTERN TECHNICIAN Ot 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 02/12/2016 BAIMA, DAIANA L PATTERN TECHNICIAN Ot V45.81 AORTOCORONARY BYPASS 02/12/2016 BAIMA, DAIANA L PATTERN TECHNICIAN Ot 272.4 HYPERLIPIDEMIA NEC/NOS 02/12/2016 BAIMA, DAIANA L PATTERN TECHNICIAN Ot 401.9 HYPERTENSION NOS 02/12/2016 BAIMA, DAIANA L PATTERN TECHNICIAN Ot 414.00 CORON ATHEROSCLER NOS TYPE VESSEL, NATIV 02/12/2016 BAIMA, DAIANA L PATTERN TECHNICIAN Ot 424.90 ENDOCARDITIS NOS 02/12/2016 BAIJENNIFER, DAIANA L PATTERN TECHNICIAN Ot V45.81 AORTOCORONARY BYPASS 02/12/2016 LORAINE GONGORA DO Ot 715.36 LOC OSTEOARTH NOS-L/LEG 02/12/2016 LORAINE GONGORA DO Ot 791.9 ABN URINE FINDINGS NEC 02/12/2016 LORAINE GONGORA DO Ot V72.63 PRE-PROCEDURAL LABORATORY EXAMINATION 02/12/2016 LORAINE GONGORA DO Ot V72.83 EXAM PRE-OPERATIVE NEC 02/12/2016 LORAINE GONGORA DO Ot V74.8 SCREEN-BACTERIAL DIS NEC 02/12/2016 DINO MELVIN MD Ot V72.84 EXAM PRE-OPERATIVE NOS 02/12/2016 Ot 599.0 URIN TRACT INFECTION NOS 02/12/2016 BAIZACH RODRIGUEZHER L PATTERN TECHNICIAN Ot E78.5 HYPERLIPIDEMIA, UNSPECIFIED 02/12/2016 DAIANA JOHN L PATTERN TECHNICIAN Ot I10 ESSENTIAL (PRIMARY) HYPERTENSION 02/12/2016 DEONNADAIANA RODRIGUEZ L PATTERN TECHNICIAN Ot I25.9 CHRONIC ISCHEMIC HEART DISEASE, UNSPECIF 02/12/2016 DAIANA JOHN L PATTERN TECHNICIAN Ot I38 ENDOCARDITIS, VALVE UNSPECIFIED 02/12/2016 DAIANA JOHN L PATTERN TECHNICIAN Ot I77.9 DISORDER OF ARTERIES AND ARTERIOLES, UNS 02/12/2016 DEONNADAIANA RODRIGUEZ L PATTERN TECHNICIAN Ot R07.9 CHEST PAIN, UNSPECIFIED 02/12/2016 DEONNADAIANA RODRIGUEZ L PATTERN TECHNICIAN Ot Z95.1 PRESENCE OF AORTOCORONARY BYPASS GRAFT 02/12/2016 EVELYN KOTHARI, JUAREZ Sloan Ot N50.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 02/15/2016 JUAREZ RIVAS MD Ot N50.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 02/15/2016 JUAREZ RIVAS MD Ot N50.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 02/21/2016 JUAREZ RIVAS MD Ot N50.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 02/21/2016 JUAREZ RIVAS MD Ot N50.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 02/21/2016 DEONNADAIANA RODRIGUEZ L PATTERN TECHNICIAN Ot 272.4 HYPERLIPIDEMIA NEC/NOS 02/21/2016 DEONNAJENNIFER DAIANA L PATTERN TECHNICIAN Ot 401.9 HYPERTENSION NOS 02/21/2016 DEONNAZACH RODRIGUEZHER L PATTERN TECHNICIAN Ot 414.00 CORON ATHEROSCLER NOS TYPE VESSEL, NATIV 02/21/2016 DEONNAJENNIFER DAIANA L PATTERN TECHNICIAN Ot 424.90 ENDOCARDITIS NOS 02/21/2016 DEONNAJENNIFER DAIANA L PATTERN TECHNICIAN Ot 429.3 CARDIOMEGALY 02/21/2016 DEONNAJENNIFER DAIANA L PATTERN TECHNICIAN Ot 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 02/21/2016 DEONNAJENNIFER DAIANA L PATTERN TECHNICIAN Ot V45.81 AORTOCORONARY BYPASS 02/21/2016 DEONNAJENNIFER DAIANA L PATTERN TECHNICIAN Ot 272.4 HYPERLIPIDEMIA NEC/NOS 02/21/2016 BAIMA, DAIANA L PATTERN TECHNICIAN Ot 401.9 HYPERTENSION NOS 02/21/2016 BAIJENNIFER, DAIANA L PATTERN TECHNICIAN Ot 414.00 CORON ATHEROSCLER NOS TYPE VESSEL, NATIV 02/21/2016 DEONNAMA, DAIANA L PATTERN TECHNICIAN Ot 424.90 ENDOCARDITIS NOS 02/21/2016 DEONNAMA, DAIANA L PATTERN TECHNICIAN Ot V45.81 AORTOCORONARY BYPASS 02/21/2016 LORAINE GONGORA DO Ot 715.36 LOC OSTEOARTH NOS-L/LEG 02/21/2016 LORAINE GONGORA DO Ot 791.9 ABN URINE FINDINGS NEC 02/21/2016 LORAINE GONGORA DO Ot V72.63 PRE-PROCEDURAL LABORATORY EXAMINATION 02/21/2016 LORAINE GONGORA DO Ot V72.83 EXAM PRE-OPERATIVE NEC 02/21/2016 FRANSISCA STONER LORAINE Buchanan Ot V74.8 SCREEN-BACTERIAL DIS NEC 02/21/2016 DINO MELVIN MD Ot V72.84 EXAM PRE-OPERATIVE NOS 02/21/2016 Ot 599.0 URIN TRACT INFECTION NOS 02/21/2016 DEONNADAIANA RODRIGUEZ PATTERN TECHNICIAN Ot E78.5 HYPERLIPIDEMIA, UNSPECIFIED 02/21/2016 DAIANA JOHN PATTERN TECHNICIAN Ot I10 ESSENTIAL (PRIMARY) HYPERTENSION 02/21/2016 DEONNADAIANA RODRIGUEZ PATTERN TECHNICIAN Ot I25.9 CHRONIC ISCHEMIC HEART DISEASE, UNSPECIF 02/21/2016 DEONNADAIANA RODRIGUEZ PATTERN TECHNICIAN Ot I38 ENDOCARDITIS, VALVE UNSPECIFIED 02/21/2016 DEONNADAIANA RODRIGUEZ PATTERN TECHNICIAN Ot I77.9 DISORDER OF ARTERIES AND ARTERIOLES, UNS 02/21/2016 DEONNADAIANA RODRIGUEZ PATTERN TECHNICIAN Ot R07.9 CHEST PAIN, UNSPECIFIED 02/21/2016 DAIANA JOHN L PATTERN TECHNICIAN Ot Z95.1 PRESENCE OF AORTOCORONARY BYPASS GRAFT 03/21/2016 DEONNADAIANA RODRIGUEZ L PATTERN TECHNICIAN Ot 272.4 HYPERLIPIDEMIA NEC/NOS 03/21/2016 DEONNADAIANA RODRIGUEZ L PATTERN TECHNICIAN Ot 401.9 HYPERTENSION NOS 03/21/2016 DOENNADAIANA RODRIGUEZ L PATTERN TECHNICIAN Ot 414.00 CORON ATHEROSCLER NOS TYPE VESSEL, NATIV 03/21/2016 DEONNADAIANA RODRIGUEZ L PATTERN TECHNICIAN Ot 424.90 ENDOCARDITIS NOS 03/21/2016 DEONNAJENNIFER DAIANA L PATTERN TECHNICIAN Ot 429.3 CARDIOMEGALY 03/21/2016 DORA DAIANA L PATTERN TECHNICIAN Ot 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 03/21/2016 DEONNADAIANA RODRIGUEZ L PATTERN TECHNICIAN Ot V45.81 AORTOCORONARY BYPASS 03/21/2016 DORA DAIANA L PATTERN TECHNICIAN Ot 272.4 HYPERLIPIDEMIA NEC/NOS 03/21/2016 DAIANA JOHN PATTERN TECHNICIAN Ot 401.9 HYPERTENSION NOS 03/21/2016 DAIANA JOHN PATTERN TECHNICIAN Ot 414.00 CORON ATHEROSCLER NOS TYPE VESSEL, NATIV 03/21/2016 DEONNADAIANA RODRIGUEZ PATTERN TECHNICIAN Ot 424.90 ENDOCARDITIS NOS 03/21/2016 DAIANA JOHN PATTERN TECHNICIAN Ot V45.81 AORTOCORONARY BYPASS 03/21/2016 FRANSISCA DO, LORAINE F Ot 715.36 LOC OSTEOARTH NOS-L/LEG 03/21/2016 FRANSISCA DO, LORAINE F Ot 791.9 ABN URINE FINDINGS NEC 03/21/2016 FRANSISCA DO, LORAINE F Ot V72.63 PRE-PROCEDURAL LABORATORY EXAMINATION 03/21/2016 FRANSISCA DO, LORAINE F Ot V72.83 EXAM PRE-OPERATIVE NEC 03/21/2016 FRANSISCA , LORAINE F Ot V74.8 SCREEN-BACTERIAL DIS NEC 03/21/2016 NGOZI KOTHARI, DINO Ot V72.84 EXAM PRE-OPERATIVE NOS 03/21/2016 Ot 599.0 URIN TRACT INFECTION NOS 03/21/2016 DEONNADAIANA RODRIGUEZ PATTERN TECHNICIAN Ot E78.5 HYPERLIPIDEMIA, UNSPECIFIED 03/21/2016 DAIANA JOHN PATTERN TECHNICIAN Ot I10 ESSENTIAL (PRIMARY) HYPERTENSION 03/21/2016 DEONNADAIANA RODRIGUEZ PATTERN TECHNICIAN Ot I25.9 CHRONIC ISCHEMIC HEART DISEASE, UNSPECIF 03/21/2016 DEONNADAIANA RODRIGUEZ PATTERN TECHNICIAN Ot I38 ENDOCARDITIS, VALVE UNSPECIFIED 03/21/2016 DEONNADAIANA RODRIGUEZ PATTERN TECHNICIAN Ot I77.9 DISORDER OF ARTERIES AND ARTERIOLES, UNS 03/21/2016 DEONNADAIANA RODRIGUEZ PATTERN TECHNICIAN Ot R07.9 CHEST PAIN, UNSPECIFIED 03/21/2016 DAIANA JOHN PATTERN TECHNICIAN Ot Z95.1 PRESENCE OF AORTOCORONARY BYPASS GRAFT 03/22/2016 STEPHANIE KOTHARI, LALI Beyer Ot N45.3 EPIDIDYMO-ORCHITIS 03/22/2016 STEPHANIE KOTHARI, LALI Beyer Ot N45.3 EPIDIDYMO-ORCHITIS 04/04/2016 STEPHANIE KOTHARI, LALI Beyer Ot N45.3 EPIDIDYMO-ORCHITIS 05/01/2016 STEPHANIE KOTHARI, LALI Beyer Ot N45.3 EPIDIDYMO-ORCHITIS 05/10/2016 STEPHANIE KOTHARI, LALI Beyer Ot N45.3 EPIDIDYMO-ORCHITIS 10/04/2016 EVELYN KOTHARI, JUAREZ Sloan Ot N50.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 10/04/2016 BAIDAIANA RODRIGUEZ PATTERN TECHNICIAN Ot 272.4 HYPERLIPIDEMIA NEC/NOS 10/04/2016 BAIMA, DAIANA L PATTERN TECHNICIAN Ot 401.9 HYPERTENSION NOS 10/04/2016 BAIJENNIFER, DAIANA L PATTERN TECHNICIAN Ot 414.00 CORON ATHEROSCLER NOS TYPE VESSEL, NATIV 10/04/2016 BAIMA, DAIANA L PATTERN TECHNICIAN Ot 424.90 ENDOCARDITIS NOS 10/04/2016 BAIMA, DAIANA L PATTERN TECHNICIAN Ot 429.3 CARDIOMEGALY 10/04/2016 BAIMA, DAIANA L PATTERN TECHNICIAN Ot 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 10/04/2016 BAIMA, DAIANA L PATTERN TECHNICIAN Ot V45.81 AORTOCORONARY BYPASS 10/04/2016 BAIMA, DAIANA L PATTERN TECHNICIAN Ot 272.4 HYPERLIPIDEMIA NEC/NOS 10/04/2016 BAIMA, DAIANA L PATTERN TECHNICIAN Ot 401.9 HYPERTENSION NOS 10/04/2016 BAIMA, DAIANA L PATTERN TECHNICIAN Ot 414.00 CORON ATHEROSCLER NOS TYPE VESSEL, NATIV 10/04/2016 BAIJENNIFER, DAIANA L PATTERN TECHNICIAN Ot 424.90 ENDOCARDITIS NOS 10/04/2016 BAIJENNIFER, DAIANA L PATTERN TECHNICIAN Ot V45.81 AORTOCORONARY BYPASS 10/04/2016 LORAINE GONGORA DO Ot 715.36 LOC OSTEOARTH NOS-L/LEG 10/04/2016 LORAINE GONGORA DO Ot 791.9 ABN URINE FINDINGS NEC 10/04/2016 LORAINE GONGORA DO Ot V72.63 PRE-PROCEDURAL LABORATORY EXAMINATION 10/04/2016 LORAINE GONGORA DO Ot V72.83 EXAM PRE-OPERATIVE NEC 10/04/2016 LORAINE GONGORA DO Ot V74.8 SCREEN-BACTERIAL DIS NEC 10/04/2016 NGOZI KOTHARI, DINO Ot V72.84 EXAM PRE-OPERATIVE NOS 10/04/2016 Ot 599.0 URIN TRACT INFECTION NOS 10/04/2016 BAIDAIANA RODRIGUEZ PATTERN TECHNICIAN Ot E78.5 HYPERLIPIDEMIA, UNSPECIFIED 10/04/2016 BAIJENNIFER DAIANA Wilks PATTERN TECHNICIAN Ot I10 ESSENTIAL (PRIMARY) HYPERTENSION 10/04/2016 BAIMA, DAIANA Wilks PATTERN TECHNICIAN Ot I25.9 CHRONIC ISCHEMIC HEART DISEASE, UNSPECIF 10/04/2016 DEONNAMA, DAIANA L PATTERN TECHNICIAN Ot I38 ENDOCARDITIS, VALVE UNSPECIFIED 10/04/2016 DAIANA JOHN PATTERN TECHNICIAN Ot I77.9 DISORDER OF ARTERIES AND ARTERIOLES, UNS 10/04/2016 DEONNADAIANA RODRIGUEZ PATTERN TECHNICIAN Ot R07.9 CHEST PAIN, UNSPECIFIED 10/04/2016 DORADAIANA PATTERN TECHNICIAN Ot Z95.1 PRESENCE OF AORTOCORONARY BYPASS GRAFT 10/04/2016 JUAREZ RIVAS MD Ot N50.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 10/04/2016 STEPHANIE KOTHARI, LALI Beyer Ot N45.3 EPIDIDYMO-ORCHITIS 10/11/2016 JUAREZ RIVAS MD Ot N50.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 12/03/2016 CELESTINE ONEILL MD Ot I12.9 HYPERTENSIVE CHRONIC KIDNEY DISEASE W ST 12/03/2016 CELESTINE ONEILL MD Ot I25.10 ATHSCL HEART DISEASE OF [place] CORONARY 12/03/2016 CELESTINE ONEILL MD Ot I38 [...] Z95.5 PRESENCE OF CORONARY ANGIOPLASTY IMPLANT 12/11/2016 Venessa SANTAMARIA MD Ot R55 SYNCOPE AND COLLAPSE 01/10/2017 Venessa SANTAMARIA MD Ot R55 SYNCOPE AND COLLAPSE 03/10/2017 Venessa SANTAMARIA MD Ot R55 SYNCOPE AND COLLAPSE 07/02/2017 CELESTINE ONEILL MD Ot E78.00 PURE HYPERCHOLESTEROLEMIA, UNSPECIFIED 07/02/2017 CELESTINE ONEILL MD Ot F03.90 UNSPECIFIED DEMENTIA WITHOUT BEHAVIORAL 07/02/2017 CELESTINE ONEILL MD Ot I12.9 HYPERTENSIVE CHRONIC KIDNEY DISEASE W ST 07/02/2017 CELESTINE ONEILL MD Ot I25.10 ATHSCL HEART DISEASE OF [place] CORONARY 07/02/2017 CELESTINE ONEILL MD Ot I35.0 [...] PROSTATIC HYPERPLASIA WITHOUT LOW 07/02/2017 CELESTINE ONEILL MD, Ot R07.9 CHEST PAIN, UNSPECIFIED 07/02/2017 CELESTINE ONEILL MD Ot R42 DIZZINESS AND GIDDINESS 07/02/2017 CELESTINE ONEILL MD Ot R53.83 OTHER FATIGUE 07/02/2017 CELESTINE ONEILL MD Ot Z23 ENCOUNTER FOR IMMUNIZATION 07/02/2017 CELESTINE ONEILL MD Ot Z79.02 INTERMEDIATE (CURRENT) USE OF ANTITHROMBOTI 07/02/2017 CELESTINE ONEILL MD Ot 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 07/02/2017 CELESTINE ONEILL MD Ot Z79.899 OTHER INTERMEDIATE (CURRENT) DRUG THERAPY 07/02/2017 CELESTINE ONEILL MD Ot Z95.1 PRESENCE OF AORTOCORONARY BYPASS GRAFT 07/02/2017 CELESTINE ONEILL MD Ot Z95.5 PRESENCE OF CORONARY ANGIOPLASTY IMPLANT 07/02/2017 DAIANA JOHN PATTERN TECHNICIAN Ot 272.4 HYPERLIPIDEMIA NEC/NOS 07/02/2017 DAIANA JOHN PATTERN TECHNICIAN Ot 401.9 HYPERTENSION NOS 07/02/2017 DAIANA JOHN PATTERN TECHNICIAN Ot 414.00 CORON ATHEROSCLER NOS TYPE VESSEL, NATIV 07/02/2017 DAIANA JOHN PATTERN TECHNICIAN Ot 424.90 ENDOCARDITIS NOS 07/02/2017 DAIANA JOHN PATTERN TECHNICIAN Ot 429.3 CARDIOMEGALY 07/02/2017 DAIANA JOHN PATTERN TECHNICIAN Ot 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 07/02/2017 DAIANA JOHN PATTERN TECHNICIAN Ot V45.81 AORTOCORONARY BYPASS 07/02/2017 DAIANA JOHN PATTERN TECHNICIAN Ot 272.4 HYPERLIPIDEMIA NEC/NOS 07/02/2017 BAIDAIANA RODRIGUEZ PATTERN TECHNICIAN Ot 401.9 HYPERTENSION NOS 07/02/2017 DAIANA JOHN PATTERN TECHNICIAN Ot 414.00 CORON ATHEROSCLER NOS TYPE VESSEL, NATIV 07/02/2017 DEONNADAIANA RODRIGUEZ PATTERN TECHNICIAN Ot 424.90 ENDOCARDITIS NOS 07/02/2017 DEONNADAIANA RODRIGUEZ PATTERN TECHNICIAN Ot V45.81 AORTOCORONARY BYPASS 07/02/2017 FRANSISCA DO, LORAINE F Ot 715.36 LOC OSTEOARTH NOS-L/LEG 07/02/2017 FRANSISCA DO, LORAINE F Ot 791.9 ABN URINE FINDINGS NEC 07/02/2017 FRANSISCA STONER LORAINE F Ot V72.63 PRE-PROCEDURAL LABORATORY EXAMINATION 07/02/2017 FRANSISCA STONER LORAINE F Ot V72.83 EXAM PRE-OPERATIVE NEC 07/02/2017 FRANSISCA STONER LORAINE F Ot V74.8 SCREEN-BACTERIAL DIS NEC 07/02/2017 NGOZI KOTHARI, DINO Ot V72.84 EXAM PRE-OPERATIVE NOS 07/02/2017 Ot 599.0 URIN TRACT INFECTION NOS 07/02/2017 DEONNADAIANA RODRIGUEZ PATTERN TECHNICIAN Ot E78.5 HYPERLIPIDEMIA, UNSPECIFIED 07/02/2017 DEONNADAIANA RODRIGUEZ PATTERN TECHNICIAN Ot I10 ESSENTIAL (PRIMARY) HYPERTENSION 07/02/2017 DEONNADAIANA RODRIGUEZ PATTERN TECHNICIAN Ot I25.9 CHRONIC ISCHEMIC HEART DISEASE, UNSPECIF 07/02/2017 DORA DAIANA Wilks PATTERN TECHNICIAN Ot I38 ENDOCARDITIS, VALVE UNSPECIFIED 07/02/2017 DEONNAJENNIFER DAIANA Wilks PATTERN TECHNICIAN Ot I77.9 DISORDER OF ARTERIES AND ARTERIOLES, UNS 07/02/2017 DEONNADAIANA RODRIGUEZ PATTERN TECHNICIAN Ot R07.9 CHEST PAIN, UNSPECIFIED 07/02/2017 DORA DAIANA Wilks PATTERN TECHNICIAN Ot Z95.1 PRESENCE OF AORTOCORONARY BYPASS GRAFT 07/02/2017 EVELYN KOTHARI, JUAREZ Sloan Ot N50.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 07/02/2017 STEPHANIE KOTHARI, LALI Beyer Ot N45.3 EPIDIDYMO-ORCHITIS 07/02/2017 HINA KOTHARI, Venessa WHATLEY Ot R55 SYNCOPE AND COLLAPSE 07/02/2017 CELESTINE ONEILL MD, Ot E78.00 PURE HYPERCHOLESTEROLEMIA, UNSPECIFIED 07/02/2017 CELESTINE ONEILL MD Ot F03.90 UNSPECIFIED DEMENTIA WITHOUT BEHAVIORAL 07/02/2017 CELESTINE ONEILL MD Ot I12.9 HYPERTENSIVE CHRONIC KIDNEY DISEASE W ST 07/02/2017 CELESTINE ONEILL MD Ot I25.10 ATHSCL HEART DISEASE OF [place] CORONARY 07/02/2017 CELESTINE ONEILL MD Ot I35.0 NONRHEUMATIC AORTIC (VALVE) STENOSIS 07/02/2017 CELESTINE ONEILL MD, Ot I45.10 UNSPECIFIED RIGHT BUNDLE-BRANCH BLOCK 07/02/2017 CELESTINE ONEILL MD, Ot I70.0 ATHEROSCLEROSIS OF [place] 07/02/2017 CELESTINE ONEILL MD, Ot K21.9 GASTRO-ESOPHAGEAL REFLUX DISEASE WITHOUT 07/02/2017 CELESTINE ONEILL MD Ot N18.9 CHRONIC KIDNEY DISEASE, UNSPECIFIED 07/02/2017 CELESTINE ONEILL MD Ot N40.0 BENIGN PROSTATIC HYPERPLASIA WITHOUT LOW 07/02/2017 CELESTINE ONEILL MD Ot R07.9 CHEST PAIN, UNSPECIFIED 07/02/2017 CELESTINE ONEILL MD Ot R42 DIZZINESS AND GIDDINESS 07/02/2017 CELESTINE ONEILL MD Ot R53.83 OTHER FATIGUE 07/02/2017 CELESTINE ONEILL MD Ot Z79.02 INTERMEDIATE (CURRENT) USE OF ANTITHROMBOTI 07/02/2017 CELESTINE ONEILL MD Ot 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 07/02/2017 CELESTINE ONEILL MD Ot Z79.899 OTHER INTERMEDIATE (CURRENT) DRUG THERAPY 07/02/2017 CELESTINE ONEILL MD Ot Z95.1 PRESENCE OF AORTOCORONARY BYPASS GRAFT 07/02/2017 CELESTINE ONEILL MD Ot Z95.5 PRESENCE OF CORONARY ANGIOPLASTY IMPLANT 07/03/2017 ENEDINA CARTER DO K Ot E78.00 PURE HYPERCHOLESTEROLEMIA, UNSPECIFIED 07/03/2017 ARNULFO CARTER DOA K Ot F03.90 UNSPECIFIED DEMENTIA WITHOUT BEHAVIORAL 07/03/2017 ARNULFO CARTER DOA K Ot F32.9 MAJOR DEPRESSIVE DISORDER, SINGLE EPISOD 07/03/2017 ARNULFO CARTER DOA K Ot I10 ESSENTIAL (PRIMARY) HYPERTENSION 07/03/2017 EMMA DO, ENEDINA K Ot I25.10 ATHSCL HEART DISEASE OF [place] CORONARY 07/03/2017 EMMA DO, ENEDINA K Ot N28.9 DISORDER OF KIDNEY AND URETER, UNSPECIFI 07/03/2017 EMMA DO, ENEDINA K Ot R41.0 DISORIENTATION, UNSPECIFIED 07/03/2017 EMMA DO ENEDINA K Ot Z79.02 INTERMEDIATE (CURRENT) USE OF ANTITHROMBOTI 07/03/2017 EMMA DO ENEDINA K Ot Z80.9 FAMILY HISTORY OF MALIGNANT NEOPLASM, UN 07/03/2017 EMMA DO, ENEDINA K Ot Z85.46 PERSONAL HISTORY OF MALIGNANT NEOPLASM O 07/03/2017 EMMA DO ENEDINA K Ot Z92.3 PERSONAL HISTORY OF IRRADIATION 07/03/2017 EMMA DO EENDINA K Ot Z95.1 PRESENCE OF AORTOCORONARY BYPASS GRAFT 07/03/2017 EMMA DO ENEDINA K Ot Z95.5 PRESENCE OF CORONARY ANGIOPLASTY IMPLANT 07/09/2017 EMMA DO ENEDINA K Ot E78.00 PURE HYPERCHOLESTEROLEMIA, UNSPECIFIED 07/09/2017 EMMA DO, ENEDINA K Ot F03.90 UNSPECIFIED DEMENTIA WITHOUT BEHAVIORAL 07/09/2017 EMMA DO ENEDINA K Ot F32.9 MAJOR DEPRESSIVE DISORDER, SINGLE EPISOD 07/09/2017 EMMA DO ENEDINA K Ot I10 ESSENTIAL (PRIMARY) HYPERTENSION 07/09/2017 EMMA DO ENEDINA K Ot I25.10 ATHSCL HEART DISEASE OF [place] CORONARY 07/09/2017 EMMA DO ENEDINA K Ot N28.9 DISORDER OF KIDNEY AND URETER, UNSPECIFI 07/09/2017 EMMA DO ENEDINA K Ot R41.0 DISORIENTATION, UNSPECIFIED 07/09/2017 EMMA DO ENEDINA K Ot Z79.02 INTERMEDIATE (CURRENT) USE OF ANTITHROMBOTI 07/09/2017 EMMA DO ENEDINA K Ot Z80.9 FAMILY HISTORY OF MALIGNANT NEOPLASM, UN 07/09/2017 EMMA DO ENEDINA K Ot Z85.46 PERSONAL HISTORY OF MALIGNANT NEOPLASM O 07/09/2017 EMMA DO ENEDINA K Ot Z92.3 PERSONAL HISTORY OF IRRADIATION 07/09/2017 EMMA DO ENEDINA K Ot Z95.1 PRESENCE OF AORTOCORONARY BYPASS GRAFT 07/09/2017 ENEDINA CARTER DO Ot Z95.5 PRESENCE OF CORONARY ANGIOPLASTY IMPLANT 09/10/2017 NERI KOTHARI, ANJALI Chen Ot E78.00 PURE HYPERCHOLESTEROLEMIA, UNSPECIFIED 09/10/2017 ANJALI HE MD Ot F03.90 UNSPECIFIED DEMENTIA WITHOUT BEHAVIORAL 09/10/2017 ANJALI HE MD Ot F32.9 MAJOR DEPRESSIVE DISORDER, SINGLE EPISOD 09/10/2017 ANJALI HE MD Ot 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, CHILDHOOD-ONSET TYPE 09/10/2017 ANJALI HE MD Ot I10 ESSENTIAL (PRIMARY) HYPERTENSION 09/10/2017 ANJALI HE MD Ot I16.0 HYPERTENSIVE URGENCY 09/10/2017 ANJALI HE MD Ot I25.10 ATHSCL HEART DISEASE OF [place] CORONARY 09/10/2017 ANJALI HE MD Ot K21.9 GASTRO-ESOPHAGEAL REFLUX DISEASE WITHOUT 09/10/2017 NERI KOTHARI, ANJALI Chen Ot R91.1 SOLITARY PULMONARY NODULE 09/10/2017 ANJALI HE MD Ot Z85.46 PERSONAL HISTORY OF MALIGNANT NEOPLASM O 09/10/2017 ANJALI HE MD Ot Z95.1 PRESENCE OF AORTOCORONARY BYPASS GRAFT 09/10/2017 ANJALI HE MD Ot Z95.2 PRESENCE OF PROSTHETIC HEART VALVE 09/10/2017 ANJALI HE MD Ot Z95.5 PRESENCE OF CORONARY ANGIOPLASTY IMPLANT 09/11/2017 DAIANA JOHN PATTERN TECHNICIAN Ot 272.4 HYPERLIPIDEMIA NEC/NOS 09/11/2017 DAIANA JOHN L PATTERN TECHNICIAN Ot 401.9 HYPERTENSION NOS 09/11/2017 DAIANA JOHN L PATTERN TECHNICIAN Ot 414.00 CORON ATHEROSCLER NOS TYPE VESSEL, NATIV 09/11/2017 DAIANA JOHN L PATTERN TECHNICIAN Ot 424.90 ENDOCARDITIS NOS 09/11/2017 DAIANA JOHN L PATTERN TECHNICIAN Ot 429.3 CARDIOMEGALY 09/11/2017 DAIANA JOHN L PATTERN TECHNICIAN Ot 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 09/11/2017 DAIANA JOHN L PATTERN TECHNICIAN Ot V45.81 AORTOCORONARY BYPASS 09/11/2017 DORADAIANA PATTERN TECHNICIAN Ot 272.4 HYPERLIPIDEMIA NEC/NOS 09/11/2017 DORADAIANA L PATTERN TECHNICIAN Ot 401.9 HYPERTENSION NOS 09/11/2017 DEONNAJENNIFER, DAIANA L PATTERN TECHNICIAN Ot 414.00 CORON ATHEROSCLER NOS TYPE VESSEL, NATIV 09/11/2017 DEONNAJENNIFER DAIANA Wilks PATTERN TECHNICIAN Ot 424.90 ENDOCARDITIS NOS 09/11/2017 DORA DAIANA L PATTERN TECHNICIAN Ot V45.81 AORTOCORONARY BYPASS 09/11/2017 FRANSISCA DO, LORAINE F Ot 715.36 LOC OSTEOARTH NOS-L/LEG 09/11/2017 FRANSISCA DO, LORAINE F Ot 791.9 ABN URINE FINDINGS NEC 09/11/2017 FRANSISCA DO, LORAINE F Ot V72.63 PRE-PROCEDURAL LABORATORY EXAMINATION 09/11/2017 FRANSISCA DO, LORAINE F Ot V72.83 EXAM PRE-OPERATIVE NEC 09/11/2017 FRANSISCA , LORAINE F Ot V74.8 SCREEN-BACTERIAL DIS NEC 09/11/2017 NGOZI KOTHARI, DINO Ot V72.84 EXAM PRE-OPERATIVE NOS 09/11/2017 Ot 599.0 URIN TRACT INFECTION NOS 09/11/2017 DEONNAJENNIFER DAIANA Wilks PATTERN TECHNICIAN Ot E78.5 HYPERLIPIDEMIA, UNSPECIFIED 09/11/2017 DORA DAIANA L PATTERN TECHNICIAN Ot I10 ESSENTIAL (PRIMARY) HYPERTENSION 09/11/2017 DORA DAIANA L PATTERN TECHNICIAN Ot I25.9 CHRONIC ISCHEMIC HEART DISEASE, UNSPECIF 09/11/2017 DORA DAIANA L PATTERN TECHNICIAN Ot I38 ENDOCARDITIS, VALVE UNSPECIFIED 09/11/2017 DORA DAIANA L PATTERN TECHNICIAN Ot I77.9 DISORDER OF ARTERIES AND ARTERIOLES, UNS 09/11/2017 DORA DAIANA L PATTERN TECHNICIAN Ot R07.9 CHEST PAIN, UNSPECIFIED 09/11/2017 DORA, DAIANA L PATTERN TECHNICIAN Ot Z95.1 PRESENCE OF AORTOCORONARY BYPASS GRAFT 09/11/2017 EVELYN KOTHARI, JUAREZ Sloan Ot N50.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 09/11/2017 STEPHANIE KOTHARI, LALI Beyer Ot N45.3 EPIDIDYMO-ORCHITIS 09/11/2017 Venessa SANTAMARIA MD Ot R55 SYNCOPE AND COLLAPSE 09/11/2017 BAIJENNIFER DAIANA L PATTERN TECHNICIAN Ot 272.4 HYPERLIPIDEMIA NEC/NOS 09/11/2017 BAIMADAIANA PATTERN TECHNICIAN Ot 401.9 HYPERTENSION NOS 09/11/2017 BAIDAIANA RODRIGUEZ PATTERN TECHNICIAN Ot 414.00 CORON ATHEROSCLER NOS TYPE VESSEL, NATIV 09/11/2017 BAIDAIANA RODRIGUEZ PATTERN TECHNICIAN Ot 424.90 ENDOCARDITIS NOS 09/11/2017 DAIANA JOHN PATTERN TECHNICIAN Ot 429.3 CARDIOMEGALY 09/11/2017 BAIDAIANA RODRIGUEZ PATTERN TECHNICIAN Ot 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 09/11/2017 BAIDAIANA RODRIGUEZ PATTERN TECHNICIAN Ot V45.81 AORTOCORONARY BYPASS 09/11/2017 BAIDAIANA RODRIGUEZ PATTERN TECHNICIAN Ot 272.4 HYPERLIPIDEMIA NEC/NOS 09/11/2017 BAIDAIANA RODRIGUEZ PATTERN TECHNICIAN Ot 401.9 HYPERTENSION NOS 09/11/2017 BAIDAIANA RODRIGUEZ PATTERN TECHNICIAN Ot 414.00 CORON ATHEROSCLER NOS TYPE VESSEL, NATIV 09/11/2017 DAIANA JOHN PATTERN TECHNICIAN Ot 424.90 ENDOCARDITIS NOS 09/11/2017 DAIANA JOHN PATTERN TECHNICIAN Ot V45.81 AORTOCORONARY BYPASS 09/11/2017 FRANSISCA DO, LORAINE F Ot 715.36 LOC OSTEOARTH NOS-L/LEG 09/11/2017 FRANSISCA DO, LORAINE F Ot 791.9 ABN URINE FINDINGS NEC 09/11/2017 LORAINE GONGORA DO Ot V72.63 PRE-PROCEDURAL LABORATORY EXAMINATION 09/11/2017 LORAINE GONGORA DO Ot V72.83 EXAM PRE-OPERATIVE NEC 09/11/2017 LORAINE GONGORA DO Ot V74.8 SCREEN-BACTERIAL DIS NEC 09/11/2017 NGOZI KOTHARI, DINO Ot V72.84 EXAM PRE-OPERATIVE NOS 09/11/2017 Ot 599.0 URIN TRACT INFECTION NOS 09/11/2017 DAIANA JOHN PATTERN TECHNICIAN Ot E78.5 HYPERLIPIDEMIA, UNSPECIFIED 09/11/2017 DAIANA JOHN PATTERN TECHNICIAN Ot I10 ESSENTIAL (PRIMARY) HYPERTENSION 09/11/2017 DEONNADAIANA RODRIGUEZ PATTERN TECHNICIAN Ot I25.9 CHRONIC ISCHEMIC HEART DISEASE, UNSPECIF 09/11/2017 DEONNADAIANA RODRIGUEZ PATTERN TECHNICIAN Ot I38 ENDOCARDITIS, VALVE UNSPECIFIED 09/11/2017 DEONNADAIANA RODRIGUEZ PATTERN TECHNICIAN Ot I77.9 DISORDER OF ARTERIES AND ARTERIOLES, UNS 09/11/2017 DORA DAIANA L PATTERN TECHNICIAN Ot R07.9 CHEST PAIN, UNSPECIFIED 09/11/2017 BAIJENNIFER DAIANA L PATTERN TECHNICIAN Ot Z95.1 PRESENCE OF AORTOCORONARY BYPASS GRAFT 09/11/2017 EVELYN KOTHARI, JUAREZ Sloan Ot N50.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 09/11/2017 STEPHANIE KOTHARI, LALI Beyer Ot N45.3 EPIDIDYMO-ORCHITIS 09/11/2017 HINA KOTHARI, Venessa WHATLEY Ot R55 SYNCOPE AND COLLAPSE 09/17/2017 Ot 729.5 09/17/2017 Ot 185 09/17/2017 Ot 562.10 09/17/2017 Ot 587 09/17/2017 Ot 715.31 09/17/2017 Ot 715.37 09/17/2017 Ot 185 09/17/2017 Ot V81.5 09/17/2017 Ot 185 09/17/2017 Ot 272.1 09/17/2017 Ot 401.9 09/17/2017 Ot 414.00 09/17/2017 Ot V45.82 09/17/2017 Ot V58.63 09/17/2017 Ot V58.69 09/17/2017 Ot V72.83 09/17/2017 Ot V74.8 09/17/2017 Ot 433.10 09/17/2017 Ot 424.1 AORTIC VALVE DISORDER 09/17/2017 Ot 786.09 RESPIRATORY ABNORM NEC 09/17/2017 Ot 786.59 CHEST PAIN NEC 09/17/2017 Ot 793.1 NOSP (ABN) FINDINGS ON RADIOLOGICAL OT 09/17/2017 Ot 786.59 CHEST PAIN NEC 09/17/2017 Ot V45.81 AORTOCORONARY BYPASS 09/17/2017 Ot 414.00 CORON ATHEROSCLER NOS TYPE VESSEL, NATIV 09/17/2017 Ot 786.50 CHEST PAIN NOS 09/17/2017 Ot V45.81 AORTOCORONARY BYPASS 09/17/2017 DORA DAIANA L PATTERN TECHNICIAN Ot 272.4 HYPERLIPIDEMIA NEC/NOS 09/17/2017 DORA DAIANA L PATTERN TECHNICIAN Ot 401.9 HYPERTENSION NOS 09/17/2017 DORA DAIANA L PATTERN TECHNICIAN Ot 414.00 CORON ATHEROSCLER NOS TYPE VESSEL, NATIV 09/17/2017 DORA DAIANA L PATTERN TECHNICIAN Ot 424.90 ENDOCARDITIS NOS 09/17/2017 DORA DAIANA L PATTERN TECHNICIAN Ot 429.3 CARDIOMEGALY 09/17/2017 DEONNADAIANA RODRIGUEZ PATTERN TECHNICIAN Ot 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 09/17/2017 DEONNADAIANA RODRIGUEZ PATTERN TECHNICIAN Ot V45.81 AORTOCORONARY BYPASS 09/17/2017 DAIANA JOHN L PATTERN TECHNICIAN Ot 272.4 HYPERLIPIDEMIA NEC/NOS 09/17/2017 DAIANA JOHN PATTERN TECHNICIAN Ot 401.9 HYPERTENSION NOS 09/17/2017 DEONNADAIANA RODRIGUEZ PATTERN TECHNICIAN Ot 414.00 CORON ATHEROSCLER NOS TYPE VESSEL, NATIV 09/17/2017 DEONNADAIANA RODRIGUEZ PATTERN TECHNICIAN Ot 424.90 ENDOCARDITIS NOS 09/17/2017 DEONNADAIANA RODRIGUEZ PATTERN TECHNICIAN Ot V45.81 AORTOCORONARY BYPASS 09/17/2017 FRANSISCA DO, LORAINE F Ot 715.36 LOC OSTEOARTH NOS-L/LEG 09/17/2017 FRANSISCA DO, LORAINE F Ot 791.9 ABN URINE FINDINGS NEC 09/17/2017 FRANSISCA STONER LORAINE F Ot V72.63 PRE-PROCEDURAL LABORATORY EXAMINATION 09/17/2017 FRANSISCA STONER LORAINE F Ot V72.83 EXAM PRE-OPERATIVE NEC 09/17/2017 FRANSISCA STONER LORAINE F Ot V74.8 SCREEN-BACTERIAL DIS NEC 09/17/2017 NGOZI KOTHARI, DINO Ot V72.84 EXAM PRE-OPERATIVE NOS 09/17/2017 Ot 599.0 URIN TRACT INFECTION NOS 09/17/2017 DEONNADAIANA RODRIGUEZ PATTERN TECHNICIAN Ot E78.5 HYPERLIPIDEMIA, UNSPECIFIED 09/17/2017 DORADAIANA PATTERN TECHNICIAN Ot I10 ESSENTIAL (PRIMARY) HYPERTENSION 09/17/2017 DORA DAIANA Efe PATTERN TECHNICIAN Ot I25.9 CHRONIC ISCHEMIC HEART DISEASE, UNSPECIF 09/17/2017 DORA DAIANA Efe PATTERN TECHNICIAN Ot I38 ENDOCARDITIS, VALVE UNSPECIFIED 09/17/2017 DEONNAJENNIFER DAIANA Wilks PATTERN TECHNICIAN Ot I77.9 DISORDER OF ARTERIES AND ARTERIOLES, UNS 09/17/2017 DORA DAIANA Efe PATTERN TECHNICIAN Ot R07.9 CHEST PAIN, UNSPECIFIED 09/17/2017 DORA DAIANA Wilks PATTERN TECHNICIAN Ot Z95.1 PRESENCE OF AORTOCORONARY BYPASS GRAFT 09/17/2017 EVELYN KOTHARI, JUAREZ Sloan Ot N50.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 09/17/2017 STEPHANIE KOTHARI, LALI Beyer Ot N45.3 EPIDIDYMO-ORCHITIS 09/17/2017 HINA KOTHARI, Venessa WHATLEY Ot R55 SYNCOPE AND COLLAPSE 09/18/2017 BAIMA, DAIANA L PATTERN TECHNICIAN Ot 272.4 HYPERLIPIDEMIA NEC/NOS 09/18/2017 BAIMA, DAIANA L PATTERN TECHNICIAN Ot 401.9 HYPERTENSION NOS 09/18/2017 BAIMA, DAIANA L PATTERN TECHNICIAN Ot 414.00 CORON ATHEROSCLER NOS TYPE VESSEL, NATIV 09/18/2017 BAIMA, DAIANA L PATTERN TECHNICIAN Ot 424.90 ENDOCARDITIS NOS 09/18/2017 BAIMA, DAIANA L PATTERN TECHNICIAN Ot 429.3 CARDIOMEGALY 09/18/2017 BAIMA, DAIANA L PATTERN TECHNICIAN Ot 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 09/18/2017 BAIMA, DAIANA L PATTERN TECHNICIAN Ot V45.81 AORTOCORONARY BYPASS 09/18/2017 BAIMA, DAIANA L PATTERN TECHNICIAN Ot 272.4 HYPERLIPIDEMIA NEC/NOS 09/18/2017 BAIMA, DAIANA L PATTERN TECHNICIAN Ot 401.9 HYPERTENSION NOS 09/18/2017 BAIMA, DAIANA L PATTERN TECHNICIAN Ot 414.00 CORON ATHEROSCLER NOS TYPE VESSEL, NATIV 09/18/2017 BAIMA, DAIANA L PATTERN TECHNICIAN Ot 424.90 ENDOCARDITIS NOS 09/18/2017 BAIMA, DAIANA L PATTERN TECHNICIAN Ot V45.81 AORTOCORONARY BYPASS 09/18/2017 FRANSISCA , LORAINE F Ot 715.36 LOC OSTEOARTH NOS-L/LEG 09/18/2017 FRANSISCA DO, LORAINE F Ot 791.9 ABN URINE FINDINGS NEC 09/18/2017 FRANSISCA STONER LORAINE F Ot V72.63 PRE-PROCEDURAL LABORATORY EXAMINATION 09/18/2017 FRANSISCA STONER LORAINE F Ot V72.83 EXAM PRE-OPERATIVE NEC 09/18/2017 FRANSISCA STONER LORAINE F Ot V74.8 SCREEN-BACTERIAL DIS NEC 09/18/2017 NGOZI KOTHARI, DINO Ot V72.84 EXAM PRE-OPERATIVE NOS 09/18/2017 Ot 599.0 URIN TRACT INFECTION NOS 09/18/2017 BAIMA, DAIANA L PATTERN TECHNICIAN Ot E78.5 HYPERLIPIDEMIA, UNSPECIFIED 09/18/2017 BAIMA, DAIANA L PATTERN TECHNICIAN Ot I10 ESSENTIAL (PRIMARY) HYPERTENSION 09/18/2017 BAIMA, DAIANA L PATTERN TECHNICIAN Ot I25.9 CHRONIC ISCHEMIC HEART DISEASE, UNSPECIF 09/18/2017 DAIANA JOHN L PATTERN TECHNICIAN Ot I38 ENDOCARDITIS, VALVE UNSPECIFIED 09/18/2017 DAIANA JOHN L PATTERN TECHNICIAN Ot I77.9 DISORDER OF ARTERIES AND ARTERIOLES, UNS 09/18/2017 ZACH JOHNHER L PATTERN TECHNICIAN Ot R07.9 CHEST PAIN, UNSPECIFIED 09/18/2017 ZACH JOHNHER L PATTERN TECHNICIAN Ot Z95.1 PRESENCE OF AORTOCORONARY BYPASS GRAFT 09/18/2017 EVELYN KOTHARI, JUAREZ Sloan Ot N50.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 09/18/2017 STEPHANIE KOTHARI, LALI Beyer Ot N45.3 EPIDIDYMO-ORCHITIS 09/18/2017 Venessa SANTAMARIA MD Ot R55 SYNCOPE AND COLLAPSE 10/24/2017 Ot 729.5 10/24/2017 Ot 185 10/24/2017 Ot 562.10 10/24/2017 Ot 587 10/24/2017 Ot 715.31 10/24/2017 Ot 715.37 10/24/2017 Ot 185 10/24/2017 Ot V81.5 10/24/2017 Ot 185 10/24/2017 Ot 272.1 10/24/2017 Ot 401.9 10/24/2017 Ot 414.00 10/24/2017 Ot V45.82 10/24/2017 Ot V58.63 10/24/2017 Ot V58.69 10/24/2017 Ot V72.83 10/24/2017 Ot V74.8 10/24/2017 Ot 433.10 10/24/2017 Ot 424.1 AORTIC VALVE DISORDER 10/24/2017 Ot 786.09 RESPIRATORY ABNORM NEC 10/24/2017 Ot 786.59 CHEST PAIN NEC 10/24/2017 Ot 793.1 NOSP (ABN) FINDINGS ON RADIOLOGICAL OT 10/24/2017 Ot 786.59 CHEST PAIN NEC 10/24/2017 Ot V45.81 AORTOCORONARY BYPASS 10/24/2017 Ot 414.00 CORON ATHEROSCLER NOS TYPE VESSEL, NATIV 10/24/2017 Ot 786.50 CHEST PAIN NOS 10/24/2017 Ot V45.81 AORTOCORONARY BYPASS 10/24/2017 DAIANA JOHN L PATTERN TECHNICIAN Ot 272.4 HYPERLIPIDEMIA NEC/NOS 10/24/2017 DAIANA JOHN L PATTERN TECHNICIAN Ot 401.9 HYPERTENSION NOS 10/24/2017 ZACH JOHNHER L PATTERN TECHNICIAN Ot 414.00 CORON ATHEROSCLER NOS TYPE VESSEL, NATIV 10/24/2017 BAIMA, DAIANA L PATTERN TECHNICIAN Ot 424.90 ENDOCARDITIS NOS 10/24/2017 BAIMA, DAIANA L PATTERN TECHNICIAN Ot 429.3 CARDIOMEGALY 10/24/2017 BAIMA, DAIANA L PATTERN TECHNICIAN Ot 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 10/24/2017 BAIJENNIFER, DAIANA L PATTERN TECHNICIAN Ot V45.81 AORTOCORONARY BYPASS 10/24/2017 BAIJENNIFER, DAIANA L PATTERN TECHNICIAN Ot 272.4 HYPERLIPIDEMIA NEC/NOS 10/24/2017 BAIMA, DAIANA L PATTERN TECHNICIAN Ot 401.9 HYPERTENSION NOS 10/24/2017 BAIMA, DAIANA L PATTERN TECHNICIAN Ot 414.00 CORON ATHEROSCLER NOS TYPE VESSEL, NATIV 10/24/2017 BAIMA, DAIANA L PATTERN TECHNICIAN Ot 424.90 ENDOCARDITIS NOS 10/24/2017 BAIJENNIFER, DAIANA L PATTERN TECHNICIAN Ot V45.81 AORTOCORONARY BYPASS 10/24/2017 LORAINE GONGORA DO Ot 715.36 LOC OSTEOARTH NOS-L/LEG 10/24/2017 LORAINE GONGORA DO Ot 791.9 ABN URINE FINDINGS NEC 10/24/2017 LORAINE GONGORA DO Ot V72.63 PRE-PROCEDURAL LABORATORY EXAMINATION 10/24/2017 LORAINE GONGORA DO Ot V72.83 EXAM PRE-OPERATIVE NEC 10/24/2017 LORAINE GONGORA DO Ot V74.8 SCREEN-BACTERIAL DIS NEC 10/24/2017 NGOZI KOTHARI, DINO Ot V72.84 EXAM PRE-OPERATIVE NOS 10/24/2017 Ot 599.0 URIN TRACT INFECTION NOS 10/24/2017 DEONNADAIANA RODRIGUEZ L PATTERN TECHNICIAN Ot E78.5 HYPERLIPIDEMIA, UNSPECIFIED 10/24/2017 BAIZACH RODRIGUEZHER L PATTERN TECHNICIAN Ot I10 ESSENTIAL (PRIMARY) HYPERTENSION 10/24/2017 BAIJENNIFER DAIANA L PATTERN TECHNICIAN Ot I25.9 CHRONIC ISCHEMIC HEART DISEASE, UNSPECIF 10/24/2017 BAIMADAIANA L PATTERN TECHNICIAN Ot I38 ENDOCARDITIS, VALVE UNSPECIFIED 10/24/2017 BAIDAIANA RODRIGUEZ L PATTERN TECHNICIAN Ot I77.9 DISORDER OF ARTERIES AND ARTERIOLES, UNS 10/24/2017 BAIZACH RODRIGUEZHER L PATTERN TECHNICIAN Ot R07.9 CHEST PAIN, UNSPECIFIED 10/24/2017 BAIMA, DAIANA L PATTERN TECHNICIAN Ot Z95.1 PRESENCE OF AORTOCORONARY BYPASS GRAFT 10/24/2017 EVELYN KOTHARI, JUAREZ Sloan Ot N50.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 10/24/2017 STEPHANIE KOTHARI, LALI Beyer Ot N45.3 EPIDIDYMO-ORCHITIS 10/24/2017 HINA KOTHARI, Venessa WHATLEY Ot R55 SYNCOPE AND COLLAPSE 10/24/2017 BAIMA, DAIANA L PATTERN TECHNICIAN Ot 272.4 HYPERLIPIDEMIA NEC/NOS 10/24/2017 BAIMA, DAIANA L PATTERN TECHNICIAN Ot 401.9 HYPERTENSION NOS 10/24/2017 BAIMA, DAIANA L PATTERN TECHNICIAN Ot 414.00 CORON ATHEROSCLER NOS TYPE VESSEL, NATIV 10/24/2017 BAIMA, DAIANA L PATTERN TECHNICIAN Ot 424.90 ENDOCARDITIS NOS 10/24/2017 BAIMA, DAIANA L PATTERN TECHNICIAN Ot 429.3 CARDIOMEGALY 10/24/2017 BAIMA, DAIANA L PATTERN TECHNICIAN Ot 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 10/24/2017 BAIMA, DAIANA L PATTERN TECHNICIAN Ot V45.81 AORTOCORONARY BYPASS 10/24/2017 BAIMA, DAIANA L PATTERN TECHNICIAN Ot 272.4 HYPERLIPIDEMIA NEC/NOS 10/24/2017 BAIMA, DAIANA L PATTERN TECHNICIAN Ot 401.9 HYPERTENSION NOS 10/24/2017 BAIMA, DAIANA L PATTERN TECHNICIAN Ot 414.00 CORON ATHEROSCLER NOS TYPE VESSEL, NATIV 10/24/2017 BAIMA, DAIANA L PATTERN TECHNICIAN Ot 424.90 ENDOCARDITIS NOS 10/24/2017 BAIMA, DAIANA L PATTERN TECHNICIAN Ot V45.81 AORTOCORONARY BYPASS 10/24/2017 LORAINE GONGORA DO Ot 715.36 LOC OSTEOARTH NOS-L/LEG 10/24/2017 LORAINE GONGORA DO Ot 791.9 ABN URINE FINDINGS NEC 10/24/2017 LORAINE GONGORA DO Ot V72.63 PRE-PROCEDURAL LABORATORY EXAMINATION 10/24/2017 LORAINE GONGORA DO Ot V72.83 EXAM PRE-OPERATIVE NEC 10/24/2017 LORAINE GONGORA DO Ot V74.8 SCREEN-BACTERIAL DIS NEC 10/24/2017 NGOZI KOTHARI, DINO Ot V72.84 EXAM PRE-OPERATIVE NOS 10/24/2017 Ot 599.0 URIN TRACT INFECTION NOS 10/24/2017 BAIMA, DAIANA L PATTERN TECHNICIAN Ot E78.5 HYPERLIPIDEMIA, UNSPECIFIED 10/24/2017 DAIANA JOHN PATTERN TECHNICIAN Ot I10 ESSENTIAL (PRIMARY) HYPERTENSION 10/24/2017 DAIANA JOHN PATTERN TECHNICIAN Ot I25.9 CHRONIC ISCHEMIC HEART DISEASE, UNSPECIF 10/24/2017 DAIANA JOHN PATTERN TECHNICIAN Ot I38 ENDOCARDITIS, VALVE UNSPECIFIED 10/24/2017 DAIANA JOHN PATTERN TECHNICIAN Ot I77.9 DISORDER OF ARTERIES AND ARTERIOLES, UNS 10/24/2017 DAIANA JOHN PATTERN TECHNICIAN Ot R07.9 CHEST PAIN, UNSPECIFIED 10/24/2017 DAIANA JOHN PATTERN TECHNICIAN Ot Z95.1 PRESENCE OF AORTOCORONARY BYPASS GRAFT 10/24/2017 EVELYN KOTHARI, JUAREZ Sloan Ot N50.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 10/24/2017 STEPHANIE KOTHARI, LALI Beyer Ot N45.3 EPIDIDYMO-ORCHITIS 10/24/2017 HINA KOTHARI, Venessa WHATLEY Ot R55 SYNCOPE AND COLLAPSE Procedures Code [...] Status Pt. Type Provider Facility Loc./Unit Complaint [id number] 09/10/2017 20:12:00 09/10/2017 22:59:00 DIS Emergency NERI KOTHARI, ANJALI Chen [facility] ER AMS [id number] 07/03/2017 18:11:00 07/03/2017 20:45:00 DIS Emergency ENEDINA CARTER DO [facility] ER CONFUSION [id number] 07/01/2017 12:39:00 07/02/2017 17:36:00 DIS Inpatient ODGERS MD, CELESTINE K [facility] ICU CP,LIGHTHEADED,DEMENTIA [id number] 03/11/2017 09:00:00 03/11/2017 23:59:59 CLS Preadmit Venessa SANTAMARIA MD [facility] CARD SYNCOPE [id number] 01/06/2017 09:30:00 03/10/2017 00:01:00 DIS Outpatient Venessa SANTAMARIA MD [facility] CARD SYNCOPE [id number] 12/02/2016 06:04:00 12/03/2016 18:36:00 DIS Inpatient CELESTINE ONEILL MD [facility] ICU SYNCOPE, SOA [id number] 03/21/2016 12:57:00 03/21/2016 23:59:59 CLS Outpatient LALI BROWN MD [facility] RAD EPIDIDYMO ORCHITIS [id number] 02/12/2016 08:32:00 02/12/2016 23:59:59 CLS Outpatient JUAREZ RIVAS MD [facility] RAD TENDER L TESTICLE [id number] 06/06/2015 09:33:00 06/06/2015 23:59:59 CLS Outpatient DAIANA JOHN [facility] CARD CP CAD CAROTID ARTERY DISEASE HTN [id number] 02/09/2014 09:01:00 02/09/2014 23:59:59 CLS Outpatient DINO MELVIN MD [facility] SDC SCREENING [id number] 11/10/2013 11:27:00 02/08/2014 00:01:00 DIS Outpatient LORAINE GONGORA DO [facility] LAB UTI [id number] 02/03/2014 07:29:00 02/03/2014 23:59:59 CLS Outpatient DINO MELVIN MD [facility] PREOP SCREENING [id number] 12/21/2013 14:10:00 01/06/2014 16:30:00 DIS Outpatient LORAINE GONGORA DO [facility] REHAB S/P RT TOTAL KNEE REPLACEMENT [id number] 11/16/2013 06:00:00 11/19/2013 15:45:00 DIS Inpatient LORAINE GONGORA DO [facility] SURGICAL RIGHT KNEE DJD [id number] 10/26/2013 13:21:00 10/26/2013 23:59:59 CLS Outpatient LORAINE GONGORA DO [facility] PREOP RIGHT KNEE DJD [id number] 07/01/2013 08:03:00 07/01/2013 23:59:59 CLS Outpatient DORA DAIANA L PATTERN TECHNICIAN [facility] RAD CAD,HTN,HLP,POST CABG [id number] 06/18/2013 08:23:00 06/18/2013 23:59:59 CLS Outpatient DEONNAJENNIFERDAIANAP [facility] CARD CAD,HTN,HLP,POST CABG [id number] 04/01/2013 11:36:00 04/01/2013 14:19:00 DIS Emergency NERI KOTHARI, ANJALI Chen [facility] ER DIZZY [id number] 09/17/2017 20:50:00 Document Registration [id number] 09/17/2017 20:50:00 Document Registration [id number] 09/17/2017 20:50:00 Document Registration [id number] 06/06/2015 09:31:00 Document Registration [id number] 06/06/2015 09:31:00 Document Registration [id number] 02/09/2014 00:00:00 Document Registration [id number] 02/15/2012 15:00:00 Document Registration [id number] 07/19/2010 11:02:00 Document Registration [id number] 06/13/2010 11:32:00 Document Registration [id number] 05/16/2010 11:40:00 Document Registration [id number] 04/04/2010 11:12:00 Document Registration [id number] 02/27/2010 12:35:00 Document Registration [id number] 01/12/2010 12:22:00 Document Registration [id number] 03/24/2009 08:57:00 Document Registration [id number] 10/19/2008 10:34:00 Document Registration [id number] 09/05/2008 12:46:00 Document Registration [id number] 07/27/2008 14:08:00 Document Registration [id number] 07/13/2008 16:06:00 Document Registration [id number] 02/15/2008 09:47:00 Document Registration [id number] 02/10/2008 13:35:00 Document Registration [id number] 02/12/2007 11:11:00 Document Registration [id number] 08/11/2006 09:44:00 Document Registration [id number] 06/06/2015 14:04:36 ACT Document Registration [id number] 07/10/2017 09:55:48 07/10/2017 23:59:59 [facility] Outpatient
[2018-07-19] MEDS ORDERED: ATROPINE INJ 0.4 MG/ML SDV ONE ×2 (18:23→18:27)
[2018-07-19] MEDS ORDERED: NITROGLYCERIN 2% OINT 1 GM UNIT DOSE PACKET ONE (18:39)
[2018-07-19] MEDS ORDERED: hydrALAZINE (APESOLINE) 20 MG/ML VIAL ONE (18:44)
[2018-07-19] MEDS: hydrALAZINE (APESOLINE) 20 MG/ML VIAL IV PRN (18:45)
[2018-07-19 19:05] LABS: BASOPHILS % (AUTO) 0 % (0-10); EOSINOPHILS # (AUTO) 0.2 10^3/uL (0.0-0.3); EOSINOPHILS % (AUTO) 2 % (0-10); HEMATOCRIT 45 % (40-54); LYMPHOCYTES % (AUTO) 22 % (12-44); MEAN CORPUSCULAR HEMOGLOBIN 31 PG (25-34); MEAN CORPUSCULAR HGB CONC 34 G/DL (32-36); MEAN CORPUSCULAR VOLUME 92 FL (80-99); MEAN PLATELET VOLUME 11.3 FL (7.4-10.4); MONOCYTES # (AUTO) 1.1 X 10^3 (0.0-1.0); MONOCYTES % (AUTO) 12 % (0-12); NEUTROPHILS % (AUTO) 64 % (42-75); PLATELET COUNT 229 10^3/uL (130-400); RED BLOOD COUNT 4.84 10^6/uL (4.35-5.85); WHITE BLOOD COUNT 9.3 10^3/uL (4.3-11.0)
[2018-07-19 19:16] LABS: INR 1.1 (0.8-1.4); PROTHROMBIN TIME PATIENT 13.9 SEC (12.2-14.7)
[2018-07-19 19:24] LABS: ALANINE AMINOTRANSFERASE 13 U/L (0-55); ALBUMIN 4.4 GM/DL (3.2-4.5); ALKALINE PHOSPHATASE 85 U/L (40-136); BILIRUBIN,TOTAL 0.6 MG/DL (0.1-1.0); BUN/CREATININE RATIO 15; CALCIUM 10.2 MG/DL (8.5-10.1); CARBON DIOXIDE 19 MMOL/L (21-32); CHLORIDE 106 MMOL/L (98-107); CREATININE SERUM 1.83 MG/DL (0.60-1.30); GFR ESTIMATED 35; GLUCOSE 125 MG/DL (70-105); MAGNESIUM 2.6 MG/DL (1.8-2.4); POTASSIUM 3.7 MMOL/L (3.6-5.0); SODIUM 140 MMOL/L (135-145); TOTAL PROTEIN 8.3 GM/DL (6.4-8.2)
--- NOTE | 2018-07-19 19:25 | Diagnostic Imaging Report ---
INDICATION: Blood pressure problems. Shortness of air. EXAMINATION: Chest, 07/19/2018. COMPARISON: 07/03/2017. FINDINGS: The heart is stable. The pulmonary vasculature is unremarkable. Sternotomy wires are noted. Minimal bibasilar atelectasis is seen. No effusions or infiltrates. No pneumothorax. IMPRESSION: Bibasilar atelectasis overall stable chest. Dictated by: Dictated on workstation # [id number]
--- NOTE | 2018-07-19 19:27 | ED General ---
General Chief Complaint: Cardiac/General Problems Stated Complaint: BLOOD PRESSURE PROBLEMS,DIZZY,DEMENTIA Nursing Triage Note: ARRIVED VIA AMB TOR ROOM 07 SLOWLY WITH A CANE. HAD BEEN SEEN AT [facility] ET SENT HERE TO ABNORMAL VITALS. DAUGHTER STATES HE HAS BEEN COMPLAINING OF A BACK PAIN BUT MIGHT BE RELATED TO HELPINS SOMEONE OFF THE FLOOR. PT ALSO TOLD DAUGTER THAT HE HAD FELL BUT IT WAS UNWITTNESSED AND HE HAS A HX OF DEMENTIA. Nursing Sepsis Screen: No Definite Risk Source of Information: Family (DAUGHTER) Exam Limitations: Other (PT WITH DEMENTIA AND HAS CONFUSED CONVERSATION AND SPEECH IS MOSTLY NON-SENSICAL. ABLE TO ANSWER A FEW YES/NO QUESTIONS APPROPRIOATELY BUT CANNOT MAKE MEANINGFUL /RELEVANT SENTENCES FOR THE MOST PART. NORMAL BASELINE FOR PT) History of Present Illness Date Seen by Provider: Jul 19, 2018 Time Seen by Provider: 18:12 Initial Comments PT ARRIVES VIA POV WITH DAUGHTER--PT LIVES AT [facility] WAS SEEN AT [facility] AND SENT HERE--BP 212/176, PULSE 36. 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 -DAUGHTER STATES THAT HE HAS HAD INCREASED PARANOIA TODAY WELL--HE HAS BEEN THINKING THAT SOMEONE IS TRYING TO POISON THEM AND HE WAS OPENING ALL THE WINDOWS AND TRYING TO GET EVERYBODY OUT--THIS IS WHY SHE WAS CALLED TO [facility] TODAY DAUGHTER STATES THAT SEROQUEL DOSE WAS INCREASED THIS WEEK FOR INCREASING AGITATION PT IS DNR/DNI PCP: DR. JIMÉNEZ Allergies and Home Medications Allergies Coded Allergies: Penicillins (Verified Allergy, Unknown, 02/15/12) Home Medications Amlodipine Besylate 10 Mg Tablet, 10 MG PO DAILY, (Reported) LAST FILLED 02/19/17 #90 Clopidogrel Bisulfate 75 Mg Tablet, 75 MG PO DAILY, (Reported) LAST FILLED 01/30/17 #30 Docusate Sodium 100 Mg Capsule, 100 MG PO BID PRN for CONSTIPATION-1ST LINE, ( Reported) Ezetimibe 10 Mg Tablet, 10 MG PO DAILY, (Reported) LAST FILLED 02/24/17 #30 Fenofibrate Nanocrystallized 48 Mg Tablet, 48 MG PO DAILY, (Reported) LAST FILLED 02/24/17 #30 Metoprolol Succinate 25 Mg Tab.er.24h, 12.5 MG PO DAILY, (Reported) TAKES 1/2 OF A (25 MG) TABLET Quetiapine Fumarate 25 Mg Tablet, 25 MG PO HS Prescribed by: ANJALI RICO on 09/10/17 2303 Solifenacin Succinate 5 Mg Tablet, 5 MG PO DAILY, (Reported) LAST FILLED 02/22/17 #30 Tamsulosin HCl 0.4 Mg Cap.er.24h, 0.4 MG PO HS, (Reported) LAST FILLED 01/09/17 #90 Patient Home Medication List Home Medication List Reviewed: Yes Review of Systems Review of Systems Constitutional: dizziness Respiratory: No short of breath Cardiovascular: No chest pain; other (HR 20 ON ARRIVAL) Musculoskeletal: see HPI, back pain Psychiatric/Neurological: Pre-Existing Deficit (DEMENTIA---PT IS AT NORMAL BASELINE TODAY) Past Ilfdkut-Azrrtb-Ldqmoa Hx Patient Social History Alcohol Use: Denies Use Recreational Drug Use: No Smoking Status: Never a Smoker Recent Foreign Travel: No Contact w/Someone Who Travel: No Recent Infectious Disease Expo: No Recent Hopitalizations: No Immunizations Up To Date Tetanus Booster (TDap): Unknown PED Vaccines UTD: No Date of Pneumonia Vaccine: Jun 01, 2011 Date of Influenza Vaccine: Jun 01, 2013 Seasonal Allergies Seasonal Allergies: No Past Medical History Surgeries: Yes (CARDIAC STENTS X 2; CABG AND 1 VALVE REPLACED IN 2009; ENDARTECTOMY; BRACHYTHERAPY; RIGHT KNEE REPLACEMENT ) CABG, Joint Replacement, Orthopedic, Valve Replacement, Vascular Surgery Respiratory: No Currently Using CPAP: No Currently Using BIPAP: No Cardiac: Yes (HEART STENTS X 2; ONE VALVE REPLACED AND CABG IN 2009; RBBB) Coronary Artery Disease, High Cholesterol, Hypertension, Valvular Heart Disease Neurological: Yes Dementia Reproductive Disorders: No Genitourinary: Yes Prostate Problems, Renal Failure Gastrointestinal: Yes Gastroesophageal Reflux Musculoskeletal: Yes (ARTHRITIS) Arthritis Endocrine: No HEENT: No Cancer: Yes Prostate Did You Recieve Any Treatments: Yes (BRACHYTHERAPY) What Type of Treatment Did You: Radiation Psychosocial: Yes Depression Integumentary: No Blood Disorders: No (TAKES PLAVIX) Family Medical History Cancer 09 SISTER Family history: Arthritis 03 FATHER 03 MOTHER Family history: Diabetes mellitus 03 MOTHER Family history: Gastrointestinal disease 03 FATHER History of - anemia 03 FATHER No Family History of: Abdominal aortic aneurysm Congestive heart failure Dementia Family history: Alzheimer's disease Family history: Asthma Family history: Breast disease Family history: Cardiovascular disease Family history: Hypertension Family history: Thyroid disorder Hereditary disease History of - respiratory disease Myocardial infarction Parkinson's disease Psychotic disorder Stroke Physical Exam Vital Signs Vital Signs - First Documented 07/19/18 07/19/18 17:54 19:01 Temp 98.0 Pulse 33 Resp 18 B/P (MAP) 191/88 (122) Pulse Ox 98 O2 Delivery Room Air O2 Flow Rate 2.00 Capillary Refill : Less Than 3 Seconds Height, Weight, BMI Height: 5'8.00" Weight: 160lbs. 7.0oz. [id number]; 27.1 BMI Method:Estimated General Appearance: No Apparent Distress, WD/WN, Other (SMILING, LAUGHING, DOES NOT APPEAR TO BE IN ANY DISCOMFORT OR DISTRESS) HEENT: Other (DRY ORAL MUCOSA) Neck: Normal Inspection Respiratory: Normal Breath Sounds, No Accessory Muscle Use, No Respiratory Distress Cardiovascular: No JVD, No Murmur, Normal Peripheral Pulses, Bradycardia (RATE OF 20 ON ARRIVAL), Irregularly Irregular Gastrointestinal: Non Tender, Soft Extremity: Normal Capillary Refill, Non Tender, Other (SWELLING TO LEFT KNEE WITH ELASTIC BRACE ON LEFT KNEE. TRACE SWELLING TO LEFT LOWER LEG. ) Neurologic/Psychiatric: Alert, No Motor/Sensory Deficits, Normal Mood/Affect, Other (ORIENTED TO PERSON, BUT DISORIENTED TO PLACE, TIME, SITUATION AND HAS CONFUSED SPEECH. ABLE TO ANSWER DIRECT YES/NO QUESTIONS, BUT UNABLE TO COMPLETE ANY COHERENT/RELAVENT SENTENCE. ABLE TO FOLLOW SIMPLE COMMANDS. ) Skin: Normal Color, Warm/Dry, Other (NO EXTERNAL EVIDENCE OF TRAUMA. ) Progress/Results/Core Measures Suspected Sepsis Recent Fever Within 48 Hours: No Infection Criteria Present: None New/Unexplained Altered Menta: No Sepsis Screen: No Definite Risk SIRS Temperature:98.0 Pulse: 33 Respiratory Rate: 18 Laboratory Tests 07/19/18 18:55: White Blood Count 9.3 07/20/18 03:00: White Blood Count 7.4 Blood Pressure 191 /88 Mean: 122 Laboratory Tests 07/19/18 18:55: Creatinine 1.83H, INR Comment 1.1, Platelet Count 229, Total Bilirubin 0.6 07/20/18 03:00: Creatinine 1.76H, Platelet Count 201, Total Bilirubin 0.6 Results/Orders Lab Results Laboratory Tests Test 07/19/18 18:16 07/19/18 18:18 07/19/18 18:55 07/20/18 03:00 Range/Units Glucometer 113 H 70-110 MG/DL B-Type Natriuretic Peptide 137.9 H <100.0 PG/ML White Blood Count 9.3 7.4 4.3-11.0 10^3/uL Red Blood Count 4.84 4.38 4.35-5.85 10^6/uL Hemoglobin 15.0 13.4 13.3-17.7 G/DL Hematocrit 45 40 40-54 % Mean Corpuscular Volume 92 92 80-99 FL Mean Corpuscular Hemoglobin 31 31 25-34 PG Mean Corpuscular Hemoglobin Concent 34 33 32-36 G/DL Red Cell Distribution Width 14.0 13.6 10.0-14.5 % Platelet Count 229 201 130-400 10^3/uL Mean Platelet Volume 11.3 H 11.7 H 7.4-10.4 FL Neutrophils (%) (Auto) 64 66 42-75 % Lymphocytes (%) (Auto) 22 16 12-44 % Monocytes (%) (Auto) 12 15 H 0-12 % Eosinophils (%) (Auto) 2 3 0-10 % Basophils (%) (Auto) 0 0 0-10 % Neutrophils # (Auto) 6.0 4.9 1.8-7.8 X 10^3 Lymphocytes # (Auto) 2.0 1.2 1.0-4.0 X 10^3 Monocytes # (Auto) 1.1 H 1.1 H 0.0-1.0 X 10^3 Eosinophils # (Auto) 0.2 0.2 0.0-0.3 10^3/uL Basophils # (Auto) 0.0 0.0 0.0-0.1 10^3/uL Prothrombin Time 13.9 12.2-14.7 SEC INR Comment 1.1 0.8-1.4 Activated Partial Thromboplast Time 28 24-35 SEC Sodium Level 140 140 135-145 MMOL/L Potassium Level 3.7 4.1 3.6-5.0 MMOL/L Chloride Level 106 109 H 98-107 MMOL/L Carbon Dioxide Level 19 L 20 L 21-32 MMOL/L Anion Gap 15 H 11 5-14 MMOL/L Blood Urea Nitrogen 28 H 29 H 7-18 MG/DL Creatinine 1.83 H 1.76 H 0.60-1.30 MG/DL Estimat Glomerular Filtration Rate 35 37 BUN/Creatinine Ratio 15 16 Glucose Level 125 H 105 70-105 MG/DL Calcium Level 10.2 H 9.4 8.5-10.1 MG/DL Corrected Calcium 9.9 9.6 8.5-10.1 MG/DL Magnesium Level 2.6 H 1.8-2.4 MG/DL Total Bilirubin 0.6 0.6 0.1-1.0 MG/DL Aspartate Amino Transf (AST/SGOT) 20 17 5-34 U/L Alanine Aminotransferase (ALT/SGPT) 13 11 0-55 U/L Alkaline Phosphatase 85 65 40-136 U/L Troponin I < 0.30 <0.30 NG/ML Total Protein 8.3 H 6.5 6.4-8.2 GM/DL Albumin 4.4 3.7 3.2-4.5 GM/DL Free Thyroxine 1.07 0.70-1.48 NG/DL TSH Reeders Testing 5.82 H 0.35-4.94 UIU/ML My Orders Orders - ENEDINA CARTER DO Accucheck Stat ONCE (07/19/18 18:18) Saline Lock/Iv-Start (07/19/18 18:18) Ekg Tracing (07/19/18 18:18) O2 (07/19/18 18:18) Monitor-Rhythm Ecg Trace Only (07/19/18 18:18) BNP (07/19/18 18:18) Cbc With Automated Diff (07/19/18 18:18) Comprehensive Metabolic Panel (07/19/18 18:18) Magnesium (07/19/18 18:18) Protime With Inr (07/19/18 18:18) Partial Thromboplastin Time (07/19/18 18:18) Thyroid Analyzer (07/19/18 18:18) Troponin I (07/19/18 18:18) Chest 1 View, Ap/Pa Only (07/19/18 18:18) Atropine Injection (Atropine Injection) (07/19/18 18:23) Atropine Injection (Atropine Injection) (07/19/18 18:27) Nitroglycerin Ointment (Nitrobid Ointme (07/19/18 18:39) Hydralazine Injection (Apresoline Inject (07/19/18 18:44) Free T4 (Free Thyroxine) (07/19/18 18:55) Fentanyl Injection (Sublimaze Injection (07/19/18 19:56) Acetaminophen Tablet (Tylenol Tablet) (07/19/18 19:57) Acetaminophen Tablet (Tylenol Tablet) (07/19/18 20:00) Fentanyl Injection (Sublimaze Injection (07/19/18 19:59) Lorazepam Injection (Ativan Injection) (07/19/18 20:30) Ekg Tracing (07/20/18 06:35) Ekg Tracing (07/20/18 06:35) Ekg Tracing (07/20/18 06:35) Ekg Tracing (07/20/18 06:35) Ekg Tracing (07/20/18 06:35) Ekg Tracing (07/20/18 06:35) Ekg Tracing (07/20/18 06:35) Ekg Tracing (07/20/18 06:35) Medications Given in ED Current Medications Medications Dose Ordered Sig/Tamera Route Start Time Stop Time Status Last Admin Dose Admin Acetaminophen 1,000 mg ONCE ONCE PO 07/19/18 20:00 07/19/18 20:01 DC 07/19/18 20:03 1,000 MG Vital Signs/I&O 07/19/18 07/19/18 07/19/18 07/19/18 19:01 20:50 20:56 21:00 Temp 98.7 98.1 Pulse 34 39 37 Resp 15 14 19 B/P (MAP) 148/60 (89) 147/70 (95) 149/80 (103) Pulse Ox 98 100 100 O2 Delivery Nasal Cannula Nasal Cannula Nasal Cannula Nasal Cannula O2 Flow Rate 2.00 3.00 2.00 2.00 07/19/18 07/19/18 07/19/18 07/19/18 21:21 21:52 22:00 22:32 Pulse 41 37 Resp 7 B/P (MAP) 103/89 (94) Pulse Ox 100 99 O2 Delivery Nasal Cannula Nasal Cannula Nasal Cannula O2 Flow Rate 4.00 2.00 2.00 07/19/18 07/20/18 07/20/18 07/20/18 23:36 00:00 00:25 01:00 Pulse 27 30 36 Resp 14 17 B/P (MAP) 137/81 (99) 124/92 (103) Pulse Ox 98 98 97 O2 Delivery Nasal Cannula Nasal Cannula Nasal Cannula O2 Flow Rate 2.00 2.00 2.00 07/20/18 07/20/18 07/20/18 07/20/18 01:00 02:00 03:00 04:00 Pulse 36 36 35 Resp 10 12 10 B/P (MAP) 124/57 (79) 153/71 (98) 161/74 (103) Pulse Ox 96 99 97 98 O2 Delivery Nasal Cannula Nasal Cannula Nasal Cannula Nasal Cannula O2 Flow Rate 2.00 2.00 2.00 2.00 07/20/18 07/20/18 07/20/18 07/20/18 04:00 04:00 05:00 06:06 Temp 98.2 Pulse 35 33 30 Resp 21 8 11 B/P (MAP) 152/75 (100) 116/60 (78) 126/60 (82) Pulse Ox 95 94 98 O2 Delivery Room Air Nasal Cannula Nasal Cannula O2 Flow Rate 2.00 2.00 Capillary Refill : Less Than 3 Seconds Blood Pressure Mean: 122 Point of Care Testing Finger Stick Blood Glucose: 113 Progress Note : Progress Note HEART RATE 20 ON ARRIVAL, WITH BP HIGH 220 SYSTOLIC PT GIVEN ATROPINE 0.5 X 2 DOSES WITH OUT SIGNIFICANT IMPROVEMENT PT GIVEN EPINEPHRINE 0.5 X 1 DOSE AND PT IMMEDIATELY WENT INTO SVT/BRIEF V-TACH , PT REMAINED AWAKE AND ALERT, BUT VERY UNCOMFORTABLE AND ANXIOUS. NO LOSS OF PULSE. NO DIAPHORESIS. HEART RATED EVENTUALLY BACK DOWN WITHIN A FEW MINUTES EPI EFFECT WORE OFF HEART RATE EVENTUALLY BACK DOWN TO 40'S BP REMAINED VERY HIGH AND WAS GIVEN NITROPASTE 1", AND HYDRALAZINE AND BP DOWN TO 130'S SYSTOLIC C/O FEELING DIZZY PT SOMEWHAT RESTLESS AND C/O PAIN TO BACK, TYLENOL AND FENTANYL ORDERED, BUT DAUGHTER DID NOT WANT HIM TO HAVE FENTANYL OR ANYTHING ELSE FOR PAIN ECG Initial ECG Impression Date: Jul 19, 2018 Initial ECG Impression Time: 18:06 Initial ECG Rate: 29 Initial ECG Impression: Sinus Bradycardia (RBBB), 2nd Degree AV Block EKG : EKG Time: 18:23 Rate: 39 Rhythm: S.Ten (RBBB) Comment EKG #3 AT 1836--RATE 74--SINUS RHYTHM EKG# 4 AT 1838--RATE 170--SUPRAVENTRICULAR TACH/WIDE COMPLEX TACHYCARDIA EKG #5 AT 1839--RATE 151-WIDE COMPLEX TACHYCARDIA/SUPRAVENTRICUALR TACHYCARDIA EKG #6 AT 1840--RATE 47--SINUS BRADYCARDIA, 2ND DEGREE HEART BLOCK EKG #7 AT 1843--RATE 58--SINUS RHYTHM EKG #8 AT 1858--RATE 47--SINUS BRADYCARDIA EKG #9 AT 1916--RATE 47--SINUS BRADYCARDIA Diagnostic Imaging Comments CXR--MINIMAL BIBASILAR ATELECTASIS, PER RADIOLOGIST REPORT @ 1927 Reviewed: Reviewed by Me Critical Care Note Critical Care Start Time: 18:12 Total Time (minutes) 60 Departure Communication (Admissions) Family Conversation DISCUSSED WITH DAUGHTER THE CONCERNS REGARDING MORE AGGRESSIVE TREATMENT OF PT' S BRADYCARDIA INCLUDING TEMPORARY EXTERNAL PACING ( WHICH WOULD LIKELY REQUIRE SEDATION AND RISKS OF RESPIRATORY DEPRESSION DUE TO SEDATION, AND PT IS DNR/ DNI HE WOULD POSSIBLY HAVE RESPIRATORY COMPROMISE) . ALSO DISCUSSED THAT PT AND HER SIBLINGS NEED TO MAKE DECISION REGARDING OPTION OF INPLANTED PACEMAKER AND RISKS OF SURGERY. ALSO DISCUSSED THE OPTION OF ONLY COMFORT/PALLIATIVE CARE. 1850--CALLED DR. SANTAMARIA, MESSAGE LEFT ON CELL PHONE 1855--DR. SANTAMARIA CALLED BACK HE ADVISES THAT PT RECEIVE SUPPORTIVE CARE AT THIS TIME, AND DEFERS TO PCP/HOSPITALIST FOR FURTHER DECISIONS REGARDING MORE AGGRESSIVE TREATMENT WITH PACEMAKER, VS SYMPTOMATIC/PALLIATIVE TREATMENT. WILL HOLD METOPROLOL. HE DOES NOT ADVISE ANY OTHER MEDICATIONS OR TREATMENTS AT THIS TIME. 1948--SPOKE WITH DR. 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 ACCEPTS PT FOR ADMIT. Impression Primary Impression: SEVERE SYMPTOMATIC BRADYCARDIA Additional Impressions: Hypertensive urgency Dementia Chronic renal insufficiency Disposition: ADMITTED INPATIENT Condition: Improved Admissions Decision to Admit Reason: Admit from ER (General) Decision to Admit/Date: Jul 19, 2018 Time/Decision to Admit Time: 19:50 Departure-Patient Inst. Referrals: PELON JIMÉNEZ MD, LISA K DO Jul 19, 2018 19:27
[2018-07-19 19:43] LABS: TSH (THYROID ANALYZER) 5.82 UIU/ML (0.35-4.94)
[2018-07-19] MEDS ORDERED: fentaNYL INJECTION 100 MCG/2 ML AMP ONE (19:56)
[2018-07-19] MEDS ORDERED: ACETAMINOPHEN 500 MG TAB (TYLENOL) ONE (19:57)
[2018-07-19] MEDS ORDERED: ACETAMINOPHEN 500 MG TAB (TYLENOL) PO ONE (20:00)
[2018-07-19] MEDS: fentaNYL INJECTION 100 MCG/2 ML AMP IVP STA (20:03)
--- OUTSIDE RECORDS SUMMARY | 2018-07-19 20:24 | XMS REPORT | Continuity of Care Document ---
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 W ST 01/16/2010 Ot 272.4 HYPERLIPIDEMIA NEC/NOS 01/16/2010 Ot 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 01/16/2010 Ot 397.0 TRICUSPID VALVE DISEASE 01/16/2010 Ot 401.9 HYPERTENSION NOS 01/16/2010 Ot 414.01 CORONARY ATHEROSCLEROSIS OF [place] CORON 01/16/2010 Ot 433.10 CAROTID ARTERY OCCLUSION [...] NOS 02/16/2012 Ot 414.01 CORONARY ATHEROSCLEROSIS OF [place] CORON 02/16/2012 Ot 560.32 FECAL IMPACTION 02/16/2012 [...] MELVIN MD Ot 414.01 CORONARY ATHEROSCLEROSIS OF [place] CORON 02/09/2014 DINO MELVIN MD Ot 443.9 [...] 06/06/2015 Ot V45.81 06/06/2015 BAIMA, DAIANA L DISASTER RECOVERY COORDINATOR Ot 272.4 06/06/2015 BAIMA, DAIANA L DISASTER RECOVERY COORDINATOR Ot 401.9 06/06/2015 BAIMA, DAIANA L DISASTER RECOVERY COORDINATOR Ot 414.00 06/06/2015 BAIMA, DAIANA L DISASTER RECOVERY COORDINATOR Ot 424.90 06/06/2015 BAIMA, DAIANA L DISASTER RECOVERY COORDINATOR Ot 429.3 06/06/2015 BAIMA, DAIANA L DISASTER RECOVERY COORDINATOR Ot V43.3 06/06/2015 BAIMA, DAIANA L DISASTER RECOVERY COORDINATOR Ot V45.81 06/06/2015 BAIMA, DAIANA L DISASTER RECOVERY COORDINATOR Ot 272.4 06/06/2015 BAIMA, DAIANA L DISASTER RECOVERY COORDINATOR Ot 401.9 06/06/2015 BAIMA, DAIANA L DISASTER RECOVERY COORDINATOR Ot 414.00 06/06/2015 BAIMA, DAIANA L DISASTER RECOVERY COORDINATOR Ot 424.90 06/06/2015 BAIMA, DAIANA L DISASTER RECOVERY COORDINATOR Ot V45.81 06/06/2015 FRANSISCA DO, LORAINE F Ot 715.36 06/06/2015 FRANSISCA DO, LORAINE F Ot 791.9 06/06/2015 FRANSISCA DO, LORAINE F Ot V72.63 06/06/2015 FRANSISCA DO, LORAINE F Ot V72.83 06/06/2015 FRANSISCA DO, LORAINE F Ot V74.8 06/06/2015 DINO MELVIN MD Ot V72.84 06/06/2015 Ot 599.0 12/12/2015 BAIMA, DAIANA L DISASTER RECOVERY COORDINATOR Ot E78.5 12/12/2015 BAIMA, DAIANA L DISASTER RECOVERY COORDINATOR Ot I10 12/12/2015 BAIMA, DAIANA L DISASTER RECOVERY COORDINATOR Ot I25.9 12/12/2015 BAIMA, DAIANA L DISASTER RECOVERY COORDINATOR Ot I38 12/12/2015 BAIMA, DAIANA L DISASTER RECOVERY COORDINATOR Ot I77.9 12/12/2015 BAIMA, DAIANA L DISASTER RECOVERY COORDINATOR Ot R07.9 12/12/2015 BAIMADAIANA L DISASTER RECOVERY COORDINATOR Ot Z95.1 02/12/2016 BAIMA, DAIANA L DISASTER RECOVERY COORDINATOR Ot 272.4 HYPERLIPIDEMIA NEC/NOS 02/12/2016 BAIMA, DAIANA L DISASTER RECOVERY COORDINATOR Ot 401.9 HYPERTENSION NOS 02/12/2016 BAIMA, DAIANA L DISASTER RECOVERY COORDINATOR Ot 414.00 CORON ATHEROSCLER NOS TYPE VESSEL, NATIV 02/12/2016 BAIMA, DAIANA L DISASTER RECOVERY COORDINATOR Ot 424.90 ENDOCARDITIS NOS 02/12/2016 BAIMA, DAIANA L DISASTER RECOVERY COORDINATOR Ot 429.3 CARDIOMEGALY 02/12/2016 BAIMA, DAIANA L DISASTER RECOVERY COORDINATOR Ot 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 02/12/2016 BAIMA, DAIANA L DISASTER RECOVERY COORDINATOR Ot V45.81 AORTOCORONARY BYPASS 02/12/2016 BAIMA, DAIANA L DISASTER RECOVERY COORDINATOR Ot 272.4 HYPERLIPIDEMIA NEC/NOS 02/12/2016 BAIMA, DAIANA L DISASTER RECOVERY COORDINATOR Ot 401.9 HYPERTENSION NOS 02/12/2016 BAIMA, DAIANA L DISASTER RECOVERY COORDINATOR Ot 414.00 CORON ATHEROSCLER NOS TYPE VESSEL, NATIV 02/12/2016 BAIMA, DAIANA L DISASTER RECOVERY COORDINATOR Ot 424.90 ENDOCARDITIS NOS 02/12/2016 BAIJENNIFER, DAIANA L DISASTER RECOVERY COORDINATOR Ot V45.81 AORTOCORONARY BYPASS 02/12/2016 LORAINE GONGORA [...] TRACT INFECTION NOS 02/12/2016 BAIZACH RODRIGUEZHER L DISASTER RECOVERY COORDINATOR Ot E78.5 HYPERLIPIDEMIA, UNSPECIFIED 02/12/2016 DAIANA JOHN L DISASTER RECOVERY COORDINATOR Ot I10 ESSENTIAL (PRIMARY) HYPERTENSION 02/12/2016 DEONNADAIANA RODRIGUEZ L DISASTER RECOVERY COORDINATOR Ot I25.9 CHRONIC ISCHEMIC HEART DISEASE, UNSPECIF 02/12/2016 DAIANA JOHN L DISASTER RECOVERY COORDINATOR Ot I38 ENDOCARDITIS, VALVE UNSPECIFIED 02/12/2016 DAIANA JOHN L DISASTER RECOVERY COORDINATOR Ot I77.9 DISORDER OF ARTERIES AND ARTERIOLES, UNS 02/12/2016 DEONNADAIANA RODRIGUEZ L DISASTER RECOVERY COORDINATOR Ot R07.9 CHEST PAIN, UNSPECIFIED 02/12/2016 DEONNADAIANA RODRIGUEZ L DISASTER RECOVERY COORDINATOR Ot Z95.1 PRESENCE OF AORTOCORONARY BYPASS GRAFT [...] OF MALE GENITA 02/21/2016 DEONNADAIANA RODRIGUEZ L DISASTER RECOVERY COORDINATOR Ot 272.4 HYPERLIPIDEMIA NEC/NOS 02/21/2016 DEONNAJENNIFER DAIANA L DISASTER RECOVERY COORDINATOR Ot 401.9 HYPERTENSION NOS 02/21/2016 DEONNAZACH RODRIGUEZHER L DISASTER RECOVERY COORDINATOR Ot 414.00 CORON ATHEROSCLER NOS TYPE VESSEL, NATIV 02/21/2016 DEONNAJENNIFER DAIANA L DISASTER RECOVERY COORDINATOR Ot 424.90 ENDOCARDITIS NOS 02/21/2016 DEONNAJENNIFER DAIANA L DISASTER RECOVERY COORDINATOR Ot 429.3 CARDIOMEGALY 02/21/2016 DEONNAJENNIFER DAIANA L DISASTER RECOVERY COORDINATOR Ot 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] URIN TRACT INFECTION NOS 02/21/2016 DEONNADAIANA RODRIGUEZ DISASTER RECOVERY COORDINATOR Ot E78.5 HYPERLIPIDEMIA, UNSPECIFIED 02/21/2016 DAIANA JOHN DISASTER RECOVERY COORDINATOR Ot I10 ESSENTIAL (PRIMARY) HYPERTENSION 02/21/2016 DEONNADAIANA RODRIGUEZ DISASTER RECOVERY COORDINATOR Ot I25.9 CHRONIC ISCHEMIC HEART DISEASE, UNSPECIF 02/21/2016 DEONNADAIANA RODRIGUEZ DISASTER RECOVERY COORDINATOR Ot I38 ENDOCARDITIS, VALVE UNSPECIFIED 02/21/2016 DEONNADAIANA RODRIGUEZ DISASTER RECOVERY COORDINATOR Ot I77.9 DISORDER OF ARTERIES AND ARTERIOLES, UNS 02/21/2016 DEONNADAIANA RODRIGUEZ DISASTER RECOVERY COORDINATOR Ot R07.9 CHEST PAIN, UNSPECIFIED 02/21/2016 DAIANA JOHN L DISASTER RECOVERY COORDINATOR Ot Z95.1 PRESENCE OF AORTOCORONARY BYPASS GRAFT 03/21/2016 DEONNADAIANA RODRIGUEZ L DISASTER RECOVERY COORDINATOR Ot 272.4 HYPERLIPIDEMIA NEC/NOS 03/21/2016 DEONNADAIANA RODRIGUEZ L DISASTER RECOVERY COORDINATOR Ot 401.9 HYPERTENSION NOS 03/21/2016 DEONNADAIANA RODRIGUEZ L DISASTER RECOVERY COORDINATOR Ot 414.00 CORON ATHEROSCLER NOS TYPE VESSEL, NATIV 03/21/2016 DEONNADAIANA RODRIGUEZ L DISASTER RECOVERY COORDINATOR Ot 424.90 ENDOCARDITIS NOS 03/21/2016 DEONNAJENNIFER DAIANA L DISASTER RECOVERY COORDINATOR Ot 429.3 CARDIOMEGALY 03/21/2016 DORA DAIANA L DISASTER RECOVERY COORDINATOR Ot 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 03/21/2016 DEONNADAIANA RODRIGUEZ L DISASTER RECOVERY COORDINATOR Ot V45.81 AORTOCORONARY BYPASS 03/21/2016 DORA DAIANA L DISASTER RECOVERY COORDINATOR Ot 272.4 HYPERLIPIDEMIA NEC/NOS 03/21/2016 DAIANA JOHN DISASTER RECOVERY COORDINATOR Ot 401.9 HYPERTENSION NOS 03/21/2016 DAIANA JOHN DISASTER RECOVERY COORDINATOR Ot 414.00 CORON ATHEROSCLER NOS TYPE VESSEL, NATIV 03/21/2016 DEONNADAIANA RODRIGUEZ DISASTER RECOVERY COORDINATOR Ot 424.90 ENDOCARDITIS NOS 03/21/2016 DAIANA JOHN DISASTER RECOVERY COORDINATOR Ot V45.81 AORTOCORONARY BYPASS 03/21/2016 FRANSISCA DO, [...] URIN TRACT INFECTION NOS 03/21/2016 DEONNADAIANA RODRIGUEZ DISASTER RECOVERY COORDINATOR Ot E78.5 HYPERLIPIDEMIA, UNSPECIFIED 03/21/2016 DAIANA JOHN DISASTER RECOVERY COORDINATOR Ot I10 ESSENTIAL (PRIMARY) HYPERTENSION 03/21/2016 DEONNADAIANA RODRIGUEZ DISASTER RECOVERY COORDINATOR Ot I25.9 CHRONIC ISCHEMIC HEART DISEASE, UNSPECIF 03/21/2016 DEONNADAIANA RODRIGUEZ DISASTER RECOVERY COORDINATOR Ot I38 ENDOCARDITIS, VALVE UNSPECIFIED 03/21/2016 DEONNADAIANA RODRIGUEZ DISASTER RECOVERY COORDINATOR Ot I77.9 DISORDER OF ARTERIES AND ARTERIOLES, UNS 03/21/2016 DEONNADAIANA RODRIGUEZ DISASTER RECOVERY COORDINATOR Ot R07.9 CHEST PAIN, UNSPECIFIED 03/21/2016 DAIANA JOHN DISASTER RECOVERY COORDINATOR Ot Z95.1 PRESENCE OF AORTOCORONARY BYPASS GRAFT 03/22/2016 STEPHANIE KOTHARI, LALI Beyer Ot N45.3 EPIDIDYMO-ORCHITIS 03/22/2016 STEPHANIE KOTHARI, LALI Beyer Ot N45.3 EPIDIDYMO-ORCHITIS 04/04/2016 STEPHANIE KOTHARI, LALI Beyer Ot N45.3 EPIDIDYMO-ORCHITIS 05/01/2016 STEPHANIE KOTHARI, LALI Beyer Ot N45.3 EPIDIDYMO-ORCHITIS 05/10/2016 STEPHANIE KOTHARI, LALI Beyer Ot N45.3 EPIDIDYMO-ORCHITIS 10/04/2016 EVELYN KOTHARI, JUAREZ Sloan Ot N50.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 10/04/2016 BAIDAIANA RODRIGUEZ DISASTER RECOVERY COORDINATOR Ot 272.4 HYPERLIPIDEMIA NEC/NOS 10/04/2016 BAIMA, DAIANA L DISASTER RECOVERY COORDINATOR Ot 401.9 HYPERTENSION NOS 10/04/2016 BAIJENNIFER, DAIANA L DISASTER RECOVERY COORDINATOR Ot 414.00 CORON ATHEROSCLER NOS TYPE VESSEL, NATIV 10/04/2016 BAIMA, DAIANA L DISASTER RECOVERY COORDINATOR Ot 424.90 ENDOCARDITIS NOS 10/04/2016 BAIMA, DAIANA L DISASTER RECOVERY COORDINATOR Ot 429.3 CARDIOMEGALY 10/04/2016 BAIMA, DAIANA L DISASTER RECOVERY COORDINATOR Ot 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 10/04/2016 BAIMA, DAIANA L DISASTER RECOVERY COORDINATOR Ot V45.81 AORTOCORONARY BYPASS 10/04/2016 BAIMA, DAIANA L DISASTER RECOVERY COORDINATOR Ot 272.4 HYPERLIPIDEMIA NEC/NOS 10/04/2016 BAIMA, DAIANA L DISASTER RECOVERY COORDINATOR Ot 401.9 HYPERTENSION NOS 10/04/2016 BAIMA, DAIANA L DISASTER RECOVERY COORDINATOR Ot 414.00 CORON ATHEROSCLER NOS TYPE VESSEL, NATIV 10/04/2016 BAIJENNIFER, DAIANA L DISASTER RECOVERY COORDINATOR Ot 424.90 ENDOCARDITIS NOS 10/04/2016 BAIJENNIFER, DAIANA L DISASTER RECOVERY COORDINATOR Ot V45.81 AORTOCORONARY BYPASS 10/04/2016 LORAINE GONGORA [...] URIN TRACT INFECTION NOS 10/04/2016 BAIDAIANA RODRIGUEZ DISASTER RECOVERY COORDINATOR Ot E78.5 HYPERLIPIDEMIA, UNSPECIFIED 10/04/2016 BAIJENNIFER DAIANA Wilks DISASTER RECOVERY COORDINATOR Ot I10 ESSENTIAL (PRIMARY) HYPERTENSION 10/04/2016 BAIMA, DAIANA Wilks DISASTER RECOVERY COORDINATOR Ot I25.9 CHRONIC ISCHEMIC HEART DISEASE, UNSPECIF 10/04/2016 DEONNAMA, DAIANA L DISASTER RECOVERY COORDINATOR Ot I38 ENDOCARDITIS, VALVE UNSPECIFIED 10/04/2016 DAIANA JOHN DISASTER RECOVERY COORDINATOR Ot I77.9 DISORDER OF ARTERIES AND ARTERIOLES, UNS 10/04/2016 DEONNADAIANA RODRIGUEZ DISASTER RECOVERY COORDINATOR Ot R07.9 CHEST PAIN, UNSPECIFIED 10/04/2016 DORADAIANA DISASTER RECOVERY COORDINATOR Ot Z95.1 PRESENCE OF AORTOCORONARY BYPASS GRAFT 10/04/2016 JUAREZ RIVAS MD Ot N50.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 10/04/2016 STEPHANIE KOTHARI, LALI Beyer Ot N45.3 EPIDIDYMO-ORCHITIS 10/11/2016 JUAREZ RIVAS MD Ot N50.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 12/03/2016 CELESTINE ONEILL MD Ot I12.9 HYPERTENSIVE CHRONIC KIDNEY DISEASE W ST 12/03/2016 CELESTINE ONEILL MD Ot I25.10 ATHSCL HEART DISEASE OF [place] CORONARY 12/03/2016 CELESTINE ONEILL MD Ot I38 [...] MD Ot I25.10 ATHSCL HEART DISEASE OF [place] CORONARY 07/02/2017 CELESTINE ONEILL MD Ot I35.0 [...] IMMUNIZATION 07/02/2017 CELESTINE ONEILL MD Ot Z79.02 SHELTER (CURRENT) USE OF ANTITHROMBOTI 07/02/2017 CELESTINE ONEILL MD Ot Z79.82 LAUNDRY AID (CURRENT) USE OF ASPIRIN 07/02/2017 CELESTINE ONEILL MD Ot Z79.899 OTHER SHELTER (CURRENT) DRUG THERAPY 07/02/2017 CELESTINE ONEILL MD Ot Z95.1 PRESENCE OF AORTOCORONARY BYPASS GRAFT 07/02/2017 CELESTINE ONEILL MD Ot Z95.5 PRESENCE OF CORONARY ANGIOPLASTY IMPLANT 07/02/2017 DAIANA JOHN DISASTER RECOVERY COORDINATOR Ot 272.4 HYPERLIPIDEMIA NEC/NOS 07/02/2017 DAIANA JOHN DISASTER RECOVERY COORDINATOR Ot 401.9 HYPERTENSION NOS 07/02/2017 DAIANA JOHN DISASTER RECOVERY COORDINATOR Ot 414.00 CORON ATHEROSCLER NOS TYPE VESSEL, NATIV 07/02/2017 DAIANA JOHN DISASTER RECOVERY COORDINATOR Ot 424.90 ENDOCARDITIS NOS 07/02/2017 DAIANA JOHN DISASTER RECOVERY COORDINATOR Ot 429.3 CARDIOMEGALY 07/02/2017 DAIANA JOHN DISASTER RECOVERY COORDINATOR Ot 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 07/02/2017 DAIANA JOHN DISASTER RECOVERY COORDINATOR Ot V45.81 AORTOCORONARY BYPASS 07/02/2017 DAIANA JOHN DISASTER RECOVERY COORDINATOR Ot 272.4 HYPERLIPIDEMIA NEC/NOS 07/02/2017 BAIDAIANA RODRIGUEZ DISASTER RECOVERY COORDINATOR Ot 401.9 HYPERTENSION NOS 07/02/2017 DAIANA JOHN DISASTER RECOVERY COORDINATOR Ot 414.00 CORON ATHEROSCLER NOS TYPE VESSEL, NATIV 07/02/2017 DEONNADAIANA RODRIGUEZ DISASTER RECOVERY COORDINATOR Ot 424.90 ENDOCARDITIS NOS 07/02/2017 DEONNADAIANA RODRIGUEZ DISASTER RECOVERY COORDINATOR Ot V45.81 AORTOCORONARY BYPASS 07/02/2017 FRANSISCA DO, [...] URIN TRACT INFECTION NOS 07/02/2017 DEONNADAIANA RODRIGUEZ DISASTER RECOVERY COORDINATOR Ot E78.5 HYPERLIPIDEMIA, UNSPECIFIED 07/02/2017 DEONNADAIANA RODRIGUEZ DISASTER RECOVERY COORDINATOR Ot I10 ESSENTIAL (PRIMARY) HYPERTENSION 07/02/2017 DEONNADAIANA RODRIGUEZ DISASTER RECOVERY COORDINATOR Ot I25.9 CHRONIC ISCHEMIC HEART DISEASE, UNSPECIF 07/02/2017 DORA DAIANA Wilks DISASTER RECOVERY COORDINATOR Ot I38 ENDOCARDITIS, VALVE UNSPECIFIED 07/02/2017 DEONNAJENNIFER DAIANA Wilks DISASTER RECOVERY COORDINATOR Ot I77.9 DISORDER OF ARTERIES AND ARTERIOLES, UNS 07/02/2017 DEONNADAIANA RODRIGUEZ DISASTER RECOVERY COORDINATOR Ot R07.9 CHEST PAIN, UNSPECIFIED 07/02/2017 DORA DAIANA Wilks DISASTER RECOVERY COORDINATOR Ot Z95.1 PRESENCE OF AORTOCORONARY BYPASS GRAFT [...] MD Ot I25.10 ATHSCL HEART DISEASE OF [place] CORONARY 07/02/2017 CELESTINE ONEILL MD Ot I35.0 [...] FATIGUE 07/02/2017 CELESTINE ONEILL MD Ot Z79.02 SHELTER (CURRENT) USE OF ANTITHROMBOTI 07/02/2017 CELESTINE ONEILL MD Ot Z79.82 LAUNDRY AID (CURRENT) USE OF ASPIRIN 07/02/2017 CELESTINE ONIELL MD Ot Z79.899 OTHER SHELTER (CURRENT) DRUG THERAPY 07/02/2017 CELESTINE ONEILL MD [...] K Ot I25.10 ATHSCL HEART DISEASE OF [place] CORONARY 07/03/2017 EMMA DO, ENEDINA K Ot N28.9 DISORDER OF KIDNEY AND URETER, UNSPECIFI 07/03/2017 EMMA DO, ENEDINA K Ot R41.0 DISORIENTATION, UNSPECIFIED 07/03/2017 EMMA DO ENEDINA K Ot Z79.02 SHELTER (CURRENT) USE OF ANTITHROMBOTI 07/03/2017 EMMA DO [...] K Ot I25.10 ATHSCL HEART DISEASE OF [place] CORONARY 07/09/2017 EMMA DO ENEDINA K Ot N28.9 DISORDER OF KIDNEY AND URETER, UNSPECIFI 07/09/2017 EMMA DO ENEDINA K Ot R41.0 DISORIENTATION, UNSPECIFIED 07/09/2017 EMMA DO ENEDINA K Ot Z79.02 SHELTER (CURRENT) USE OF ANTITHROMBOTI 07/09/2017 EMMA DO [...] MD Ot I25.10 ATHSCL HEART DISEASE OF [place] CORONARY 09/10/2017 ANJALI HE MD Ot K21.9 [...] OF CORONARY ANGIOPLASTY IMPLANT 09/11/2017 DAIANA JOHN DISASTER RECOVERY COORDINATOR Ot 272.4 HYPERLIPIDEMIA NEC/NOS 09/11/2017 DAIANA JOHN L DISASTER RECOVERY COORDINATOR Ot 401.9 HYPERTENSION NOS 09/11/2017 DAIANA JOHN L DISASTER RECOVERY COORDINATOR Ot 414.00 CORON ATHEROSCLER NOS TYPE VESSEL, NATIV 09/11/2017 DAIANA JOHN L DISASTER RECOVERY COORDINATOR Ot 424.90 ENDOCARDITIS NOS 09/11/2017 DAIANA JOHN L DISASTER RECOVERY COORDINATOR Ot 429.3 CARDIOMEGALY 09/11/2017 DAIANA JOHN L DISASTER RECOVERY COORDINATOR Ot 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 09/11/2017 DAIANA JOHN L DISASTER RECOVERY COORDINATOR Ot V45.81 AORTOCORONARY BYPASS 09/11/2017 DORADAIANA DISASTER RECOVERY COORDINATOR Ot 272.4 HYPERLIPIDEMIA NEC/NOS 09/11/2017 DORADAIANA L DISASTER RECOVERY COORDINATOR Ot 401.9 HYPERTENSION NOS 09/11/2017 DEONNAJENNIFER, DAIANA L DISASTER RECOVERY COORDINATOR Ot 414.00 CORON ATHEROSCLER NOS TYPE VESSEL, NATIV 09/11/2017 DEONNAJENNIFER DAIANA Wilks DISASTER RECOVERY COORDINATOR Ot 424.90 ENDOCARDITIS NOS 09/11/2017 DORA DAIANA L DISASTER RECOVERY COORDINATOR Ot V45.81 AORTOCORONARY BYPASS 09/11/2017 FRANSISCA DO, [...] TRACT INFECTION NOS 09/11/2017 DEONNAJENNIFER DAIANA Wilks DISASTER RECOVERY COORDINATOR Ot E78.5 HYPERLIPIDEMIA, UNSPECIFIED 09/11/2017 DORA DAIANA L DISASTER RECOVERY COORDINATOR Ot I10 ESSENTIAL (PRIMARY) HYPERTENSION 09/11/2017 DORA DAIANA L DISASTER RECOVERY COORDINATOR Ot I25.9 CHRONIC ISCHEMIC HEART DISEASE, UNSPECIF 09/11/2017 DORA DAIANA L DISASTER RECOVERY COORDINATOR Ot I38 ENDOCARDITIS, VALVE UNSPECIFIED 09/11/2017 DORA DAIANA L DISASTER RECOVERY COORDINATOR Ot I77.9 DISORDER OF ARTERIES AND ARTERIOLES, UNS 09/11/2017 DORA DAIANA L DISASTER RECOVERY COORDINATOR Ot R07.9 CHEST PAIN, UNSPECIFIED 09/11/2017 DORA, DAIANA L DISASTER RECOVERY COORDINATOR Ot Z95.1 PRESENCE OF AORTOCORONARY BYPASS GRAFT 09/11/2017 EVELYN KOTHARI, JUAREZ Sloan Ot N50.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 09/11/2017 STEPHANIE KOTHARI, LALI Beyer Ot N45.3 EPIDIDYMO-ORCHITIS 09/11/2017 Venessa SANTAMARIA MD Ot R55 SYNCOPE AND COLLAPSE 09/11/2017 BAIJENNIFER DAIANA L DISASTER RECOVERY COORDINATOR Ot 272.4 HYPERLIPIDEMIA NEC/NOS 09/11/2017 BAIMADAIANA DISASTER RECOVERY COORDINATOR Ot 401.9 HYPERTENSION NOS 09/11/2017 BAIDAIANA RODRIGUEZ DISASTER RECOVERY COORDINATOR Ot 414.00 CORON ATHEROSCLER NOS TYPE VESSEL, NATIV 09/11/2017 BAIDAIANA RODRIGUEZ DISASTER RECOVERY COORDINATOR Ot 424.90 ENDOCARDITIS NOS 09/11/2017 DAIANA JOHN DISASTER RECOVERY COORDINATOR Ot 429.3 CARDIOMEGALY 09/11/2017 BAIDAIANA RODRIGUEZ DISASTER RECOVERY COORDINATOR Ot 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 09/11/2017 BAIDAIANA RODRIGUEZ DISASTER RECOVERY COORDINATOR Ot V45.81 AORTOCORONARY BYPASS 09/11/2017 BAIDAIANA RODRIGUEZ DISASTER RECOVERY COORDINATOR Ot 272.4 HYPERLIPIDEMIA NEC/NOS 09/11/2017 BAIDAIANA RODRIGUEZ DISASTER RECOVERY COORDINATOR Ot 401.9 HYPERTENSION NOS 09/11/2017 BAIDAIANA RODRIGUEZ DISASTER RECOVERY COORDINATOR Ot 414.00 CORON ATHEROSCLER NOS TYPE VESSEL, NATIV 09/11/2017 DAIANA JOHN DISASTER RECOVERY COORDINATOR Ot 424.90 ENDOCARDITIS NOS 09/11/2017 DAIANA JOHN DISASTER RECOVERY COORDINATOR Ot V45.81 AORTOCORONARY BYPASS 09/11/2017 FRANSISCA DO, [...] URIN TRACT INFECTION NOS 09/11/2017 DAIANA JOHN DISASTER RECOVERY COORDINATOR Ot E78.5 HYPERLIPIDEMIA, UNSPECIFIED 09/11/2017 DAIANA JOHN DISASTER RECOVERY COORDINATOR Ot I10 ESSENTIAL (PRIMARY) HYPERTENSION 09/11/2017 DEONNADAIANA RODRIGUEZ DISASTER RECOVERY COORDINATOR Ot I25.9 CHRONIC ISCHEMIC HEART DISEASE, UNSPECIF 09/11/2017 DEONNADAIANA RODRIGUEZ DISASTER RECOVERY COORDINATOR Ot I38 ENDOCARDITIS, VALVE UNSPECIFIED 09/11/2017 DEONNADAIANA RODRIGUEZ DISASTER RECOVERY COORDINATOR Ot I77.9 DISORDER OF ARTERIES AND ARTERIOLES, UNS 09/11/2017 DORA DAIANA L DISASTER RECOVERY COORDINATOR Ot R07.9 CHEST PAIN, UNSPECIFIED 09/11/2017 BAIJENNIFER DAIANA L DISASTER RECOVERY COORDINATOR Ot Z95.1 PRESENCE OF AORTOCORONARY BYPASS GRAFT [...] V45.81 AORTOCORONARY BYPASS 09/17/2017 DORA DAIANA L DISASTER RECOVERY COORDINATOR Ot 272.4 HYPERLIPIDEMIA NEC/NOS 09/17/2017 DORA DAIANA L DISASTER RECOVERY COORDINATOR Ot 401.9 HYPERTENSION NOS 09/17/2017 DORA DAIANA L DISASTER RECOVERY COORDINATOR Ot 414.00 CORON ATHEROSCLER NOS TYPE VESSEL, NATIV 09/17/2017 DORA DAIANA L DISASTER RECOVERY COORDINATOR Ot 424.90 ENDOCARDITIS NOS 09/17/2017 DORA DAIANA L DISASTER RECOVERY COORDINATOR Ot 429.3 CARDIOMEGALY 09/17/2017 DEONNADAIANA RODRIGUEZ DISASTER RECOVERY COORDINATOR Ot 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 09/17/2017 DEONNADAIANA RODRIGUEZ DISASTER RECOVERY COORDINATOR Ot V45.81 AORTOCORONARY BYPASS 09/17/2017 DAIANA JOHN L DISASTER RECOVERY COORDINATOR Ot 272.4 HYPERLIPIDEMIA NEC/NOS 09/17/2017 DAIANA JOHN DISASTER RECOVERY COORDINATOR Ot 401.9 HYPERTENSION NOS 09/17/2017 DEONNADAIANA RODRIGUEZ DISASTER RECOVERY COORDINATOR Ot 414.00 CORON ATHEROSCLER NOS TYPE VESSEL, NATIV 09/17/2017 DEONNADAIANA RODRIGUEZ DISASTER RECOVERY COORDINATOR Ot 424.90 ENDOCARDITIS NOS 09/17/2017 DEONNADAIANA RODRIGUEZ DISASTER RECOVERY COORDINATOR Ot V45.81 AORTOCORONARY BYPASS 09/17/2017 FRANSISCA DO, [...] URIN TRACT INFECTION NOS 09/17/2017 DEONNADAIANA RODRIGUEZ DISASTER RECOVERY COORDINATOR Ot E78.5 HYPERLIPIDEMIA, UNSPECIFIED 09/17/2017 DORADAIANA DISASTER RECOVERY COORDINATOR Ot I10 ESSENTIAL (PRIMARY) HYPERTENSION 09/17/2017 DORA DAIANA Efe DISASTER RECOVERY COORDINATOR Ot I25.9 CHRONIC ISCHEMIC HEART DISEASE, UNSPECIF 09/17/2017 DORA DAIANA Efe DISASTER RECOVERY COORDINATOR Ot I38 ENDOCARDITIS, VALVE UNSPECIFIED 09/17/2017 DEONNAJENNIFER DAIANA Wilks DISASTER RECOVERY COORDINATOR Ot I77.9 DISORDER OF ARTERIES AND ARTERIOLES, UNS 09/17/2017 DORA DAIANA Efe DISASTER RECOVERY COORDINATOR Ot R07.9 CHEST PAIN, UNSPECIFIED 09/17/2017 DORA DAIANA Wilks DISASTER RECOVERY COORDINATOR Ot Z95.1 PRESENCE OF AORTOCORONARY BYPASS GRAFT 09/17/2017 EVELYN KOTHARI, JUAREZ Sloan Ot N50.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 09/17/2017 STEPHANIE KOTHARI, LALI Beyer Ot N45.3 EPIDIDYMO-ORCHITIS 09/17/2017 HINA KOTHARI, Venessa WHATLEY Ot R55 SYNCOPE AND COLLAPSE 09/18/2017 BAIMA, DAIANA L DISASTER RECOVERY COORDINATOR Ot 272.4 HYPERLIPIDEMIA NEC/NOS 09/18/2017 BAIMA, DAIANA L DISASTER RECOVERY COORDINATOR Ot 401.9 HYPERTENSION NOS 09/18/2017 BAIMA, DAIANA L DISASTER RECOVERY COORDINATOR Ot 414.00 CORON ATHEROSCLER NOS TYPE VESSEL, NATIV 09/18/2017 BAIMA, DAIANA L DISASTER RECOVERY COORDINATOR Ot 424.90 ENDOCARDITIS NOS 09/18/2017 BAIMA, DAIANA L DISASTER RECOVERY COORDINATOR Ot 429.3 CARDIOMEGALY 09/18/2017 BAIMA, DAIANA L DISASTER RECOVERY COORDINATOR Ot 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 09/18/2017 BAIMA, DAIANA L DISASTER RECOVERY COORDINATOR Ot V45.81 AORTOCORONARY BYPASS 09/18/2017 BAIMA, DAIANA L DISASTER RECOVERY COORDINATOR Ot 272.4 HYPERLIPIDEMIA NEC/NOS 09/18/2017 BAIMA, DAIANA L DISASTER RECOVERY COORDINATOR Ot 401.9 HYPERTENSION NOS 09/18/2017 BAIMA, DAIANA L DISASTER RECOVERY COORDINATOR Ot 414.00 CORON ATHEROSCLER NOS TYPE VESSEL, NATIV 09/18/2017 BAIMA, DAIANA L DISASTER RECOVERY COORDINATOR Ot 424.90 ENDOCARDITIS NOS 09/18/2017 BAIMA, DAIANA L DISASTER RECOVERY COORDINATOR Ot V45.81 AORTOCORONARY BYPASS 09/18/2017 FRANSISCA , [...] TRACT INFECTION NOS 09/18/2017 BAIMA, DAIANA L DISASTER RECOVERY COORDINATOR Ot E78.5 HYPERLIPIDEMIA, UNSPECIFIED 09/18/2017 BAIMA, DAIANA L DISASTER RECOVERY COORDINATOR Ot I10 ESSENTIAL (PRIMARY) HYPERTENSION 09/18/2017 BAIMA, DAIANA L DISASTER RECOVERY COORDINATOR Ot I25.9 CHRONIC ISCHEMIC HEART DISEASE, UNSPECIF 09/18/2017 DAIANA JOHN L DISASTER RECOVERY COORDINATOR Ot I38 ENDOCARDITIS, VALVE UNSPECIFIED 09/18/2017 DAIANA JOHN L DISASTER RECOVERY COORDINATOR Ot I77.9 DISORDER OF ARTERIES AND ARTERIOLES, UNS 09/18/2017 ZACH JOHNHER L DISASTER RECOVERY COORDINATOR Ot R07.9 CHEST PAIN, UNSPECIFIED 09/18/2017 ZACH JOHNHER L DISASTER RECOVERY COORDINATOR Ot Z95.1 PRESENCE OF AORTOCORONARY BYPASS GRAFT [...] V45.81 AORTOCORONARY BYPASS 10/24/2017 DAIANA JOHN L DISASTER RECOVERY COORDINATOR Ot 272.4 HYPERLIPIDEMIA NEC/NOS 10/24/2017 DAIANA JOHN L DISASTER RECOVERY COORDINATOR Ot 401.9 HYPERTENSION NOS 10/24/2017 ZACH JOHNHER L DISASTER RECOVERY COORDINATOR Ot 414.00 CORON ATHEROSCLER NOS TYPE VESSEL, NATIV 10/24/2017 BAIMA, DAIANA L DISASTER RECOVERY COORDINATOR Ot 424.90 ENDOCARDITIS NOS 10/24/2017 BAIMA, DAIANA L DISASTER RECOVERY COORDINATOR Ot 429.3 CARDIOMEGALY 10/24/2017 BAIMA, DAIANA L DISASTER RECOVERY COORDINATOR Ot 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 10/24/2017 BAIJENNIFER, DAIANA L DISASTER RECOVERY COORDINATOR Ot V45.81 AORTOCORONARY BYPASS 10/24/2017 BAIJENNIFER, DAIANA L DISASTER RECOVERY COORDINATOR Ot 272.4 HYPERLIPIDEMIA NEC/NOS 10/24/2017 BAIMA, DAIANA L DISASTER RECOVERY COORDINATOR Ot 401.9 HYPERTENSION NOS 10/24/2017 BAIMA, DAIANA L DISASTER RECOVERY COORDINATOR Ot 414.00 CORON ATHEROSCLER NOS TYPE VESSEL, NATIV 10/24/2017 BAIMA, DAIANA L DISASTER RECOVERY COORDINATOR Ot 424.90 ENDOCARDITIS NOS 10/24/2017 BAIJENNIFER, DAIANA L DISASTER RECOVERY COORDINATOR Ot V45.81 AORTOCORONARY BYPASS 10/24/2017 LORAINE GONGORA [...] TRACT INFECTION NOS 10/24/2017 DEONNADAIANA RODRIGUEZ L DISASTER RECOVERY COORDINATOR Ot E78.5 HYPERLIPIDEMIA, UNSPECIFIED 10/24/2017 BAIZACH RODRIGUEZHER L DISASTER RECOVERY COORDINATOR Ot I10 ESSENTIAL (PRIMARY) HYPERTENSION 10/24/2017 BAIJENNIFER DAIANA L DISASTER RECOVERY COORDINATOR Ot I25.9 CHRONIC ISCHEMIC HEART DISEASE, UNSPECIF 10/24/2017 BAIMADAIANA L DISASTER RECOVERY COORDINATOR Ot I38 ENDOCARDITIS, VALVE UNSPECIFIED 10/24/2017 BAIDAIANA RODRIGUEZ L DISASTER RECOVERY COORDINATOR Ot I77.9 DISORDER OF ARTERIES AND ARTERIOLES, UNS 10/24/2017 BAIAZCH RODRIGUEZHER L DISASTER RECOVERY COORDINATOR Ot R07.9 CHEST PAIN, UNSPECIFIED 10/24/2017 BAIMA, DAIANA L DISASTER RECOVERY COORDINATOR Ot Z95.1 PRESENCE OF AORTOCORONARY BYPASS GRAFT 10/24/2017 EVELYN KOTHARI, JUAREZ Sloan Ot N50.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 10/24/2017 STEPHANIE KOTHARI, LALI Beyer Ot N45.3 EPIDIDYMO-ORCHITIS 10/24/2017 HINA KOTHARI, Venessa WHATLEY Ot R55 SYNCOPE AND COLLAPSE 10/24/2017 BAIMA, DAIANA L DISASTER RECOVERY COORDINATOR Ot 272.4 HYPERLIPIDEMIA NEC/NOS 10/24/2017 BAIMA, DAIANA L DISASTER RECOVERY COORDINATOR Ot 401.9 HYPERTENSION NOS 10/24/2017 BAIMA, DAIANA L DISASTER RECOVERY COORDINATOR Ot 414.00 CORON ATHEROSCLER NOS TYPE VESSEL, NATIV 10/24/2017 BAIMA, DAIANA L DISASTER RECOVERY COORDINATOR Ot 424.90 ENDOCARDITIS NOS 10/24/2017 BAIMA, DAIANA L DISASTER RECOVERY COORDINATOR Ot 429.3 CARDIOMEGALY 10/24/2017 BAIMA, DAIANA L DISASTER RECOVERY COORDINATOR Ot 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 10/24/2017 BAIMA, DAIANA L DISASTER RECOVERY COORDINATOR Ot V45.81 AORTOCORONARY BYPASS 10/24/2017 BAIMA, DAIANA L DISASTER RECOVERY COORDINATOR Ot 272.4 HYPERLIPIDEMIA NEC/NOS 10/24/2017 BAIMA, DAIANA L DISASTER RECOVERY COORDINATOR Ot 401.9 HYPERTENSION NOS 10/24/2017 BAIMA, DAIANA L DISASTER RECOVERY COORDINATOR Ot 414.00 CORON ATHEROSCLER NOS TYPE VESSEL, NATIV 10/24/2017 BAIMA, DAIANA L DISASTER RECOVERY COORDINATOR Ot 424.90 ENDOCARDITIS NOS 10/24/2017 BAIMA, DAIANA L DISASTER RECOVERY COORDINATOR Ot V45.81 AORTOCORONARY BYPASS 10/24/2017 LORAINE GONGORA [...] TRACT INFECTION NOS 10/24/2017 BAIMA, DAIANA L DISASTER RECOVERY COORDINATOR Ot E78.5 HYPERLIPIDEMIA, UNSPECIFIED 10/24/2017 DAIANA JOHN DISASTER RECOVERY COORDINATOR Ot I10 ESSENTIAL (PRIMARY) HYPERTENSION 10/24/2017 DAIANA JOHN DISASTER RECOVERY COORDINATOR Ot I25.9 CHRONIC ISCHEMIC HEART DISEASE, UNSPECIF 10/24/2017 DAIANA JOHN DISASTER RECOVERY COORDINATOR Ot I38 ENDOCARDITIS, VALVE UNSPECIFIED 10/24/2017 DAIANA JOHN DISASTER RECOVERY COORDINATOR Ot I77.9 DISORDER OF ARTERIES AND ARTERIOLES, UNS 10/24/2017 DAIANA JOHN DISASTER RECOVERY COORDINATOR Ot R07.9 CHEST PAIN, UNSPECIFIED 10/24/2017 DAIANA JOHN DISASTER RECOVERY COORDINATOR Ot Z95.1 PRESENCE OF AORTOCORONARY BYPASS GRAFT [...] Status Pt. Type Provider Facility Loc./Unit Complaint [id number] 09/10/2017 20:12:00 09/10/2017 22:59:00 DIS Emergency NERI KOTHARI, ANJALI Chen [facility] ER AMS [id number] 07/03/2017 18:11:00 07/03/2017 20:45:00 DIS Emergency ENEDINA CARTER DO [facility] ER CONFUSION [id number] 07/01/2017 12:39:00 07/02/2017 17:36:00 DIS Inpatient ODGERS MD, CELESTINE K [facility] ICU CP,LIGHTHEADED,DEMENTIA [id number] 03/11/2017 09:00:00 03/11/2017 23:59:59 CLS Preadmit Venessa SANTAMARIA MD [facility] CARD SYNCOPE [id number] 01/06/2017 09:30:00 03/10/2017 00:01:00 DIS Outpatient Venessa SANTAMARIA MD [facility] CARD SYNCOPE [id number] 12/02/2016 06:04:00 12/03/2016 18:36:00 DIS Inpatient CELESTINE ONEILL MD [facility] ICU SYNCOPE, SOA [id number] 03/21/2016 12:57:00 03/21/2016 23:59:59 CLS Outpatient LALI BROWN MD [facility] RAD EPIDIDYMO ORCHITIS [id number] 02/12/2016 08:32:00 02/12/2016 23:59:59 CLS Outpatient JUAREZ RIVAS MD [facility] RAD TENDER L TESTICLE [id number] 06/06/2015 09:33:00 06/06/2015 23:59:59 CLS Outpatient DAIANA JOHN [facility] CARD CP CAD CAROTID ARTERY DISEASE HTN [id number] 02/09/2014 09:01:00 02/09/2014 23:59:59 CLS Outpatient DINO MELVIN MD [facility] SDC SCREENING [id number] 11/10/2013 11:27:00 02/08/2014 00:01:00 DIS Outpatient LORAINE GONGORA DO [facility] LAB UTI [id number] 02/03/2014 07:29:00 02/03/2014 23:59:59 CLS Outpatient DINO MELVIN MD [facility] PREOP SCREENING [id number] 12/21/2013 14:10:00 01/06/2014 16:30:00 DIS Outpatient LORAINE GONGORA DO [facility] REHAB S/P RT TOTAL KNEE REPLACEMENT [id number] 11/16/2013 06:00:00 11/19/2013 15:45:00 DIS Inpatient LORAINE GONGORA DO [facility] SURGICAL RIGHT KNEE DJD [id number] 10/26/2013 13:21:00 10/26/2013 23:59:59 CLS Outpatient LORAINE GONGORA DO [facility] PREOP RIGHT KNEE DJD [id number] 07/01/2013 08:03:00 07/01/2013 23:59:59 CLS Outpatient DORA DAIANA L DISASTER RECOVERY COORDINATOR [facility] RAD CAD,HTN,HLP,POST CABG [id number] 06/18/2013 08:23:00 06/18/2013 23:59:59 CLS Outpatient DEONNAJENNIFERDAIANAP [facility] CARD CAD,HTN,HLP,POST CABG [id number] 04/01/2013 11:36:00 04/01/2013 14:19:00 DIS Emergency NERI KOTHARI, ANJALI Chen [facility] ER DIZZY [id number] 09/17/2017 20:50:00 Document Registration [id number] 09/17/2017 20:50:00 Document Registration [id number] 09/17/2017 20:50:00 Document Registration [id number] 06/06/2015 09:31:00 Document Registration [id number] 06/06/2015 09:31:00 Document Registration [id number] 02/09/2014 00:00:00 Document Registration [id number] 02/15/2012 15:00:00 Document Registration [id number] 07/19/2010 11:02:00 Document Registration [id number] 06/13/2010 11:32:00 Document Registration [id number] 05/16/2010 11:40:00 Document Registration [id number] 04/04/2010 11:12:00 Document Registration [id number] 02/27/2010 12:35:00 Document Registration [id number] 01/12/2010 12:22:00 Document Registration [id number] 03/24/2009 08:57:00 Document Registration [id number] 10/19/2008 10:34:00 Document Registration [id number] 09/05/2008 12:46:00 Document Registration [id number] 07/27/2008 14:08:00 Document Registration [id number] 07/13/2008 16:06:00 Document Registration [id number] 02/15/2008 09:47:00 Document Registration [id number] 02/10/2008 13:35:00 Document Registration [id number] 02/12/2007 11:11:00 Document Registration [id number] 08/11/2006 09:44:00 Document Registration [id number] 06/06/2015 14:04:36 ACT Document Registration [id number] 07/10/2017 09:55:48 07/10/2017 23:59:59 [facility] Outpatient
[2018-07-19] MEDS ORDERED: LORazepam INJ 2 MG/ML (ATIVAN) VIAL IVP ONE (20:30)
[2018-07-19 20:56] VITALS: BP 147/70
[2018-07-19 21:00] VITALS: BP 149/80
[2018-07-19 21:25] LABS: FREE T4 (FREE THYROXINE) 1.07 NG/DL (0.70-1.48)
[2018-07-19] MEDS ORDERED: ONDANSETRON 4 MG/2 ML (SDV) Z0FRAN IV PRN (21:30)
[2018-07-19] MEDS ORDERED: ACETAMINOPHEN 500 MG TAB (TYLENOL) PO PRN (21:30)
[2018-07-19 22:00] VITALS: BP 103/89
[2018-07-19] MEDS: LORazepam INJ 2 MG/ML (ATIVAN) VIAL IV PRN (23:07)
[2018-07-19 23:36] VITALS: BP 137/81
[2018-07-20] VITALS (20 sets, daily range): BP systolic 116–210; BP diastolic 44–109
[2018-07-20] MEDS: fentaNYL INJECTION 100 MCG/2 ML AMP IV PRN ×11 (00:28→23:33)
[2018-07-20] MEDS: NITROGLYCERIN 2% OINT 1 GM UNIT DOSE PACKET TOP SCH ×4 (02:05→19:49)
[2018-07-20 03:43] LABS: BASOPHILS % (AUTO) 0 % (0-10); EOSINOPHILS # (AUTO) 0.2 10^3/uL (0.0-0.3); EOSINOPHILS % (AUTO) 3 % (0-10); HEMATOCRIT 40 % (40-54); HEMOGLOBIN 13.4 G/DL (13.3-17.7); LYMPHOCYTES # (AUTO) 1.2 X 10^3 (1.0-4.0); LYMPHOCYTES % (AUTO) 16 % (12-44); MEAN CORPUSCULAR HEMOGLOBIN 31 PG (25-34); MEAN CORPUSCULAR HGB CONC 33 G/DL (32-36); MEAN CORPUSCULAR VOLUME 92 FL (80-99); MEAN PLATELET VOLUME 11.7 FL (7.4-10.4); MONOCYTES # (AUTO) 1.1 X 10^3 (0.0-1.0); MONOCYTES % (AUTO) 15 % (0-12); NEUTROPHILS # (AUTO) 4.9 X 10^3 (1.8-7.8); NEUTROPHILS % (AUTO) 66 % (42-75); PLATELET COUNT 201 10^3/uL (130-400); RED BLOOD COUNT 4.38 10^6/uL (4.35-5.85); RED CELL DISTRIBUTION WIDTH 13.6 % (10.0-14.5); WHITE BLOOD COUNT 7.4 10^3/uL (4.3-11.0)
[2018-07-20 04:06] LABS: ALBUMIN 3.7 GM/DL (3.2-4.5); BILIRUBIN,TOTAL 0.6 MG/DL (0.1-1.0); CALCIUM 9.4 MG/DL (8.5-10.1); CREATININE SERUM 1.76 MG/DL (0.60-1.30); POTASSIUM 4.1 MMOL/L (3.6-5.0); TOTAL PROTEIN 6.5 GM/DL (6.4-8.2)
--- NOTE | 2018-07-20 08:31 | Diagnostic Imaging Report ---
INDICATION: Bradycardia, hypertension Portable chest 3:29 AM There are postop changes from CABG surgery. Heart size and pulmonary vascularity are normal. Lungs are clear. There are no effusions or pneumothoraces. IMPRESSION: Postsurgical changes in the chest. There are no acute abnormalities seen. Dictated by: Dictated on workstation # [id number]
--- NOTE | 2018-07-20 08:53 | History & Physicial ---
History of Present Illness History of Present Illness Reason for visit/HPI THE PATIENT IS AN 88 Y/O MALE WHO IS KNOWN TO ME FROM CLINIC. HE PRESENTED TO THE EMERGENCY DEPARTMENT HAVING JUST BEEN TO URGENT CARE AND THEY NOTED A BLOOD PRESSURE IN THE 200/120'S AND HEART RATE IN THE 30'S. HE HAD APPARENTLY BEEN INCREASINGLY CONFUSED OVER THE DAY ON FRIDAY AND WAS THINKING THAT HE WAS BEING POISONED BECAUSE HE WAS DIZZY. Date of Admission Jul 19, 2018 at 20:17 Date Seen by a Provider: Jul 20, 2018 Time Seen by a Provider: 08:50 I consulted on this patient on 07/20/18 08:52 Attending Physician Pelon Hall MD Admitting Physician Pelon Hall MD Consult CARDIOLOGY Allergies and Home Medications Allergies Coded Allergies: Penicillins (Verified Allergy, Unknown, 02/15/12) Home Medications Acetaminophen 500 Mg Tablet, 500 MG PO Q6H PRN for PAIN-MILD OR TEMPATURE, ( Reported) Cetirizine HCl 10 Mg Tablet, 10 MG PO DAILY, (Reported) Clopidogrel Bisulfate 75 Mg Tablet, 75 MG PO DAILY, (Reported) Docusate Sodium 100 Mg Capsule, 100 MG PO BID PRN for CONSTIPATION-1ST LINE, ( Reported) Memantine HCl 10 Mg Tablet, 10 MG PO BID, (Reported) Menthol 118 Ml Gel..ml., TP TID PRN for BACK PAIN, (Reported) Metoprolol Succinate 25 Mg Tab.er.24h, 25 MG PO DAILY, (Reported) Mometasone Furoate 17 Gm Naspr, 1 SPRAY NS BID PRN for ALLERGIES, (Reported) Quetiapine Fumarate 25 Mg Tablet, 25 MG PO HS, (Reported) Quetiapine Fumarate 25 Mg Tablet, 12.5 MG PO DAILY, (Reported) Tamsulosin HCl 0.4 Mg Cap.er.24h, 0.4 MG PO 2000, (Reported) Patient Home Medication List Home Medication List Reviewed: Yes Past Gqpvkzs-Gsmiqb-Ygdvqq Hx Patient Social History Marrital Status: Living Status: LIVES AT [facility] 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) Alcohol Use: Denies Use Recreational Drug Use: No Smoking Status: Never a Smoker Physical Abuse Screen: No Sexual Abuse: No Recent Foreign Travel: No Contact w/other who traveled: No Recent Hopitalizations: No Recent Infectious Disease Expo: No Immunizations Up To Date Tetanus Booster (TDap): Unknown Pediatric: No Date of Pneumonia Vaccine: Jun 01, 2011 Date of Influenza Vaccine: Jun 01, 2018 Seasonal Allergies Seasonal Allergies: No Surgeries Yes (CARDIAC STENTS X 2; CABG AND 1 VALVE REPLACED IN 2009; ENDARTECTOMY; BRACHYTHERAPY; RIGHT KNEE REPLACEMENT ) CABG, Joint Replacement, Orthopedic, Valve Replacement, Vascular Surgery Respiratory No Currently Using CPAP: No Currently Using BIPAP: No Cardiovascular Yes (HEART STENTS X 2; ONE VALVE REPLACED AND CABG IN 2009; RBBB) Coronary Artery Disease, High Cholesterol, Hypertension, Valvular Heart Disease Neurological Yes Dementia Reproductive System Hx Reproductive Disorders: No Genitourinary Yes Prostate Problems, Renal Failure Gastrointestinal Yes Gastroesophageal Reflux Musculoskeletal Yes (ARTHRITIS) Arthritis Endocrine History of Endocrine Disorders: No HEENT History of HEENT Disorders: No Hearing Impairment: Hard of Hearing Cancer Yes Prostate Did You Recieve Any Treatments: Yes (BRACHYTHERAPY) Type of Treatment: Radiation Psychosocial History of Psychiatric Problem: Yes Behavioral Health Disorders: Depression Integumentary History of Skin or Integumenta: No Blood Transfusions History of Blood Disorders: No (TAKES PLAVIX) Reviewed Nursing Assessment Reviewed/Agree w Nursing PMH: Yes Family Medical History Family Hx: Cancer 09 SISTER Family history: Arthritis 03 FATHER 03 MOTHER Family history: Diabetes mellitus 03 MOTHER Family history: Gastrointestinal disease 03 FATHER History of - anemia 03 FATHER No Family History of: Abdominal aortic aneurysm Congestive heart failure Dementia Family history: Alzheimer's disease Family history: Asthma Family history: Breast disease Family history: Cardiovascular disease Family history: Hypertension Family history: Thyroid disorder Hereditary disease History of - respiratory disease Myocardial infarction Parkinson's disease Psychotic disorder Stroke Review of Systems Constitutional: No chills, No fever, No malaise; weakness EENTM: hearing loss; No throat pain Respiratory: No cough, No dyspnea on exertion, No short of breath Cardiovascular: No edema, No palpitations, No syncope Gastrointestinal: No abdominal pain, No constipation, No nausea Genitourinary: no symptoms reported; No incontinence Musculoskeletal: back pain; No muscle weakness Skin: No rash Psychiatric/Neurological: Anxiety, Depressed, Weakness, Other (CONFUSION) All Other Systems Reviewed Negative Unless Noted: Yes Physical Exam Vital Signs Vital Signs - First Documented 07/19/18 07/19/18 17:54 19:01 Temp 98.0 Pulse 33 Resp 18 B/P (MAP) 191/88 (122) Pulse Ox 98 O2 Delivery Room Air O2 Flow Rate 2.00 Capillary Refill : Less Than 3 Seconds Height, Weight, BMI Height: 5'8.00" Weight: 172lbs. 0.0oz. 78.595832dc; 26.0 BMI Method:Estimated General Appearance: No Apparent Distress, WD/WN HEENT: PERRL/EOMI Neck: Supple Respiratory: Chest Non Tender, Lungs Clear, Normal Breath Sounds Cardiovascular: Bradycardia Gastrointestinal: Normal Bowel Sounds, Non Tender, Soft Rectal: Deferred Back: Normal Inspection, No CVA Tenderness, No Vertebral Tenderness Extremity: Normal Capillary Refill, Non Tender, No Calf Tenderness, No Pedal Edema Neurologic/Psychiatric: Alert, Other (GROGGY , OPENS EYES TO VOICE, NONSENSE VERBAGE) Skin: Warm/Dry Assessment/Plan Assessment and Plan SEVERE BRADYCARDIA HYPERTENSION DEMENTIA BIPOLAR MOOD DISORDER BACK PAIN HX OF CORONARY ARTERY DISEASE S/P CABG SEVERE BRADYCARDIA AND HYPERTENSION - AGREE WITH PLAN FOR PATIENT TO HAVE FLUIDS , WAIT FOR METOPROLOL TO WASH OUT OF SYSTEM, IF HIS HEART RATE CONTINUES TO BE LOW, WILL NEED TO THEN CONSIDER A PACEMAKER PLACEMENT. DR. SANTAMARIA TO SEE PT IN CONSULTATION. DEMENTIA - WITH BIPOLAR MOOD DISORDER - HOLD HOME MEDICATION RIGHT NOW PT IS CONFUSED AND WILL LIKELY NEED TO RESTART HOME MEDICATION TOMORROW. BACK PAIN - NO TENDERNESS TO PALPATION - WAIT ON XRAYS HE IS NOT TENDER TO PALPATION ON EXAM. HX OF CAD S/P CABG - SUPPORTIVE CARE Admission Diagnosis SEVERE BRADYCARDIA HYPERTENSION DEMENTIA BIPOLAR MOOD DISORDER BACK PAIN CAD S/P CAG Admission Status: Inpatient Order (span 2 midnights) Reason for Inpatient Admission: ADMISSION FOR MORE THAT TWO MIDNIGHTS WILL BE NEEDED FOR STABILIZATION OF SYMPTOMS AND TREATMENT OF HIS BRADYCARDIA Clinical Quality Measures DVT/VTE Risk/Contraindication: Risk Factor Score Per Nursin RFS Level Per Nursing on Admit: 4+=Very High PELON HALL MD Jul 20, 2018 08:52
[2018-07-20] MEDS ORDERED: METO-387 PO (09:09)
[2018-07-20] MEDS ORDERED: MMT17NA NS (09:09)
[2018-07-20] MEDS ORDERED: CETI10TA17 PO (09:09)
[2018-07-20] MEDS ORDERED: ACET-2267 PO (09:09)
[2018-07-20] MEDS ORDERED: MEMA10TA2 PO (09:09)
[2018-07-20] MEDS ORDERED: MENT118G TP (09:09)
[2018-07-20] MEDS ORDERED: QUET25TA PO ×2 (09:09)
[2018-07-20] MEDS: DICLOFENAC 1% GEL 100 GM (VOLTAREN) TUBE TOP SCH ×4 (10:26→21:00)
--- NOTE | 2018-07-20 11:48 | Consultation-Cardiology ---
HPI-Cardiology Cardiology Consultation: Date of Consultation 07/20/18 Date of Admission Attending Physician Annie Hall MD Admitting Physician Annie Hall MD Consulting Physician Venessa PATTERSON MD HPI: Time Seen by a Provider: 08:00 Chief Complaint: Dizziness This is a 88-year-old gentleman who lives in an elderly facility. The patient was brought to the hospital by his daughter due to significantly elevated blood pressure and bradycardia. Patient has been complaining of dizziness and back pain. There is a vague history of fall which was not witnessed. The patient denied any other cardiac symptoms including chest pain, shortness of breath. History was taken from the daughter since the patient is a poor historian. There is also increased paranoia. Seraqual dose was increased recently. Patient is DNR/DNI. Primary care physician is Dr. Hall. Patient has history of CABG and aortic valve replacement 8 years ago. Review of Systems-Cardiology Review of Systems Constitutional: As described under HPI; No As described under HPI, No no symptoms reported, No chills, No fever; lightheadedness Eyes: No As described under HPI, No no symptoms reported, No blindness, No blurred vision, No contact lenses, No drainage, No decreased acuity, No foreign body sensation, No pain, No vision change Ears/Nose/Throat: No As described under HPI, No no symptoms reported, No chronic hearing loss, No ear discharge, No ear pain, No nasal drainage, No ulcerations Respiratory: No no symptoms reported; As described under HPI; No As described under HPI, No cough, No orthopnea, No shortness of breath, No SOB with excertion Cardiovascular: No no symptoms reported; As described under HPI; No As described under HPI, No chest pain, No edema, No irregular heart rate, No lightheadedness, No palpitations Gastrointestinal: No no symptoms reported, No As described under HPI, No abdomen distended, No abdominal pain, No blood streaked bowels, No constipation , No diarrhea, No nausea, No vomiting, No stool coloration changes Genitourinary: No As described under HPI, No burning, No dysuria, No discharge , No frequency, No flank pain, No hematuria, No urgency Skin: No rash, No skin related problems, No ulcerations Psychiatric/Neurological: No anxiety, No depression, No seizure, No focal weakness, No syncope Hematologic: No bleeding abnormalities [id number] Hx Patient Social History Alcohol Use: Denies Use Recreational Drug Use: No Smoking Status: Never a Smoker Recent Foreign Travel: No Recent Infectious Disease Expo: No Hospitalization with Isolation: Denies Physical Abuse Screen: No Sexual Abuse: No Immunizations Up To Date Tetanus Booster (TDap): Unknown Date of Pneumonia Vaccine: Jun 01, 2011 Date of Influenza Vaccine: Jun 01, 2018 Past Medical History PMH As described under Assessment. Family Medical History Family History: Cancer 09 SISTER Family history: Arthritis 03 FATHER 03 MOTHER Family history: Diabetes mellitus 03 MOTHER Family history: Gastrointestinal disease 03 FATHER History of - anemia 03 FATHER No Family History of: Abdominal aortic aneurysm Congestive heart failure Dementia Family history: Alzheimer's disease Family history: Asthma Family history: Breast disease Family history: Cardiovascular disease Family history: Hypertension Family history: Thyroid disorder Hereditary disease History of - respiratory disease Myocardial infarction Parkinson's disease Psychotic disorder Stroke Allergies and Home Medications Allergies Coded Allergies: Penicillins (Verified Allergy, Unknown, 02/15/12) Home Medications Acetaminophen 500 Mg Tablet, 500 MG PO Q6H PRN for PAIN-MILD OR TEMPATURE, ( Reported) Cetirizine HCl 10 Mg Tablet, 10 MG PO DAILY, (Reported) Clopidogrel Bisulfate 75 Mg Tablet, 75 MG PO DAILY, (Reported) Docusate Sodium 100 Mg Capsule, 100 MG PO BID PRN for CONSTIPATION-1ST LINE, ( Reported) Memantine HCl 10 Mg Tablet, 10 MG PO BID, (Reported) Menthol 118 Ml Gel..ml., TP TID PRN for BACK PAIN, (Reported) Metoprolol Succinate 25 Mg Tab.er.24h, 25 MG PO DAILY, (Reported) Mometasone Furoate 17 Gm Naspr, 1 SPRAY NS BID PRN for ALLERGIES, (Reported) Quetiapine Fumarate 25 Mg Tablet, 25 MG PO HS, (Reported) Quetiapine Fumarate 25 Mg Tablet, 12.5 MG PO DAILY, (Reported) Tamsulosin HCl 0.4 Mg Cap.er.24h, 0.4 MG PO 1999, (Reported) Patient Home Medication List Home Medication List Reviewed: Yes Physical Exam-Cardiology Physical Exam Vital Signs/I&O 07/20/18 07/20/18 07/20/18 07/20/18 07:00 07:00 07:00 08:00 Pulse 33 32 31 Resp 11 9 B/P (MAP) 151/65 (93) 131/60 (83) Pulse Ox 98 99 95 O2 Delivery Nasal Cannula Nasal Cannula Nasal Cannula O2 Flow Rate 2.00 2.00 2.00 07/20/18 07/20/18 07/20/18 07/20/18 09:00 10:00 11:00 12:00 Pulse 32 30 32 Resp 11 10 11 B/P (MAP) 157/44 (81) 146/81 (102) 162/70 (100) Pulse Ox 97 97 98 98 O2 Delivery Nasal Cannula Nasal Cannula Nasal Cannula Nasal Cannula O2 Flow Rate 2.00 2.00 2.00 2.00 07/20/18 07/20/18 07/20/18 07/20/18 12:00 12:54 13:00 13:00 Pulse 30 37 37 37 Resp 17 18 18 B/P (MAP) 143/89 (107) 143/89 129/49 (75) Pulse Ox 99 99 99 O2 Delivery Nasal Cannula Nasal Cannula Nasal Cannula O2 Flow Rate 2.00 2.00 07/20/18 07/20/18 07/20/18 14:00 15:00 15:03 Pulse 43 35 Resp 12 B/P (MAP) 165/73 (103) 173/60 (97) Pulse Ox 98 99 98 O2 Delivery Nasal Cannula Nasal Cannula Nasal Cannula O2 Flow Rate 2.00 2.00 2.00 07/20/18 00:00 Intake Total 50 ml Output Total 200 ml Balance -150 ml Capillary Refill : Less Than 3 Seconds Constitutional: appears stated age; No apparent distress; well-developed, well- nourished HEENT: PERRL; No discharge; hearing is well preserved, oral hygience is good; No ulceration, No xanthelasmas are seen Neck: No non-tender, No full range of motion, No supple, No normal inspection, No carotid bruit, No limited range of motion, No lymphadenopathy (R), No lymphadenopathy (L), No tender lateral, No tender midline, No thyromegaly, No other; carotid pulses are 2 + bilaterally; No with good upstrokes Respiratory: chest is bilaterally symmetric, lungs clear to auscultation Cardiovascular: No regular rate-rhythm; irregularly irregular; No extra beats, No parasternal heave is noted, No JVD, No edema, No bradycardia, No tachycardia , No point of maximal impulse, No cardiac thrills are palpable; S1 and S2; No gallop/S3, No gallop/S4, No diastolic murmur; systolic murmur; No friction rub, No click, No other Gastrointestinal: No tender, No soft, No round, No distended, No pulsatile mass , No organomegaly, No guarding, No rebound, No tenderness, No hernia, No mass, No audible bowel sounds, No abnormal bowel sounds, No abdominal bruits, No spleenomegaly, No other Rectal: deferred Extremities: No normal range of motion, No non-tender, No normal inspection, No pedal edema, No calf tenderness, No normal capillary refill, No pelvis stable , No calf tenderness, No inflammation, No pedal edema, No slow capillary refill , No swelling, No other, No abrasion, No clubbing, No cyanosis, No ecchymosis, No laceration, No no lower extremity edema bilateral, No significant edema, No tenderness, No wound Neurologic/Psychiatric: disoriented x 3, power is 5/5 both on sides Skin: No normal color, No warm/dry, No cyanosis, No cool, No diaphoresis, No damp, No ecchymosis, No jaundice, No mottled, No pallor, No rash, No tattoos/ piercings, No ulcerations, No rash on exposed areas, No ulcerations on exposed areas, No other Data Review Labs Laboratory Tests 07/19/18 18:55: White Blood Count 9.3, Red Blood Count 4.84, Hemoglobin 15.0, Hematocrit 45, Mean Corpuscular Volume 92, Mean Corpuscular Hemoglobin 31, Mean Corpuscular Hemoglobin Concent 34, Red Cell Distribution Width 14.0, Platelet Count 229, Mean Platelet Volume 11.3H, Neutrophils (%) (Auto) 64, Lymphocytes (%) (Auto) 22 , Monocytes (%) (Auto) 12, Eosinophils (%) (Auto) 2, Basophils (%) (Auto) 0, Neutrophils # (Auto) 6.0, Lymphocytes # (Auto) 2.0, Monocytes # (Auto) 1.1H, Eosinophils # (Auto) 0.2, Basophils # (Auto) 0.0, Prothrombin Time 13.9, INR Comment 1.1, Activated Partial Thromboplast Time 28, Sodium Level 140, Potassium Level 3.7, Chloride Level 106, Carbon Dioxide Level 19L, Anion Gap 15H , Blood Urea Nitrogen 28H, Creatinine 1.83H, Estimat Glomerular Filtration Rate 35, BUN/Creatinine Ratio 15, Glucose Level 125H, Calcium Level 10.2H, Corrected Calcium 9.9, Magnesium Level 2.6H, Total Bilirubin 0.6, Aspartate Amino Transf ( AST/SGOT) 20, Alanine Aminotransferase (ALT/SGPT) 13, Alkaline Phosphatase 85, Troponin I < 0.30, Total Protein 8.3H, Albumin 4.4, Free Thyroxine 1.07, TSH [place] Testing 5.82H 07/20/18 03:00: White Blood Count 7.4, Red Blood Count 4.38, Hemoglobin 13.4, Hematocrit 40, Mean Corpuscular Volume 92, Mean Corpuscular Hemoglobin 31, Mean Corpuscular Hemoglobin Concent 33, Red Cell Distribution Width 13.6, Platelet Count 201, Mean Platelet Volume 11.7H, Neutrophils (%) (Auto) 66, Lymphocytes (%) (Auto) 16 , Monocytes (%) (Auto) 15H, Eosinophils (%) (Auto) 3, Basophils (%) (Auto) 0, Neutrophils # (Auto) 4.9, Lymphocytes # (Auto) 1.2, Monocytes # (Auto) 1.1H, Eosinophils # (Auto) 0.2, Basophils # (Auto) 0.0, Sodium Level 140, Potassium Level 4.1, Chloride Level 109H, Carbon Dioxide Level 20L, Anion Gap 11, Blood Urea Nitrogen 29H, Creatinine 1.76H, Estimat Glomerular Filtration Rate 37, BUN/ Creatinine Ratio 16, Glucose Level 105, Calcium Level 9.4, Corrected Calcium 9.6 , Total Bilirubin 0.6, Aspartate Amino Transf (AST/SGOT) 17, Alanine Aminotransferase (ALT/SGPT) 11, Alkaline Phosphatase 65, Total Protein 6.5, Albumin 3.7 ECG Impression ECG Initial ECG Impression: 3rd Degree AV Block A/P-Cardiology Assessment/Admission Diagnosis Severe sinus node dysfunction, 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 Significant distal conduction disease noted on 12-lead EKG. I discussed at length with the daughter and asked about the wishes of the patient since the patient is DO NOT RESUSCITATE/DO NOT INTUBATE. We talked at length and the patient daughter would like us to proceed with permanent pacemaker implantation. She understands all the risks and complications and provides informed consent. I was later urgently called by the RN since the heart rate was again 18 BPM and not responsive to atropine. Dopamine was started and transcutaneous pacemaker patches were placed. Urgent permanent pacemaker is recommended. The patient was on metoprolol and the last dose of metoprolol was 30 hours ago but the patient is not showing any improvement in AV function. Therefore it is unlikely that the patient's AV conduction will improve. Recent fall. Unclear etiology could be secondary to significant dizziness due to complete heart block. CAD, CABG, patient was on Plavix, beta lavon. Aortic valve replacement, patient is on Plavix. Chronic kidney disease, creatinine 1.83. Critically ill patient with guarded prognosis. Over 30 minutes were spent taking care of the patient. Thank you for your consultation. Please call me if you have any questions. Chicho Patterson MD, FACP, FACC, FSCAI, FHRS, CCDS Interventional Cardiology Cardiac Electrophysiology Vascular Medicine and Endovascular Interventions Clinical Quality Measures DVT/VTE Risk/Contraindication: Risk Factor Score Per Nursin RFS Level Per Nursing on Admit: 4+=Very High Venessa PATTERSON MD Jul 20, 2018 11:48 am
[2018-07-20] MEDS ORDERED: ATROPINE INJ 0.4 MG/ML SDV ONE ×2 (12:15→12:30)
[2018-07-20] MEDS ORDERED: DOPamine DRIP 250 ML IV ONE (12:46)
[2018-07-20] MEDS ORDERED: VANCOMYCIN INJECTION 1,000 MG in NS (IVPB) 250 ML IV NR (14:54)
[2018-07-20] MEDS ORDERED: MIDAZOLAM 2 MG/2 ML (VERSED) VIAL ONE (16:12)
[2018-07-20] MEDS ORDERED: KETAMINE HCL 100 MG/ML 5 ML VIAL ONE (16:14)
[2018-07-20] MEDS ORDERED: MIDAZOLAM 5 MG/5 ML (VERSED) VIAL ONE (16:26)
[2018-07-20] MEDS ORDERED: NS IV 1000 ML 1,000 ML ONE ×2 (16:27→17:56)
[2018-07-20] MEDS ORDERED: LIDOCAINE 1% INJ 20 ML 20 ML VIAL ONE (16:38)
[2018-07-20] MEDS ORDERED: HEParin (CATH LAB) 1,000 ML IV ONE (16:38)
[2018-07-20] MEDS ORDERED: proPOfol 200 MG/20 ML (DIPRIVAN) VIAL IV ONE (16:56)
[2018-07-20] MEDS ORDERED: BACITRACIN INJECTION 50,000 UNIT, SODIUM CHLORIDE 0.9% IRRIGATIO 500 ML IR ONE ×2 (17:15)
[2018-07-20] MEDS ORDERED: BACITRACIN 50000 UNITS/500 ML NS IR ONE ×2 (17:15)
[2018-07-20] MEDS ORDERED: NEO/POLY/BAC (NEOSPORIN) OINT 15 GM TUBE ONE (18:19)
--- NOTE | 2018-07-20 18:26 | Progress Note-Standard ---
Standard Progress Note Progress Notes/Assess & Plan Date Seen by a Provider: Jul 20, 2018 Time Seen by a Provider: 16:30 Progress/Assessment & Plan relieved annamarie salgado for rescue sedation for a pacemaker implant. asa 4.. start time 1630 end time 1820. 300mg ketamine and 150mg propofol given iv. tolerated procedure well.. MARIN LUGO CRNA Jul 20, 2018 18:26
[2018-07-20] MEDS ORDERED: NS IV 1000 ML 1,000 ML IV SCH (18:38)
--- NOTE | 2018-07-20 18:38 | Permanent Pacemaker Implant ---
Dual Chamber Pacemaker Implant PROCEDURE PHYSICIAN: Chicho Patterson MD DUAL CHAMBER PACEMAKER IMPLANTATION: DATE OF PROCEDURE: 07/20/18 REFERRING PHYSICIAN: Dr. Hall ATTENDING PHYSICIAN: Dr. Patterson INDICATION: Severe sinus node dysfunction, third-degree AV block, asystole. PREOPERATIVE DIAGNOSIS: Severe sinus node dysfunction, third-degree AV block, asystole. POSTOPERATIVE DIAGNOSIS: Successful dual-chamber permanent pacemaker implantation. HISTORY: This is a 88-year-old gentleman with history of dementia, CABG, aortic valve replacement. He presented with significant bradycardia with heart rate in the 20s. EKG showed severe sinus node dysfunction, complete AV block with ventricular escape rhythm. Discussed at length with the daughter about patient' s wishes. An informed consent was taken from the daughter. The patient also had 2 episodes of asystole. He was urgently brought down to the EP lab. Dual- chamber permanent pacemaker was recommended. PROCEDURE PERFORMED: 1. Dual-chamber permanent pacemaker implantation. 2. Fluoroscopy. 3. Central venous access. 4. Temporary pacemaker placement. ANESTHESIA: Provided by anesthesia colleagues. COMPLICATIONS: None. ESTIMATED BLOOD LOSS:20 mL. SPECIMENS: None. ORAL ANTICOAGULATION: Patient was on Plavix. FLUOROSCOPY TIME: 10.9 minutes. FLUOROSCOPY DOSE: 104 mgy. CONTRAST DOSE: zero. PROCEDURE DETAILS: The patient is a 88 male and after all of the daughters questions were answered, the patient was brought to the EP Lab. Since the patient had complete AV block with slow ventricular escape rhythm and asystole, he was brought down to the EP lab with transcutaneous pacing. Lidocaine was given to the right groin and access was gained in the right femoral vein with a 5 Maori sheath. A temporary pacemaker was advanced under fluoroscopy and carefully placed in the apex of the RV. Capture threshold was confirmed. External pacing was discontinued. The patient's left chest was prepped and draped in sterile fashion. A 2 inch horizontal incision was made 1 cm below the clavicle and dissection carried down to the pectoralis fascia. Using the modified Seldinger technique and under fluoroscopy guidance, the anterior aspect of the left axillary vein was accessed 2 times. The J wires were secured to the drapes with a mosquito clamp. A 7-Maori sheath was introduced over one of the J-wires. The RV lead was then inserted. The RV lead was directed across the tricuspid valve to the apical septal portion of the right ventricle. The position was checked in JEET and NG views. The screw was deployed and the lead connected to the engineering and scientific programmer. Close sensing and pacing thresholds were obtained. Diaphragmatic pacing was ruled out. The lead was secured with 2-0 silk ties to the underlying muscle and fascia. Next, a 7-Maori sheath was introduced through the remaining J-wire. An atrial lead was then introduced and guided to the level of the right appendage. The screw was deployed and the lead was connected to the interrogator. Good sensing and pacing thresholds were obtained. Diaphragmatic pacing was ruled out. The leads were secured with 2-0 silk ties to the underlying muscle and fascia. The leads were connected to the device in a hermetic fashion. The device and leads were placed in the pocket. Aggressive irrigation with saline solution was done. The device was secured to the underlying muscle and fascia with a 2-0 silk tie. interrogation of the device revealed good integrity of all the leads and good connections. At this point the trans-venous pacemaker was taken out of the body. The wound was then closed using 2 layers. The first layer was interrupted 2-0 absorbable Vicryl suture. The last layer was a single subcuticular layer with 4- 0 Vicryl suture. Half inch Steri-Strips and a small dressing were then applied to the wound. The patient tolerated the procedure well and was returned to the recovery room in stable condition with stable vital signs. DEVICE INFORMATION: Edora 8 DR-T Biotronik, reference number 017768, serial number [id number], PID 43. RA LEAD: Solia S 53 Biotronik, reference number 428427, serial number [id number]. RV LEAD: Solia S 60 Biotronik, reference number 777705, serial number [id number]. PER-OPERATIVE DEVICE INTERROGATION: P-wave 3.0 mV. R-wave 14 mV paced. RA impedance 580 ohms. threshold 1.9 V at 0.4 ms. RV impedance 620 ohms. Threshold 0.5 V at 0.4 ms. IMMEDIATE POSTOPERATIVE DEVICE INTERROGATION: P-wave 2.2 mV. Impedance 487 ohms. Threshold 0.7 V at 0.4 ms. RV sensing not done since RV rate was below 30 BPM. Impedance 546 ohms. Threshold 0.7 V at 0.4 ms. Device [place] at DDDR [id number]. PAV 180 ms. VAZQUEZ 150 ms. PLAN: The patient transferred to the ICU. We will continue with two more doses of IV antibiotics. We will check a chest x-ray and interrogate the device in the morning. The patient will continue on oral antibiotics for 5 days. Chicho Patterson MD, RS, CCDS Cardiac Electrophysiology Venessa PATTERSON MD Jul 20, 2018 6:38 pm
[2018-07-20] MEDS ORDERED: PATIENT MAY USE OWN MEDS, ALL PO SCH (18:45)
[2018-07-20] MEDS: hydrALAZINE (APESOLINE) 20 MG/ML VIAL IV PRN (19:49)
--- NOTE | 2018-07-20 21:26 | Diagnostic Imaging Report ---
INDICATION: Post pacemaker placement, rule out pneumothorax. EXAMINATION: Chest, 07/20/18. COMPARISON: 07/20/2018 at 3:29 a.m. FINDINGS: Heart is unchanged. Pulmonary vasculature is slightly more congested than on prior. Left-sided pacemaker is noted. It is unremarkable in appearance. Sternotomy wires and clips noted. No pneumothorax. Lungs demonstrate mildly coarsened interstitial changes bilaterally with likely developing infiltrate left lung base. IMPRESSION: 1. Mild edema status post pacemaker placement. No pneumothorax appreciated. Dictated by: Dictated on workstation # [id number]
[2018-07-20] MEDS: amLODIPine 5 MG (NORVASC) TAB PO SCH (22:30)
[2018-07-20] MEDS ORDERED: amLODIPine 10 MG (NORVASC) TAB ONE (22:31)
[2018-07-21] VITALS (11 sets, daily range): BP systolic 91–166; BP diastolic 53–78
[2018-07-21] MEDS: fentaNYL INJECTION 100 MCG/2 ML AMP IV PRN ×7 (01:22→06:40)
[2018-07-21] MEDS: LORazepam INJ 2 MG/ML (ATIVAN) VIAL IV PRN (02:26)
[2018-07-21] MEDS ORDERED: VANCOMYCIN INJECTION 1,000 MG in NS (IVPB) 250 ML IV SCH (03:00)
[2018-07-21 03:43] LABS: HEMOGLOBIN 13.2 G/DL (13.3-17.7); MEAN PLATELET VOLUME 11.6 FL (7.4-10.4); RED BLOOD COUNT 4.36 10^6/uL (4.35-5.85)
[2018-07-21] MEDS: NITROGLYCERIN 2% OINT 1 GM UNIT DOSE PACKET TOP SCH ×2 (03:53→11:27)
[2018-07-21 04:04] LABS: ALBUMIN 3.8 GM/DL (3.2-4.5); CALCIUM 9.2 MG/DL (8.5-10.1); CREATININE SERUM 1.55 MG/DL (0.60-1.30); POTASSIUM 3.7 MMOL/L (3.6-5.0); TOTAL PROTEIN 6.9 GM/DL (6.4-8.2)
[2018-07-21 06:31] LABS: MAGNESIUM 2.4 MG/DL (1.8-2.4); PHOSPHORUS 2.8 MG/DL (2.3-4.7)
[2018-07-21] MEDS ORDERED: AMLO10TA6 PO (08:31)
[2018-07-21] MEDS ORDERED: DICL100G18 TOP (08:31)
--- NOTE | 2018-07-21 08:34 | D/C HH Face to Face Order ---
D/C Face to Face Orders Instructions for Patient Patient Instructions/FollowUp: 1WK WITH [facility] Physician to follow Patient: TINO Discharge Diet for Home: Regular Diet Patient Problems: SICK SINUS SYNDROME HYPERTENSIVE URGENCY DEMENTIA Patient Data-Allergies,Ht & Wt Patient Allergies: Coded Allergies: Penicillins (Verified Allergy, Unknown, 02/15/12) Height (Feet): 5 Height (Inches): 8.00 Weight (Pounds): 173 Weight (Ounces): 0.0 Home Health Need/Face to Face Date of Face to Face: Jul 21, 2018 Clinical Findings: Muscle weakness I have seen Pt [id number]: Yes Discharged To: Other ([facility]SISTED LIVING AT [facility]) Diagnosis/Conditions: SICK SINUS SYNDROME HYPERTENSIVE URGENCY DEMENTIA PACEMAKER PLACED ON 07/20/18 Patient is Homebound due to: CognItive deficits, Muscle weakness Homebound Status Due to the above stated illness, injury or surgical procedure (medical condition or diagnosis) and associated clinical findings, the patient is homebound because of his/her inability to leave home except with aid of a supportive device and/or person AND leaving the home requires a considerable and taxing effort or is medically contraindicated. Pt req the following assistanc: Cane Home Health Nursing Orders Home Health Services Order: Nursing Services, Physical Therapy-Evaluate & Treat STRENGTHENING WITH PT NURSING TO EVAL PACEMAKER SITE Home Health Infusion Therapy Line Type: Saline Lock Site Location: Wrist Therapy Orders Therapy Specific Orders: Teach strategies/cognitive deficits, Increase strength /endurance Certify Stmt I certify that this patient is under my care and that I, a nurse practitioner or a physician; a laboratory assistant working with me, had a face to face encounter that - meets the physician face to face encounter requirements with this patient as dated. PELON JIMÉNEZ MD Jul 21, 2018 08:34
--- NOTE | 2018-07-21 08:35 | Discharge Summary ---
Diagnosis/Chief Complaint Date of Admission Jul 19, 2018 at 20:17 Date of Discharge Discharge Date: Jul 21, 2018 Discharge Time: 1030 Reason Hospital Visit THE PATIENT IS AN 88 Y/O MALE WHO IS KNOWN TO ME FROM CLINIC. HE PRESENTED TO THE EMERGENCY DEPARTMENT HAVING JUST BEEN TO URGENT CARE AND THEY NOTED A BLOOD PRESSURE IN THE 200/120'S AND HEART RATE IN THE 30'S. HE HAD APPARENTLY BEEN INCREASINGLY CONFUSED OVER THE DAY ON FRIDAY AND WAS THINKING THAT HE WAS BEING POISONED BECAUSE HE WAS DIZZY. Discharge Summary Discharge Physical Examination Allergies: Coded Allergies: Penicillins (Verified Allergy, Unknown, 02/15/12) Vitals & I&Os Vital Signs Date Time Temp Pulse Resp B/P (MAP) Pulse Ox O2 Delivery O2 Flow Rate FiO2 07/21/18 06:00 77 11 138/58 (84) Nasal Cannula 2.00 07/21/18 04:00 100.1 07/21/18 04:00 98 Hospital Course Pending Labs Laboratory Tests 07/21/18 03:15: White Blood Count 10.0, Red Blood Count 4.36, Hemoglobin 13.2, Hematocrit 41, Mean Corpuscular Volume 93, Mean Corpuscular Hemoglobin 30, Mean Corpuscular Hemoglobin Concent 33, Red Cell Distribution Width 14.0, Platelet Count 200, Mean Platelet Volume 11.6, Sodium Level 142, Potassium Level 3.7, Chloride Level 111, Carbon Dioxide Level 19, Anion Gap 12, Blood Urea Nitrogen 25, Creatinine 1.55, Estimat Glomerular Filtration Rate 43, BUN/Creatinine Ratio 16 , Glucose Level 107, Calcium Level 9.2, Corrected Calcium 9.4, Phosphorus Level 2.8, Magnesium Level 2.4, Total Bilirubin 1.0, Aspartate Amino Transf (AST/SGOT ) 23, Alanine Aminotransferase (ALT/SGPT) 11, Alkaline Phosphatase 71, Total Protein 6.9, Albumin 3.8 Discharge Instructions to patient/family Please see electronic discharge instructions given to patient. Discharge Medications Reviewed and agree with Discharge Medication list on patient's Discharge Instruction sheet Clinical Quality Measures DVT/VTE Risk/Contraindication: Risk Factor Score Per Nursin RFS Level Per Nursing on Admit: 4+=Very High PELON JIMÉNEZ MD Jul 21, 2018 08:35
[2018-07-21] MEDS: DICLOFENAC 1% GEL 100 GM (VOLTAREN) TUBE TOP SCH (09:00)
[2018-07-21] MEDS ORDERED: CLIN300C11 PO (09:07)
--- NOTE | 2018-07-21 10:01 | Cardiology Progress Note ---
Cardiology SOAP Progress Note Subjective: No further bradycardic episodes. Objective: I&O/Vital Signs 07/21/18 07/21/18 07/21/18 07/21/18 02:00 03:00 04:00 04:00 Temp 100.1 Pulse 75 79 Resp 20 18 B/P (MAP) 158/78 (104) 141/66 (91) Pulse Ox 97 97 98 O2 Delivery Nasal Cannula Nasal Cannula Nasal Cannula O2 Flow Rate 2.00 2.00 2.00 07/21/18 07/21/18 07/21/18 07/21/18 04:00 05:00 06:00 07:00 Pulse 80 71 77 71 Resp 10 23 11 16 B/P (MAP) 133/78 (96) 128/65 (86) 138/58 (84) 118/58 (78) Pulse Ox 96 O2 Delivery Nasal Cannula Nasal Cannula Nasal Cannula Nasal Cannula O2 Flow Rate 2.00 2.00 2.00 2.00 07/21/18 07/21/18 07/21/18 07/21/18 07:00 08:00 08:00 09:00 Pulse 78 82 73 Resp 17 11 B/P (MAP) 124/53 (76) 117/61 (79) Pulse Ox 95 96 95 O2 Delivery Room Air Nasal Cannula Nasal Cannula O2 Flow Rate 2.00 2.00 2.00 07/21/18 10:00 Pulse 70 Resp 9 B/P (MAP) 91/58 (69) O2 Delivery Nasal Cannula O2 Flow Rate 2.00 07/21/18 00:00 Intake Total 50 ml Output Total 1 ml Balance 49 ml Weight (Pounds): 173 Weight (Ounces): 0.0 Weight (Calculated Kilograms): 78.816231 Constitutional: appears stated age; No apparent distress; well-developed, well- nourished Respiratory: chest is bilaterally symmetric, lungs clear to auscultation Cardiovascular: No regular rate-rhythm; irregularly irregular; No extra beats, No parasternal heave is noted, No JVD, No edema, No bradycardia, No tachycardia , No point of maximal impulse, No cardiac thrills are palpable; S1 and S2; No gallop/S3, No gallop/S4, No diastolic murmur; systolic murmur; No friction rub, No click, No other Gastrointestional: No tender, No soft, No round, No distended, No pulsatile mass, No organomegaly, No guarding, No rebound, No tenderness, No hernia, No mass, No audible bowel sounds, No abnormal bowel sounds, No abdominal bruits, No spleenomegaly, No other Extremities: No normal range of motion, No non-tender, No normal inspection, No pedal edema, No calf tenderness, No normal capillary refill, No pelvis stable , No calf tenderness, No inflammation, No pedal edema, No slow capillary refill , No swelling, No other, No abrasion, No clubbing, No cyanosis, No ecchymosis, No laceration, No no lower extremity edema bilateral, No significant edema, No tenderness, No wound Neurologic/Psychiatric: disoriented x 3, power is 5/5 both on sides Skin: No normal color, No warm/dry, No cyanosis, No cool, No diaphoresis, No damp, No ecchymosis, No jaundice, No mottled, No pallor, No rash, No tattoos/ piercings, No ulcerations, No rash on exposed areas, No ulcerations on exposed areas, No other Results/Procedures: Labs Laboratory Tests 07/21/18 03:15: White Blood Count 10.0, Red Blood Count 4.36, Hemoglobin 13.2L, Hematocrit 41, Mean Corpuscular Volume 93, Mean Corpuscular Hemoglobin 30, Mean Corpuscular Hemoglobin Concent 33, Red Cell Distribution Width 14.0, Platelet Count 200, Mean Platelet Volume 11.6H, Sodium Level 142, Potassium Level 3.7, Chloride Level 111H, Carbon Dioxide Level 19L, Anion Gap 12, Blood Urea Nitrogen 25H, Creatinine 1.55H, Estimat Glomerular Filtration Rate 43, BUN/Creatinine Ratio 16 , Glucose Level 107H, Calcium Level 9.2, Corrected Calcium 9.4, Phosphorus Level 2.8, Magnesium Level 2.4, Total Bilirubin 1.0, Aspartate Amino Transf (AST /SGOT) 23, Alanine Aminotransferase (ALT/SGPT) 11, Alkaline Phosphatase 71, Total Protein 6.9, Albumin 3.8 A/P: Assessment/Dx: Severe sinus node dysfunction, 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 Significant distal conduction disease noted on 12-lead EKG. I discussed at length with the daughter and asked about the wishes of the patient since the patient is DO NOT RESUSCITATE/DO NOT INTUBATE. We talked at length and the patient daughter would like us to proceed with permanent pacemaker implantation. She understands all the risks and complications and provides informed consent. I was later urgently called by the RN since the heart rate was again 18 BPM and not responsive to atropine. Dopamine was started and transcutaneous pacemaker patches were placed. Urgent permanent pacemaker is recommended. The patient was on metoprolol and the last dose of metoprolol was 30 hours ago but the patient is not showing any improvement in AV function. Therefore it is unlikely that the patient's AV conduction will improve. Dual-chamber permanent pacemaker placed on 07/20/2018 post chest x-ray did not reveal any complication. Telemetry shows paced rhythm. Device interrogation this morning revealed normal sensing and capture. Recent fall. Unclear etiology could be secondary to significant dizziness due to complete heart block. CAD, CABG, patient was on Plavix, beta lavon. Aortic valve replacement, patient is on Plavix. Chronic kidney disease, creatinine 1.83. Patient can be discharged to follow-up for wound check in one week. Thank you for your consultation. Please call me if you have any questions. Chicho Patterson MD, FACP, FACC, FSCAI, FHRS, CCDS Interventional Cardiology Cardiac Electrophysiology Vascular Medicine and Endovascular Interventions Venessa PATTERSON MD Jul 21, 2018 10:01
[2018-07-21] MEDS: amLODIPine 5 MG (NORVASC) TAB PO SCH (11:10)
[2018-07-22] MEDS ORDERED: MAGNESIUM 1 GM/100 ML IVPB 100 ML IV SCH (06:00)
[2018-07-22] MEDS ORDERED: KCL 20 MEQ TAB (K-DUR) PO SCH (06:00)
[2018-07-22] MEDS ORDERED: POTASSIUM CL 10MEQ/50ML IVPB 50 ML IV SCH (06:00)
== END 2018-07-21 11:10 | disposition home health service (06) | DRG 242 ==
LOC: EDUNIT# 17:54 → ER 17:56 → ICU 20:17
PROVIDERS: ADMIT Internal Medicine; ATTEND Family Medicine
PROC: 0JH606Z Insertion of Pacemaker, Dual Chamber into Chest Subcutaneous Tissue and Fascia, Open Approach (ICD-10-PCS; principal; 2018-07-20)
PROC: 02H63JZ Insertion of Pacemaker Lead into Right Atrium, Percutaneous Approach (ICD-10-PCS; 2018-07-20)
PROC: 02HK3JZ Insertion of Pacemaker Lead into Right Ventricle, Percutaneous Approach (ICD-10-PCS; 2018-07-20)
DX: I49.5 Sick sinus syndrome (principal); I46.2 Cardiac arrest due to underlying cardiac condition; I44.2 Atrioventricular block, complete; I38 Endocarditis, valve unspecified; I25.10 Atherosclerotic heart disease of native coronary artery without angina pectoris; Z66 Do not resuscitate; F03.90 Unspecified dementia, unspecified severity, without behavioral disturbance, psychotic disturbance, mood disturbance, and anxiety; E78.00 Pure hypercholesterolemia, unspecified; I12.9 Hypertensive chronic kidney disease with stage 1 through stage 4 chronic kidney disease, or unspecified chronic kidney disease; N18.9 Chronic kidney disease, unspecified; K21.9 Gastro-esophageal reflux disease without esophagitis; M54.9 Dorsalgia, unspecified; F31.9 Bipolar disorder, unspecified; Z95.2 Presence of prosthetic heart valve; Z91.81 History of falling; Z96.651 Presence of right artificial knee joint; Z95.5 Presence of coronary angioplasty implant and graft; Z92.3 Personal history of irradiation; Z85.46 Personal history of malignant neoplasm of prostate
CPT/HCPCS: 33208; 33210; 36415; 71045; 80053; 82962; 83735; 83880; 84100; 84439; 84443; 84484; 85025; 85027; 85610; 85730; 87081; 93005; 93041; 96374; 96375

== ENCOUNTER → 2018-08-21 | Outpatient (CLI) | payer MEDICARE ==
[~2018-08-21] MED LIST changes: +ACET-2267 PO; +CETI10TA17 PO; +CLIN300C11 PO; +DICL100G18 TOP; -EPINEPHrine 0.1 MG/ML 10 ML (HOSPIRA) SYR IJ ONE; +MEMA10TA2 PO; +MENT118G TP; +MMT17NA NS
== END ==
LOC: CARD 10:26
PROVIDERS: ATTEND Internal Medicine Interventional Cardiology
DX: I44.30 Unspecified atrioventricular block (principal)
CPT/HCPCS: 93306

== ENCOUNTER → 2018-08-27 | Outpatient (CLI) | payer MEDICARE ==
--- NOTE | 2018-08-27 11:27 | Diagnostic Imaging Report ---
INDICATION: Low-back pain. Time of exam 11:21 a.m. FINDINGS: Curvature and alignment is normal. There is some anterior wedging involving the L4 vertebral body, age indeterminate. This could be acute. There appears to be some lucency involving the inferior endplate of L4. Remaining lumbar vertebra show normal stature. No retropulsion is seen. There is multilevel degenerative disc disease with variable disc space narrowing and marginal spurring. Calcification in the right upper quadrant of the abdomen is indeterminate but could represent a renal calculus or gallstone. IMPRESSION: Lumbar spondylosis. There is anterior wedging of the L4 vertebral body with findings suspicious for fracture of the inferior endplate. CT and bone scan would be useful to evaluate acuity since patient can't obtain an MRI due to cardiac pacemaker. Dictated by: Dictated on workstation # [id number]
== END ==
LOC: RAD 10:25
PROVIDERS: ATTEND Family Medicine
DX: M47.816 Spondylosis without myelopathy or radiculopathy, lumbar region (principal); Z95.0 Presence of cardiac pacemaker
CPT/HCPCS: 72100

== ENCOUNTER 2019-07-12 10:23 | Emergency (ER) | payer MEDICARE ==
[~2019-07-12] VITALS: Ht 167 cm; Wt 75.0 kg
[~2019-07-12 10:23] MED LIST changes: -AMLO10TA6 PO; +AMLO10TA7 PO
[2019-07-12] MEDS ORDERED: fentaNYL INJECTION 100 MCG/2 ML AMP IVP STA ×2 (10:33→14:24)
[2019-07-12 10:51] LABS: BASOPHILS % (AUTO) 0 % (0-10); EOSINOPHILS # (AUTO) 0.2 10^3/uL (0.0-0.3); EOSINOPHILS % (AUTO) 2 % (0-10); HEMATOCRIT 42 % (40-54); HEMOGLOBIN 13.2 G/DL (13.3-17.7); LYMPHOCYTES # (AUTO) 1.4 X 10^3 (1.0-4.0); LYMPHOCYTES % (AUTO) 11 % (12-44); MEAN CORPUSCULAR HEMOGLOBIN 30 PG (25-34); MEAN CORPUSCULAR HGB CONC 32 G/DL (32-36); MEAN CORPUSCULAR VOLUME 94 FL (80-99); MEAN PLATELET VOLUME 9.9 FL (7.4-10.4); MONOCYTES # (AUTO) 1.4 X 10^3 (0.0-1.0); MONOCYTES % (AUTO) 11 % (0-12); NEUTROPHILS # (AUTO) 9.1 X 10^3 (1.8-7.8); NEUTROPHILS % (AUTO) 75 % (42-75); PLATELET COUNT 309 10^3/uL (130-400); RED CELL DISTRIBUTION WIDTH 13.9 % (10.0-14.5); WHITE BLOOD COUNT 12.1 10^3/uL (4.3-11.0)
[2019-07-12 11:14] LABS: BILIRUBIN,TOTAL 0.5 MG/DL (0.1-1.0); CALCIUM 9.8 MG/DL (8.5-10.1); CREATININE SERUM 1.94 MG/DL (0.60-1.30); MAGNESIUM 2.2 MG/DL (1.6-2.4); POTASSIUM 3.8 MMOL/L (3.6-5.0); TOTAL PROTEIN 7.9 GM/DL (6.4-8.2)
--- NOTE | 2019-07-12 11:30 | NUR ---
pillows placed under pt knees for comfort at this time.
[2019-07-12 11:44] LABS: PROTHROMBIN TIME PATIENT 13.8 SEC (12.2-14.7)
--- NOTE | 2019-07-12 11:47 | Diagnostic Imaging Report ---
CLINICAL INDICATION: Patient fell in C-collar. Patient fell from a chair on the left side and complains of neck stiffness and mid low back pain that radiates from midline to the left side. EXAM: Head CT without IV contrast. Axial CT scan of the cervical spine with sagittal and coronal reformations. Auto Exposure Controls were utilized during the CT exam to meet ALARA standards for radiation dose reduction. COMPARISON: Head CT without contrast dated 07/03/2017. CT scan of the head and cervical spine dated 12/02/2016. FINDINGS: Head CT: There is no evidence of acute cerebral infarct, intracranial hemorrhage, or gross mass effect. Again seen diffuse brain parenchymal volume loss with the frontal lobes and temporal lobes affected the most. There is normal crawford-white matter distinction. There is no significant midline shift or herniation. There is no evidence of hydrocephalus. There is prominence of the ventricles which is suspected to be due to brain parenchymal volume loss. The basal cisterns are unremarkable. The skull, extracranial soft tissue, and orbits are unremarkable. There is mild mucosal thickening involving right maxillary sinus. Temporal bones show no significant abnormality. Cervical spine: There is no acute cervical spine fracture or dislocation. There is cervical spine degenerative disease with vertebral body spurs and facet arthropathy which is not significantly changed in the interim. There is severe bony neural foramen narrowing at the C6-C7 level and [id number] bony neural foramen narrowing involving the right C3 through C6 levels. There is at least moderate left C3-C4 bony neural foramen narrowing. There is no significant bony central canal narrowing. Endovascular stent seen within the cervical left ICA proximally with surgical clips adjacent to the region. Visualized upper lung anaya are clear. Neck soft tissue structures are unremarkable. IMPRESSION: 1: There is no evidence of acute intracranial process or intracranial hemorrhage. There is no skull fracture. 2: Multilevel cervical spine degenerative disease with no acute fracture or dislocation. Dictated by: Dictated on workstation # [id number]
--- NOTE | 2019-07-12 11:56 | Diagnostic Imaging Report ---
INDICATION: Pain, fall. COMPARISON: July 20, 2018. TECHNIQUE: Single frontal radiograph of the chest dated July 12, 2019. FINDINGS: Pacer device is present with the battery pack overlying the left chest. Postsurgical changes of a CABG with associated prosthetic cardiac valve again noted. There are surgical clips within the left neck. The cardiac silhouette is within normal limits in size. No significant pulmonary vascular congestion. Background chronic interstitial lung changes are again noted without new focal pulmonary opacity. No significant pleural effusion. No pneumothorax. No acute osseous abnormality. IMPRESSION: No acute cardiopulmonary abnormality. Background chronic interstitial lung changes with additional postsurgical and chronic findings as above. Dictated by: Dictated on workstation # [id number]
[2019-07-12] MEDS ORDERED: hydrALAZINE (APESOLINE) 20 MG/ML VIAL IV ONE ×2 (12:00→14:00)
--- NOTE | 2019-07-12 12:22 | Diagnostic Imaging Report ---
PROCEDURE: CT thoracic and lumbar spine without contrast. TECHNIQUE: Multiple contiguous axial images were obtained through the thoracic and lumbar spine without the use of intravenous contrast. Sagittal and coronal reformations were then performed. INDICATION: Mid and low back pain. Correlation is made with plain films of the lumbar spine from 08/27/2018. FINDINGS: There is normal thoracic kyphotic curvature and lumbar lordotic curvature. Thoracic vertebral body heights are well maintained. No acute thoracic compression fracture is seen. There is further loss of stature involving the L4 vertebral body when compared with prior study from 08/27/2018. Features are consistent with a chronic L4 compression fracture. No retropulsion is seen. Remaining lumbar vertebrae show normal stature. There is generalized thoracic and lumbar degenerative disc disease with variable disc space narrowing and marginal spurring. The paraspinous tissues are unremarkable. Subpleural nodular density in the superior segment of right lower lobe is noted measuring 8 to 9 mm. Follow-up CT chest to confirm stability is recommended. IMPRESSION: 1. Chronic L4 compression fracture. No acute thoracic or lumbar compression fracture is detected. 2. Right lower lobe subpleural pulmonary nodular density. Follow-up CT chest in three to six months could be performed to confirm stability. Dictated by: Dictated on workstation # [id number]
--- NOTE | 2019-07-12 12:29 | Diagnostic Imaging Report ---
INDICATION: Fall. COMPARISON: None. FINDINGS: Three radiographic views of the left elbow were obtained. There is moderate posterior soft tissue swelling. Lateral view suboptimally demonstrates the anterior and posterior fat pads. There is suggestion of focal cortical irregularity involving the inferomedial margins of the radial head. There also appears to be irregular transversely oriented lucency extending to the base of the radial head. Findings are suspicious for a nondisplaced fracture. There is no evidence of intra-articular extension. No other acute osseous abnormalities are seen. No unexpected radiopaque foreign bodies are identified. IMPRESSION: 1. Findings suspicious for acute nondisplaced radial head fracture. Follow-up is advised to assess for appropriate interval healing. Dictated by: Dictated on workstation # [id number]
--- NOTE | 2019-07-12 12:34 | Diagnostic Imaging Report ---
INDICATION: Fall. COMPARISON: Elbow exam from the same day. TECHNIQUE: Frontal and lateral views of the left humerus were obtained. FINDINGS: There is no evidence of acute fracture or dislocation of the left humerus. The joint spaces are maintained. The included portions of the proximal radius fail to show a potential suspicious fracture on dedicated elbow radiographs. No unexpected radiopaque foreign bodies are identified. The included portions of the left lung are clear. IMPRESSION: No evidence of acute fracture or dislocation of the left humerus. Dictated by: Dictated on workstation # [id number]
--- NOTE | 2019-07-12 12:39 | Diagnostic Imaging Report ---
CLINICAL DETAILS: Patient presents to the Emergency Room from [facility] via EMS for fall from chair on the left side. Patient complains of neck stiffness. EXAM: X-ray of the left shoulder, 3 views including scapular Y-view. COMPARISON: X-ray of the left humerus dated 07/12/2019. FINDINGS: There is no acute fracture or dislocation. There is chronic calcification seen adjacent to the left acromioclavicular joint region. There are small spurs involving the left proximal humeral head/neck junction region. There are surgical clips overlying the left side of the neck. A cardiac pacemaker is seen overlying the left chest with leads projecting over the heart. Sternotomy wires and surgical clips are seen in the mediastinal region. IMPRESSION: Degenerative disease of the left shoulder with no acute fracture or dislocation. Dictated by: Dictated on workstation # [id number]
--- NOTE | 2019-07-12 12:43 | Diagnostic Imaging Report ---
INDICATION: Fall. Pain. COMPARISON: None. FINDINGS: Frontal radiographic view of the pelvis and two dedicated radiographic views of the left hip were obtained. There is focal cortical irregularity involving the superior margins of the subcapital portion of the femoral neck. There is minimal widening of the fracture site. There is otherwise no significant displacement of the fracture fragments. Femoroacetabular joint space is maintained. 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 Bony pelvis appears to be intact as well. No unexpected radiopaque foreign bodies are seen. IMPRESSION: 1. Acute fracture of the proximal left femur as described above. Dictated by: Dictated on workstation # [id number]
[2019-07-12] MEDS ORDERED: LORazepam INJ 2 MG/ML (ATIVAN) VIAL IVP ONE ×2 (12:45→14:30)
[2019-07-12] MEDS ORDERED: TETANUS,DIPTH,PERTUSS P/F (BOOSTRIX) 0.5 ML VIAL IM ONE (12:45)
--- NOTE | 2019-07-12 13:00 | NUR ---
pt soiled bedding and clothes removed and pt placed in gown, no redness noted to pt buttock. warm blankets applied to pt at this time.
[2019-07-12 13:12] LABS: BILIRUBIN,URINE NEGATIVE (NEGATIVE); CLARITY,URINE CLEAR; COLOR,URINE YELLOW; GLUCOSE, URINE (UA) NEGATIVE (NEGATIVE); KETONES,URINE NEGATIVE (NEGATIVE); LEUKOCYTE ESTERASE ,URINE NEGATIVE (NEGATIVE); NITRITE,URINE NEGATIVE (NEGATIVE); PH,URINE 6.5 (5-9); PROTEIN,URINE NEGATIVE (NEGATIVE)
[2019-07-12 13:33] LABS: BACTERIA,URINE NEGATIVE /HPF
--- NOTE | 2019-07-12 13:53 | NUR ---
[facility] called regarding transfer of pt to [facility] ed at this time. Reports will call ED back regarding acceptance of transfer or not.
--- NOTE | 2019-07-12 14:07 | ED Fall/Injury ---
General Chief Complaint: Trauma-Non Activation Stated Complaint: FALL Nursing Triage Note: PT PRESENTS TO ED FROM [facility] VIA EMS FOR FALL FROM CHAIR ONTO L SIDE. PT COMPLAINS OF NECK STIFFNESS, AND MID TO LOW BACK PAIN THAT RADIATES FROM MIDLINE TO L SIDE. PT DENIES LOC. Source: EMS, halfway records, caregiver ([facility] STAFF HERE WITH PT AND ABLE TO PROVIDE HISTORY OF EVENT) Exam Limitations: clinical condition (PT WITH SEVERE DEMENTIA) History of Present Illness Date Seen by Provider: Jul 12, 2019 Time Seen by Provider: 10:30 Initial Comments PT ARRIVES VIA EMS FROM [facility], IN CERVICAL COLLAR, WITH DUST BOX TENDER. PER DUST BOX TENDER: PT HAD UNWITNESSED FALL TODAY--[facility] STAFF WERE IN ADJACENT ROOM AND HEARD PT FALL. NO LOSS OF CONSCIOUSNESS PT IS WHEELCHAIR BOUND, BUT HAS BEEN ABLE TO TRANSFER HIMSELF FROM HIS LIFT CHAIR TO WHEELCHAIR, AND PT FELL HE WAS TRANSFERRING HIMSELF. [facility] STAFF REPORT THAT HIS LIFT CHAIR WAS DOWN, AND NOT IN THE LIFTED POSITION WHEN HE FELL PT LANDED ON HIS LEFT SIDE. PT HAS SIGNIFICANT DEMENTIA AND IS UNABLE TO GIVE ANY DETAILS OF THE INCIDENT. PT IS AT HIS NORMAL BASELINE PER [facility] STAFF PT C/O PAIN TO LEFT HIP C/O PAIN TO LEFT ELBOW AREA AND LEFT SHOULDER C/O LOWER BACK PAIN UNABLE TO OBTAIN ANY OTHER INFORMATION FROM PT. DUST BOX TENDER REPORTS THAT PT HAS NOT HAD ANY OF HIS MEDICATIONS TODAY PT IS DNR/DNI Location Injury Occurred: [facility] PCP: DR. JIMÉNEZ Allergies and Home Medications Allergies Coded Allergies: Penicillins (Verified Allergy, Unknown, 02/15/12) Home Medications Acetaminophen 500 Mg Tablet, 500 MG PO Q6H PRN for PAIN-MILD OR TEMPATURE, (Reported) Amlodipine Besylate 10 Mg Tablet, 10 MG PO DAILY HOLD IF SBP IS LESS THAN 120 Prescribed by: PELON JIMÉNEZ on 07/21/18 0831 Cetirizine HCl 10 Mg Tablet, 10 MG PO DAILY, (Reported) Clindamycin HCl 300 Mg Capsule, 300 MG PO TID Prescribed by: VANCE CERVANTES on 07/21/18 0907 Clopidogrel Bisulfate 75 Mg Tablet, 75 MG PO DAILY, (Reported) Diclofenac Sodium 100 Gm Gel..gram., 0 GM TOP QID APPLY TO LOW BACK AND SACROILIAC JOINTS FOUR TIMES A DAY X 2 WEEKS THEN CHANGE TO prn IF PT'S BACK PAIN IS RESOLVED Prescribed by: PELON JIMÉNEZ on 07/21/18 0831 Docusate Sodium 100 Mg Capsule, 100 MG PO BID PRN for CONSTIPATION-1ST LINE, (Reported) Memantine HCl 10 Mg Tablet, 10 MG PO BID, (Reported) Menthol 118 Ml Gel..ml., TP TID PRN for BACK PAIN, (Reported) Mometasone Furoate 17 Gm Naspr, 1 SPRAY NS BID PRN for ALLERGIES, (Reported) Quetiapine Fumarate 25 Mg Tablet, 25 MG PO HS, (Reported) Quetiapine Fumarate 25 Mg Tablet, 12.5 MG PO DAILY, (Reported) Tamsulosin HCl 0.4 Mg Cap.er.24h, 0.4 MG PO 1999, (Reported) Patient Home Medication List Home Medication List Reviewed: Yes Review of Systems Review of Systems Constitutional: no symptoms reported Respiratory: No short of breath Cardiovascular: No chest pain Gastrointestinal: No abdominal pain, No vomiting Musculoskeletal: see HPI, back pain Skin: other (ABRASION LEFT ELBOW) Psychiatric/Neurological: See HPI, Pre-Existing Deficit (DEMENTIA) Past Uglctmi-Qenkir-Yeutve Hx Past Med/Social Hx: Reviewed and Corrections made Patient Social History Alcohol Use: Denies Use Recreational Drug Use: No Smoking Status: Never a Smoker Recent Foreign Travel: No Contact w/Someone Who Travel: No Recent Infectious Disease Expo: No Recent Hopitalizations: No Physical Abuse: No Sexual Abuse: No Mistreated: No Fear: No Immunizations Up To Date Tetanus Booster (TDap): Unknown PED Vaccines UTD: No Date of Pneumonia Vaccine: Jun 01, 2011 Date of Influenza Vaccine: Jun 01, 2018 Seasonal Allergies Seasonal Allergies: No Past Medical History Surgeries: Yes (PACEMAKER; STENT IN LEFT ICA AND LEFT ENDARTERECTOMY; 4 VESSEL CABG AND TAVR 2009; CARDIAC CATHS WITH STENTS X 2; RIGHT KNEE REPLACEMENT; BRACHYTHERAPY OF PROSTATE) Cardiac, CABG, Joint Replacement, Orthopedic, Pacemaker, Valve Replacement, Vascular Surgery Respiratory: No Currently Using CPAP: No Currently Using BIPAP: No Cardiac: Yes (4 VESSEL CABG AND TAVR 2009; CARDIAC CATHS WITH STENTS X 2; PACEMAKER FOR BRADYCARDIA; RBBB; LEFT CAROTID ENDARTERECTOMY AND STENT) Coronary Artery Disease, High Cholesterol, Hypertension, Irregular Heartbeat, Valvular Heart Disease Neurological: Yes Dementia Reproductive Disorders: No Genitourinary: Yes (PROSTATE CANCER--S/P BRACHYTHERAPY/RADIATION SEED IMPLANTS) Prostate Problems, Renal Failure Gastrointestinal: Yes Gastroesophageal Reflux Musculoskeletal: Yes (RIGHT KNEE REPLACEMENT; L4 COMPRESSION FRACTURE; ) Arthritis, Chronic Back Pain, Fractures Endocrine: No HEENT: No Hearing Impairment: Hard of Hearing Cancer: Yes Prostate Did You Recieve Any Treatments: Yes (BRACHYTHERAPY/RADIATION SEED IMPLANTS) What Type of Treatment Did You: Radiation Psychosocial: Yes (DEMENTIA WITH MOOD DISORDER) Bipolar, Depression Integumentary: No Blood Disorders: No (TAKES PLAVIX) Family Medical History Cancer 09 SISTER Family history: Arthritis 03 FATHER 03 MOTHER Family history: Diabetes mellitus 03 MOTHER Family history: Gastrointestinal disease 03 FATHER History of - anemia 03 FATHER No Family History of: Abdominal aortic aneurysm Congestive heart failure Dementia Family history: Alzheimer's disease Family history: Asthma Family history: Breast disease Family history: Cardiovascular disease Family history: Hypertension Family history: Thyroid disorder Hereditary disease History of - respiratory disease Myocardial infarction Parkinson's disease Psychotic disorder Stroke Physical Exam Vital Signs Vital Signs - First Documented 07/12/19 07/12/19 10:27 16:43 Temp 36.9 Pulse 88 Resp 18 B/P (MAP) 215/111 (145) Pulse Ox 98 O2 Delivery Nasal Cannula O2 Flow Rate 2.00 Capillary Refill : Less Than 3 Seconds Height, Weight, BMI Height: 5'8.00" Weight: 173lbs. 0.0oz. [id number]; 26.00 BMI Method:Estimated General Appearance: WD/WN, no apparent distress HEENT: PERRL/EOMI, normal ENT inspection (VERY DRY ORAL MUCOSA) Neck: non-tender Cardiovascular: regular rate, rhythm, no murmur Respiratory: normal breath sounds, no respiratory distress, no accessory muscle use Peripheral Pulses: 3+ Dorsalis Pedis (R), 3+ Left Dors-Pedis (L), 3+ Radial Pulses (R), 3+ Radial Pulses (L) Gastrointestinal: non tender, soft Back: other (DIFFUSE LOWER BACK TENDERNESS) Extremities: other (LEFT SHOULDER, LEFT HUMERUS AND LEFT ELBOW TENDERNESS WITH ABRASION OVER LEFT ELBOW. NO DEFORMITY, FREELY MOVING LEFT ARM. MOTOR/SENSORY/VASCULAR INTACT. LEFT HIP TENDERNESS. NO DEFORMITY. NO SHORTENING OR ROTATION. 2+ EDEMA BILATERALLY. DISTAL MOTOR/SENSORY/VASCULAR INTACT. ) Neurologic/Psychiatric: no motor/sensory deficits (GROSSLY INTACT. ), alert, other (PT ORIENTED TO SELF AND DAUGHTER, DISORIENTED TO PLACE, TIME, SITUATION. SPEECH IS NON-SENSICAL AND UNABLE TO MAKE ANY FORMED OR INTELLIGIBLE SENTENCES --PT'S NORMAL BASELINE. ABLE TO ANSWER VERY SIMPLE YES/NO QUESTIONS, ABLE TO FOLLOW VERY SIMPLE COMMANDS) Skin: warm/dry Progress/Results/Core Measures Results/Orders Lab Results Laboratory Tests Test 07/12/19 10:40 07/12/19 13:04 Range/Units White Blood Count 12.1 H 4.3-11.0 10^3/uL Red Blood Count 4.43 4.35-5.85 10^6/uL Hemoglobin 13.2 L 13.3-17.7 G/DL Hematocrit 42 40-54 % Mean Corpuscular Volume 94 80-99 FL Mean Corpuscular Hemoglobin 30 25-34 PG Mean Corpuscular Hemoglobin Concent 32 32-36 G/DL Red Cell Distribution Width 13.9 10.0-14.5 % Platelet Count 309 130-400 10^3/uL Mean Platelet Volume 9.9 7.4-10.4 FL Neutrophils (%) (Auto) 75 42-75 % Lymphocytes (%) (Auto) 11 L 12-44 % Monocytes (%) (Auto) 11 0-12 % Eosinophils (%) (Auto) 2 0-10 % Basophils (%) (Auto) 0 0-10 % Neutrophils # (Auto) 9.1 H 1.8-7.8 X 10^3 Lymphocytes # (Auto) 1.4 1.0-4.0 X 10^3 Monocytes # (Auto) 1.4 H 0.0-1.0 X 10^3 Eosinophils # (Auto) 0.2 0.0-0.3 10^3/uL Basophils # (Auto) 0.0 0.0-0.1 10^3/uL Prothrombin Time 13.8 12.2-14.7 SEC INR Comment 1.0 0.8-1.4 Activated Partial Thromboplast Time 27 24-35 SEC Sodium Level 143 135-145 MMOL/L Potassium Level 3.8 3.6-5.0 MMOL/L Chloride Level 106 98-107 MMOL/L Carbon Dioxide Level 23 21-32 MMOL/L Anion Gap 14 5-14 MMOL/L Blood Urea Nitrogen 21 H 7-18 MG/DL Creatinine 1.94 H 0.60-1.30 MG/DL Estimat Glomerular Filtration Rate 33 BUN/Creatinine Ratio 11 Glucose Level 157 H 70-105 MG/DL Calcium Level 9.8 8.5-10.1 MG/DL Corrected Calcium 9.8 8.5-10.1 MG/DL Magnesium Level 2.2 1.6-2.4 MG/DL Total Bilirubin 0.5 0.1-1.0 MG/DL Aspartate Amino Transf (AST/SGOT) 17 5-34 U/L Alanine Aminotransferase (ALT/SGPT) 13 0-55 U/L Alkaline Phosphatase 93 40-136 U/L Total Protein 7.9 6.4-8.2 GM/DL Albumin 4.0 3.2-4.5 GM/DL Urine Color YELLOW Urine Clarity CLEAR Urine pH 6.5 5-9 Urine Specific Jackson 1.015 L 1.016-1.022 Urine Protein NEGATIVE NEGATIVE Urine Glucose (UA) NEGATIVE NEGATIVE Urine Ketones NEGATIVE NEGATIVE Urine Nitrite NEGATIVE NEGATIVE Urine Bilirubin NEGATIVE NEGATIVE Urine Urobilinogen 0.2 < = 1.0 MG/DL Urine Leukocyte Esterase NEGATIVE NEGATIVE Urine RBC (Auto) NEGATIVE NEGATIVE Urine RBC NONE /HPF Urine WBC NONE /HPF Urine Squamous Epithelial Cells NONE /HPF Urine Crystals NONE /LPF Urine Bacteria NEGATIVE /HPF Urine Casts NONE /LPF Urine Mucus NEGATIVE /LPF Urine Culture Indicated NO My Orders Orders - ENEDINA CARTER DO Ed Iv/Invasive Line Start (07/12/19 10:33) Monitor-Rhythm Ecg Trace Only (07/12/19 10:33) Ct Head/Cervical Spine Wo (07/12/19 10:33) Ct Thoracic/Lumbar Spine Wo (07/12/19 10:33) Chest 1 View, Ap/Pa Only (07/12/19 10:33) Pelvis With Left Hip 2-3 Views (07/12/19 10:33) Cbc With Automated Diff (07/12/19 10:33) Comprehensive Metabolic Panel (07/12/19 10:33) Magnesium (07/12/19 10:33) Protime With Inr (07/12/19 10:33) Partial Thromboplastin Time (07/12/19 10:33) Ua Culture If Indicated (07/12/19 10:33) Fentanyl Injection (Sublimaze Injection (07/12/19 10:33) Shoulder, Left, 3 Views (07/12/19 10:45) Humerus, Left, 2 Views (07/12/19 10:45) Elbow, Left, 3 Views (07/12/19 10:45) Hydralazine Injection (Apresoline Inject (07/12/19 12:00) Lorazepam Injection (Ativan Injection) (07/12/19 12:45) Dipht,Pertuss(Acell),Tet Adult (Boostrix (07/12/19 12:45) Catheter(Urinary) Insert & Ass 03,15 (07/12/19 12:50) Ed Ortho Supplies Order (07/12/19 13:10) Hydralazine Injection (Apresoline Inject (07/12/19 14:00) Fentanyl Injection (Sublimaze Injection (07/12/19 14:24) Lorazepam Injection (Ativan Injection) (07/12/19 14:30) Fentanyl Injection (Sublimaze Injection (07/12/19 16:00) Acetaminophen Suppository (Tylenol Suppo (07/12/19 16:30) Medications Given in ED Current Medications Medications Dose Ordered Sig/Tamera Route Start Time Stop Time Status Last Admin Dose Admin Acetaminophen 1,300 mg ONCE ONCE NC 07/12/19 16:30 07/12/19 16:31 DC 07/12/19 16:29 1,300 MG Diphtheria/ Tetanus/Acell Pertussis 0.5 ml ONCE ONCE IM 07/12/19 12:45 07/12/19 12:46 DC 07/12/19 12:48 0.5 ML Hydralazine HCl 10 mg ONCE ONCE IV 07/12/19 12:00 07/12/19 12:01 DC 07/12/19 12:07 10 MG Hydralazine HCl 10 mg ONCE ONCE IV 07/12/19 14:00 07/12/19 14:01 DC 07/12/19 14:05 10 MG Lorazepam 1 mg ONCE ONCE IVP 07/12/19 12:45 07/12/19 12:46 DC 07/12/19 12:46 1 MG Lorazepam 1 mg ONCE ONCE IVP 07/12/19 14:30 07/12/19 14:31 DC 07/12/19 14:34 1 MG Vital Signs/I&O 07/12/19 07/12/19 07/12/19 10:27 10:48 16:43 Temp 36.9 36.9 38.1 36.9 Pulse 88 88 97 Resp 18 18 16 B/P (MAP) 215/111 (145) 215/111 (145) 167/84 Pulse Ox 98 98 97 O2 Delivery Nasal Cannula O2 Flow Rate 2.00 Blood Pressure Mean: 145 POS Progress Progress Note : Progress Note GIVEN HYDRALAZINE FOR BP GIVEN ATIVAN FOR INCREASING AGITATION GIVEN FENTANYL FOR PAIN MARKED DELAY IN TRANSFER DUE TO TRANSPORTATION ISSUES--MULTIPLE AMBULANCES IN PROCESS OF TRANSFERRING MULTIPLE PATIENTS, THIS FACILITY IS ON FULL DIVERSION. Diagnostic Imaging Comments CT HEAD/CERVICAL SPINE--NO ACUTE PROCESS, SEVERE DDD OF CERVICAL SPINE CT THORACIC/LUMBAR SPINE--NO ACUTE PROCESS, CHRONIC L4 COMPRESSION, SEVERE DDD OF SPINE, 8-9 MM LLL NODULE CXR--NO ACUTE PROCESS ALL PER RADIOLOGIST REPORTS AT 1225 XRAYS PELVIS AND LEFT HIP--SUPCAPITAL / PROXIMAL LEFT FEMORAL FRACTURE LEFT SHOULDER--NO FX OR DISLOCATION LEFT HUMERUS--NO FX OR DISLOCATION LEFT ELBOW--PROXIMAL RADIUS FRACTURE/RADIAL HEAD FRACTURE ALL PER RADIOLOGIST REPORTS AT 1246 Reviewed: Reviewed by Me Departure Communication (Admissions) THIS FACILITY IS ON FULL DIVERSION 1250--SPOKE WITH DAUGHTER, DIONNA. ADVISED HER THAT THERE WERE NO BEDS AVAILABLE HERE. SHE IS AGREEABLE TO PT BEING TRANSFERRED TO [facility]. 1254--CALLED [facility] 1257--SPOKE WITH DR. GUDINO, ER PHYSICIAN, ACCEPTS PT FOR TRANSFER 1425--CALLED DR. JIMÉNEZ'S OFFICE, MESSAGE TO STAFF TO INFORM DR. JIMÉNEZ OF PT'S CONDITION/DX AND THAT HE WILL HAVE TO BE TRANSFERRED. Impression Primary Impression: S/P FALL OUT OF CHAIR Additional Impressions: Closed left hip fracture Closed fracture of head of left radius Uncontrolled hypertension Low back pain Dementia PLAVIX THERAPY Disposition: 02 XFER SHT-TRM HOSP Condition: Improved Transfer Transfer Reason: Diversion Transfer Facility: [facility] Method of Transfer: EMS Departure-Patient Inst. Referrals: PELON JIMÉNEZ MD (PCP/Family) Primary Care Physician ENEDINA CARTER DO Jul 12, 2019 14:07 POS
--- NOTE | 2019-07-12 14:46 | NUR ---
[facility] ems called again. no answer at this time. pt resting in room with health care worker riya and pt daughter at bedside.
--- NOTE | 2019-07-12 14:52 | NUR ---
[facility] contacted at this time for pt transfer to [facility] in [place].
--- NOTE | 2019-07-12 14:52 | NUR ---
[facility] ems called ed back at this time and declined transfer.
--- NOTE | 2019-07-12 15:00 | NUR ---
warm blankets applied to pt for comfort.
[2019-07-12] MEDS ORDERED: fentaNYL INJECTION 100 MCG/2 ML AMP IVP ONE (16:00)
--- NOTE | 2019-07-12 16:00 | NUR ---
pt temp rechecked at this time- 100.6 axillary.
--- NOTE | 2019-07-12 16:24 | NUR ---
[facility] here for pt at this time.
[2019-07-12] MEDS ORDERED: ACETAMINOPHEN 650 MG SUPP (TYLENOL) PR ONE (16:30)
[2019-07-12 16:43] VITALS: BP 167/84
== END 2019-07-12 16:42 | disposition short-term general hospital (02) ==
LOC: EDUNIT# 10:23 → ER 10:24
DX: S72.002A Fracture of unspecified part of neck of left femur, initial encounter for closed fracture (principal); S52.122A Displaced fracture of head of left radius, initial encounter for closed fracture; I10 Essential (primary) hypertension; M54.5 Low back pain; F03.90 Unspecified dementia, unspecified severity, without behavioral disturbance, psychotic disturbance, mood disturbance, and anxiety; I25.10 Atherosclerotic heart disease of native coronary artery without angina pectoris; E78.00 Pure hypercholesterolemia, unspecified; F31.9 Bipolar disorder, unspecified; K21.9 Gastro-esophageal reflux disease without esophagitis; Z85.46 Personal history of malignant neoplasm of prostate; Z79.02 Long term (current) use of antithrombotics/antiplatelets; Z88.0 Allergy status to penicillin; Z79.51 Long term (current) use of inhaled steroids; Z95.0 Presence of cardiac pacemaker; Z95.5 Presence of coronary angioplasty implant and graft; Z96.651 Presence of right artificial knee joint; W07.XXXA Fall from chair, initial encounter; Y92.129 Unspecified place in nursing home as the place of occurrence of the external cause
CPT/HCPCS: 36415; 51702; 70450; 71045; 72125; 72128; 72131; 73030; 73060; 73080; 80053; 81000; 83735; 85025; 85610; 85730; 90715; 93041